=== PATIENT | female | born 1930 | race Caucasian/White ===

== ENCOUNTER 2018-06-18 13:05 | Outpatient (CLI) | payer MEDICARE ==
[~2018-06-18] VITALS: Ht 167.6 cm; Wt 62.7 kg
[2018-06-18 13:39] VITALS: BP 144/81
[2018-06-18] MEDS ORDERED: AMIO200T4 PO (16:17)
[2018-06-18] MEDS ORDERED: ANAS1TAB7 PO (16:17)
[2018-06-18] MEDS ORDERED: CLIN150C17 PO (16:17)
[2018-06-18] MEDS ORDERED: METO-387 PO (16:17)
[2018-06-18] MEDS ORDERED: CALC-904 PO (16:17)
[2018-06-18] MEDS ORDERED: ASCO500C17 PO (16:17)
[2018-06-18] MEDS ORDERED: ACET325C3 PO (16:17)
[2018-06-18] MEDS ORDERED: CNC1KV IM (16:17)
[2018-06-18] MEDS ORDERED: MELA3TAB PO (16:17)
[2018-06-18] MEDS ORDERED: MULT-351 PO (16:17)
[2018-06-18] MEDS ORDERED: WARF2TAB PO ×2 (16:17)
[2018-06-18] MEDS ORDERED: MAGN400T6 PO (16:17)
[2018-06-18] MEDS ORDERED: AMIN887L23 PO (16:17)
== END 2018-06-18 16:18 | disposition home or self-care (01) ==
LOC: PREOP 13:05
PROVIDERS: ATTEND Podiatrist Foot & Ankle Surgery
DX: Z01.818 Encounter for other preprocedural examination (principal)
CPT/HCPCS: 87081

== ENCOUNTER 2018-06-21 06:00 | Day surgery (SDC) | payer MEDICARE ==
[~2018-06-21] VITALS: Ht 167.6 cm; Wt 62.7 kg
[~2018-06-21 06:00] MED LIST: ACET325C3 PO; AMIN887L23 PO; AMIO200T4 PO; ANAS1TAB7 PO; ASCO500C17 PO; CALC-904 PO; CLIN150C17 PO; CNC1KV IM; MAGN400T6 PO; MELA3TAB PO; METO-387 PO; MULT-351 PO; WARF2TAB PO
--- OUTSIDE RECORDS SUMMARY | 2018-06-21 06:09 | XMS REPORT | Referral Summary ---
Author Author [facility] Organization [facility] Address Unknown Phone Unavailable Care Team Providers Care Lead Nitrate Processor Name Role Phone Christo Lea PCP Encounter [facility] [id number] Date(s): 07/23/14 - 08/06/14 [facility] [address] [place] [address] Final: HERNIA OF OTHER SPECIFIED SITES, WITH OBSTRUCTION Final: Methicillin susceptible pneumonia due to Staphylococcus aureus Final: MECHANICAL COMPLICATION OF COLOSTOMY AND ENTEROSTOMY Final: ULCERATIVE COLITIS, UNSPECIFIED Final: Acute Kidney Failure, Unspecified Final: ACUTE POSTHEMORRHAGIC ANEMIA Final: UNSPECIFIED PROTEIN-CALORIE MALNUTRITION Final: ATRIAL FIBRILLATION Final: Diabetes mellitus without mention of complication, type II or unspecified type, not stated as uncontrolled Final: OTHER AND UNSPECIFIED HYPERLIPIDEMIA Final: Long-Term (Current) Use of Anticoagulants Final: HYPOPOTASSEMIA Final: DISORDERS OF MAGNESIUM METABOLISM Final: Other dysphagia Discharge Disposition: [facility]-[address] Bed Attending Physician: Chio Lanza MD Admitting Physician: Chio Lanza MD Vital Signs Most recent to 1 oldest [Reference Range]: Temperature Oral 36.8 degC [35.8-37.3 degC] (08/06/14 4:13 PM) Temperature Tympanic 36.5 degC [36.6-38.1 degC] *LOW* (07/30/14 4:00 PM) Temperature Skin 36.6 degC [36-37 degC] (07/24/14 10:15 PM) Temperature Temporal 36.6 degC Artery [36.3-37.8 (08/06/14 5:00 AM) degC] Peripheral Pulse 67 bpm Rate [60-100 bpm] (08/06/14 4:13 PM) Peripheral Pulse 70 bpm Rate with Activity (08/03/14 2:50 PM) Heart Rate Monitored 65 bpm [60-100 bpm] (08/05/14 4:10 PM) Respiratory Rate 18 br/min [14-20 br/min] (08/06/14 3:00 PM) Blood Pressure 112/65 mmHg [90-140/60-90 mmHg] (08/06/14 4:13 PM) Systolic Blood 145 mmHg Pressure with (08/03/14 2:50 PM) Activity Diastolic Blood 80 mmHg Pressure with (08/03/14 2:50 PM) Activity Mean Arterial 90 mmHg Pressure, Cuff (08/04/14 8:00 PM) Blood Pressure 82/43 mmHg Invasive *LOW* [90-140/60-90 mmHg] (07/24/14 11:00 PM) Mean Arterial 57 mmHg Pressure, Invasive (07/24/14 11:15 PM) SpO2 95 % (08/06/14 3:00 PM) Problem List Condition Effective Dates Status Health Status Informant Acute Active pain(Confirmed) Alteration in Active nutrition(Confirmed) 1 At risk for activity Active intolerance(Confirme d)2 At risk of pressure Active sore(Confirmed) Afib(Confirmed) Active Bleeding Active precautions(Confirme d)3 Colitis, ulcerative Active chronic(Confirmed) Fluid Active imbalance(Confirmed) 4 Hyperlipidemia(Confi Active rmed) Impaired gas Active exchange(Confirmed)5 Knowledge Active deficit(Confirmed)6 DM2 (diabetes Active mellitus, type 2)(Confirmed) 1Problem added automatically by system based on initiation of Alteration in Nutrition Plan of Care 2Problem added automatically by system based on initiation of At Risk for Activity Intolerance Plan of Care 3Problem added automatically by system based on initiation of Bleeding Precautions Plan of Care 4Problem added automatically by system based on initiation of Fluid Volume Imbalance Plan of Care 5Problem added automatically by system based on initiation of Impaired Gas Exchange Plan of Care 6Problem added automatically by system based on initiation of Knowledge Deficit Plan of Care Allergies, Adverse Reactions, Alerts Substance Reaction Severity Status amoxicillin Active Medications glimepiride 2 mg, Oral, Daily, 0 Refill(s) Start Date: 07/23/14 Status: Ordered guaiFENesin 200 mg oral tablet 1 tabs, Oral, q6hr, Cough/ Congestion, 0 Refill(s) Start Date: 08/06/14 Status: Ordered Lovenox 60 mg, SubCutaneous, Daily, 0 Refill(s) Start Date: 08/06/14 Status: Ordered Ocuvite See Instructions, tabs Oral Daily, 0 Refill(s) Start Date: 07/23/14 Status: Ordered warfarin 3 mg, Oral, Daily, 0 Refill(s) Start Date: 07/23/14 Status: Ordered Results Blood Gases Most recent to 1 oldest [Reference Range]: pH [7.35-7.45] 7.51 *HI* (07/31/14 11:25 AM) pCO2 Art [35-45 48 mmHg mmHg] *HI* (07/31/14 11:25 AM) Arterial PO2 [80-100 63 mmHg mmHg] *LOW* (07/31/14 11:25 AM) Bicarbonate [22-26 37 mEq/L mEq/L] *HI* (07/31/14 11:25 AM) Base Excess Art 13 [0-2] *HI* (07/31/14 11:25 AM) pO2 Art [90.0-97.0 94.5 % %] (07/31/14 11:25 AM) LPM Art 1.0 L/min (07/31/14 11:25 AM) O2 Panel Nasal Cannula (07/31/14 11:25 AM) Spec Site Radial-R (07/31/14 11:25 AM) Hematology Most recent to 1 oldest [Reference Range]: WBC [4.8-10.8 K/uL] 8.6 K/uL (08/06/14 5:47 AM) RBC [4.00-5.20 M/uL] 3.29 M/uL *LOW* (08/06/14 5:47 AM) Hgb [12.0-16.0 9.7 gm/dL gm/dL] *LOW* (08/06/14 5:47 AM) Hct [37.0-47.0 %] 30.8 % *LOW* (08/06/14 5:47 AM) MCV [82.0-99.0 fL] 93.6 fL (08/06/14 5:47 AM) MCH [27.0-32.0 pg] 29.5 pg (08/06/14 5:47 AM) MCHC [32.0-36.0 31.5 gm/dL gm/dL] *LOW* (08/06/14 5:47 AM) RDW [11.5-14.5 %] 14.1 % (08/06/14 5:47 AM) Platelet [150-400 302 K/uL K/uL] (08/06/14 5:47 AM) MPV [9.4-12.4 fL] 11.5 fL (08/06/14 5:47 AM) Immature 2.2 % Granulocytes *HI* [0.0-1.0 %] (08/03/14 4:41 AM) Neutrophils [51-75 77 % %] *HI* (08/03/14 4:41 AM) Lymphocytes [20-46 13 % %] *LOW* (08/03/14 4:41 AM) Monocytes [4-11 %] 6 % (08/03/14 4:41 AM) Eosinophils [0-4 %] 1 % (08/03/14 4:41 AM) Basophils [0-2 %] 0 % (08/03/14 4:41 AM) Neutro Absolute 9.72 THOUS [1.90-7.00 THOUS] *HI* (08/03/14 4:41 AM) Lymph Absolute 1.68 THOUS [0.80-3.30 THOUS] (08/03/14 4:41 AM) [place] Absolute 0.69 THOUS [0.30-1.00 THOUS] (08/03/14 4:41 AM) Eos Absolute 0.17 THOUS [0.00-0.50 THOUS] (08/03/14 4:41 AM) Baso Absolute 0.01 THOUS [0.00-0.20 THOUS] (08/03/14 4:41 AM) Nucleated RBC 0.0 /100 WBC Automated [0 /100 (08/03/14 4:41 AM) WBC] Coagulation Most recent to 1 oldest [Reference Range]: INR [0.9-1.2] 1.1 (08/06/14 5:47 AM) PTT [25.0-35.0] 119.1 *HI* (07/24/14 6:39 AM) Chemistry Most recent to 1 oldest [Reference Range]: Sodium Lvl [136-144 137 mEq/L mEq/L] (08/06/14 5:47 AM) Potassium Lvl 4.5 mEq/L [3.6-5.1 mEq/L] (08/06/14 5:47 AM) Chloride [99-109 106 mEq/L mEq/L] (08/06/14 5:47 AM) CO2 [22-32 mEq/L] 25 mEq/L (08/06/14 5:47 AM) AGAP [3-20] 6 (08/06/14 5:47 AM) BUN [4-20 mg/dL] 27 mg/dL *HI* (08/06/14 5:47 AM) Glucose Lvl [70-100 117 mg/dL mg/dL] *HI* (08/06/14 5:47 AM) Creatinine Lvl 0.98 mg/dL [0.44-1.03 mg/dL] (08/06/14 5:47 AM) eGFR [>60] 54 1 *ABN* (08/06/14 5:47 AM) Calcium Lvl 8.4 mg/dL [8.6-10.0 mg/dL] *LOW* (08/06/14 5:47 AM) Albumin Lvl [3.5-4.8 2.6 gm/dL gm/dL] *LOW* (08/06/14 5:47 AM) Total Protein 5.4 gm/dL [6.1-7.9 gm/dL] *LOW* (08/03/14 4:41 AM) Globulin [1.9-4.3 3.0 gm/dL gm/dL] (08/03/14 4:41 AM) ALT [14-54 unit/L] 34 unit/L (08/03/14 4:41 AM) AST [15-41 unit/L] 34 unit/L (08/03/14 4:41 AM) Alk Phos [26-104 95 unit/L unit/L] (08/03/14 4:41 AM) Bili Total [0.2-1.2 0.5 mg/dL 2 mg/dL] (08/03/14 4:41 AM) Bili Direct [0.0-0.2 0.2 mg/dL mg/dL] (08/03/14 4:41 AM) Bili Indirect 0.3 mg/dL [0.0-1.0 mg/dL] (08/03/14 4:41 AM) Magnesium Lvl 1.9 mg/dL [1.8-2.5 mg/dL] (08/06/14 5:47 AM) Phosphorus [2.4-4.7 3.5 mg/dL 3 mg/dL] (08/06/14 5:47 AM) Calcium Ionized 1.33 mmol/L [1.19-1.41 mmol/L] (08/05/14 5:25 AM) BNP [0-99 pg/mL] 187 pg/mL *HI* (07/26/14 8:30 AM) Lactic Acid Lvl 1.5 mEq/L [0.5-2.2 mEq/L] (07/25/14 7:50 PM) Prealbumin [18-38 15 mg/dL mg/dL] *LOW* (08/03/14 4:41 AM) Blood Glucose, 141 mg/dL Capillary [70-100 *HI* mg/dL] (08/06/14 11:19 AM) Trig [0-150 mg/dL] 90 mg/dL (08/03/14 4:41 AM) 1Result Comment: Multiply eGFR results by 1.21 for race. 2Result Comment: Naproxen, specifically the metabolite O-desmethylnaproxen, may cause spurious elevation in Total Bilirubin levels. 3Result Comment: High dosages of liposomal Amphotericin B (AmBisome) therapy or other drug preparations that use a liposomal envelope to facilitate drug delivery may cause falsely elevated results for phosphorus. Microbiology Reports TEST: Sputum Culture and Smear STATUS: Auth (Verified) BODY SITE: SOURCE: Sputum COLLECTED DATE/TIME: 08/01/14 4:30 PM Gram Smear Numerous (20-50/OIF) white blood cells Rare (0-1/OIF) squamous epithelial cells Moderate (5-10/OIF) gram positive cocci ORGANISM:Staphylococcus aureus ORGANISM:Gram Negative Rods ORGANISM:Gram Negative Rods TEST: Urine Culture STATUS: Auth (Verified) BODY SITE: SOURCE: Urine, Catherized COLLECTED DATE/TIME: 07/25/14 8:36 PM Urine Culture No growth Immunizations No data available for this section Procedures Procedure Date Related Diagnosis Body Site Replacement, complete, of a peripherally 08/06/14 inserted central venous catheter (PICC), without subcutaneous port or pump, through same venous access Arterial puncture, withdrawal of blood for 07/31/14 diagnosis Laparotomy Exploratory1 07/24/14 1auto-populated from documented surgical case Social History Social History Type Response Smoking Status Never smoker Assessment and Plan No data available for this section
--- OUTSIDE RECORDS SUMMARY | 2018-06-21 06:09 | XMS REPORT | Referral Summary ---
Author Organization Unknown Address Unknown Phone Unavailable Care Team Providers Care Cinetechnician Name Role Phone Christo Lea PCP Encounter [facility] Date(s): 07/23/14 - 08/06/14 [facility] [address] [place] [address] Discharge Disposition: [facility] Attending Physician: Chio Lanza MD Admitting Physician: [...] 57 mmHg Pressure, Invasive (07/24/14 11:15 PM) Most recent to 1 oldest [Reference Range]: SpO2 95 % (08/06/14 3:00 PM) Problem [...] 0 Refill(s) Start Date: 08/06/14 Status: Ordered Levaquin 750 mg oral tablet 1 tabs, Oral, q48hr, X 10 days, # 5 tabs, 0 Refill(s), other reason (Rx) Start Date: 08/06/14 Stop Date: 08/16/14 Status: Ordered Lovenox 60 mg, SubCutaneous, Daily, 0 Refill(s) Start Date: 08/06/14 Status: Ordered Ocuvite See Instructions, tabs Oral Daily, 0 Refill(s) Special Instructions: tabs Oral Daily Start Date: 07/23/14 Status: Ordered warfarin 3 [...] Art 13 [0-2] *HI* (07/31/14 11:25 AM) SaO2 Art [90.0-97.0 94.5 % %] (07/31/14 11:25 [...] 1.68 THOUS [0.80-3.30 THOUS] (08/03/14 4:41 AM) [place] Absolute 0.69 THOUS [0.30-1.00 THOUS] (08/03/14 4:41 [...] mg/dL] (08/06/14 5:47 AM) eGFR [>60] 54 3 *ABN* (08/06/14 5:47 AM) Calcium Lvl 8.4 [...] (08/06/14 5:47 AM) Phosphorus [2.4-4.7 3.5 mg/dL 1 mg/dL] (08/06/14 5:47 AM) Calcium Ionized 1.33 mmol/L [1.19-1.41 mmol/L] (08/05/14 5:25 AM) BNP [0-99 pg/mL] 187 pg/mL *HI* (07/26/14 8:30 AM) Lactic Acid Lvl 1.5 mEq/L [0.5-2.2 mEq/L] (07/25/14 7:50 PM) Prealbumin [18-38 15 mg/dL mg/dL] *LOW* (08/03/14 4:41 AM) Blood Glucose, 141 mg/dL Capillary [70-100 *HI* mg/dL] (08/06/14 11:19 AM) Trig [0-150 mg/dL] 90 mg/dL (08/03/14 4:41 AM) 1Result Comment: High dosages of liposomal Amphotericin B (AmBisome) therapy or other drug preparations that use a liposomal envelope to facilitate drug delivery may cause falsely elevated results for phosphorus. 2Result Comment: Naproxen, specifically the metabolite O-desmethylnaproxen, may cause spurious elevation in Total Bilirubin levels. 3Result Comment: Multiply eGFR results by 1.21 for race. Microbiology Reports PROCEDURE: Sputum Culture and Smear STATUS: Auth (Verified) BODY SITE: SOURCE: Sputum COLLECTED DATE/TIME: 08/01/14 4:30 PM ORGANISM:Staphylococcus aureus ORGANISM:Gram Negative Rods ORGANISM:Gram Negative Rods PROCEDURE: Urine Culture STATUS: Auth (Verified) BODY SITE: SOURCE: Urine, Catherized COLLECTED DATE/TIME: 07/25/14 8:36 PM Immunizations No data available for this section [...]
--- OUTSIDE RECORDS SUMMARY | 2018-06-21 06:10 | XMS REPORT | Referral Summary ---
Author Author [facility] Organization [facility] Address Unknown Phone Unavailable Care Team Providers Care [facility] Name Role Phone Christo Lea PCP Encounter [facility] [id number] Date(s): 07/23/14 - 08/06/14 [facility] [address] [place] [address] Final: HERNIA OF OTHER SPECIFIED SITES, WITH [...] 1.68 THOUS [0.80-3.30 THOUS] (08/03/14 4:41 AM) [place] Absolute 0.69 THOUS [0.30-1.00 THOUS] (08/03/14 4:41 [...]
--- OUTSIDE RECORDS SUMMARY | 2018-06-21 06:10 | XMS REPORT ---
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 Active 13115162 Problem Ulcerated, foot L97.509 Active 26050309 Problem Skin tag L91.8 Active 899185600 Problem Cholecystitis K81.9 Active 30743790 Problem GERD (gastroesophageal reflux disease) K21.9 Active 896708457 Problem Orthostatic hypotension I95.1 Active 95535779 Problem Unspecified atrial fibrillation I48.91 Active 89796303 Problem Type 2 diabetes mellitus without complications E11.9 Active 675703788 Problem UTI (urinary tract infection) N39.0 Active 86823757 Problem Cholelithiasis K80.20 Active 567308972 Problem Bronchitis J40 Active 90398215 Problem Urge incontinence N39.41 Active 44143984 Problem Wheezing R06.2 Active 33351650 Problem Lung mass R91.8 Active 661907881 Problem Chronic renal failure, stage 3 (moderate) N18.3 Active 68414419 Problem Breast mass N63 Active 56841041 Problem Subacute vaginitis N76.1 Active [id number] Problem Fall, initial encounter W19.XXXA Active 5443856 Problem Malignant neoplasm of central portion of right female breast C50.111 Active 61491728 Problem Vitamin B12 deficiency E53.8 Active 846564943 Problem Nausea alone 787.02 Active 338293351 Problem Ileostomy status V44.2 Active 428999715 Problem Personal history of fall V15.88 Active 545044258 Problem Accidental fall on or from other stairs or steps E880.9 Active 759880358 Problem Need for prophylactic vaccination and inoculation, Influenza V04.81 Active 119053798 Problem Unspecified myalgia and myositis 729.1 Active 596556775 Problem Pain in joint, forearm 719.43 Active 454341177 Problem Pain in joint, shoulder region 719.41 Active 813286177 Problem Generalized osteoarthrosis, involving multiple sites 715.09 Active 10825346 Problem Ileostomy status Z93.2 Active 823456175 Problem Other general symptoms 780.99 Active 515764395 Problem Other vitamin B12 deficiency anemias D51.8 Active 37750925 Problem [facility]FP (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 Z79.01 Active 858643677 Problem Skin cancer C44.90 Active 486798796 Problem Infected tooth K04.7 Active 486064794 Problem Type 2 diabetes mellitus with other specified complication, without long-term current use of insulin E11.69 Active 21194883 Problem Type 2 diabetes mellitus without complication, without long-term current use of insulin E11.9 Active 818257941 Problem Other vitamin B12 deficiency anemia 281.1 Active 68264925 Problem Seborrheic keratosis L82.1 Active 023703904 Problem Macular degeneration (senile) of retina, unspecified 362.50 Active 434796007 Problem Inflamed seborrheic keratosis of left cheek L82.0 Active 632184384 Problem Atrial fibrillation 427.31 Active 50118118 Problem Persistent atrial fibrillation I48.1 Active 108815227 Problem 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 Active 460628880 Problem Falls frequently R29.6 Active 986025663 Problem Urinary tract infection, site not specified 599.0 Active 95394298 Problem Vernon of foot 700 Active 840110057 Problem Chronic atrial fibrillation I48.2 Active 532257417 Problem Other B-complex deficiencies 266.2 Active 202660491 Problem Diabetes mellitus without mention of complication, type II or unspecified type, not stated as uncontrolled 250.00 Active 442410482 Problem Volume depletion, unspecified 276.50 Active 71091939 Problem Other and unspecified hyperlipidemia 272.4 Active 68186901 ALLERGIES Substance Reaction Event Type Date Status Penicillin V Potassium Unknown Drug Allergy Feb, Active ENCOUNTERS Encounter Location Date Diagnosis [facility] [address] [place] [address] Feb, Medicare annual wellness visit, initial Z00.00 ; Type 2 diabetes mellitus without complications E11.9 ; Chronic renal failure, stage 3 (moderate) N18.3 ; Wheezing R06.2 ; 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 ; Skin cancer C44.90 ; Malignant neoplasm of central portion of right female breast C50.111 ; Orthostatic hypotension I95.1 and Encounter for immunization Z23 [facility] [address] [place] [address] Feb, Encounter for immunization Z23 [address] [id number] Jan, Persistent atrial fibrillation I48.1 ; Falls frequently R29.6 ; Other vitamin B12 deficiency anemias D51.8 ; Malignant neoplasm of central portion of right female breast C50.111 ; Ileostomy status Z93.2 and Type 2 diabetes mellitus with other specified complication, without long-term current use of insulin E11.69 [facility] [address] [address] Jan, [facility] [address] [address] Dec, [address] [id number] Nov, Persistent atrial fibrillation I48.1 ; Falls frequently R29.6 ; Type 2 diabetes mellitus without complication, without long-term current use of insulin E11.9 ; Vitamin B12 deficiency E53.8 ; Ileostomy status Z93.2 and Malignant neoplasm of central portion of right female breast C50.111 [facility] [address] [place] [address] Oct, [address] [id number] Oct, Persistent atrial fibrillation I48.1 ; Falls frequently R29.6 ; Type 2 diabetes mellitus without complication, without long-term current use of insulin E11.9 ; Vitamin B12 deficiency E53.8 ; Ileostomy status Z93.2 and Malignant neoplasm of central portion of right female breast C50.111 [facility] [address] [place] [address] Oct, Encounter for long-term (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 other medications V58.[address] [id number] Sep, Persistent atrial fibrillation I48.1 ; Falls frequently R29.6 ; Type 2 diabetes mellitus without complication, without long-term current use of insulin E11.9 ; Vitamin B12 deficiency E53.8 and Ileostomy status Z93.[address] [address] Sep, [address] [address] August, [address] [address] August, [address] [address] August, [address] [id number] August, Chronic atrial fibrillation I48.2 ; B12 deficiency E53.8 and Type 2 diabetes mellitus without complication, without long-term current use of insulin E11.[address] [address] August, [address] [address] August, meterman ( 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 Z79.01 and Other vitamin B12 deficiency anemia 281.[address] [address] Jul, Type 2 diabetes mellitus without complications E11.9 ; [facility]FP (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 Z79.01 ; Other vitamin B12 deficiency anemias D51.8 and Malignant neoplasm of central portion of right female breast C50.[address] [address] Jun, [facility] ( 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 Z79.01 ; Falls frequently R29.6 ; Unspecified atrial fibrillation I48.91 and Encounter for long-term (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 other medications V58.[address] [address] May, Fall, initial encounter W19.XXXA ; Encounter for long-term (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 other medications V58.69 ; [facility]FP (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 Z79.01 and Persistent atrial fibrillation I48.1 [facility] [address] [place] [address] 14 May, [address] [address] [address] 05 Mar, 2017 Bronchitis J40 and Chronic renal failure, stage 3 (moderate) N18.[address] [facility] [address] [address] 10 Feb, 2017 Encounter for long-term (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 other medications V58.[address] [facility] [address] [address] 10 Feb, 2017 Chronic atrial fibrillation I48.2 and Other fpc (current) drug therapy Z79.899 [facility] [address] [address] Jan, Chronic atrial fibrillation I48.2 and Encounter for long-term (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 other medications V58.[address] [facility] [address] [address] Jan, [facility]FP current use of 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 Z79.[address] [address] 02 Jan, 2017 Medicare welcome exam Z00.00 ; Medicare annual wellness visit, initial Z00.00 ; Medicare annual wellness visit, subsequent Z00.00 ; Vitamin B12 deficiency E53.8 ; Falls frequently R29.6 ; Unspecified atrial fibrillation I48.91 ; [facility]FP current use of 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 Z79.01 and Encounter for immunization Z23 [address] [address] Oct, Encounter for long-term (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 other medications V58.69 ; Type 2 diabetes mellitus without complications E11.9 ; meterman (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 Z79.01 ; Malignant neoplasm of central portion of right female breast C50.111 ; Orthostatic hypotension I95.1 ; Seborrheic keratosis L82.1 and Vitamin B12 deficiency E53.[address] [facility] [address] [address] Jun, meterman ( 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 Z79.01 [facility] [address] [address] [place] [address] 14 Jun, 2016 Skin cancer C44.[address] [address] Apr, meterman ( 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 Z79.01 ; Unspecified atrial fibrillation I48.91 ; Infected tooth K04.7 ; Other vitamin B12 deficiency anemias D51.8 and Malignant neoplasm of central portion of right female breast C50.[address] [address] Mar, Chronic atrial fibrillation I48.2 and MCFP current use of 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 Z79.[address] [address] Mar, Ulcerated, foot L97.509 ; Chronic atrial fibrillation I48.2 ; Chronic renal failure, stage 3 (moderate) N18.3 and Other vitamin B12 deficiency anemias D51.[address] [address] 30 Feb, 2016 Ulcerated, foot L97.509 and Cellulitis of foot L03.[address] [address] Feb, Type 2 diabetes mellitus without complications E11.9 ; Encounter for immunization Z23 ; Ileostomy status Z93.2 ; Vitamin B12 deficiency E53.8 ; Subacute vaginitis N76.1 ; UTI (urinary tract infection) N39.0 and Fall, initial encounter W19.XXXA [address] [address] Jan, [address] [address] Jan, [address] [address] Dec, [address] [address] Nov, Type 2 diabetes mellitus without complications E11.9 ; Chronic atrial fibrillation I48.2 ; meterman current use of 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 Z79.01 and Malignant neoplasm of central portion of right female breast C50.[address] [address] 14 Sep, [address] [address] Sep, 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 and Orthostatic hypotension I95.[address] [address] August, [address] [address] August, Type 2 diabetes mellitus without complications E11.9 and Chronic renal failure, stage 3 (moderate) N18.[address] [address] August, Encounter for long-term (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 other medications V58.69 ; MCFP current use of 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 V58.61 ; Chronic atrial fibrillation I48.2 ; Wheezing R06.2 ; Breast mass N63 and Lung mass R91.[address] [address] Jul, UTI ( urinary tract infection) N39.0 ; Type 2 diabetes mellitus without complications E11.9 ; Cholelithiasis K80.20 and Chronic renal failure, stage 3 (moderate) N18.[address] [address] Jul, [address] [address] Jul, Urge incontinence N39.41 ; Orthostatic hypotension I95.1 ; Bronchitis J40 ; UTI ( urinary tract infection) N39.0 ; Cholecystitis K81.9 ; 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 and Type 2 diabetes mellitus without complications E11.[address] [address] Jun, meterman current use of 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 Z79.01 ; Unspecified atrial fibrillation I48.91 and Encounter for long-term (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 other medications Z79.[address] [place] [address] Jun, Unspecified atrial fibrillation I48.91 ; Other fpc (current) drug therapy Z79.899 ; meterman (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 Z79.01 ; Ulcerated, foot L97.509 and Orthostatic hypotension I95.[address] [address] Apr, [facility] [address] [address] Mar, [address] [address] Mar, [address] [address] Mar, [address] [address] Mar, Cholecystitis K81.9 ; MCFP current use of 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 Z79.01 ; Chronic atrial fibrillation I48.2 ; Encounter for long-term (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 other medications Z79.899 ; GERD (gastroesophageal reflux disease) K21.9 ; 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 and Skin tag L91.[address] [address] Feb, Chronic atrial fibrillation I48.2 ; MCFP current use of 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 Z79.01 ; Encounter for long-term (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 other medications Z79.899 and Ulcerated, foot L97.[address] [address] Jan, Chronic atrial fibrillation I48.2 ; [facility]FP current use of 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 Z79.01 and Vitamin B12 deficiency anemia, unspecified D51.[address] [address] Jan, Chronic atrial fibrillation I48.2 ; [facility]FP current use of 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 Z79.01 ; Encounter for long-term (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 other medications Z79.899 ; Encounter for immunization Z23 and Cellulitis of foot L03.[address] [address] Jan, [address] [address] Jan, Type 2 diabetes mellitus without complications E11.9 ; Callus of foot L84 and Ulceration L98.[address] [address] Dec, Atrial fibrillation 427.31 ; Encounter for long-term (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 other medications V58.69 ; MCFP current use of 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 V58.61 and Vernon of foot [address] [address] Nov, Ileostomy status V44.2 ; Other vitamin B12 deficiency anemia 281.1 ; Atrial fibrillation 427.31 ; Encounter for long-term (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 other medications V58.69 and MCFP current use of 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 V58.[address] [address] Oct, 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 ; Atrial fibrillation 427.31 ; Encounter for long- term (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 other medications V58.69 and [facility]FP current use of 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 V58.[address] [address] Oct, Atrial fibrillation 427.31 ; Diabetes mellitus without mention of complication, type II or unspecified type, not stated as uncontrolled 250.00 ; Encounter for long- term (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 other medications V58.69 ; meterman current use of 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 V58.61 ; Cold intolerance 780.99 ; Imbalance 781.2 and Other B-complex deficiencies 266.[address] [address] Oct, [address] [address] Sep, [address] [address] August, Ileostomy status V44.2 ; Diabetes mellitus without mention of complication, type II or unspecified type, not stated as uncontrolled 250.00 ; Other vitamin B12 deficiency anemia 281.1 ; Atrial fibrillation 427.31 and Foot ulcer, right 707.15 [facility] [place] [address] [facility] [address] August, [facility] [address] [address] Jul, [facility] [address], [place] [address] Jul, [facility] [address], [place] [address] Jun, [facility] [place] [address] [place] [address] Jun, [facility] [place] [address] [place] [address] Apr, [facility] [place] [address] [place] [address] Apr, [facility] [place] [address] [place] [address] Apr, [facility] [address], [place] [address] Apr, [facility] [address], [place] [address] Apr, [facility] [address], [place] [address] Apr, [facility] [place] [address] [place] [address] Apr, [facility] [address], [place] [address] Apr, [facility] [id number] [address] Apr, [facility] [place] [address] [place] [address] Apr, [facility] [id number], [place] [address] Apr, [facility] [address], [place] [address] Mar, [facility] [id number], [place] [address] Mar, [facility] [place] [address] [place] [address] Mar, [facility] [address], [place] [address] Mar, [facility] [place] [address] [place] [address] Feb, [facility] [id number], [place] [address] Feb, [facility] [address], [place] [address] Jan, [facility] [place] [address] [place] [address] Jan, [facility] [address], [place] [address] Jan, [facility] [id number], [place] [address] Dec, [facility] [place] [address] [place] [address] Dec, [facility] [address], [place] [address] Dec, [facility] [place] [address] [place] [address] Dec, [facility] [id number], [place] [address] Nov, [facility] [place] [address] [place] [address] Nov, [facility] [place] [address] [place] [address] Oct, [facility] [address], [place] [address] Oct, [facility] [id number], [place] [address] Sep, [facility] [id number], [place] [address] Sep, [facility] [place] [address] [place] [address] Sep, [facility] [place] [address] [place] [address] Sep, [facility] [id number], [place] [address] Sep, [facility] [place] [address] [place] [address] August, [facility] [address], [place] [address] August, [facility] [place] [address] [place] [address] August, [facility] [address], [place] [address] August, [facility] [place] [address] [place] [address] Jul, [facility] [id number], [place] [address] Jul, [facility] [place] [address] [place] [address] Jun, [facility] [id number], [place] [address] Jun, [facility] [place] [address] [place] [address] Jun, [facility] [address], [place] [address] Jun, [facility] [place] [address] [place] [address] May, [facility] [address], [place] [address] May, [facility] [place] [address] [place] [address] May, [facility] [id number], [place] [address] May, [facility] [id number], [place] [address] Apr, [facility] [place] [address] [place] [address] Apr, [facility] [place] [address] [place] [address] Mar, [facility] [id number] [place] [address] Mar, [facility] [place] [address] [place] [address] Mar, [facility] [address] [place] [address] Mar, [facility] [id number] [place] [address] Mar, [facility] [place] [address] [place] [address] Mar, [facility] [place] [address] [place] [address] Mar, [facility] [id number], [place] [address] Mar, [facility] [place] [address] [place] [address] Feb, [facility] [id number], [place] [address] Feb, [facility] [place] [address] [place] [address] Feb, [facility] [id number], [place] [address] Feb, [facility] [id number] [place] [address] Jan, [facility] [place] [address] [place] [address] Jan, [facility] [place] [address] [place] [address] Jan, IMMUNIZATIONS Vaccine Route Administration Date Status TDAP (BOOSTRIX) IM Intramuscular Mar 04, 2018 Administered SOCIAL HISTORY Never Assessed REASON FOR VISIT LILY Gauthier RN, Issues with dizziness PLAN OF CARE Activity Details Follow Up 4 Weeks Reason: VITAL SIGNS Height 65 in 2018-03-04 Weight 139.7 lbs 2018-03-04 Temperature 97.1 degrees Fahrenheit 2018-03-04 Heart Rate 80 bpm 2018-03-04 Respiratory Rate 18 2018-03-04 BMI 23.24 kg/m2 2018-03-04 Blood pressure systolic 118 mmHg 2018-03-04 Blood pressure diastolic 64 mmHg 2018-03-04 MEDICATIONS Medication Instructions Dosage Frequency Start Date End Date Duration Status Warfarin Sodium 4 MG Orally Once a day 1 tablet 24h Mar, Active Multivitamin/Minerals Active Amiodarone HCl 200 MG TAKE 1 TABLET BY MOUTH DAILY 30 Active Acetaminophen 325 MG Orally every 6 hrs PRN 2 tablet as needed Active Loratadine 10 MG Orally Once a day 1 tablet 24h 30 day(s) Active Lancets - Not-Taking Anastrozole 1 MG Orally Once a day 1 tablet 24h Active Calcium + D3 600-800 MG-UNIT Orally twice a day 1 tablet with a meal 12h Active Cyanocobalamin 1000 MCG/ML Injection IM monthly Active Blood Glucose Monitor System w/Device as directed 24h August, Not-Taking Magnesium Oxide 400 (240 Mg) MG TAKE 2 TABLETS BY MOUTH ONCE A DAY Active Milk of Magnesia 400 MG/5ML Orally Q24 hours as needed 5 ml as needed Active Test strips Not-Taking RESULTS No Results PROCEDURES Procedure Date Ordered Result Body Site ADVNCD CARE PLAN 30 MIN Mar 04, 2018 TDAP (BOOSTRIX) Mar 04, 2018 [facility] VISIT IPPE/AWV Mar 04, 2018 SINGLE IMMUNIZATION ADMIN Mar 04, 2018 ANNUAL WELLNESS VST; PPS SUBSQT VST Mar 04, 2018 INSTRUCTIONS MEDICATIONS ADMINISTERED No Known Medications MEDICAL (GENERAL) HISTORY Type Description Date Medical History Macular degeneration (senile) of retina, unspecified Medical History Atrial fibrillation Medical History Ileostomy status Medical History Other and unspecified hyperlipidemia Medical History Other vitamin B12 deficiency anemia Medical History Diabetes mellitus without mention of complication, type II or unspecified type, not stated as uncontrolled Surgical History sinus surgery Surgical History colon resection Surgical History ileostomy Surgical History hernia repair Surgical History toe surgery several times due to fractures Surgical History PACEMAKER PLACEMENT 2016 Surgical History breast biopsy Hospitalization History childbirth Hospitalization History electrolyte problems Hospitalization History surgeries Hospitalization History Pneumonia 2016
--- OUTSIDE RECORDS SUMMARY | 2018-06-21 06:10 | XMS REPORT | Referral Summary ---
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 Name Role Phone Christo Lea PCP Encounter [facility] [id number] Date(s): 02/24/15 - 03/15/15 [facility] [address] [place] [address] Discharge Diagnosis: Abdominal pain in female patient Discharge Diagnosis: Leukocytosis Discharge Diagnosis: Ventricular tachycardia Discharge Diagnosis: Cholecystitis Discharge Disposition: 03-[facility] Facility Attending Physician: Jazmine Hussein MD Admitting Physician: Jazmine Hussein MD Vital Signs Most recent to 1 oldest [Reference Range]: Temperature Oral 36.8 degC [35.8-37.3 degC] (03/15/15 4:00 PM) Temperature Temporal 36.5 degC Artery [36.3-37.8 (03/10/15 12:00 PM) degC] Peripheral Pulse 92 bpm Rate [60-100 bpm] (03/15/15 4:00 PM) Heart Rate Monitored 77 bpm [60-100 bpm] (03/10/15 2:00 PM) Respiratory Rate 17 br/min [14-20 br/min] (03/15/15 4:00 PM) Blood Pressure 100/70 mmHg [90-140/60-90 mmHg] (03/15/15 4:00 PM) Mean Arterial 79 mmHg Pressure, Cuff (03/14/15 3:19 AM) SpO2 96 % (03/15/15 4:00 PM) Problem List Condition Effective Dates Status Health Status Informant Acute Active pain(Confirmed) Alteration in Active nutrition(Confirmed) 1 At risk for activity Active intolerance(Confirme d)2 At risk for Active infection(Confirmed) 3 At risk of pressure Active sore(Confirmed) Afib(Confirmed) Active Bleeding Active precautions(Confirme d)4 Bowel Active dysfunction(Confirme d)5 Colitis, ulcerative Active chronic(Confirmed) Fluid Active imbalance(Confirmed) 6 Hyperlipidemia(Confi Active rmed) Impaired gas Active exchange(Confirmed)7 Knowledge Active deficit(Confirmed)8 DM2 (diabetes Active mellitus, type 2)(Confirmed) Urinary tract Active patient infection(Confirmed) Ventricular Active patient tachycardia(Confirme d) 1Problem added automatically by system based on initiation of Alteration in Nutrition Plan of Care 2Problem added automatically by system based on initiation of At Risk for Activity Intolerance Plan of Care 3Problem added automatically by system based on initiation of At Risk for Infection in Nutrition Plan of Care 4Problem added automatically by system based on initiation of Bleeding Precautions Plan of Care 5Problem added automatically by system based on initiation of Bowel Dysfunction Plan of Care 6Problem added automatically by system based on initiation of Fluid Volume Imbalance Plan of Care 7Problem added automatically by system based on initiation of Impaired Gas Exchange Plan of Care 8Problem added automatically by system based on initiation of Knowledge Deficit Plan of Care Allergies, Adverse Reactions, Alerts Substance Reaction Severity Status amoxicillin Active Medications acetaminophen 325 mg oral tablet 650 mg 2 tabs, Oral, q6hr, Pain Mild (1-3), 0 Refill(s) Start Date: 03/15/15 Status: Ordered amiodarone 200 mg oral tablet 200 mg 1 tabs, Oral, BID, 0 Refill(s) Start Date: 03/15/15 Status: Ordered aspirin 325 mg oral tablet 325 mg 1 tabs, Oral, Daily, 0 Refill(s) Start Date: 03/15/15 Status: Ordered cefTRIAXone 1 g injection 1 g, IV Push, q24hr, X 11 days, # 11 Each, 0 Refill(s), other reason (Rx) Start Date: 03/11/15 Stop Date: 03/22/15 Status: Ordered glimepiride 2 mg, Oral, Daily, 0 Refill(s) Start Date: 07/23/14 Status: Ordered magnesium oxide 400 mg (241.3 mg elemental magnesium) oral tablet 800 mg 2 tabs, Oral, BIDWM, 0 Refill(s) Start Date: 03/15/15 Status: Ordered metoprolol tartrate 25 mg oral tablet 12.5 mg 0.5 tabs, Oral, BID, 0 Refill(s) Start Date: 03/15/15 Status: Ordered metroNIDAZOLE 500 mg oral tablet 500 mg 1 tabs, Oral, BID, X 11 days, # 22 tabs, 0 Refill(s), other reason (Rx) Start Date: 03/11/15 Stop Date: 03/22/15 Status: Ordered Ocuvite 1 tabs, Oral, Daily, 0 Refill(s) Start Date: 07/23/14 Status: Ordered Protonix 40 mg oral delayed release tablet 40 mg 1 tabs, Oral, Daily, 0 Refill(s) Start Date: 03/15/15 Status: Ordered warfarin 3 mg, Oral, Daily, 0 Refill(s) Start Date: 07/23/14 Status: Ordered Results Hematology Most recent to 1 oldest [Reference Range]: WBC [4.8-10.8 13.8 10*3/uL 10*3/uL] *HI* (03/13/15 6:31 AM) RBC [4.00-5.20] 2.93 *LOW* (03/13/15 6:31 AM) Hgb [12.0-16.0 8.6 gm/dL gm/dL] *LOW* (03/13/15 6:31 AM) Hct [37.0-47.0 %] 27.5 % *LOW* (03/13/15 6:31 AM) MCV [82.0-99.0 fL] 93.9 fL (03/13/15 6:31 AM) MCH [27.0-32.0 pg] 29.4 pg (03/13/15 6:31 AM) MCHC [32.0-36.0 31.3 gm/dL gm/dL] *LOW* (03/13/15 6:31 AM) RDW [11.5-14.5 %] 16.3 % *HI* (03/13/15 6:31 AM) Platelet [150-400 456 10*3/uL 10*3/uL] *HI* (03/13/15 6:31 AM) MPV [9.4-12.4 fL] 11.3 fL (03/13/15 6:31 AM) Immature 2.9 % Granulocytes *HI* [0.0-1.0 %] (03/08/15 4:13 AM) Neutrophils [51-75 74 % %] (03/08/15 4:13 AM) Band Man [0-8 %] 2 % (03/04/15 8:14 AM) Ethel Man [0-1 %] 1 % (03/07/15 4:42 AM) Myelo Man 1 % (03/07/15 4:42 AM) Lymphocytes [20-46 15 % %] *LOW* (03/08/15 4:13 AM) Monocytes [4-11 %] 4 % (03/08/15 4:13 AM) Eosinophils [0-4 %] 4 % (03/08/15 4:13 AM) Basophils [0-2 %] 0 % (03/08/15 4:13 AM) Neutro Absolute 13.29 10*3 [1.90-7.00 10*3] *HI* (03/08/15 4:13 AM) Lymph Absolute 2.63 10*3 [0.80-3.30 10*3] (03/08/15 4:13 AM) Coryell Absolute 0.76 10*3 [0.30-1.00 10*3] (03/08/15 4:13 AM) Eos Absolute 0.62 10*3 [0.00-0.50 10*3] *HI* (03/08/15 4:13 AM) Baso Absolute 0.03 10*3 [0.00-0.20 10*3] (03/08/15 4:13 AM) Giant Platelets Occasional *ABN* (03/07/15 4:42 AM) Polychrom Occasional *ABN* (03/01/15 5:26 AM) Rice Cell Occasional *ABN* (03/04/15 8:14 AM) Rouleaux Present *ABN* (03/07/15 4:42 AM) Nucleated RBC 0.0 /100 WBC Automated [0 /100 (03/08/15 4:13 AM) WBC] Differential Reviewed (03/04/15 8:14 AM) Coagulation Most recent to 1 oldest [Reference Range]: INR [0.9-1.2] 2.6 *HI* (03/15/15 5:14 AM) Chemistry Most recent to 1 oldest [Reference Range]: Sodium Lvl [136-144 139 mEq/L mEq/L] (03/13/15 6:31 AM) Potassium Lvl 4.0 mEq/L [3.6-5.1 mEq/L] (03/13/15 6:31 AM) Chloride [99-109 113 mEq/L mEq/L] *HI* (03/13/15 6:31 AM) CO2 [22-32 mEq/L] 19 mEq/L *LOW* (03/13/15 6:31 AM) AGAP [3-20] 7 (03/13/15 6:31 AM) BUN [4-20 mg/dL] 30 mg/dL *HI* (03/13/15 6:31 AM) Glucose Lvl [70-100 82 mg/dL mg/dL] (03/13/15 6:31 AM) Creatinine Lvl 1.35 mg/dL [0.44-1.03 mg/dL] *HI* (03/13/15 6:31 AM) eGFR [>60] 37 1 *ABN* (03/13/15 6:31 AM) Calcium Lvl 8.4 mg/dL [8.6-10.0 mg/dL] *LOW* (03/13/15 6:31 AM) Albumin Lvl [3.5-4.8 2.0 gm/dL gm/dL] *LOW* (03/05/15 3:31 AM) Total Protein 5.4 gm/dL [6.1-7.9 gm/dL] *LOW* (03/05/15 3:31 AM) Globulin [1.9-4.3 3.4 gm/dL gm/dL] (03/05/15 3:31 AM) ALT [14-54 U/L] 21 U/L (03/05/15 3:31 AM) AST [15-41 U/L] 21 U/L (03/05/15 3:31 AM) Alk Phos [26-104 133 U/L U/L] *HI* (03/05/15 3:31 AM) Bili Total [0.2-1.2 0.5 mg/dL 2 mg/dL] (03/05/15 3:31 AM) Magnesium Lvl 1.7 mg/dL [1.8-2.5 mg/dL] *LOW* (03/14/15 7:40 AM) Troponin [<0.06 0.39 ng/mL 3 ng/mL] *HHI* (02/24/15 6:15 PM) Lipase Lvl [8-48 22 U/L U/L] (03/03/15 3:57 AM) Blood Glucose, 163 mg/dL Capillary [70-100 *HI* mg/dL] (03/15/15 3:08 PM) Chol [0-200 mg/dL] 154 mg/dL (02/24/15 12:51 PM) Trig [0-150 mg/dL] 79 mg/dL (02/24/15 12:51 PM) HDL [>40 mg/dL] 78 mg/dL (02/24/15 12:51 PM) LDL [0-100 mg/dL] 60 mg/dL (02/24/15 12:51 PM) VLDL Cholesterol 16 mg/dL [0-30 mg/dL] (02/24/15 12:51 PM) Cardiac Risk 2.0 [0.0-5.0] (02/24/15 12:51 PM) 1Result Comment: Multiply eGFR results by 1.21 for race. 2Result Comment: Naproxen, specifically the metabolite O-desmethylnaproxen, may cause spurious elevation in Total Bilirubin levels. 3Result Comment: Critical value called, and read-back verified. Called to Sabrina Dunbar RN. ([facility]) 02/24/2015 19:02 Urinalysis Most recent to 1 oldest [Reference Range]: UA Color Dk Yellow (02/28/15 4:56 PM) UA Appear Clear (02/28/15 4:56 PM) UA pH [5.0-8.0] 6.0 (02/28/15 4:56 PM) UA Leuk Est Negative [Negative] (02/28/15 4:56 PM) UA Nitrite Negative [Negative] (02/28/15 4:56 PM) UA Protein Negative [Negative] (02/28/15 4:56 PM) UA Glucose Negative [Negative] (02/28/15 4:56 PM) UA Ketones Negative [Negative] (02/28/15 4:56 PM) UA Urobilinogen Negative [<1.0] (02/28/15 4:56 PM) UA Bili [Negative] Negative (02/28/15 4:56 PM) UA Blood [Negative] Negative (02/28/15 4:56 PM) UA Spec Grav 1.017 [1.003-1.030] (02/28/15 4:56 PM) Type Catheter (02/28/15 4:56 PM) Microbiology Reports TEST: Fluid Culture and Smear STATUS: Auth (Verified) BODY SITE: Abdomen SOURCE: Surgical-Fluid COLLECTED DATE/TIME: 03/08/15 9:37 AM Fluid Culture No growth TEST: Anaerobic Culture STATUS: Auth (Verified) BODY SITE: Abdomen SOURCE: Surgical-Fluid COLLECTED DATE/TIME: 03/08/15 9:37 AM Anaerobic Culture No anaerobes isolated TEST: Blood Culture STATUS: Auth (Verified) BODY SITE: SOURCE: Blood COLLECTED DATE/TIME: 03/01/15 11:37 AM Blood Culture No growth after 5 days of incubation. TEST: Blood Culture STATUS: Auth (Verified) BODY SITE: SOURCE: Blood COLLECTED DATE/TIME: 03/01/15 11:25 AM Blood Culture No growth after 5 days of incubation. TEST: Blood Culture STATUS: Auth (Verified) BODY SITE: SOURCE: Blood COLLECTED DATE/TIME: 02/24/15 3:38 PM Blood Culture No growth after 5 days of incubation. TEST: Blood Culture STATUS: Auth (Verified) BODY SITE: SOURCE: Blood COLLECTED DATE/TIME: 02/24/15 3:28 PM Blood Culture No growth after 5 days of incubation. Immunizations No data available for this section Procedures Procedure Date Related Diagnosis Body Site Cholecystostomy, percutaneous, complete 03/08/15 procedure, including imaging guidance, catheter placement, cholecystogram when performed, and radiological supervision and interpretation Catheterization Left Heart with Coronary 03/01/15 Angiography1 Insertion of peripherally inserted central 02/24/15 venous catheter (PICC), without subcutaneous port or pump; age 5 years or older Laparotomy Exploratory2 07/24/14 1auto-populated from documented surgical case 2auto-populated from documented surgical case Social History Social History Type Response Smoking Status Never smoker Assessment and Plan No data available for this section
--- OUTSIDE RECORDS SUMMARY | 2018-06-21 06:11 | XMS REPORT ---
Author Author ZARINA VERGARA Organization [facility] [address] [place] [address] Care Team Providers Care Linen Attendant Name Role Phone ZARINA VERGARA Unavailable PROBLEMS Type Condition ICD9-CM Code QKI41-KS Code Onset Dates Condition Status SNOMED Code Problem Cellulitis of foot L03.119 Active 440863139 Problem half-way current use of 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 Z79.01 Active 249042167 Problem 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 Active 64880169 Problem Ulcerated, foot L97.509 Active 85671331 Problem Skin tag L91.8 Active 603180798 Problem Cholecystitis K81.9 Active 68743310 Problem GERD (gastroesophageal reflux disease) K21.9 Active 247825573 Problem Orthostatic hypotension I95.1 Active 49738759 Problem Unspecified atrial fibrillation I48.91 Active 23855746 Problem Type 2 diabetes mellitus without complications E11.9 Active 489825679 Problem UTI (urinary tract infection) N39.0 Active 21940681 Problem Cholelithiasis K80.20 Active 818075328 Problem Bronchitis J40 Active 25490162 Problem Urge incontinence N39.41 Active 30614423 Problem Wheezing R06.2 Active 86168578 Problem Lung mass R91.8 Active 531558337 Problem Chronic renal failure, stage 3 (moderate) N18.3 Active 86423040 Problem Breast mass N63 Active 31164619 Problem Subacute vaginitis N76.1 Active [id number] Problem Fall, initial encounter W19.XXXA Active 7581368 Problem Malignant neoplasm of central portion of right female breast C50.111 Active 85145918 Problem Vitamin B12 deficiency E53.8 Active 174934449 Problem Nausea alone 787.02 Active 789658604 Problem Ileostomy status V44.2 Active 658615206 Problem Personal history of fall V15.88 Active 385183231 Problem Accidental fall on or from other stairs or steps E880.9 Active 838374217 Problem Need for prophylactic vaccination and inoculation, Influenza V04.81 Active 868642717 Problem Unspecified myalgia and myositis 729.1 Active 894277294 Problem Pain in joint, forearm 719.43 Active 210662544 Problem Pain in joint, shoulder region 719.41 Active 646599679 Problem Generalized osteoarthrosis, involving multiple sites 715.09 Active 14453188 Problem Ileostomy status Z93.2 Active 562458535 Problem Other general symptoms 780.99 Active 249363083 Problem Other vitamin B12 deficiency anemias D51.8 Active 84220052 Problem half-way (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 Z79.01 Active 314087786 Problem Skin cancer C44.90 Active 199427541 Problem Infected tooth K04.7 Active 769887516 Problem Type 2 diabetes mellitus with other specified complication, without long-term current use of insulin E11.69 Active 12604397 Problem Type 2 diabetes mellitus without complication, without long-term current use of insulin E11.9 Active 549339480 Problem Other vitamin B12 deficiency anemia 281.1 Active 36328640 Problem Seborrheic keratosis L82.1 Active 147588205 Problem Macular degeneration (senile) of retina, unspecified 362.50 Active 772787839 Problem Inflamed seborrheic keratosis of left cheek L82.0 Active 000841108 Problem Atrial fibrillation 427.31 Active 47690992 Problem Persistent atrial fibrillation I48.1 Active 552044076 Problem 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 Active 579516246 Problem Falls frequently R29.6 Active 436473819 Problem Urinary tract infection, site not specified 599.0 Active 31210330 Problem Garrison of foot 700 Active 792837644 Problem Chronic atrial fibrillation I48.2 Active 817796699 Problem Other B-complex deficiencies 266.2 Active 098369318 Problem Diabetes mellitus without mention of complication, type II or unspecified type, not stated as uncontrolled 250.00 Active 279799900 Problem Volume depletion, unspecified 276.50 Active 88632040 Problem Other and unspecified hyperlipidemia 272.4 Active 54339091 ALLERGIES No Information ENCOUNTERS Encounter Location Date Diagnosis [facility] [address] [place] [address] Feb, [facility] [address] [place] [address] Feb, Encounter for immunization Z23 [place] [address] [id number] Jan, Persistent atrial fibrillation I48.1 ; Falls frequently R29.6 ; Other vitamin B12 deficiency anemias D51.8 ; Malignant neoplasm of central portion of right female breast C50.111 ; Ileostomy status Z93.2 and Type 2 diabetes mellitus with other specified complication, without long-term current use of insulin E11.69 [facility] [address] [place] [address] Jan, [facility] [address] [place] [address] Dec, [address] [id number] Nov, Persistent atrial fibrillation I48.1 ; Falls frequently R29.6 ; Type 2 diabetes mellitus without complication, without long-term current use of insulin E11.9 ; Vitamin B12 deficiency E53.8 ; Ileostomy status Z93.2 and Malignant neoplasm of central portion of right female breast C50.111 [facility] [address] [place] [address] Oct, [address] [id number] Oct, Persistent atrial fibrillation I48.1 ; Falls frequently R29.6 ; Type 2 diabetes mellitus without complication, without long-term current use of insulin E11.9 ; Vitamin B12 deficiency E53.8 ; Ileostomy status Z93.2 and Malignant neoplasm of central portion of right female breast C50.[address] [address] Oct, Encounter for long-term (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 other medications V58.[address] [id number] Sep, Persistent atrial fibrillation I48.1 ; Falls frequently R29.6 ; Type 2 diabetes mellitus without complication, without long-term current use of insulin E11.9 ; Vitamin B12 deficiency E53.8 and Ileostomy status Z93.[address] [address] Sep, [address] [address] August, [address] [address] August, [address] [address] August, [address] [id number] August, Chronic atrial fibrillation I48.2 ; B12 deficiency E53.8 and Type 2 diabetes mellitus without complication, without long-term current use of insulin E11.[address] [address] August, [address] [address] August, half-way ( 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 Z79.01 and Other vitamin B12 deficiency anemia 281.[address] [address] Jul, Type 2 diabetes mellitus without complications E11.9 ; half-way (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 Z79.01 ; Other vitamin B12 deficiency anemias D51.8 and Malignant neoplasm of central portion of right female breast C50.[address] [address] Jun, half-way ( 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 Z79.01 ; Falls frequently R29.6 ; Unspecified atrial fibrillation I48.91 and Encounter for long-term (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 other medications V58.[address] [address] 28 May, 2017 Fall, initial encounter W19.XXXA ; Encounter for long-term (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 other medications V58.69 ; ferry terminal agent (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 Z79.01 and Persistent atrial fibrillation I48.[address] [address] 14 May, [address] [address] 05 Mar, 2017 Bronchitis J40 and Chronic renal failure, stage 3 (moderate) N18.[address] [address] Feb, Encounter for long-term (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 other medications V58.[address] [facility] [address] [address] Feb, Chronic atrial fibrillation I48.2 and Other long term care social worker (current) drug therapy Z79.899 [facility] [address] [address] Jan, Chronic atrial fibrillation I48.2 and Encounter for long-term (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 other medications V58.[address] [facility] [address] [address] Jan, ferry terminal agent current use of 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 Z79.01 [facility] [address] [address] 02 Jan, 2017 Medicare welcome exam Z00.00 ; Medicare annual wellness visit, initial Z00.00 ; Medicare annual wellness visit, subsequent Z00.00 ; Vitamin B12 deficiency E53.8 ; Falls frequently R29.6 ; Unspecified atrial fibrillation I48.91 ; half-way current use of 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 Z79.01 and Encounter for immunization Z23 [address] [address] Oct, Encounter for long-term (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 other medications V58.69 ; Type 2 diabetes mellitus without complications E11.9 ; ferry terminal agent (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 Z79.01 ; Malignant neoplasm of central portion of right female breast C50.111 ; Orthostatic hypotension I95.1 ; Seborrheic keratosis L82.1 and Vitamin B12 deficiency E53.8 [facility] [address] [address] Jun, ferry terminal agent ( 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 Z79.[address] [address] Jun, Skin cancer C44.[address] [address] Apr, half-way ( 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 Z79.01 ; Unspecified atrial fibrillation I48.91 ; Infected tooth K04.7 ; Other vitamin B12 deficiency anemias D51.8 and Malignant neoplasm of central portion of right female breast C50.111 [facility] [address] [address] Mar, Chronic atrial fibrillation I48.2 and half-way current use of 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 Z79.01 [facility] [place] [address] [place] [address] Mar, Ulcerated, foot L97.509 ; Chronic atrial fibrillation I48.2 ; Chronic renal failure, stage 3 (moderate) N18.3 and Other vitamin B12 deficiency anemias D51.[address] [address] 30 Feb, 2016 Ulcerated, foot L97.509 and Cellulitis of foot L03.[address] [address] Feb, Type 2 diabetes mellitus without complications E11.9 ; Encounter for immunization Z23 ; Ileostomy status Z93.2 ; Vitamin B12 deficiency E53.8 ; Subacute vaginitis N76.1 ; UTI (urinary tract infection) N39.0 and Fall, initial encounter W19.XXXA [address] [address] Jan, [address] [address] 04 Jan, [address] [address] Dec, [address] [address] Nov, Type 2 diabetes mellitus without complications E11.9 ; Chronic atrial fibrillation I48.2 ; ferry terminal agent current use of 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 Z79.01 and Malignant neoplasm of central portion of right female breast C50.[address] [address] Sep, [address] [address] 03 Sep, 2015 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 and Orthostatic hypotension I95.1 [address] [place] [address] August, [address] [address] August, Type 2 diabetes mellitus without complications E11.9 and Chronic renal failure, stage 3 (moderate) N18.[address] [address] August, Encounter for long-term (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 other medications V58.69 ; half-way current use of 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 V58.61 ; Chronic atrial fibrillation I48.2 ; Wheezing R06.2 ; Breast mass N63 and Lung mass R91.[address] [address] Jul, UTI ( urinary tract infection) N39.0 ; Type 2 diabetes mellitus without complications E11.9 ; Cholelithiasis K80.20 and Chronic renal failure, stage 3 (moderate) N18.[address] [address] Jul, [address] [address] 05 Jul, 2015 Urge incontinence N39.41 ; Orthostatic hypotension I95.1 ; Bronchitis J40 ; UTI ( urinary tract infection) N39.0 ; Cholecystitis K81.9 ; 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 and Type 2 diabetes mellitus without complications E11.[address] [address] Jun, half-way current use of 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 Z79.01 ; Unspecified atrial fibrillation I48.91 and Encounter for long-term (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 other medications Z79.[address] [address] Jun, Unspecified atrial fibrillation I48.91 ; Other assisted (current) drug therapy Z79.899 ; ferry terminal agent (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 Z79.01 ; Ulcerated, foot L97.509 and Orthostatic hypotension I95.[address] [address] Apr, [facility] [address] [place] [address] Mar, [address] [address] Mar, [facility] [address] [address] Mar, [address] [address] Mar, Cholecystitis K81.9 ; half-way current use of 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 Z79.01 ; Chronic atrial fibrillation I48.2 ; Encounter for long-term (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 other medications Z79.899 ; GERD (gastroesophageal reflux disease) K21.9 ; 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 and Skin tag L91.[address] [address] Feb, Chronic atrial fibrillation I48.2 ; ferry terminal agent current use of 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 Z79.01 ; Encounter for long-term (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 other medications Z79.899 and Ulcerated, foot L97.[address] [address] Jan, Chronic atrial fibrillation I48.2 ; ferry terminal agent current use of 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 Z79.01 and Vitamin B12 deficiency anemia, unspecified D51.[address] [address] Jan, Chronic atrial fibrillation I48.2 ; ferry terminal agent current use of 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 Z79.01 ; Encounter for long-term (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 other medications Z79.899 ; Encounter for immunization Z23 and Cellulitis of foot L03.[address] [address] Jan, [address] [address] 09 Jan, 2015 Type 2 diabetes mellitus without complications E11.9 ; Callus of foot L84 and Ulceration L98.[address] [address] Dec, Atrial fibrillation 427.31 ; Encounter for long-term (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 other medications V58.69 ; ferry terminal agent current use of 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 V58.61 and Garrison of foot [address] [address] Nov, Ileostomy status V44.2 ; Other vitamin B12 deficiency anemia 281.1 ; Atrial fibrillation 427.31 ; Encounter for long-term (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 other medications V58.69 and ferry terminal agent current use of 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 V58.[address] [address] Oct, 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 ; Atrial fibrillation 427.31 ; Encounter for long- term (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 other medications V58.69 and ferry terminal agent current use of 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 V58.[address] [address] Oct, Atrial fibrillation 427.31 ; Diabetes mellitus without mention of complication, type II or unspecified type, not stated as uncontrolled 250.00 ; Encounter for long- term (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 other medications V58.69 ; half-way current use of 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 V58.61 ; Cold intolerance 780.99 ; Imbalance 781.2 and Other B-complex deficiencies 266.[address] [address] Oct, [address] [address] Sep, [address] [address] August, Ileostomy status V44.2 ; Diabetes mellitus without mention of complication, type II or unspecified type, not stated as uncontrolled 250.00 ; Other vitamin B12 deficiency anemia 281.1 ; Atrial fibrillation 427.31 and Foot ulcer, right 707.[address] [address] August, [facility] [id number] [address] Jul, [facility] [address] [place], [place] [id number] [address] Jul, [facility] [place] [facility] [address] [facility] [id number] [address] Jun, [facility] [place] [address] [place] [address] Jun, [facility] [place] [address] [place] [address] Apr, [facility] [place] [address] [place] [address] Apr, [facility] [place] [address] [facility] [place] [address] Apr, [facility] [place] [facility] [id number] [address] Apr, [facility] [place] [facility] [id number] [address] Apr, [facility] [place] [facility] [address] [address] Apr, [facility] [place] [address] [place] [address] Apr, [facility] [place] [facility] [id number] [address] Apr, [facility] [place] [facility] [id number] [address] Apr, [facility] [place] [address] [place] [address] Apr, [facility] [place] [facility] [id number] [address] Apr, [facility] [place] [facility] [id number] [address] Mar, [facility] [place] [facility] [id number] [address] Mar, [facility] [place] [facility] [id number] [address] Mar, [facility] [place] [address] [place] [address] Mar, [facility] [place] [address] [facility] [place] [address] Feb, [facility] [address] [facility] [id number] [place] [address] Feb, [facility] [id number] [address] Jan, [facility] [place] [address] [place] [address] Jan, [facility] [address] [facility] [id number] [address] Jan, [facility] [id number] [address] Dec, [facility] [place] [address] [place] [address] Dec, [facility] [id number] [address] Dec, [facility] [place] [address] [place] [address] Dec, [facility] [id number] [address] Nov, [facility] [place] [address] [place] [address] Nov, [facility] [place] [address] [place] [address] Oct, [facility] [id number] [address] Oct, [facility] [id number] [address] Sep, [facility] [place] [facility] [id number] [address] Sep, [facility] [place] [address] [place] [address] Sep, [facility] [place] [address] [facility] [place] [address] Sep, [facility] [id number] [address] Sep, [facility] [place] [address] [place] [address] August, [facility] [address] [address] August, [facility] [place] [address] [place] [address] August, [facility] [place] [facility] [id number] [address] August, [facility] [place] [address] [place] [address] Jul, [facility] [address] [address] Jul, [facility] [place] [address] [place] [address] Jun, [facility] [id number] [address] Jun, [facility] [place] [address] [place] [address] Jun, [facility] [address] [address] Jun, [facility] [place] [address] [place] [address] May, [facility] [id number] [address] May, [facility] [place] [address] [place] [address] May, [facility] [place] [facility] [address] [address] May, [facility] [address] [address], [facility] [place] [address] [place] [address] Apr, [facility] [place] [address] [place] [address] Mar, 2012 [facility] [address] [address] Mar, [facility] [place] [address] [place] [address] Mar, [facility] [address] [place], [place] [address]005[place]100[place] [address] Mar, [facility] [address] [place] [id number] [place] [address] Mar, [facility] [place] [address] [place] [address] Mar, [facility] [place] [address] [place] [address] Mar, [facility] [address] [place] [address]00565100[place] [address] Mar, [facility] [place] [address] [place] [address] Feb, [facility] [address] [place] [address] [address] Feb, [facility] [place] [address] [place] [address] Feb, [facility] [address] [place] [address] [address] Feb, [facility] [address] [place] [address] [address] Jan, [facility] [place] [address] [place] [address] Jan, [facility] [place] [address] [place] [address] Jan, IMMUNIZATIONS Vaccine Route Administration Date Status FLULAVAL QUAD 0.5ML (6 MO & UP) 2018 IM Intramuscular Feb 12, 2018 Administered SOCIAL HISTORY Never Assessed REASON FOR VISIT Flu shot, [facility] PLAN OF CARE VITAL SIGNS MEDICATIONS Unknown Medications RESULTS No Results PROCEDURES Procedure Date Ordered Result Body Site FLULAVAL QUAD 0.5ML (6 MO & UP) 2017Feb 12, 2018 ADMN FLU VAC NO FEE SCHED SAME DAY Feb 12, 2018 SINGLE IMMUNIZATION ADMIN Feb 12, 2018 INSTRUCTIONS MEDICATIONS ADMINISTERED No Known Medications [...] problems Hospitalization History surgeries Hospitalization History Pneumonia 2015
--- OUTSIDE RECORDS SUMMARY | 2018-06-21 06:11 | XMS REPORT ---
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 Name Role Phone ZARINA VERGARA Unavailable PROBLEMS Type Condition ICD9-CM Code LVR17-SE Code Onset Dates Condition Status SNOMED Code Problem detention current use of 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 Z79.01 Active 108538030 Problem Chronic atrial fibrillation I48.2 Active 165719272 Problem Ulcerated, foot L97.509 Active 96471057 Problem Cellulitis of foot L03.119 Active 607247922 Problem 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 Active 63063540 Problem Skin tag L91.8 Active 811853566 Problem Cholecystitis K81.9 Active 36985448 Problem GERD (gastroesophageal reflux disease) K21.9 Active 162487922 Problem Orthostatic hypotension I95.1 Active 32361235 Problem Unspecified atrial fibrillation I48.91 Active 41227683 Problem Type 2 diabetes mellitus without complications E11.9 Active 914981583 Problem Bronchitis J40 Active 85471578 Problem Urge incontinence N39.41 Active 48659001 Problem UTI (urinary tract infection) N39.0 Active 08835296 Problem Breast mass N63 Active 52359846 Problem Wheezing R06.2 Active 81718841 Problem Cholelithiasis K80.20 Active 689062868 Problem Chronic renal failure, stage 3 (moderate) N18.3 Active 41327540 Problem Subacute vaginitis N76.1 Active [id number] Problem Vitamin B12 deficiency E53.8 Active 020175879 Problem Lung mass R91.8 Active 070405782 Problem Malignant neoplasm of central portion of right female breast C50.111 Active 55647005 Problem Ileostomy status V44.2 Active 807381903 Problem Accidental fall on or from other stairs or steps E880.9 Active 383251271 Problem Need for prophylactic vaccination and inoculation, Influenza V04.81 Active 703750451 Problem Personal history of fall V15.88 Active 269109606 Problem Other general symptoms 780.99 Active 883975572 Problem Unspecified myalgia and myositis 729.1 Active 488280893 Problem Pain in joint, forearm 719.43 Active 585262814 Problem Pain in joint, shoulder region 719.41 Active 455569814 Problem Fall, initial encounter W19.XXXA Active 7187002 Problem Nausea alone 787.02 Active 212111752 Problem Ileostomy status Z93.2 Active 013524868 Problem Other vitamin B12 deficiency anemias D51.8 Active 47147378 Problem Infected tooth K04.7 Active 934729089 Problem detention (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 Z79.01 Active 467164567 Problem Type 2 diabetes mellitus without complication, without long-term current use of insulin E11.9 Active 611743349 Problem Persistent atrial fibrillation I48.1 Active 796033121 Problem Macular degeneration (senile) of retina, unspecified 362.50 Active 837747687 Problem Inflamed seborrheic keratosis of left cheek L82.0 Active 542714083 Problem Atrial fibrillation 427.31 Active 07433744 Problem Skin cancer C44.90 Active 839929578 Problem 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 Active 393757479 Problem Falls frequently R29.6 Active 920647057 Problem Urinary tract infection, site not specified 599.0 Active 61600007 Problem Seborrheic keratosis L82.1 Active 454117342 Problem Generalized osteoarthrosis, involving multiple sites 715.09 Active 95374122 Problem Diabetes mellitus without mention of complication, type II or unspecified type, not stated as uncontrolled 250.00 Active 377402312 Problem [place] of foot 700 Active 897119888 Problem Other and unspecified hyperlipidemia 272.4 Active 77607503 Problem Other B-complex deficiencies 266.2 Active 680866898 Problem Other vitamin B12 deficiency anemia 281.1 Active 12602660 Problem Volume depletion, unspecified 276.50 Active 64374121 ALLERGIES No Information ENCOUNTERS Encounter Location Date Diagnosis [facility] [address] [place] [address] [place] [address] Jan, [facility] [address] [place] [address] [place] [address] Dec, [address] [id number] Nov, Persistent atrial fibrillation I48.1 ; Falls frequently R29.6 ; Type 2 diabetes mellitus without complication, without long-term current use of insulin E11.9 ; Vitamin B12 deficiency E53.8 ; Ileostomy status Z93.2 and Malignant neoplasm of central portion of right female breast C50.111 [facility] [address] [place] [address] [place] [address] Oct, [address] [id number] Oct, Persistent atrial fibrillation I48.1 ; Falls frequently R29.6 ; Type 2 diabetes mellitus without complication, without long-term current use of insulin E11.9 ; Vitamin B12 deficiency E53.8 ; Ileostomy status Z93.2 and Malignant neoplasm of central portion of right female breast C50.111 [facility] [address] [place] [address] Oct, Encounter for long-term (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 other medications V58.[address] [id number] Sep, Persistent atrial fibrillation I48.1 ; Falls frequently R29.6 ; Type 2 diabetes mellitus without complication, without long-term current use of insulin E11.9 ; Vitamin B12 deficiency E53.8 and Ileostomy status Z93.2 [facility] [place] [address] [place] [address] Sep, [facility] [address] [place] [address] August, [facility] [address] [place] [address] August, [facility] [place] [address] [place] [address] August, [address] [id number] August, Chronic atrial fibrillation I48.2 ; B12 deficiency E53.8 and Type 2 diabetes mellitus without complication, without long-term current use of insulin E11.9 [facility] [place] [address] [place] [address] August, [facility] [place] [address] [place] [address] August, 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 and Other vitamin B12 deficiency anemia 281.1 [facility] [address] [place] [address] Jul, Type 2 diabetes mellitus without complications E11.9 ; 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 ; Other vitamin B12 deficiency anemias D51.8 and Malignant neoplasm of central portion of right female breast C50.111 [facility] [address] [place] [address] Jun, 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 ; Falls frequently R29.6 ; Unspecified atrial fibrillation I48.91 and Encounter for long-term (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 other medications V58.[address] [facility] [address] [address] 28 May, 2017 Fall, initial encounter W19.XXXA ; Encounter for long-term (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 other medications V58.69 ; detention (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 Z79.01 and Persistent atrial fibrillation I48.[address] [facility] [address] [address] 14 May, [address] [facility] [address] [address] 05 Mar, 2017 Bronchitis J40 and Chronic renal failure, stage 3 (moderate) N18.[address] [facility] [address] [address] Feb, Encounter for long-term (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 other medications V58.[address] [facility] [address] [address] Feb, Chronic atrial fibrillation I48.2 and Other clothes model (current) drug therapy Z79.[address] [facility] [address] [address] Jan, Chronic atrial fibrillation I48.2 and Encounter for long-term (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 other medications V58.[address] [facility] [address] [address] Jan, 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 ; Malignant neoplasm of central portion of right female breast C50.111 ; Orthostatic hypotension I95.1 ; Seborrheic keratosis L82.1 and Vitamin B12 deficiency E53.[address] [address] Jun, 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 [address] Jun, Skin cancer C44.[address] [address] Apr, detention ( 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 Z79.01 ; Unspecified atrial fibrillation I48.91 ; Infected tooth K04.7 ; Other vitamin B12 deficiency anemias D51.8 and Malignant neoplasm of central portion of right female breast C50.[address] [address] Mar, Chronic atrial fibrillation I48.2 and detention current use of 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 Z79.[address] [address] Mar, Ulcerated, foot L97.509 ; Chronic atrial fibrillation I48.2 ; Chronic renal failure, stage 3 (moderate) N18.3 and Other vitamin B12 deficiency anemias D51.[address] [address] Feb, Ulcerated, foot L97.509 and Cellulitis of foot L03.[address] [address] Feb, Type 2 diabetes mellitus without complications E11.9 ; Encounter for immunization Z23 ; Ileostomy status Z93.2 ; Vitamin B12 deficiency E53.8 ; Subacute vaginitis N76.1 ; UTI (urinary tract infection) N39.0 and Fall, initial encounter W19.XXXA [address] [address] Jan, [address] [address] [facility], [facility] [address] [address] Dec, [address] [address] Nov, Type 2 diabetes mellitus without complications E11.9 ; Chronic atrial fibrillation I48.2 ; detention current use of 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 Z79.01 and Malignant neoplasm of central portion of right female breast C50.[address] [address] 14 Sep, [address] [address] 03 Sep, 2015 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 and Orthostatic hypotension I95.[address] [address] August, [address] [address] August, Type 2 diabetes mellitus without complications E11.9 and Chronic renal failure, stage 3 (moderate) N18.[address] [address] 04 Aug, 2015 Encounter for long-term (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 other medications V58.69 ; detention current use of 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 V58.61 ; Chronic atrial fibrillation I48.2 ; Wheezing R06.2 ; Breast mass N63 and Lung mass R91.[address] [address] Jul, UTI ( urinary tract infection) N39.0 ; Type 2 diabetes mellitus without complications E11.9 ; Cholelithiasis K80.20 and Chronic renal failure, stage 3 (moderate) N18.[address] [address] Jul, [address] [address] Jul, Urge incontinence N39.41 ; Orthostatic hypotension I95.1 ; Bronchitis J40 ; UTI ( urinary tract infection) N39.0 ; Cholecystitis K81.9 ; 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 and Type 2 diabetes mellitus without complications E11.[address] [address] Jun, detention current use of 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 Z79.01 ; Unspecified atrial fibrillation I48.91 and Encounter for long-term (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 other medications Z79.[address] [address] Jun, Unspecified atrial fibrillation I48.91 ; Other clothes model (current) drug therapy Z79.899 ; 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 ; Ulcerated, foot L97.509 and Orthostatic hypotension I95.[address] [address] Apr, [address] [address] Mar, [address] [address] Mar, [address] [address] Mar, [address] [address] Mar, Cholecystitis K81.9 ; 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 ; Chronic atrial fibrillation I48.2 ; Encounter for long-term (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 other medications Z79.899 ; GERD (gastroesophageal reflux disease) K21.9 ; 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 and Skin tag L91.[address] [address] Feb, Chronic atrial fibrillation I48.2 ; detention current use of 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 Z79.01 ; Encounter for long-term (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 other medications Z79.899 and Ulcerated, foot L97.[address] [address] Jan, Chronic atrial fibrillation I48.2 ; 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 and Vitamin B12 deficiency anemia, unspecified D51.[address] [address] Jan, Chronic atrial fibrillation I48.2 ; 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 ; Encounter for long-term (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 other medications Z79.899 ; Encounter for immunization Z23 and Cellulitis of foot L03.[address] [address] Jan, [address] [address] Jan, Type 2 diabetes mellitus without complications E11.9 ; Callus of foot L84 and Ulceration L98.[address] [address] Dec, Atrial fibrillation 427.31 ; Encounter for long-term (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 other medications V58.69 ; 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.61 and [place] of foot [address] [address] Nov, Ileostomy status V44.2 ; Other vitamin B12 deficiency anemia 281.1 ; Atrial fibrillation 427.31 ; Encounter for long-term (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 other medications V58.69 and 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.[address] [address] Oct, 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 ; Atrial fibrillation 427.31 ; Encounter for long- term (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 other medications V58.69 and 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.61 [facility] [address] [place] [address] Oct, Atrial fibrillation 427.31 ; Diabetes mellitus without mention of complication, type II or unspecified type, not stated as uncontrolled 250.00 ; Encounter for long- term (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 other medications V58.69 ; 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.61 ; Cold intolerance 780.99 ; Imbalance 781.2 and Other B-complex deficiencies 266.[address] [address] Oct, [address] [address] Sep, [address] [address] August, Ileostomy status V44.2 ; Diabetes mellitus without mention of complication, type II or unspecified type, not stated as uncontrolled 250.00 ; Other vitamin B12 deficiency anemia 281.1 ; Atrial fibrillation 427.31 and Foot ulcer, right 707.[address] [address] August, [address] [place] [address] Jul, [place] [id number] [place] [address] Jul, [address] [place] [address] Jun, [facility] [address] [place] [address] Jun, [facility] [place] [address] [place] [address] Apr, [facility] [address] [place] [address] Apr, [facility] [address] [place] [address] Apr, [address] [place] [address] Apr, [facility] [address] [facility] [id number] [place] [address] Apr, [facility] [place] [facility] [address] [facility] [id number] [place] [address] Apr, [facility] [place] [address] [place] [address] Apr, [facility] [place] [facility] [address] [place] [id number] [place] [address] Apr, [facility] [address] [facility] [id number] [place] [address] Apr, [facility] [place] [address] [place] [address] Apr, [facility] [address] [place] [place] [id number] [address] Apr, [facility] [address] [id number] [address] Mar, [facility] [place] [facility] [address] [id number] [address] Mar, [facility] [place] [facility] [address] [place] [id number] [address] Mar, [facility] [place] [address] [place] [address] Mar, [facility] [place] [address] [place] [address] Feb, [facility] [place] [facility] [address] [place] [id number] [address] Feb, [facility] [place] [facility] [address] [place] [id number] [address] Jan, [facility] [place] [address] [place] [address] Jan, [facility] [place] [facility] [address] [place] [id number] [address] Jan, [facility] [place] [facility] [address] [place] [id number] [address] Dec, [facility] [place] [address] [place] [address] Dec, [facility] [address] [facility] [id number] [address] Dec, [facility] [place] [address] [place] [address] Dec, [facility] [id number] [address] Nov, [facility] [place] [address] [place] [address] Nov, [facility] [place] [address] [place] [address] Oct, [facility] [id number] [address] Oct, [facility] [address] [id number] [address] Sep, [facility] [address] [id number] [address] Sep, [facility] [place] [address] [place] [address] Sep, [facility] [place] [address] [place] [address] Sep, [facility] [address] [place] [id number] [address] Sep, [facility] [place] [address] [place] [address] August, [facility] [address] [id number] [address] August, [facility] [place] [address] [place] [address] August, [facility] [address] [id number] [address] August, [facility] [place] [address] [place] [address] Jul, [facility] [address] [address] Jul, [facility] [place] [address] [place] [address] Jun, [facility] [address] [address] Jun, [facility] [place] [address] [place] [address] Jun, [facility] [id number] [place] [address] Jun, [facility] [place] [address] [place] [address] May, [facility] [address] [address] May, [facility] [place] [address] [place] [address] May, [facility] [address] [address] May, [facility] [address] [address] Apr, [facility] [place] [address] [place] [address] Apr, [facility] [place] [address] [place] [address] Mar, [facility] [address] [place] [id number] [address] Mar, [facility] [place] [address] [place] [address] Mar, [facility] [address] [id number] [address] Mar, [facility] [address] [address] Mar, [facility] [place] [address] [place] [address] Mar, [facility] [address] [place] [address] Mar, [facility] [id number] [address] Mar, [facility] [address] [place] [address] Feb, [facility] [address] [place] [address] [address] Feb, [facility] [address] [place] [address] Feb, [facility] [address] [address] Feb, [place] [id number] [address] Jan, [facility] [address] [place] [address] Jan, [facility] [address] [place] [address] Jan, IMMUNIZATIONS No Known Immunizations SOCIAL HISTORY Never Assessed REASON FOR VISIT PT/OT PLAN OF CARE VITAL SIGNS MEDICATIONS Unknown Medications RESULTS No Results PROCEDURES No Known procedures INSTRUCTIONS MEDICATIONS ADMINISTERED No Known Medications MEDICAL [...]
--- OUTSIDE RECORDS SUMMARY | 2018-06-21 06:12 | XMS REPORT ---
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 Name Role Phone ZARINA VERGARA Unavailable PROBLEMS Type Condition ICD9-CM Code XRZ43-IA Code Onset Dates Condition Status SNOMED Code Problem retirement current use of 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 Z79.01 Active 245824885 Problem Chronic atrial fibrillation I48.2 Active 059438591 Problem Ulcerated, foot L97.509 Active 87551665 Problem Cellulitis of foot L03.119 Active 765519039 Problem 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 Active 71746881 Problem Skin tag L91.8 Active 749422867 Problem Cholecystitis K81.9 Active 75659937 Problem GERD (gastroesophageal reflux disease) K21.9 Active 946138244 Problem Orthostatic hypotension I95.1 Active 09029063 Problem Unspecified atrial fibrillation I48.91 Active 32043697 Problem Type 2 diabetes mellitus without complications E11.9 Active 901923910 Problem Bronchitis J40 Active 76029533 Problem Urge incontinence N39.41 Active 61428839 Problem UTI (urinary tract infection) N39.0 Active 62416130 Problem Breast mass N63 Active 19071230 Problem Wheezing R06.2 Active 40960462 Problem Cholelithiasis K80.20 Active 188663363 Problem Chronic renal failure, stage 3 (moderate) N18.3 Active 68870080 Problem Subacute vaginitis N76.1 Active [id number] Problem Vitamin B12 deficiency E53.8 Active 691948273 Problem Lung mass R91.8 Active 547908992 Problem Malignant neoplasm of central portion of right female breast C50.111 Active 09133933 Problem Ileostomy status V44.2 Active 917919595 Problem Accidental fall on or from other stairs or steps E880.9 Active 314765492 Problem Need for prophylactic vaccination and inoculation, Influenza V04.81 Active 405767758 Problem Personal history of fall V15.88 Active 108659684 Problem Other general symptoms 780.99 Active 057017316 Problem Unspecified myalgia and myositis 729.1 Active 309782878 Problem Pain in joint, forearm 719.43 Active 300408643 Problem Pain in joint, shoulder region 719.41 Active 641650237 Problem Fall, initial encounter W19.XXXA Active 7082944 Problem Nausea alone 787.02 Active 318945689 Problem Ileostomy status Z93.2 Active 470738429 Problem Other vitamin B12 deficiency anemias D51.8 Active 89329195 Problem Infected tooth K04.7 Active 444518656 Problem retirement (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 Z79.01 Active 168909293 Problem Type 2 diabetes mellitus without complication, without long-term current use of insulin E11.9 Active 762338388 Problem Persistent atrial fibrillation I48.1 Active 882427595 Problem Macular degeneration (senile) of retina, unspecified 362.50 Active 986288088 Problem Inflamed seborrheic keratosis of left cheek L82.0 Active 339336196 Problem Atrial fibrillation 427.31 Active 32188759 Problem Skin cancer C44.90 Active 141001036 Problem 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 Active 136115127 Problem Falls frequently R29.6 Active 784917984 Problem Urinary tract infection, site not specified 599.0 Active 45488111 Problem Seborrheic keratosis L82.1 Active 284860778 Problem Generalized osteoarthrosis, involving multiple sites 715.09 Active 82997168 Problem Diabetes mellitus without mention of complication, type II or unspecified type, not stated as uncontrolled 250.00 Active 437867505 Problem Austin of foot 700 Active 840200066 Problem Other and unspecified hyperlipidemia 272.4 Active 32371546 Problem Other B-complex deficiencies 266.2 Active 086401516 Problem Other vitamin B12 deficiency anemia 281.1 Active 85587638 Problem Volume depletion, unspecified 276.50 Active 48697751 ALLERGIES No Information ENCOUNTERS Encounter Location Date Diagnosis [facility] [address] [place] [address] Dec, [place] [address] [id number] Nov, Persistent atrial fibrillation I48.1 ; Falls frequently R29.6 ; Type 2 diabetes mellitus without complication, without long-term current use of insulin E11.9 ; Vitamin B12 deficiency E53.8 ; Ileostomy status Z93.2 and Malignant neoplasm of central portion of right female breast C50.111 [facility] [address] [place] [address] Oct, [address] [id number] Oct, Persistent atrial fibrillation I48.1 ; Falls frequently R29.6 ; Type 2 diabetes mellitus without complication, without long-term current use of insulin E11.9 ; Vitamin B12 deficiency E53.8 ; Ileostomy status Z93.2 and Malignant neoplasm of central portion of right female breast C50.111 [facility] [place] [address] [place] [address] Oct, Encounter for long-term (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 other medications V58.[address] [id number] Sep, Persistent atrial fibrillation I48.1 ; Falls frequently R29.6 ; Type 2 diabetes mellitus without complication, without long-term current use of insulin E11.9 ; Vitamin B12 deficiency E53.8 and Ileostomy status Z93.2 [facility] [place] [address] [place] [address] Sep, [facility] [place] [address] [place] [address] August, [facility] [place] [address] [place] [address] August, [facility] [place] [address] [place] [address] August, [address] [id number] August, Chronic atrial fibrillation I48.2 ; B12 deficiency E53.8 and Type 2 diabetes mellitus without complication, without long-term current use of insulin E11.9 [facility] [place] [address] [place] [address] August, [facility] [place] [address] [place] [address] August, retirement ( 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 Z79.01 and Other vitamin B12 deficiency anemia 281.[address] [facility] [address] [address] Jul, Type 2 diabetes mellitus without complications E11.9 ; retirement (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 Z79.01 ; Other vitamin B12 deficiency anemias D51.8 and Malignant neoplasm of central portion of right female breast C50.[address] [facility] [address] [address] Jun, retirement ( 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 Z79.01 ; Falls frequently R29.6 ; Unspecified atrial fibrillation I48.91 and Encounter for long-term (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 other medications V58.69 [facility] [address] [address] 28 May, 2017 Fall, initial encounter W19.XXXA ; Encounter for long-term (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 other medications V58.69 ; retirement (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 Z79.01 and Persistent atrial fibrillation I48.1 [facility] [address] [address] 14 May, 2017 [facility] [address] [address] 05 Mar, 2017 Bronchitis J40 and Chronic renal failure, stage 3 (moderate) N18.[address] [facility] [address] [address] 10 Feb, 2017 Encounter for long-term (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 other medications V58.[address] [facility] [address] [address] Feb, Chronic atrial fibrillation I48.2 and 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 [facility] [address] [address] Jan, Chronic atrial fibrillation I48.2 and Encounter for long-term (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 other medications V58.69 [facility] [address] [address] Jan, retirement current use of 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 Z79.[address] [facility] [address] [address] 02 Oct, 2017 Medicare welcome exam Z00.00 ; Medicare annual wellness visit, initial Z00.00 ; Medicare annual wellness visit, subsequent Z00.00 ; Vitamin B12 deficiency E53.8 ; Falls frequently R29.6 ; Unspecified atrial fibrillation I48.91 ; 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 and Encounter for immunization Z23 [address] [address] Oct, Encounter for long-term (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 other medications V58.69 ; Type 2 diabetes mellitus without complications E11.9 ; 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 ; Malignant neoplasm of central portion of right female breast C50.111 ; Orthostatic hypotension I95.1 ; Seborrheic keratosis L82.1 and Vitamin B12 deficiency E53.[address] [address] Jun, 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 ( 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 Z79.[address] [address] Jun, Skin cancer C44.[address] [address] Apr, 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 ( 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 Z79.01 ; Unspecified atrial fibrillation I48.91 ; Infected tooth K04.7 ; Other vitamin B12 deficiency anemias D51.8 and Malignant neoplasm of central portion of right female breast C50.[address] [address] Mar, Chronic atrial fibrillation I48.2 and 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 [address] Mar, Ulcerated, foot L97.509 ; Chronic atrial fibrillation I48.2 ; Chronic renal failure, stage 3 (moderate) N18.3 and Other vitamin B12 deficiency anemias D51.[address] [address] 30 Feb, 2016 Ulcerated, foot L97.509 and Cellulitis of foot L03.[address] [address] Feb, Type 2 diabetes mellitus without complications E11.9 ; Encounter for immunization Z23 ; Ileostomy status Z93.2 ; Vitamin B12 deficiency E53.8 ; Subacute vaginitis N76.1 ; UTI (urinary tract infection) N39.0 and Fall, initial encounter W19.XXXA [address] [address] Jan, [address] [address] Jan, [address] [address] Dec, [address] [address] Nov, Type 2 diabetes mellitus without complications E11.9 ; Chronic atrial fibrillation I48.2 ; 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 and Malignant neoplasm of central portion of right female breast C50.[address] [address] Sep, [address] [address] Sep, 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 and Orthostatic hypotension I95.[address] [address] August, [address] [address] August, Type 2 diabetes mellitus without complications E11.9 and Chronic renal failure, stage 3 (moderate) N18.[address] [address] August, Encounter for long-term (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 other medications V58.69 ; 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 ; Chronic atrial fibrillation I48.2 ; Wheezing R06.2 ; Breast mass N63 and Lung mass R91.[address] [address] Jul, UTI ( urinary tract infection) N39.0 ; Type 2 diabetes mellitus without complications E11.9 ; Cholelithiasis K80.20 and Chronic renal failure, stage 3 (moderate) N18.[address] [address] Jul, [address] [address] Jul, Urge incontinence N39.41 ; Orthostatic hypotension I95.1 ; Bronchitis J40 ; UTI ( urinary tract infection) N39.0 ; Cholecystitis K81.9 ; 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 and Type 2 diabetes mellitus without complications E11.[address] [address] Jun, 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 ; Unspecified atrial fibrillation I48.91 and Encounter for long-term (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 other medications Z79.[address] [address] Jun, Unspecified atrial fibrillation I48.91 ; Other long-term (current) drug therapy Z79.899 ; 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 ; Ulcerated, foot L97.509 and Orthostatic hypotension I95.[address] [address] Apr, [address] [address] Mar, [address] [address] Mar, [address] [address] Mar, [address] [address] Mar, Cholecystitis K81.9 ; retirement current use of 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 Z79.01 ; Chronic atrial fibrillation I48.2 ; Encounter for long-term (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 other medications Z79.899 ; GERD (gastroesophageal reflux disease) K21.9 ; 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 and Skin tag L91.[address] [address] Feb, Chronic atrial fibrillation I48.2 ; retirement current use of 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 Z79.01 ; Encounter for long-term (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 other medications Z79.899 and Ulcerated, foot L97.[address] [address] Jan, Chronic atrial fibrillation I48.2 ; 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 and Vitamin B12 deficiency anemia, unspecified D51.[address] [address] Jan, Chronic atrial fibrillation I48.2 ; retirement current use of 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 Z79.01 ; Encounter for long-term (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 other medications Z79.899 ; Encounter for immunization Z23 and Cellulitis of foot L03.[address] [address] Jan, [address] [address] Jan, Type 2 diabetes mellitus without complications E11.9 ; Callus of foot L84 and Ulceration L98.[address] [address] Dec, Atrial fibrillation 427.31 ; Encounter for long-term (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 other medications V58.69 ; 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 and [place] of foot [address] [address] Nov, Ileostomy status V44.2 ; Other vitamin B12 deficiency anemia 281.1 ; Atrial fibrillation 427.31 ; Encounter for long-term (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 other medications V58.69 and retirement current use of 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 V58.[address] [address] Oct, 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 ; Atrial fibrillation 427.31 ; Encounter for long- term (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 other medications V58.69 and 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 [address] Oct, Atrial fibrillation 427.31 ; Diabetes mellitus without mention of complication, type II or unspecified type, not stated as uncontrolled 250.00 ; Encounter for long- term (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 other medications V58.69 ; retirement current use of 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 V58.61 ; Cold intolerance 780.99 ; Imbalance 781.2 and Other B-complex deficiencies 266.[address] [address] Oct, [address] [address] Sep, [address] [address] August, Ileostomy status V44.2 ; Diabetes mellitus without mention of complication, type II or unspecified type, not stated as uncontrolled 250.00 ; Other vitamin B12 deficiency anemia 281.1 ; Atrial fibrillation 427.31 and Foot ulcer, right 707.[address] [address] August, [place] [id number] [place] [address] [address] Jul, [address] [address] Jul, [address] [place] [address] Jun, [address] [address] Jun, [address] [address] Apr, [address] [address] Apr, [address] [address] Apr, [place] [id number] [place] [address] Apr, [place] [id number] [place] [address] Apr, [facility] [id number] [address] Apr, [facility] [address] [address] [place] [address] Apr, [facility] [id number] [address] Apr, [facility] [id number] [address] Apr, [facility] [place] [address] [place] [facility] [place] [address] Apr, [facility] [address] [address] Apr, [facility] [address] [address] Mar, [facility] [address] [address] Mar, [facility] [id number] [address] Mar, [facility] [place] [address] [place] [address] Mar, [facility] [place] [address] [place] [address] Feb, [facility] [address] [address] Feb, [facility] [id number] [address] Jan, [facility] [place] [address] [place] [address] Jan, [facility] [id number] [address] Jan, [facility] [address] [address] Dec, [facility] [place] [address] [facility] [place] [address] Dec, [facility] [id number] [address] Dec, [facility] [place] [address] [place] [address] Dec, [facility] [id number] [address] Nov, [facility] [place] [address] [place] [address] Nov, [facility] [place] [address] [place] [address] Oct, [facility] [id number] [address] Oct, [facility] [id number] [address] Sep, [facility] [id number] [address] Sep, [facility] [place] [address] [place] [address] Sep, [facility] [place] [address] [place] [address] Sep, [facility] [id number] [address] Sep, [facility] [place] [address] [place] [address] August, [facility] [id number] [address] August, [facility] [place] [address] [place] [address] August, [facility] [id number] [address] August, [facility] [place] [address] [place] [address] Jul, [facility] [id number] [address] Jul, [facility] [place] [address] [place] [address] Jun, [facility] [address] [address] Jun, [facility] [place] [address] [place] [address] Jun, [facility] [address] [address] Jun, [facility] [place] [address] [place] [address] May, [facility] [address] [address] May, [facility] [place] [address] [place] [address] May, [facility] [address] [address] May, [facility] [address] [address] Apr, [facility] [place] [address] [place] [address] Apr, [facility] [place] [address] [place] [address] Mar, [facility] [id number] [address] Mar, [facility] [place] [address] [place] [address] Mar, [facility] [address], [place] [address] Mar, [facility] [id number] [address] Mar, [facility] [place] [address] [place] [address] Mar, [facility] [address] [place] [address] Mar, [facility] [address] [address] Mar, [facility] [address] [place] [address] Feb, [facility] [address] [place] [address] [address] Feb, [facility] [address] [place] [address] Feb, [facility] [address] [place] [id number] [place] [address] Feb, [facility] [address] [place] [address] [address] Jan, [address] [address] Jan, [address] [address] Jan, IMMUNIZATIONS No Known Immunizations SOCIAL HISTORY Never Assessed REASON FOR VISIT PLAN OF CARE VITAL SIGNS MEDICATIONS Unknown [...]
--- OUTSIDE RECORDS SUMMARY | 2018-06-21 06:12 | XMS REPORT ---
Author Author ZARINA VERGARA Organization [facility] [address] Address [address] [place] [address] Care Team Providers Care Market Risk Analyst Name Role Phone ZARINA VERGARA Unavailable PROBLEMS Type Condition ICD9-CM Code ATE70-OM Code Onset Dates Condition Status SNOMED Code Problem [facility] current use of 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 Z79.01 Active 865488630 Problem Chronic atrial fibrillation I48.2 Active 293266011 Problem Ulcerated, foot L97.509 Active 31553362 Problem Cellulitis of foot L03.119 Active 668737468 Problem 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 Active 83877593 Problem Skin tag L91.8 Active 172240555 Problem Cholecystitis K81.9 Active 68580988 Problem GERD (gastroesophageal reflux disease) K21.9 Active 196231102 Problem Orthostatic hypotension I95.1 Active 65863351 Problem Unspecified atrial fibrillation I48.91 Active 05906490 Problem Type 2 diabetes mellitus without complications E11.9 Active 766121520 Problem Bronchitis J40 Active 31019661 Problem Urge incontinence N39.41 Active 59839398 Problem UTI (urinary tract infection) N39.0 Active 74352666 Problem Breast mass N63 Active 45397778 Problem Wheezing R06.2 Active 68341606 Problem Cholelithiasis K80.20 Active 567997233 Problem Chronic renal failure, stage 3 (moderate) N18.3 Active 27401320 Problem Subacute vaginitis N76.1 Active [id number] Problem Vitamin B12 deficiency E53.8 Active 024986053 Problem Lung mass R91.8 Active 486340913 Problem Malignant neoplasm of central portion of right female breast C50.111 Active 26076039 Problem Ileostomy status V44.2 Active 046768115 Problem Accidental fall on or from other stairs or steps E880.9 Active 479200698 Problem Need for prophylactic vaccination and inoculation, Influenza V04.81 Active 987374028 Problem Personal history of fall V15.88 Active 239213953 Problem Other general symptoms 780.99 Active 928462276 Problem Unspecified myalgia and myositis 729.1 Active 550013050 Problem Pain in joint, forearm 719.43 Active 829813747 Problem Pain in joint, shoulder region 719.41 Active 986017273 Problem Fall, initial encounter W19.XXXA Active 0449865 Problem Nausea alone 787.02 Active 875280578 Problem Ileostomy status Z93.2 Active 309152608 Problem Other vitamin B12 deficiency anemias D51.8 Active 14396079 Problem Infected tooth K04.7 Active 794809889 Problem [facility] (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 Z79.01 Active 804855237 Problem Type 2 diabetes mellitus without complication, without long-term current use of insulin E11.9 Active 663915295 Problem Persistent atrial fibrillation I48.1 Active 328368522 Problem Macular degeneration (senile) of retina, unspecified 362.50 Active 492411591 Problem Inflamed seborrheic keratosis of left cheek L82.0 Active 515394846 Problem Atrial fibrillation 427.31 Active 75597900 Problem Skin cancer C44.90 Active 049307902 Problem 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 Active 283122950 Problem Falls frequently R29.6 Active 967635947 Problem Urinary tract infection, site not specified 599.0 Active 93291665 Problem Seborrheic keratosis L82.1 Active 281106163 Problem Generalized osteoarthrosis, involving multiple sites 715.09 Active 95432964 Problem Diabetes mellitus without mention of complication, type II or unspecified type, not stated as uncontrolled 250.00 Active 017156489 Problem 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 Active 096614531 Problem Other and unspecified hyperlipidemia 272.4 Active 17551518 Problem Other B-complex deficiencies 266.2 Active 909895015 Problem Other vitamin B12 deficiency anemia 281.1 Active 13388053 Problem Volume depletion, unspecified 276.50 Active 37607598 ALLERGIES No Information ENCOUNTERS Encounter Location Date Diagnosis [facility] [address] [place] [address] Dec, [place] [address] [id number] Nov, Persistent atrial fibrillation I48.1 ; Falls frequently R29.6 ; Type 2 diabetes mellitus without complication, without long-term current use of insulin E11.9 ; Vitamin B12 deficiency E53.8 ; Ileostomy status Z93.2 and Malignant neoplasm of central portion of right female breast C50.111 [facility] [address] [place] [address] Oct, [address] [id number] Oct, Persistent atrial fibrillation I48.1 ; Falls frequently R29.6 ; Type 2 diabetes mellitus without complication, without long-term current use of insulin E11.9 ; Vitamin B12 deficiency E53.8 ; Ileostomy status Z93.2 and Malignant neoplasm of central portion of right female breast C50.111 [facility] [place] [address] [place] [address] Oct, Encounter for long-term (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 other medications V58.[address] [id number] Sep, Persistent atrial fibrillation I48.1 ; Falls frequently R29.6 ; Type 2 diabetes mellitus without complication, without long-term current use of insulin E11.9 ; Vitamin B12 deficiency E53.8 and Ileostomy status Z93.2 [facility] [place] [address] [place] [address] Sep, [facility] [place] [address] [place] [address] August, [facility] [place] [address] [place] [address] August, [facility] [place] [address] [place] [address] August, [address] [id number] August, Chronic atrial fibrillation I48.2 ; B12 deficiency E53.8 and Type 2 diabetes mellitus without complication, without long-term current use of insulin E11.9 [facility] [place] [address] [place] [address] August, [facility] [place] [address] [place] [address] August, [facility] ( 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 Z79.01 and Other vitamin B12 deficiency anemia 281.[address] [facility] [address] [address] Jul, Type 2 diabetes mellitus without complications E11.9 ; [facility] (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 Z79.01 ; Other vitamin B12 deficiency anemias D51.8 and Malignant neoplasm of central portion of right female breast C50.[address] [facility] [address] [address] Jun, [facility] ( 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 Z79.01 ; Falls frequently R29.6 ; Unspecified atrial fibrillation I48.91 and Encounter for long-term (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 other medications V58.69 [facility] [address] [address] 28 May, 2017 Fall, initial encounter W19.XXXA ; Encounter for long-term (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 other medications V58.69 ; [facility] (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 Z79.01 and Persistent atrial fibrillation I48.1 [facility] [address] [address] 14 May, 2017 [facility] [address] [address] 05 Mar, 2017 Bronchitis J40 and Chronic renal failure, stage 3 (moderate) N18.[address] [facility] [address] [address] 10 Feb, 2017 Encounter for long-term (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 other medications V58.[address] [facility] [address] [address] Feb, Chronic atrial fibrillation I48.2 and Other intermodal dispatcher (current) drug therapy Z79.899 [facility] [address] [address] Jan, Chronic atrial fibrillation I48.2 and Encounter for long-term (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 other medications V58.[address] [facility] [address] [address] Jan, [facility] current use of 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 Z79.[address] [facility] [address] [address] 02 Oct, 2017 Medicare welcome exam Z00.00 ; Medicare annual wellness visit, initial Z00.00 ; Medicare annual wellness visit, subsequent Z00.00 ; Vitamin B12 deficiency E53.8 ; Falls frequently R29.6 ; Unspecified atrial fibrillation I48.91 ; intermodal dispatcher current use of 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 Z79.01 and Encounter for immunization Z23 [address] [address] Oct, Encounter for long-term (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 other medications V58.69 ; Type 2 diabetes mellitus without complications E11.9 ; intermodal dispatcher (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 Z79.01 ; Malignant neoplasm of central portion of right female breast C50.111 ; Orthostatic hypotension I95.1 ; Seborrheic keratosis L82.1 and Vitamin B12 deficiency E53.[address] [address] Jun, intermodal dispatcher ( 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 Z79.[address] [address] Jun, Skin cancer C44.[address] [address] Apr, intermodal dispatcher ( 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 Z79.01 ; Unspecified atrial fibrillation I48.91 ; Infected tooth K04.7 ; Other vitamin B12 deficiency anemias D51.8 and Malignant neoplasm of central portion of right female breast C50.[address] [address] Mar, Chronic atrial fibrillation I48.2 and intermodal dispatcher current use of 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 Z79.[address] [address] Mar, Ulcerated, foot L97.509 ; Chronic atrial fibrillation I48.2 ; Chronic renal failure, stage 3 (moderate) N18.3 and Other vitamin B12 deficiency anemias D51.[address] [address] 30 Feb, 2016 Ulcerated, foot L97.509 and Cellulitis of foot L03.[address] [address] Feb, Type 2 diabetes mellitus without complications E11.9 ; Encounter for immunization Z23 ; Ileostomy status Z93.2 ; Vitamin B12 deficiency E53.8 ; Subacute vaginitis N76.1 ; UTI (urinary tract infection) N39.0 and Fall, initial encounter W19.XXXA [address] [address] Jan, [address] [address] Jan, [address] [address] Dec, [address] [address] Nov, Type 2 diabetes mellitus without complications E11.9 ; Chronic atrial fibrillation I48.2 ; intermodal dispatcher current use of 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 Z79.01 and Malignant neoplasm of central portion of right female breast C50.[address] [address] Sep, [address] [address] Sep, 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 and Orthostatic hypotension I95.[address] [address] August, [address] [address] August, Type 2 diabetes mellitus without complications E11.9 and Chronic renal failure, stage 3 (moderate) N18.[address] [address] August, Encounter for long-term (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 other medications V58.69 ; intermodal dispatcher current use of 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 V58.61 ; Chronic atrial fibrillation I48.2 ; Wheezing R06.2 ; Breast mass N63 and Lung mass R91.[address] [address] Jul, UTI ( urinary tract infection) N39.0 ; Type 2 diabetes mellitus without complications E11.9 ; Cholelithiasis K80.20 and Chronic renal failure, stage 3 (moderate) N18.[address] [address] Jul, [address] [address] Jul, Urge incontinence N39.41 ; Orthostatic hypotension I95.1 ; Bronchitis J40 ; UTI ( urinary tract infection) N39.0 ; Cholecystitis K81.9 ; 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 and Type 2 diabetes mellitus without complications E11.[address] [address] Jun, intermodal dispatcher current use of 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 Z79.01 ; Unspecified atrial fibrillation I48.91 and Encounter for long-term (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 other medications Z79.[address] [address] Jun, Unspecified atrial fibrillation I48.91 ; Other penitentiary (current) drug therapy Z79.899 ; intermodal dispatcher (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 Z79.01 ; Ulcerated, foot L97.509 and Orthostatic hypotension I95.[address] [address] Apr, [address] [address] Mar, [address] [address] Mar, [address] [address] Mar, [address] [address] Mar, Cholecystitis K81.9 ; [facility] current use of 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 Z79.01 ; Chronic atrial fibrillation I48.2 ; Encounter for long-term (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 other medications Z79.899 ; GERD (gastroesophageal reflux disease) K21.9 ; 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 and Skin tag L91.[address] [address] Feb, Chronic atrial fibrillation I48.2 ; [facility] current use of 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 Z79.01 ; Encounter for long-term (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 other medications Z79.899 and Ulcerated, foot L97.[address] [address] Jan, Chronic atrial fibrillation I48.2 ; intermodal dispatcher current use of 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 Z79.01 and Vitamin B12 deficiency anemia, unspecified D51.[address] [address] Jan, Chronic atrial fibrillation I48.2 ; [facility] current use of 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 Z79.01 ; Encounter for long-term (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 other medications Z79.899 ; Encounter for immunization Z23 and Cellulitis of foot L03.[address] [address] Jan, [address] [address] Jan, Type 2 diabetes mellitus without complications E11.9 ; Callus of foot L84 and Ulceration L98.[address] [address] Dec, Atrial fibrillation 427.31 ; Encounter for long-term (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 other medications V58.69 ; intermodal dispatcher current use of 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 V58.61 and 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 [address] Nov, Ileostomy status V44.2 ; Other vitamin B12 deficiency anemia 281.1 ; Atrial fibrillation 427.31 ; Encounter for long-term (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 other medications V58.69 and [facility] current use of 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 V58.[address] [address] Oct, 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 ; Atrial fibrillation 427.31 ; Encounter for long- term (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 other medications V58.69 and intermodal dispatcher current use of 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 V58.[address] [address] Oct, Atrial fibrillation 427.31 ; Diabetes mellitus without mention of complication, type II or unspecified type, not stated as uncontrolled 250.00 ; Encounter for long- term (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 other medications V58.69 ; [facility] current use of 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 V58.61 ; Cold intolerance 780.99 ; Imbalance 781.2 and Other B-complex deficiencies 266.[address] [address] Oct, [address] [address] Sep, [address] [address] August, Ileostomy status V44.2 ; Diabetes mellitus without mention of complication, type II or unspecified type, not stated as uncontrolled 250.00 ; Other vitamin B12 deficiency anemia 281.1 ; Atrial fibrillation 427.31 and Foot ulcer, right 707.[address] [address] August, [place] [id number] [place] [address] [address] Jul, [address] [address] Jul, [address] [place] [address] Jun, [address] [address] Jun, [address] [address] Apr, [address] [address] Apr, [address] [address] Apr, [place] [id number] [place] [address] Apr, [place] [id number] [place] [address] Apr, [facility] [id number] [address] Apr, [facility] [place] [address] [place] [address] Apr, [facility] [id number] [address] Apr, [facility] [id number] [address] Apr, [facility] [place] [address] [facility] [place] [address] Apr, [facility] [address], [place] [address] Apr, [facility] [address] [address] Mar, [facility] [address], [place] [address] Mar, [facility] [id number] [address] Mar, [facility] [place] [address] [place] [address] Mar, [facility] [place] [address] [place] [address] Feb, [facility] [address], [place] [address] Feb, [facility] [id number], [place] [address] Jan, [facility] [place] [address] [place] [address] Jan, [facility] [id number], [place] [address] Jan, [facility] [address], [place] [address] Dec, [facility] [place] [address] [facility] [place] [address] Dec, [facility] [id number] [address] Dec, [facility] [place] [address] [place] [address] Dec, [facility] [id number], [place] [address] Nov, [facility] [place] [address] [place] [address] Nov, [facility] [place] [address] [place] [address] Oct, [facility] [id number], [place] [address] Oct, [facility] [id number], [place] [address] Sep, [facility] [id number] [address] Sep, [facility] [place] [address] [place] [address] Sep, [facility] [place] [address] [place] [address] Sep, [facility] [id number], [place] [address] Sep, [facility] [place] [address] [place] [address] August, [facility] [id number] [address] August, [facility] [place] [address] [place] [address] August, [facility] [id number] [address] August, [facility] [place] [address] [place] [address] Jul, [facility] [id number], [place] [address] Jul, [facility] [place] [address] [place] [address] Jun, [facility] [address], [place] [address] Jun, [facility] [place] [address] [place] [address] Jun, [facility] [address], [place] [address] Jun, [facility] [place] [address] [place] [address] May, [facility] [address], [place] [address] May, [facility] [place] [address] [place] [address] May, [facility] [address], [place] [address] May, [facility] [address], [place] [address] Apr, [facility] [place] [address] [place] [address] Apr, [facility] [place] [address] [place] [address] Mar, [facility] [id number], [place] [address] Mar, [facility] [place] [address] [place] [address] Mar, [facility] [address], [place] [address] Mar, [facility] [id number], [place] [address] Mar, [facility] [place] [address] [place] [address] Mar, [facility] [address] [place] [address] Mar, [facility] [address], [place] [address] Mar, [facility] [address] [place] [address] Feb, [facility] [address] [place] [address] [address] Feb, [facility] [address] [place] [address] Feb, [facility] [address] [place] [id number] [place] [address] Feb, [facility] [address] [place] [address] [address] Jan, [facility] [address] [place] [address] Jan, [facility] [address] [place] [address] Jan, IMMUNIZATIONS No Known Immunizations SOCIAL HISTORY Never Assessed REASON FOR VISIT pa visit, atrial fibrillation, breast cancer, macular degeneration, ostomy PLAN OF CARE Activity Details Follow Up 2 Months Reason: VITAL SIGNS MEDICATIONS Unknown Medications RESULTS No Results PROCEDURES Procedure Date Ordered Result Body Site Significant Complication (25 mins) Nov 27, 2017 INSTRUCTIONS MEDICATIONS ADMINISTERED No Known Medications MEDICAL [...]
--- OUTSIDE RECORDS SUMMARY | 2018-06-21 06:13 | XMS REPORT ---
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 Role Phone ZARINA VERGARA Unavailable PROBLEMS Type Condition ICD9-CM Code [id number] Code Onset Dates Condition Status SNOMED Code Problem half-way current use of 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 Z79.01 Active 824360701 Problem Chronic atrial fibrillation I48.2 Active 433837740 Problem Ulcerated, foot L97.509 Active 47527399 Problem Cellulitis of foot L03.119 Active 182309938 Problem 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 Active 00572966 Problem Skin tag L91.8 Active 735602392 Problem Cholecystitis K81.9 Active 74730696 Problem GERD (gastroesophageal reflux disease) K21.9 Active 517300875 Problem Orthostatic hypotension I95.1 Active 04573569 Problem Unspecified atrial fibrillation I48.91 Active 30041667 Problem Type 2 diabetes mellitus without complications E11.9 Active 804740215 Problem Bronchitis J40 Active 91786318 Problem Urge incontinence N39.41 Active 23130289 Problem UTI (urinary tract infection) N39.0 Active 15753554 Problem Breast mass N63 Active 19297321 Problem Wheezing R06.2 Active 84795821 Problem Cholelithiasis K80.20 Active 220347382 Problem Chronic renal failure, stage 3 (moderate) N18.3 Active 35107749 Problem Subacute vaginitis N76.1 Active [id number] Problem Vitamin B12 deficiency E53.8 Active 926502450 Problem Lung mass R91.8 Active 002200929 Problem Malignant neoplasm of central portion of right female breast C50.111 Active 42691953 Problem Ileostomy status V44.2 Active 223963481 Problem Accidental fall on or from other stairs or steps E880.9 Active 164662895 Problem Need for prophylactic vaccination and inoculation, Influenza V04.81 Active 546539438 Problem Personal history of fall V15.88 Active 164365124 Problem Other general symptoms 780.99 Active 622975785 Problem Unspecified myalgia and myositis 729.1 Active 515460980 Problem Pain in joint, forearm 719.43 Active 670011455 Problem Pain in joint, shoulder region 719.41 Active 314422457 Problem Fall, initial encounter W19.XXXA Active 1874816 Problem Nausea alone 787.02 Active 691545481 Problem Ileostomy status Z93.2 Active 621971845 Problem Other vitamin B12 deficiency anemias D51.8 Active 93296134 Problem Infected tooth K04.7 Active 155060066 Problem half-way (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 Z79.01 Active 751207380 Problem Type 2 diabetes mellitus without complication, without long-term current use of insulin E11.9 Active 668522272 Problem Persistent atrial fibrillation I48.1 Active 514753931 Problem Macular degeneration (senile) of retina, unspecified 362.50 Active 628457358 Problem Inflamed seborrheic keratosis of left cheek L82.0 Active 565452557 Problem Atrial fibrillation 427.31 Active 54362973 Problem Skin cancer C44.90 Active 054174254 Problem 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 Active 870012216 Problem Falls frequently R29.6 Active 774963571 Problem Urinary tract infection, site not specified 599.0 Active 37708852 Problem Seborrheic keratosis L82.1 Active 533871990 Problem Generalized osteoarthrosis, involving multiple sites 715.09 Active 41277301 Problem Diabetes mellitus without mention of complication, type II or unspecified type, not stated as uncontrolled 250.00 Active 363754900 Problem [place] of foot 700 Active 297533685 Problem Other and unspecified hyperlipidemia 272.4 Active 20949774 Problem Other B-complex deficiencies 266.2 Active 860489211 Problem Other vitamin B12 deficiency anemia 281.1 Active 64301249 Problem Volume depletion, unspecified 276.50 Active 76184173 ALLERGIES No Information ENCOUNTERS Encounter Location Date Diagnosis Marilyn Posadas[address] [id number] Nov, Persistent atrial fibrillation I48.1 ; Falls frequently R29.6 ; Type 2 diabetes mellitus without complication, without long-term current use of insulin E11.9 ; Vitamin B12 deficiency E53.8 ; Ileostomy status Z93.2 and Malignant neoplasm of central portion of right female breast C50.111 [facility] [address] [place] [address] Oct, [address] [id number] Oct, Persistent atrial fibrillation I48.1 ; Falls frequently R29.6 ; Type 2 diabetes mellitus without complication, without long-term current use of insulin E11.9 ; Vitamin B12 deficiency E53.8 ; Ileostomy status Z93.2 and Malignant neoplasm of central portion of right female breast C50.111 [facility] [place] [address] [place] [address] Oct, Encounter for long-term (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 other medications V58.[address] [id number] Sep, Persistent atrial fibrillation I48.1 ; Falls frequently R29.6 ; Type 2 diabetes mellitus without complication, without long-term current use of insulin E11.9 ; Vitamin B12 deficiency E53.8 and Ileostomy status Z93.2 [facility] [place] [address] [place] [address] Sep, [facility] [place] [address] [place] [address] August, [facility] [address] [address] August, [facility] [place] [address] [place] [address] August, [address] [id number] August, Chronic atrial fibrillation I48.2 ; B12 deficiency E53.8 and Type 2 diabetes mellitus without complication, without long-term current use of insulin E11.9 [facility] [place] [address] [place] [address] August, [facility] [address] [address] August, half-way ( 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 Z79.01 and Other vitamin B12 deficiency anemia 281.1 [facility] [place] [address] [place] [address] Jul, Type 2 diabetes mellitus without complications E11.9 ; half-way (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 Z79.01 ; Other vitamin B12 deficiency anemias D51.8 and Malignant neoplasm of central portion of right female breast C50.[address] [address] 30 Jun, 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 [address] [address] 05 Mar, 2017 Bronchitis J40 and Chronic renal failure, stage 3 (moderate) N18.3 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 [facility] [address] [address] 02 Jan, 2017 Medicare welcome exam Z00.00 ; Medicare annual wellness visit, initial Z00.00 ; Medicare annual wellness visit, subsequent Z00.00 ; Vitamin B12 deficiency E53.8 ; Falls frequently R29.6 ; Unspecified atrial fibrillation I48.91 ; half-way current use of 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 Z79.01 and Encounter for immunization Z23 [address] [address] Oct, Encounter for long-term (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 other medications V58.69 ; Type 2 diabetes mellitus without complications E11.9 ; half-way (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 Z79.01 ; Malignant neoplasm of central portion of right female breast C50.111 ; Orthostatic hypotension I95.1 ; Seborrheic keratosis L82.1 and Vitamin B12 deficiency E53.[address] [address] Jun, half-way ( 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 Z79.[address] [address] Jun, Skin cancer C44.[address] [address] Apr, 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 ; Unspecified atrial fibrillation I48.91 ; Infected tooth K04.7 ; Other vitamin B12 deficiency anemias D51.8 and Malignant neoplasm of central portion of right female breast C50.[address] [address] Mar, Chronic 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 fibrillation I48.2 and 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 [address] [address] 25 Jan, [address] [address] Jan, [address] [address] Dec, [address] [address] Nov, Type 2 diabetes mellitus without complications E11.9 ; Chronic atrial fibrillation I48.2 ; half-way current use of 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 Z79.01 and Malignant neoplasm of central portion of right female breast C50.[address] [address] 14 Sep, [address] [address] Sep, 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 and Orthostatic hypotension I95.[address] [address] August, [address] [address] August, Type 2 diabetes mellitus without complications E11.9 and Chronic renal failure, stage 3 (moderate) N18.[address] [address] August, Encounter for long-term (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 other medications V58.69 ; half-way current use of 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 V58.61 ; Chronic atrial fibrillation I48.2 ; Wheezing R06.2 ; Breast mass N63 and Lung mass R91.[address] [address] Jul, UTI ( urinary tract infection) N39.0 ; Type 2 diabetes mellitus without complications E11.9 ; Cholelithiasis K80.20 and Chronic renal failure, stage 3 (moderate) N18.[address] [address] Jul, [address] [address] Jul, Urge incontinence N39.41 ; Orthostatic hypotension I95.1 ; Bronchitis J40 ; UTI ( urinary tract infection) N39.0 ; Cholecystitis K81.9 ; 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 and Type 2 diabetes mellitus without complications E11.[address] [address] Jun, half-way current use of 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 Z79.01 ; Unspecified atrial fibrillation I48.91 and Encounter for long-term (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 other medications Z79.[address] [address] Jun, Unspecified atrial fibrillation I48.91 ; Other long-term (current) drug therapy Z79.899 ; 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 ; Ulcerated, foot L97.509 and Orthostatic hypotension I95.[address] [address] Apr, [address] [address] Mar, [address] [address] Mar, [address] [address] Mar, [address] [address] Mar, Cholecystitis K81.9 ; 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 ; Chronic atrial fibrillation I48.2 ; Encounter for long-term (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 other medications Z79.899 ; GERD (gastroesophageal reflux disease) K21.9 ; 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 and Skin tag L91.[address] [address] Feb, Chronic atrial fibrillation I48.2 ; half-way current use of 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 Z79.01 ; Encounter for long-term (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 other medications Z79.899 and Ulcerated, foot L97.[address] [address] Jan, Chronic atrial fibrillation I48.2 ; 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 and Vitamin B12 deficiency anemia, unspecified D51.[address] [address] Jan, Chronic atrial fibrillation I48.2 ; 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 ; Encounter for long-term (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 other medications Z79.899 ; Encounter for immunization Z23 and Cellulitis of foot L03.[address] [address] Jan, [address] [address] Jan, Type 2 diabetes mellitus without complications E11.9 ; Callus of foot L84 and Ulceration L98.[address] [address] Dec, Atrial fibrillation 427.31 ; Encounter for long-term (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 other medications V58.69 ; 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.61 and [place] of foot [address] [address] Nov, Ileostomy status V44.2 ; Other vitamin B12 deficiency anemia 281.1 ; Atrial fibrillation 427.31 ; Encounter for long-term (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 other medications V58.69 and half-way current use of 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 V58.[address] [address] Oct, 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 ; Atrial fibrillation 427.31 ; Encounter for long- term (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 other medications V58.69 and 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.[address] [address] Oct, Atrial fibrillation 427.31 ; Diabetes mellitus without mention of complication, type II or unspecified type, not stated as uncontrolled 250.00 ; Encounter for long- term (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 other medications V58.69 ; half-way current use of 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 V58.61 ; Cold intolerance 780.99 ; Imbalance 781.2 and Other B-complex deficiencies 266.[address] [address] Oct, [address] [address] Sep, [address] [address] August, Ileostomy status V44.2 ; Diabetes mellitus without mention of complication, type II or unspecified type, not stated as uncontrolled 250.00 ; Other vitamin B12 deficiency anemia 281.1 ; Atrial fibrillation 427.31 and Foot ulcer, right 707.[address] [address] August, [address] [address] Jul, [place] [id number] [place] [address] Jul, [place] [id number] [place] [address] Jun, [address] [address] Jun, [address] [address] Apr, [address] [address] Apr, [address] [address] Apr, [place] [id number] [place] [address] Apr, [place] [id number] [place] [address] Apr, [address] [place] [address] Apr, [facility] [place] [address] [facility] [place] [address] Apr, [facility] [id number] [address] Apr, [facility] [id number] [address] Apr, [facility] [place] [address] [place] [address] Apr, [facility] [id number] [address] Apr, [facility] [id number] [place] [address] Mar, [facility] [id number] [address] Mar, [facility] [id number] [address] Mar, [facility] [place] [address] [place] [address] Mar, [facility] [place] [address] [place] [address] Feb, [facility] [id number] [address] Feb, [facility] [id number] [address] Jan, [facility] [place] [address] [place] [address] Jan, [facility] [id number] [place] [address] Jan, [facility] [id number] [address] Dec, [facility] [place] [address] [place] [address] Dec, [facility] [address] [facility] [id number] [address] Dec, [facility] [place] [address] [place] [address] Dec, [facility] [id number] [address] Nov, [facility] [place] [address] [place] [address] Nov, [facility] [place] [address] [place] [address] Oct, [facility] [id number], [place] [address] Oct, [facility] [id number] [address] Sep, [facility] [id number], [place] [address] Sep, [facility] [place] [address] [place] [address] Sep, [facility] [place] [address] [place] [address] Sep, [facility] [id number], [place] [address] Sep, [facility] [place] [address] [place] [address] August, [facility] [id number], [place] [address] August, [facility] [place] [address] [place] [address] August, [facility] [id number] [address] August, [facility] [place] [address] [place] [address] Jul, [facility] [id number] [address] Jul, [facility] [place] [address] [place] [address] Jun, [facility] [id number], [place] [address] Jun, [facility] [place] [address] [place] [address] Jun, [facility] [id number] [place] [address] Jun, [facility] [place] [address] [place] [address] May, [facility] [id number] [place] [address] May, [facility] [place] [address] [place] [address] May, [facility] [id number] [place] [address] May, [facility] [id number] [place] [address] Apr, [facility] [place] [address] [place] [address] Apr, [facility] [place] [address] [place] [address] Mar, [facility] [id number], [place] [address] Mar, [facility] [place] [address] [place] [address] Mar, [facility] [id number] [address] Mar, [facility] [id number] [address] Mar, [facility] [place] [address] [place] [address] Mar, [facility] [place] [address] [place] [address] Mar, [facility] [id number] [address] Mar, [facility] [address] [place] [address] Feb, [facility] [id number] [address] Feb, [address] [address] Feb, [facility] [address] [place] [id number] [address] Feb, [id number] [place] [address] Jan, [address] [address] Jan, [address] [address] Jan, IMMUNIZATIONS No Known Immunizations SOCIAL HISTORY Never Assessed REASON FOR VISIT critical lab PLAN OF CARE VITAL SIGNS MEDICATIONS Unknown [...]
--- OUTSIDE RECORDS SUMMARY | 2018-06-21 06:13 | XMS REPORT ---
Author Author ZARINA VERGARA Organization [facility] [address] Address [address] [place] [address] Care Team Providers Care Prescriptionist Name Role Phone ZARINA VERGARA Unavailable PROBLEMS Type Condition ICD9-CM Code [id number] Code Onset Dates Condition Status SNOMED Code Problem skilled nursing current use of 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 Z79.01 Active 700288107 Problem Chronic atrial fibrillation I48.2 Active 869968696 Problem Ulcerated, foot L97.509 Active 28403579 Problem Cellulitis of foot L03.119 Active 474179509 Problem 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 Active 28570974 Problem Skin tag L91.8 Active 349924644 Problem Cholecystitis K81.9 Active 50111556 Problem GERD (gastroesophageal reflux disease) K21.9 Active 543280289 Problem Orthostatic hypotension I95.1 Active 23526677 Problem Unspecified atrial fibrillation I48.91 Active 74463731 Problem Type 2 diabetes mellitus without complications E11.9 Active 144709918 Problem Bronchitis J40 Active 97843604 Problem Urge incontinence N39.41 Active 10607812 Problem UTI (urinary tract infection) N39.0 Active 72549190 Problem Breast mass N63 Active 51662183 Problem Wheezing R06.2 Active 22705594 Problem Cholelithiasis K80.20 Active 725865392 Problem Chronic renal failure, stage 3 (moderate) N18.3 Active 74553434 Problem Subacute vaginitis N76.1 Active [id number] Problem Vitamin B12 deficiency E53.8 Active 533663366 Problem Lung mass R91.8 Active 235081381 Problem Malignant neoplasm of central portion of right female breast C50.111 Active 62685980 Problem Ileostomy status V44.2 Active 608455483 Problem Accidental fall on or from other stairs or steps E880.9 Active 697153110 Problem Need for prophylactic vaccination and inoculation, Influenza V04.81 Active 110499494 Problem Personal history of fall V15.88 Active 252165081 Problem Other general symptoms 780.99 Active 192384638 Problem Unspecified myalgia and myositis 729.1 Active 044475847 Problem Pain in joint, forearm 719.43 Active 756925314 Problem Pain in joint, shoulder region 719.41 Active 885428589 Problem Fall, initial encounter W19.XXXA Active 5852303 Problem Nausea alone 787.02 Active 908623012 Problem Ileostomy status Z93.2 Active 300697962 Problem Other vitamin B12 deficiency anemias D51.8 Active 31495513 Problem Infected tooth K04.7 Active 690090872 Problem skilled nursing (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 Z79.01 Active 591741864 Problem Type 2 diabetes mellitus without complication, without long-term current use of insulin E11.9 Active 758157402 Problem Persistent atrial fibrillation I48.1 Active 819952835 Problem Macular degeneration (senile) of retina, unspecified 362.50 Active 036247151 Problem Inflamed seborrheic keratosis of left cheek L82.0 Active 554444766 Problem Atrial fibrillation 427.31 Active 55011068 Problem Skin cancer C44.90 Active 396136890 Problem 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 Active 556869442 Problem Falls frequently R29.6 Active 375656048 Problem Urinary tract infection, site not specified 599.0 Active 20290459 Problem Seborrheic keratosis L82.1 Active 485685839 Problem Generalized osteoarthrosis, involving multiple sites 715.09 Active 01945709 Problem Diabetes mellitus without mention of complication, type II or unspecified type, not stated as uncontrolled 250.00 Active 879113711 Problem [place] of foot 700 Active 826490406 Problem Other and unspecified hyperlipidemia 272.4 Active 23434632 Problem Other B-complex deficiencies 266.2 Active 022615324 Problem Other vitamin B12 deficiency anemia 281.1 Active 13995590 Problem Volume depletion, unspecified 276.50 Active 69027893 ALLERGIES No Information ENCOUNTERS Encounter Location Date Diagnosis Marilyn [address] [id number] Nov, Persistent atrial fibrillation I48.1 ; Falls frequently R29.6 ; Type 2 diabetes mellitus without complication, without long-term current use of insulin E11.9 ; Vitamin B12 deficiency E53.8 ; Ileostomy status Z93.2 and Malignant neoplasm of central portion of right female breast C50.111 [facility] [address] [place] [address] Oct, [address] [id number] Oct, Persistent atrial fibrillation I48.1 ; Falls frequently R29.6 ; Type 2 diabetes mellitus without complication, without long-term current use of insulin E11.9 ; Vitamin B12 deficiency E53.8 ; Ileostomy status Z93.2 and Malignant neoplasm of central portion of right female breast C50.111 [facility] [place] [address] [place] [address] Oct, Encounter for long-term (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 other medications V58.[address] [id number] Sep, Persistent atrial fibrillation I48.1 ; Falls frequently R29.6 ; Type 2 diabetes mellitus without complication, without long-term current use of insulin E11.9 ; Vitamin B12 deficiency E53.8 and Ileostomy status Z93.2 [facility] [place] [address] [place] [address] Sep, [facility] [place] [address] [place] [address] August, [facility] [address] [address] August, [facility] [place] [address] [place] [address] August, [address] [id number] August, Chronic atrial fibrillation I48.2 ; B12 deficiency E53.8 and Type 2 diabetes mellitus without complication, without long-term current use of insulin E11.9 [facility] [place] [address] [place] [address] August, [facility] [address] [address] August, skilled nursing ( 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 Z79.01 and Other vitamin B12 deficiency anemia 281.1 [facility] [place] [address] [place] [address] Jul, Type 2 diabetes mellitus without complications E11.9 ; skilled nursing (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 Z79.01 ; Other vitamin B12 deficiency anemias D51.8 and Malignant neoplasm of central portion of right female breast C50.[address] [address] [address] 30 Jun, 2017 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.01 ; Falls frequently R29.6 ; Unspecified atrial fibrillation I48.91 and Encounter for long-term (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 other medications V58.[address] [facility] [address] [address] 28 May, 2017 Fall, initial encounter W19.XXXA ; Encounter for long-term (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 other medications V58.69 ; 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 (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 Z79.01 and Persistent atrial fibrillation I48.1 [facility] [address] [address] 14 May, [facility] [address] [address] 05 Mar, 2017 Bronchitis J40 and Chronic renal failure, stage 3 (moderate) [facility]18.3 [facility] [address] [address] 10 Feb, 2017 Encounter for long-term (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 other medications V58.69 [facility] [address] [address] 10 Feb, 2017 Chronic atrial fibrillation I48.2 and Other 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 operator (current) drug therapy Z79.[address] [address] Jan, Chronic atrial fibrillation I48.2 and Encounter for long-term (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 other medications V58.[address] [facility] [address] [address] Jan, 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 Z79.01 [facility] [address] [address] 02 Jan, 2017 Medicare welcome exam Z00.00 ; Medicare annual wellness visit, initial Z00.00 ; Medicare annual wellness visit, subsequent Z00.00 ; Vitamin B12 deficiency E53.8 ; Falls frequently R29.6 ; Unspecified atrial fibrillation I48.91 ; skilled nursing current use of 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 Z79.01 and Encounter for immunization Z23 [address] [address] Oct, Encounter for long-term (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 other medications V58.69 ; Type 2 diabetes mellitus without complications E11.9 ; skilled nursing (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 Z79.01 ; Malignant neoplasm of central portion of right female breast C50.111 ; Orthostatic hypotension I95.1 ; Seborrheic keratosis L82.1 and Vitamin B12 deficiency E53.[address] [address] Jun, skilled nursing ( 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 Z79.[address] [address] Jun, Skin cancer C44.[address] [address] Apr, 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.01 ; Unspecified atrial fibrillation I48.91 ; Infected tooth K04.7 ; Other vitamin B12 deficiency anemias D51.8 and Malignant neoplasm of central portion of right female breast C50.[address] [address] Mar, Chronic atrial fibrillation I48.2 and 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 Z79.[address] [address] Mar, Ulcerated, foot L97.509 ; Chronic atrial fibrillation I48.2 ; Chronic renal failure, stage 3 (moderate) N18.3 and Other vitamin B12 deficiency anemias D51.[address] [address] 30 Feb, 2016 Ulcerated, foot L97.509 and Cellulitis of foot L03.[address] [address] 16 Feb, 2016 Type 2 diabetes mellitus without complications E11.9 ; Encounter for immunization Z23 ; Ileostomy status Z93.2 ; Vitamin B12 deficiency E53.8 ; Subacute vaginitis N76.1 ; UTI (urinary tract infection) N39.0 and Fall, initial encounter [facility].XXXA [facility] [address] [address] 25 Jan, [address] [address] Jan, [address] [address] Dec, [address] [address] Nov, Type 2 diabetes mellitus without complications E11.9 ; Chronic atrial fibrillation I48.2 ; skilled nursing current use of 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 Z79.01 and Malignant neoplasm of central portion of right female breast C50.[address] [address] 14 Sep, [address] [address] Sep, 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 and Orthostatic hypotension I95.[address] [address] August, [address] [address] August, Type 2 diabetes mellitus without complications E11.9 and Chronic renal failure, stage 3 (moderate) N18.[address] [address] August, Encounter for long-term (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 other medications V58.69 ; skilled nursing current use of 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 V58.61 ; Chronic atrial fibrillation I48.2 ; Wheezing R06.2 ; Breast mass N63 and Lung mass R91.[address] [address] Jul, UTI ( urinary tract infection) N39.0 ; Type 2 diabetes mellitus without complications E11.9 ; Cholelithiasis K80.20 and Chronic renal failure, stage 3 (moderate) N18.[address] [address] Jul, [address] [address] Jul, Urge incontinence N39.41 ; Orthostatic hypotension I95.1 ; Bronchitis J40 ; UTI ( urinary tract infection) N39.0 ; Cholecystitis K81.9 ; 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 and Type 2 diabetes mellitus without complications E11.[address] [address] Jun, skilled nursing current use of 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 Z79.01 ; Unspecified atrial fibrillation I48.91 and Encounter for long-term (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 other medications Z79.[address] [address] Jun, Unspecified atrial fibrillation I48.91 ; Other senior living (current) drug therapy Z79.899 ; 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 (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 Z79.01 ; Ulcerated, foot L97.509 and Orthostatic hypotension I95.[address] [address] Apr, [address] [address] Mar, [address] [address] Mar, [address] [address] Mar, [address] [address] Mar, Cholecystitis K81.9 ; 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 Z79.01 ; Chronic atrial fibrillation I48.2 ; Encounter for long-term (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 other medications Z79.899 ; GERD (gastroesophageal reflux disease) K21.9 ; 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 and Skin tag L91.[address] [address] Feb, Chronic atrial fibrillation I48.2 ; skilled nursing current use of 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 Z79.01 ; Encounter for long-term (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 other medications Z79.899 and Ulcerated, foot L97.[address] [address] Jan, Chronic atrial fibrillation I48.2 ; 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 Z79.01 and Vitamin B12 deficiency anemia, unspecified D51.[address] [address] Jan, Chronic atrial fibrillation I48.2 ; 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 Z79.01 ; Encounter for long-term (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 other medications Z79.899 ; Encounter for immunization Z23 and Cellulitis of foot L03.[address] [address] Jan, [address] [address] Jan, Type 2 diabetes mellitus without complications E11.9 ; Callus of foot L84 and Ulceration L98.[address] [address] Dec, Atrial fibrillation 427.31 ; Encounter for long-term (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 other medications V58.69 ; 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 V58.61 and [place] of foot [address] [address] Nov, Ileostomy status V44.2 ; Other vitamin B12 deficiency anemia 281.1 ; Atrial fibrillation 427.31 ; Encounter for long-term (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 other medications V58.69 and skilled nursing current use of 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 V58.[address] [address] Oct, 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 ; Atrial fibrillation 427.31 ; Encounter for long- term (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 other medications V58.69 and 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 V58.[address] [address] Oct, Atrial fibrillation 427.31 ; Diabetes mellitus without mention of complication, type II or unspecified type, not stated as uncontrolled 250.00 ; Encounter for long- term (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 other medications V58.69 ; skilled nursing current use of 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 V58.61 ; Cold intolerance 780.99 ; Imbalance 781.2 and Other B-complex deficiencies 266.[address] [address] Oct, [address] [address] Sep, [address] [address] August, Ileostomy status V44.2 ; Diabetes mellitus without mention of complication, type II or unspecified type, not stated as uncontrolled 250.00 ; Other vitamin B12 deficiency anemia 281.1 ; Atrial fibrillation 427.31 and Foot ulcer, right 707.[address] [address] August, [address] [address] Jul, [place] [id number] [place] [address] Jul, [place] [id number] [place] [address] Jun, [address] [address] Jun, [address] [address] Apr, [address] [address] Apr, [address] [address] Apr, [place] [id number] [place] [address] Apr, [place] [id number] [place] [address] Apr, [address] [place] [address] Apr, [facility] [place] [address] [place] [facility] [place] [address] Apr, [facility] [id number] [address] Apr, [facility] [id number] [address] Apr, [facility] [place] [address] [place] [address] Apr, [facility] [id number] [address] Apr, [facility] [id number] [address] Mar, [facility] [id number] [address] Mar, [facility] [id number] [address] Mar, [facility] [place] [address] [place] [address] Mar, [facility] [place] [address] [place] [address] Feb, [facility] [id number] [address] Feb, [facility] [id number] [address] Jan, [facility] [place] [address] [place] [address] Jan, [facility] [id number] [address] Jan, [facility] [id number] [address] Dec, [facility] [place] [address] [place] [address] Dec, [facility] [address] [facility] [id number] [address] Dec, [facility] [place] [address] [place] [address] Dec, [facility] [id number] [address] Nov, [facility] [place] [address] [place] [address] Nov, [facility] [place] [address] [place] [address] Oct, [facility] [place] [id number] [address] Oct, [facility] [place] [id number] [address] Sep, [facility] [place] [id number] [address] Sep, [facility] [place] [address] [place] [address] Sep, [facility] [place] [address] [place] [address] Sep, [facility] [place] [id number] [address] Sep, [facility] [place] [address] [place] [address] August, [facility] [place] [id number] [address] August, [facility] [place] [address] [place] [address] August, [facility] [place] [id number] [address] August, [facility] [place] [address] [place] [address] Jul, [facility] [place] [id number] [address] Jul, [facility] [place] [address] [place] [address] Jun, [facility] [place] [id number] [address] Jun, [facility] [place] [address] [place] [address] Jun, [facility] [place] [id number] [place] [address] Jun, [facility] [place] [address] [place] [address] May, [facility] [place] [id number] [place] [address] May, [facility] [place] [address] [place] [address] May, [facility] [place] [id number] [place] [address] May, [facility] [place] [id number] [place] [address] Apr, [facility] [place] [address] [place] [address] Apr, [facility] [place] [address] [place] [address] Mar, [facility] [place] [id number] [address] Mar, [facility] [place] [address] [place] [address] Mar, [facility] [place] [id number] [address] Mar, [facility] [place] [id number] [address] Mar, [facility] [place] [address] [place] [address] Mar, [facility] [place] [address] [place] [address] Mar, [facility] [place] [address] [facility] [id number] [address] Mar, [facility] [address] [place] [address] Feb, [facility] [place] [id number] [address] Feb, [facility] [address] [place] [address] Feb, [facility] [place] [id number] [address] Feb, [facility] [place] [id number] [place] [address] Jan, [facility] [address] [place] [address] Jan, [address] [address] Jan, IMMUNIZATIONS No Known Immunizations SOCIAL HISTORY Never Assessed REASON FOR VISIT MD visit PLAN OF CARE Activity Details Follow Up 2 Months Reason: VITAL SIGNS Temperature 97.9 degrees Fahrenheit 2017-09-18 Heart Rate 69 bpm 2017-09-18 Oximetry 97 % 2017-09-18 Blood pressure systolic 20 129 mmHg 2017-09-18 Blood pressure diastolic 73 mmHg 2017-09-18 MEDICATIONS Unknown Medications RESULTS No Results PROCEDURES Procedure Date Ordered Result Body Site Minor complication (15 mins) September 18, 2017 INSTRUCTIONS MEDICATIONS ADMINISTERED No Known Medications [...]
--- OUTSIDE RECORDS SUMMARY | 2018-06-21 06:13 | XMS REPORT ---
Author Author ZARINA VERGARA Organization [facility] [address] [place] [address] Care Team Providers Care Principal Developer Name Role Phone ZARINA VERGARA Unavailable PROBLEMS Type Condition ICD9-CM Code [id number] Code Onset Dates Condition Status SNOMED Code Problem skilled nursing current use of 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 Z79.01 Active 804492088 Problem Chronic atrial fibrillation I48.2 Active 539409838 Problem Ulcerated, foot L97.509 Active 61877285 Problem Cellulitis of foot L03.119 Active 554567616 Problem 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 Active 32950472 Problem Skin tag L91.8 Active 710547271 Problem Cholecystitis K81.9 Active 44863513 Problem GERD (gastroesophageal reflux disease) K21.9 Active 917735349 Problem Orthostatic hypotension I95.1 Active 02154177 Problem Unspecified atrial fibrillation I48.91 Active 49566402 Problem Type 2 diabetes mellitus without complications E11.9 Active 344932154 Problem Bronchitis J40 Active 12189256 Problem Urge incontinence N39.41 Active 64746414 Problem UTI (urinary tract infection) N39.0 Active 63342678 Problem Breast mass N63 Active 51604147 Problem Wheezing R06.2 Active 10863052 Problem Cholelithiasis K80.20 Active 553716061 Problem Chronic renal failure, stage 3 (moderate) N18.3 Active 91904812 Problem Subacute vaginitis N76.1 Active [id number] Problem Vitamin B12 deficiency E53.8 Active 134802787 Problem Lung mass R91.8 Active 780834076 Problem Malignant neoplasm of central portion of right female breast C50.111 Active 43026375 Problem Ileostomy status V44.2 Active 213773086 Problem Accidental fall on or from other stairs or steps E880.9 Active 904805208 Problem Need for prophylactic vaccination and inoculation, Influenza V04.81 Active 704436988 Problem Personal history of fall V15.88 Active 337506170 Problem Other general symptoms 780.99 Active 329163645 Problem Unspecified myalgia and myositis 729.1 Active 899706183 Problem Pain in joint, forearm 719.43 Active 920160873 Problem Pain in joint, shoulder region 719.41 Active 020745182 Problem Fall, initial encounter W19.XXXA Active 1232817 Problem Nausea alone 787.02 Active 911230185 Problem Ileostomy status Z93.2 Active 728663689 Problem Other vitamin B12 deficiency anemias D51.8 Active 08515997 Problem Infected tooth K04.7 Active 877061717 Problem skilled nursing (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 Z79.01 Active 508541111 Problem Type 2 diabetes mellitus without complication, without long-term current use of insulin E11.9 Active 027684395 Problem Persistent atrial fibrillation I48.1 Active 862594130 Problem Macular degeneration (senile) of retina, unspecified 362.50 Active 844540070 Problem Inflamed seborrheic keratosis of left cheek L82.0 Active 968153970 Problem Atrial fibrillation 427.31 Active 82257510 Problem Skin cancer C44.90 Active 173414227 Problem 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 Active 650736720 Problem Falls frequently R29.6 Active 354825149 Problem Urinary tract infection, site not specified 599.0 Active 69183693 Problem Seborrheic keratosis L82.1 Active 654188606 Problem Generalized osteoarthrosis, involving multiple sites 715.09 Active 97116490 Problem Diabetes mellitus without mention of complication, type II or unspecified type, not stated as uncontrolled 250.00 Active 050494732 Problem [place] of foot 700 Active 921404564 Problem Other and unspecified hyperlipidemia 272.4 Active 61855634 Problem Other B-complex deficiencies 266.2 Active 839135855 Problem Other vitamin B12 deficiency anemia 281.1 Active 38322617 Problem Volume depletion, unspecified 276.50 Active 79354136 ALLERGIES No Information ENCOUNTERS Encounter Location Date Diagnosis Marilyn Posadas[address] [id number] Nov, Persistent atrial fibrillation I48.1 ; Falls frequently R29.6 ; Type 2 diabetes mellitus without complication, without long-term current use of insulin E11.9 ; Vitamin B12 deficiency E53.8 ; Ileostomy status Z93.2 and Malignant neoplasm of central portion of right female breast C50.111 [facility] [address] [place] [address] Oct, [address] [id number] Oct, Persistent atrial fibrillation I48.1 ; Falls frequently R29.6 ; Type 2 diabetes mellitus without complication, without long-term current use of insulin E11.9 ; Vitamin B12 deficiency E53.8 ; Ileostomy status Z93.2 and Malignant neoplasm of central portion of right female breast C50.111 [facility] [place] [address] [place] [address] Oct, Encounter for long-term (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 other medications V58.[address] [id number] Sep, Persistent atrial fibrillation I48.1 ; Falls frequently R29.6 ; Type 2 diabetes mellitus without complication, without long-term current use of insulin E11.9 ; Vitamin B12 deficiency E53.8 and Ileostomy status Z93.2 [facility] [place] [address] [place] [address] Sep, [facility] [place] [address] [place] [address] August, [facility] [address] [address] August, [facility] [place] [address] [place] [address] August, [address] [id number] August, Chronic atrial fibrillation I48.2 ; B12 deficiency E53.8 and Type 2 diabetes mellitus without complication, without long-term current use of insulin E11.9 [facility] [place] [address] [place] [address] August, [facility] [address] [address] August, skilled nursing ( 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 Z79.01 and Other vitamin B12 deficiency anemia 281.1 [facility] [place] [address] [place] [address] Jul, Type 2 diabetes mellitus without complications E11.9 ; skilled nursing (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 Z79.01 ; Other vitamin B12 deficiency anemias D51.8 and Malignant neoplasm of central portion of right female breast C50.[address] [address] 30 Jun, 2017 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 ; Falls frequently R29.6 ; Unspecified atrial fibrillation I48.91 and Encounter for long-term (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 other medications V58.[address] [facility] [address] [address] 28 May, 2017 Fall, initial encounter W19.XXXA ; Encounter for long-term (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 other medications V58.69 ; 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 and Persistent atrial fibrillation I48.1 [facility] [address] [address] 14 May, 2017 [facility] [address] [address] 05 Mar, 2017 Bronchitis J40 and Chronic renal failure, stage 3 (moderate) N18.3 [facility] [address] [address] 10 Feb, 2017 Encounter for long-term (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 other medications V58.69 [facility] [address] [address] 10 Feb, 2017 Chronic atrial fibrillation I48.2 and 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.[address] [address] Jan, Chronic atrial fibrillation I48.2 and Encounter for long-term (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 other medications V58.[address] [facility] [address] [address] Jan, 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 [facility] [address] [address] 02 Jan, 2017 Medicare welcome exam Z00.00 ; Medicare annual wellness visit, initial Z00.00 ; Medicare annual wellness visit, subsequent Z00.00 ; Vitamin B12 deficiency E53.8 ; Falls frequently R29.6 ; Unspecified atrial fibrillation I48.91 ; skilled nursing current use of 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 Z79.01 and Encounter for immunization Z23 [address] [address] Oct, Encounter for long-term (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 other medications V58.69 ; Type 2 diabetes mellitus without complications E11.9 ; skilled nursing (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 Z79.01 ; Malignant neoplasm of central portion of right female breast C50.111 ; Orthostatic hypotension I95.1 ; Seborrheic keratosis L82.1 and Vitamin B12 deficiency E53.[address] [address] Jun, skilled nursing ( 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 Z79.[address] [address] Jun, Skin cancer C44.[address] [address] Apr, 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 ; Unspecified atrial fibrillation I48.91 ; Infected tooth K04.7 ; Other vitamin B12 deficiency anemias D51.8 and Malignant neoplasm of central portion of right female breast C50.[address] [address] Mar, Chronic atrial fibrillation I48.2 and 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 [address] Mar, Ulcerated, foot L97.509 ; Chronic atrial fibrillation I48.2 ; Chronic renal failure, stage 3 (moderate) N18.3 and Other vitamin B12 deficiency anemias D51.[address] [address] 30 Feb, 2016 Ulcerated, foot L97.509 and Cellulitis of foot L03.[address] [address] 16 Feb, 2016 Type 2 diabetes mellitus without complications E11.9 ; Encounter for immunization Z23 ; Ileostomy status Z93.2 ; Vitamin B12 deficiency E53.8 ; Subacute vaginitis N76.1 ; UTI (urinary tract infection) N39.0 and Fall, initial encounter W19.XXXA [facility] [address] [address] 25 Jan, [address] [address] Jan, [address] [address] Dec, [address] [address] Nov, Type 2 diabetes mellitus without complications E11.9 ; Chronic atrial fibrillation I48.2 ; skilled nursing current use of 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 Z79.01 and Malignant neoplasm of central portion of right female breast C50.[address] [address] 14 Sep, [address] [address] Sep, 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 and Orthostatic hypotension I95.[address] [address] August, [address] [address] August, Type 2 diabetes mellitus without complications E11.9 and Chronic renal failure, stage 3 (moderate) N18.[address] [address] August, Encounter for long-term (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 other medications V58.69 ; skilled nursing current use of 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 V58.61 ; Chronic atrial fibrillation I48.2 ; Wheezing R06.2 ; Breast mass N63 and Lung mass R91.[address] [address] Jul, UTI ( urinary tract infection) N39.0 ; Type 2 diabetes mellitus without complications E11.9 ; Cholelithiasis K80.20 and Chronic renal failure, stage 3 (moderate) N18.[address] [address] Jul, [address] [address] Jul, Urge incontinence N39.41 ; Orthostatic hypotension I95.1 ; Bronchitis J40 ; UTI ( urinary tract infection) N39.0 ; Cholecystitis K81.9 ; 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 and Type 2 diabetes mellitus without complications E11.[address] [address] Jun, skilled nursing current use of 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 Z79.01 ; Unspecified atrial fibrillation I48.91 and Encounter for long-term (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 other medications Z79.[address] [address] Jun, Unspecified atrial fibrillation I48.91 ; Other mcc (current) drug therapy Z79.899 ; 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 ; Ulcerated, foot L97.509 and Orthostatic hypotension I95.[address] [address] Apr, [address] [address] Mar, [address] [address] Mar, [address] [address] Mar, [address] [address] Mar, Cholecystitis K81.9 ; 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 ; Chronic atrial fibrillation I48.2 ; Encounter for long-term (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 other medications Z79.899 ; GERD (gastroesophageal reflux disease) K21.9 ; 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 and Skin tag L91.[address] [address] Feb, Chronic atrial fibrillation I48.2 ; skilled nursing current use of 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 Z79.01 ; Encounter for long-term (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 other medications Z79.899 and Ulcerated, foot L97.[address] [address] Jan, Chronic atrial fibrillation I48.2 ; 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 and Vitamin B12 deficiency anemia, unspecified D51.[address] [address] Jan, Chronic atrial fibrillation I48.2 ; 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 ; Encounter for long-term (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 other medications Z79.899 ; Encounter for immunization Z23 and Cellulitis of foot L03.[address] [address] Jan, [address] [address] Jan, Type 2 diabetes mellitus without complications E11.9 ; Callus of foot L84 and Ulceration L98.[address] [address] Dec, Atrial fibrillation 427.31 ; Encounter for long-term (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 other medications V58.69 ; 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.61 and [place] of foot [address] [address] Nov, Ileostomy status V44.2 ; Other vitamin B12 deficiency anemia 281.1 ; Atrial fibrillation 427.31 ; Encounter for long-term (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 other medications V58.69 and skilled nursing current use of 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 V58.[address] [address] Oct, 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 ; Atrial fibrillation 427.31 ; Encounter for long- term (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 other medications V58.69 and 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.[address] [address] Oct, Atrial fibrillation 427.31 ; Diabetes mellitus without mention of complication, type II or unspecified type, not stated as uncontrolled 250.00 ; Encounter for long- term (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 other medications V58.69 ; skilled nursing current use of 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 V58.61 ; Cold intolerance 780.99 ; Imbalance 781.2 and Other B-complex deficiencies 266.[address] [address] Oct, [address] [address] Sep, [address] [address] August, Ileostomy status V44.2 ; Diabetes mellitus without mention of complication, type II or unspecified type, not stated as uncontrolled 250.00 ; Other vitamin B12 deficiency anemia 281.1 ; Atrial fibrillation 427.31 and Foot ulcer, right 707.[address] [address] August, [address] [address] Jul, [place] [id number] [place] [address] Jul, [place] [id number] [place] [address] Jun, [address] [address] Jun, [address] [address] Apr, [address] [address] Apr, [address] [address] Apr, [place] [id number] [place] [address] Apr, [place] [id number] [place] [address] Apr, [address] [place] [address] Apr, [facility] [place] [address] [place] [facility] [place] [address] Apr, [facility] [id number] [address] Apr, [facility] [id number] [address] Apr, [facility] [place] [address] [place] [address] Apr, [facility] [id number] [address] Apr, [facility] [id number] [address] Mar, [facility] [id number] [address] Mar, [facility] [id number] [address] Mar, [facility] [place] [address] [place] [address] Mar, [facility] [place] [address] [place] [address] Feb, [facility] [id number] [address] Feb, [facility] [id number] [address] Jan, [facility] [place] [address] [place] [address] Jan, [facility] [id number] [address] Jan, [facility] [id number] [address] Dec, [facility] [place] [address] [place] [address] Dec, [facility] [address] [facility] [id number] [address] Dec, [facility] [place] [address] [place] [address] Dec, [facility] [id number] [address] Nov, [facility] [place] [address] [place] [address] Nov, [facility] [place] [address] [place] [address] Oct, [facility] [id number] [address] Oct, [facility] [id number] [address] Sep, [facility] [id number] [address] Sep, [facility] [place] [address] [place] [address] Sep, [facility] [place] [address] [place] [address] Sep, [facility] [id number] [address] Sep, [facility] [place] [address] [place] [address] August, [facility] [id number] [address] August, [facility] [place] [address] [place] [address] August, [facility] [id number] [address] August, [facility] [place] [address] [place] [address] Jul, [facility] [id number] [address] Jul, [facility] [place] [address] [place] [address] Jun, [facility] [id number] [address] Jun, [facility] [place] [address] [place] [address] Jun, [facility] [id number] [place] [address] Jun, [facility] [place] [address] [place] [address] May, [facility] [id number] [place] [address] May, [facility] [place] [address] [place] [address] May, [facility] [id number] [place] [address] May, [facility] [id number] [place] [address] Apr, [facility] [place] [address] [place] [address] Apr, [facility] [place] [address] [place] [address] Mar, [facility] [id number] [address] Mar, [facility] [place] [address] [place] [address] Mar, [facility] [id number] [address] Mar, [facility] [id number] [address] Mar, [facility] [place] [address] [place] [address] Mar, [facility] [place] [address] [place] [address] Mar, [facility] [id number] [address] Mar, [facility] [address] [place] [address] Feb, [facility] [id number] [address] Feb, [facility] [address] [place] [address] Feb, [facility] [address] [place] [id number] [address] Feb, [id number] [place] [address] Jan, [address] [address] Jan, [address] [address] Jan, IMMUNIZATIONS No Known Immunizations SOCIAL HISTORY Never Assessed REASON FOR VISIT MD visit PLAN OF CARE Activity Details Follow Up 4 Weeks Reason:generalized weakness falls VITAL SIGNS MEDICATIONS Unknown Medications RESULTS No Results PROCEDURES Procedure Date Ordered Result Body Site Minor complication (15 mins) October 16, 2017 INSTRUCTIONS MEDICATIONS ADMINISTERED No Known Medications [...]
--- OUTSIDE RECORDS SUMMARY | 2018-06-21 06:14 | XMS REPORT ---
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 Name Role Phone ZARINA VERGARA Unavailable PROBLEMS Type Condition ICD9-CM Code ASO21-JI Code Onset Dates Condition Status SNOMED Code Problem [facility] current use of 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 Z79.01 Active 490141601 Problem Chronic atrial fibrillation I48.2 Active 800146375 Problem Ulcerated, foot L97.509 Active 17989915 Problem Cellulitis of foot L03.119 Active 645769514 Problem 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 Active 55359091 Problem Skin tag L91.8 Active 192628567 Problem Cholecystitis K81.9 Active 95170524 Problem GERD (gastroesophageal reflux disease) K21.9 Active 109205098 Problem Orthostatic hypotension I95.1 Active 51447797 Problem Unspecified atrial fibrillation I48.91 Active 84257475 Problem Type 2 diabetes mellitus without complications E11.9 Active 422750976 Problem Bronchitis J40 Active 92861935 Problem Urge incontinence N39.41 Active 00727216 Problem UTI (urinary tract infection) N39.0 Active 58004731 Problem Breast mass N63 Active 20146702 Problem Wheezing R06.2 Active 93348803 Problem Cholelithiasis K80.20 Active 339862134 Problem Chronic renal failure, stage 3 (moderate) N18.3 Active 14532732 Problem Subacute vaginitis N76.1 Active [id number] Problem Vitamin B12 deficiency E53.8 Active 328412479 Problem Lung mass R91.8 Active 663310975 Problem Malignant neoplasm of central portion of right female breast C50.111 Active 20595088 Problem Ileostomy status V44.2 Active 802122791 Problem Accidental fall on or from other stairs or steps E880.9 Active 180729822 Problem Need for prophylactic vaccination and inoculation, Influenza V04.81 Active 220537420 Problem Personal history of fall V15.88 Active 660540801 Problem Other general symptoms 780.99 Active 591559367 Problem Unspecified myalgia and myositis 729.1 Active 227665221 Problem Pain in joint, forearm 719.43 Active 957114602 Problem Pain in joint, shoulder region 719.41 Active 238379318 Problem Fall, initial encounter W19.XXXA Active 3636862 Problem Nausea alone 787.02 Active 214011670 Problem Ileostomy status Z93.2 Active 788036451 Problem Other vitamin B12 deficiency anemias D51.8 Active 33087692 Problem Infected tooth K04.7 Active 047136368 Problem [facility] (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 Z79.01 Active 449222008 Problem Type 2 diabetes mellitus without complication, without long-term current use of insulin E11.9 Active 620544015 Problem Persistent atrial fibrillation I48.1 Active 209925748 Problem Macular degeneration (senile) of retina, unspecified 362.50 Active 216709432 Problem Inflamed seborrheic keratosis of left cheek L82.0 Active 791368934 Problem Atrial fibrillation 427.31 Active 98570080 Problem Skin cancer C44.90 Active 619278293 Problem 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 Active 043496227 Problem Falls frequently R29.6 Active 237258770 Problem Urinary tract infection, site not specified 599.0 Active 39950674 Problem Seborrheic keratosis L82.1 Active 729247875 Problem Generalized osteoarthrosis, involving multiple sites 715.09 Active 47857090 Problem Diabetes mellitus without mention of complication, type II or unspecified type, not stated as uncontrolled 250.00 Active 811416377 Problem Elizabeth of foot 700 Active 712384695 Problem Other and unspecified hyperlipidemia 272.4 Active 83653351 Problem Other B-complex deficiencies 266.2 Active 412063585 Problem Other vitamin B12 deficiency anemia 281.1 Active 35831958 Problem Volume depletion, unspecified 276.50 Active 76936482 ALLERGIES No Information ENCOUNTERS Encounter Location Date Diagnosis Marilyn [address] [id number] Nov, Persistent atrial fibrillation I48.1 ; Falls frequently R29.6 ; Type 2 diabetes mellitus without complication, without long-term current use of insulin E11.9 ; Vitamin B12 deficiency E53.8 ; Ileostomy status Z93.2 and Malignant neoplasm of central portion of right female breast C50.111 [facility] [address] [address] Oct, [address] [id number] Oct, Persistent atrial fibrillation I48.1 ; Falls frequently R29.6 ; Type 2 diabetes mellitus without complication, without long-term current use of insulin E11.9 ; Vitamin B12 deficiency E53.8 ; Ileostomy status Z93.2 and Malignant neoplasm of central portion of right female breast C50.[address] [address] Oct, Encounter for long-term (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 other medications V58.[address] [id number] Sep, Persistent atrial fibrillation I48.1 ; Falls frequently R29.6 ; Type 2 diabetes mellitus without complication, without long-term current use of insulin E11.9 ; Vitamin B12 deficiency E53.8 and Ileostomy status Z93.[address] [address] Sep, [address] [address] August, [address] [address] August, [address] [address] August, [address] [id number] August, Chronic atrial fibrillation I48.2 ; B12 deficiency E53.8 and Type 2 diabetes mellitus without complication, without long-term current use of insulin E11.[address] [address] August, [address] [address] 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, 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 and Other vitamin B12 deficiency anemia 281.[address] [address] Jul, Type 2 diabetes mellitus without complications E11.9 ; [facility] (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 Z79.01 ; Other vitamin B12 deficiency anemias D51.8 and Malignant neoplasm of central portion of right female breast C50.[address] [address] Jun, [facility] ( 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 Z79.01 ; Falls frequently R29.6 ; Unspecified atrial fibrillation I48.91 and Encounter for long-term (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 other medications V58.[address] [address] 28 May, 2017 Fall, initial encounter W19.XXXA ; Encounter for long-term (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 other medications V58.69 ; [facility] (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 Z79.01 and Persistent atrial fibrillation I48.[address] [address] 14 May, [address] [address] 05 Mar, 2017 Bronchitis J40 and Chronic renal failure, stage 3 (moderate) N18.[address] [address] 10 Feb, 2017 Encounter for long-term (current) use of other medications V58.[address] [address] Feb, Chronic atrial fibrillation I48.2 and Other usp (current) drug therapy Z79.[address] [address] Jan, Chronic atrial fibrillation I48.2 and Encounter for long-term (current) use of other medications V58.[address] [address] 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, 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 [address] Jan, Medicare welcome exam Z00.00 ; Medicare annual wellness visit, initial Z00.00 ; Medicare annual wellness visit, subsequent Z00.00 ; Vitamin B12 deficiency E53.8 ; Falls frequently R29.6 ; Unspecified atrial fibrillation I48.91 ; [facility] current use of 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 Z79.01 and Encounter for immunization Z23 [address] [address] Oct, Encounter for long-term (current) use of other medications V58.69 ; Type 2 diabetes mellitus without complications E11.9 ; [facility] (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 Z79.01 ; Malignant neoplasm of central portion of right female breast C50.111 ; Orthostatic hypotension I95.1 ; Seborrheic keratosis L82.1 and Vitamin B12 deficiency E53.[address] [address] Jun, [facility] ( 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 Z79.[address] [address] Jun, Skin cancer C44.[address] [address] Apr, 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 ; Unspecified atrial fibrillation I48.91 ; Infected tooth K04.7 ; Other vitamin B12 deficiency anemias D51.8 and Malignant neoplasm of central portion of right female breast C50.[address] [address] Mar, Chronic atrial fibrillation I48.2 and [facility]FP current use of 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 Z79.[address] [address] Mar, Ulcerated, foot L97.509 ; Chronic atrial fibrillation I48.2 ; Chronic renal failure, stage 3 (moderate) N18.3 and Other vitamin B12 deficiency anemias D51.[address] [address] 30 Feb, 2016 Ulcerated, foot L97.509 and Cellulitis of foot L03.[address] [address] 16 Feb, 2016 Type 2 diabetes mellitus without complications E11.9 ; Encounter for immunization Z23 ; Ileostomy status Z93.2 ; Vitamin B12 deficiency E53.8 ; Subacute vaginitis N76.1 ; UTI (urinary tract infection) N39.0 and Fall, initial encounter W19.XXXA [address] [address] Jan, [address] [address] Jan, [address] [address] Dec, [address] [address] Nov, Type 2 diabetes mellitus without complications E11.9 ; Chronic atrial fibrillation I48.2 ; 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 and Malignant neoplasm of central portion of right female breast C50.[address] [address] Sep, [address] [address] Sep, 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 and Orthostatic hypotension I95.[address] [address] August, [address] [address] August, Type 2 diabetes mellitus without complications E11.9 and Chronic renal failure, stage 3 (moderate) N18.[address] [address] August, Encounter for long-term (current) use of other medications V58.69 ; [facility]FP current use of 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 V58.61 ; Chronic atrial fibrillation I48.2 ; Wheezing R06.2 ; Breast mass N63 and Lung mass R91.[address] [address] Jul, UTI (urinary tract infection) N39.0 ; Type 2 diabetes mellitus without complications E11.9 ; Cholelithiasis K80.20 and Chronic renal failure, stage 3 (moderate) N18.[address] [address] Jul, [address] [address] Jul, Urge incontinence N39.41 ; Orthostatic hypotension I95.1 ; Bronchitis J40 ; UTI ( urinary tract infection) N39.0 ; Cholecystitis K81.9 ; 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 and Type 2 diabetes mellitus without complications E11.[address] [address] Jun, [facility] current use of 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 Z79.01 ; Unspecified atrial fibrillation I48.91 and Encounter for long-term (current) use of other medications Z79.[address] [address] Jun, Unspecified atrial fibrillation I48.91 ; Other usp (current) drug therapy Z79.899 ; 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 ; Ulcerated, foot L97.509 and Orthostatic hypotension I95.[address] [address] Apr, [address] [address] Mar, [address] [address] Mar, [address] [address] Mar, [address] [address] Mar, Cholecystitis K81.9 ; [facility]FP current use of 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 Z79.01 ; Chronic atrial fibrillation I48.2 ; Encounter for long-term (current) use of other medications Z79.899 ; GERD (gastroesophageal reflux disease) K21.9 ; 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 and Skin tag L91.[address] [address] Feb, Chronic atrial fibrillation I48.2 ; 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 ; Encounter for long-term (current) use of other medications Z79.899 and Ulcerated, foot L97.[address] [address] Jan, Chronic atrial fibrillation I48.2 ; [facility] current use of 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 Z79.01 and Vitamin B12 deficiency anemia, unspecified D51.[address] [address] Jan, Chronic atrial fibrillation I48.2 ; 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 ; Encounter for long-term (current) use of other medications Z79.899 ; Encounter for immunization Z23 and Cellulitis of foot L03.[address] [address] Jan, [address] [address] Jan, Type 2 diabetes mellitus without complications E11.9 ; Callus of foot L84 and Ulceration L98.[address] [address] Dec, Atrial fibrillation 427.31 ; Encounter for long-term (current) use of other medications V58.69 ; 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.61 and Elizabeth of foot [address] [address] Nov, Ileostomy status V44.2 ; Other vitamin B12 deficiency anemia 281.1 ; Atrial fibrillation 427.31 ; Encounter for long-term (current) use of other medications V58.69 and 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.[address] [address] Oct, Ulcerative ( chronic) enterocolitis 556.0 ; Atrial fibrillation 427.31 ; Encounter for long- term (current) use of other medications V58.69 and 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.[address] [address] Oct, Atrial fibrillation 427.31 ; Diabetes mellitus without mention of complication, type II or unspecified type, not stated as uncontrolled 250.00 ; Encounter for long- term (current) use of other medications V58.69 ; [facility] current use of 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 V58.61 ; Cold intolerance 780.99 ; Imbalance 781.2 and Other B-complex deficiencies 266.[address] [address] Oct, [address] [address] Sep, [address] [address] August, Ileostomy status V44.2 ; Diabetes mellitus without mention of complication, type II or unspecified type, not stated as uncontrolled 250.00 ; Other vitamin B12 deficiency anemia 281.1 ; Atrial fibrillation 427.31 and Foot ulcer, right 707.[address] [address] August, [facility] [address] [place] [id number] [address] Jul, [facility] [address] [place] [id number] [address] Jul, [facility] [address] [place] [id number] [place] [address] Jun, [address] [address] Jun, [address] [address] Apr, [address] [address] Apr, [address] [address] Apr, [id number] [address] Apr, [id number] [address] Apr, [facility] [address] [place] [id number] [address] Apr, [address] [address] Apr, [facility] [address] [place] [id number] [address] Apr, [facility] [address] [place] [id number] [address] Apr, [address] [address] Apr, [facility] [id number] [address] Apr, [facility] [id number] [address] Mar, [facility] [id number] [address] Mar, [facility] [id number] [address] Mar, [facility] [address] [place] [address] Mar, [facility] [address] [place] [address] Feb, [facility] [id number] [address] Feb, [facility] [id number] [address] Jan, [facility] [address] [place] [address] Jan, [facility] [id number] [address] Jan, [facility] [id number] [address] Dec, [facility] [address] [place] [address] Dec, [facility] [place] [facility] [id number] [address] Dec, [facility] [address] [place] [address] Dec, [facility] [place] [facility] [id number] [address] Nov, [facility] [address] [place] [address] Nov, [facility] [address] [place] [address] Oct, [facility] [place] [facility] [address] [facility] [id number] [address] Oct, [facility] [place] [facility] [address] [facility] [id number] [place] [address] Sep, [facility] [place] [facility] [address] [facility] [id number] [place] [address] Sep, [facility] [address] [place] [address] Sep, [facility] [address] [place] [address] Sep, [facility] [place] [facility] [address] [facility] [id number] [place] [address] Sep, [facility] [address] [place] [address] August, [facility] [place] [facility] [id number] [address] August, [facility] [address] [place] [address] August, [facility] [place] [facility] [id number] [place] [address] August, [facility] [address] [place] [address] Jul, [facility] [place] [facility] [id number] [place] [address] Jul, [facility] [address] [place] [address] Jun, [facility] [place] [facility] [address] [facility] [id number] [place] [address] Jun, [facility] [address] [place] [address] Jun, [facility] [place] [facility] [address] [facility] [id number] [place] [address] Jun, [facility] [address] [place] [address] May, [facility] [place] [facility] [address] [facility] [id number] [address] May, [facility] [address] [place] [address] May, [facility] [place] [facility] [address] [facility] [id number] [address] May, [facility] [place] [facility] [id number] [address] Apr, [facility] [address] [place] [address] Apr, [facility] [address] [place] [address] Mar, [facility] [place] [facility] [id number] [address] Mar, [facility] [address] [place] [address] Mar, [facility] [place] [facility] [id number] [address] Mar, [facility] [place] [facility] [id number] [address] Mar, [facility] [address] [place] [address] Mar, [facility] [address] [place] [address] Mar, [facility] [place] [facility] [id number] [address] Mar, [facility] [address] [place] [address] Feb, [facility] [place] [facility] [id number] [address] Feb, [facility] [address] [place] [address] Feb, [facility] [place] [facility] [id number] [address] Feb, [facility] [place] [facility] [id number] [address] Jan, [facility] [place] [address] [place] [address] Jan, [facility] [place] [address] [place] [address] Jan, IMMUNIZATIONS No Known Immunizations SOCIAL HISTORY Never Assessed REASON FOR VISIT Requests return call PLAN OF CARE VITAL SIGNS MEDICATIONS Medication Instructions Dosage Frequency Start Date End Date Duration Status Warfarin Sodium 4 MG Orally Once a day 1 tablet 24h Mar, Active RESULTS No Results PROCEDURES No Known procedures [...]
--- OUTSIDE RECORDS SUMMARY | 2018-06-21 06:14 | XMS REPORT ---
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 Name Role Phone JADE HOLLAND Unavailable PROBLEMS Type Condition ICD9-CM Code LRW71-PM Code Onset Dates Condition Status SNOMED Code Problem intermediate manager current use of 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 Z79.01 Active 760692641 Problem Chronic atrial fibrillation I48.2 Active 199972767 Problem Ulcerated, foot L97.509 Active 75316891 Problem Cellulitis of foot L03.119 Active 144898432 Problem 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 Active 66173819 Problem Skin tag L91.8 Active 916571171 Problem Cholecystitis K81.9 Active 27180343 Problem GERD (gastroesophageal reflux disease) K21.9 Active 744284246 Problem Orthostatic hypotension I95.1 Active 84065629 Problem Unspecified atrial fibrillation I48.91 Active 69807974 Problem Type 2 diabetes mellitus without complications E11.9 Active 726849280 Problem Bronchitis J40 Active 94080873 Problem Urge incontinence N39.41 Active 61563766 Problem UTI (urinary tract infection) N39.0 Active 58218761 Problem Breast mass N63 Active 14460843 Problem Wheezing R06.2 Active 81983145 Problem Cholelithiasis K80.20 Active 021248652 Problem Chronic renal failure, stage 3 (moderate) N18.3 Active 74484107 Problem Subacute vaginitis N76.1 Active [id number] Problem Vitamin B12 deficiency E53.8 Active 132089131 Problem Lung mass R91.8 Active 883199206 Problem Malignant neoplasm of central portion of right female breast C50.111 Active 45316201 Problem Ileostomy status V44.2 Active 143582564 Problem Accidental fall on or from other stairs or steps E880.9 Active 538902226 Problem Need for prophylactic vaccination and inoculation, Influenza V04.81 Active 820518304 Problem Personal history of fall V15.88 Active 504941458 Problem Other general symptoms 780.99 Active 832003963 Problem Unspecified myalgia and myositis 729.1 Active 002664485 Problem Pain in joint, forearm 719.43 Active 548399345 Problem Pain in joint, shoulder region 719.41 Active 460349844 Problem Fall, initial encounter W19.XXXA Active 4564651 Problem Nausea alone 787.02 Active 386526091 Problem Ileostomy status Z93.2 Active 974006531 Problem Other vitamin B12 deficiency anemias D51.8 Active 07948955 Problem Infected tooth K04.7 Active 088641675 Problem prison (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 Z79.01 Active 096487543 Problem Type 2 diabetes mellitus without complication, without long-term current use of insulin E11.9 Active 295891138 Problem Persistent atrial fibrillation I48.1 Active 287557645 Problem Macular degeneration (senile) of retina, unspecified 362.50 Active 158112865 Problem Inflamed seborrheic keratosis of left cheek L82.0 Active 023177392 Problem Atrial fibrillation 427.31 Active 46078946 Problem Skin cancer C44.90 Active 489632161 Problem 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 Active 722341148 Problem Falls frequently R29.6 Active 282355910 Problem Urinary tract infection, site not specified 599.0 Active 26653355 Problem Seborrheic keratosis L82.1 Active 469372588 Problem Generalized osteoarthrosis, involving multiple sites 715.09 Active 41100053 Problem Diabetes mellitus without mention of complication, type II or unspecified type, not stated as uncontrolled 250.00 Active 816713111 Problem [place] of foot 700 Active 336755768 Problem Other and unspecified hyperlipidemia 272.4 Active 77791723 Problem Other B-complex deficiencies 266.2 Active 034886121 Problem Other vitamin B12 deficiency anemia 281.1 Active 95910975 Problem Volume depletion, unspecified 276.50 Active 56468504 ALLERGIES No Information ENCOUNTERS Encounter Location Date Diagnosis Marilyn Posadas[address] [id number] Nov, Persistent atrial fibrillation I48.1 ; Falls frequently R29.6 ; Type 2 diabetes mellitus without complication, without long-term current use of insulin E11.9 ; Vitamin B12 deficiency E53.8 ; Ileostomy status Z93.2 and Malignant neoplasm of central portion of right female breast C50.111 [facility] [address] [place] [address] Oct, [address] [id number] Oct, Persistent atrial fibrillation I48.1 ; Falls frequently R29.6 ; Type 2 diabetes mellitus without complication, without long-term current use of insulin E11.9 ; Vitamin B12 deficiency E53.8 ; Ileostomy status Z93.2 and Malignant neoplasm of central portion of right female breast C50.[address] [address] Oct, Encounter for long-term (current) use of other medications V58.[address] [id number] Sep, Persistent atrial fibrillation I48.1 ; Falls frequently R29.6 ; Type 2 diabetes mellitus without complication, without long-term current use of insulin E11.9 ; Vitamin B12 deficiency E53.8 and Ileostomy status Z93.[address] [address] Sep, [address] [address] August, [address] [address] August, [address] [address] August, [address] [id number] August, Chronic atrial fibrillation I48.2 ; B12 deficiency E53.8 and Type 2 diabetes mellitus without complication, without long-term current use of insulin E11.[address] [address] August, [address] [address] August, prison ( 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 Z79.01 and Other vitamin B12 deficiency anemia 281.[address] [address] Jul, Type 2 diabetes mellitus without complications E11.9 ; intermediate manager (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 Z79.01 ; Other vitamin B12 deficiency anemias D51.8 and Malignant neoplasm of central portion of right female breast C50.[address] [address] Jun, prison ( 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 Z79.01 ; Falls frequently R29.6 ; Unspecified atrial fibrillation I48.91 and Encounter for long-term (current) use of other medications V58.[address] [address] 28 May, 2017 Fall, initial encounter W19.XXXA ; Encounter for long-term (current) use of other medications V58.69 ; prison (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 Z79.01 and Persistent atrial fibrillation I48.[address] [address] 14 May, [address] [address] 05 Mar, 2017 Bronchitis J40 and Chronic renal failure, stage 3 (moderate) N18.[address] [address] 10 Feb, 2017 Encounter for long-term (current) use of other medications V58.[address] [address] Feb, Chronic atrial fibrillation I48.2 and Other group home (current) drug therapy Z79.[address] [address] Jan, Chronic atrial fibrillation I48.2 and Encounter for long-term (current) use of other medications V58.[address] [address] Jan, prison current use of 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 Z79.[address] [address] Jan, Medicare welcome exam Z00.00 ; Medicare annual wellness visit, initial Z00.00 ; Medicare annual wellness visit, subsequent Z00.00 ; Vitamin B12 deficiency E53.8 ; Falls frequently R29.6 ; Unspecified atrial fibrillation I48.91 ; prison current use of 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 Z79.01 and Encounter for immunization Z23 [address] [address] Oct, Encounter for long-term (current) use of other medications V58.69 ; Type 2 diabetes mellitus without complications E11.9 ; intermediate manager (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 Z79.01 ; Malignant neoplasm of central portion of right female breast C50.111 ; Orthostatic hypotension I95.1 ; Seborrheic keratosis L82.1 and Vitamin B12 deficiency E53.[address] [address] Jun, prison ( 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 Z79.[address] [address] Jun, Skin cancer C44.[address] [address] Apr, prison ( 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 Z79.01 ; Unspecified atrial fibrillation I48.91 ; Infected tooth K04.7 ; Other vitamin B12 deficiency anemias D51.8 and Malignant neoplasm of central portion of right female breast C50.[address] [address] Mar, Chronic atrial fibrillation I48.2 and prison current use of 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 Z79.[address] [address] Mar, Ulcerated, foot L97.509 ; Chronic atrial fibrillation I48.2 ; Chronic renal failure, stage 3 (moderate) N18.3 and Other vitamin B12 deficiency anemias D51.[address] [address] 30 Feb, 2016 Ulcerated, foot L97.509 and Cellulitis of foot L03.[address] [address] 16 Feb, 2016 Type 2 diabetes mellitus without complications E11.9 ; Encounter for immunization Z23 ; Ileostomy status Z93.2 ; Vitamin B12 deficiency E53.8 ; Subacute vaginitis N76.1 ; UTI (urinary tract infection) N39.0 and Fall, initial encounter W19.XXXA [address] [address] Jan, [address] [address] Jan, [address] [address] Dec, [address] [address] Nov, Type 2 diabetes mellitus without complications E11.9 ; Chronic atrial fibrillation I48.2 ; intermediate manager current use of 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 Z79.01 and Malignant neoplasm of central portion of right female breast C50.[address] [address] Sep, [address] [address] Sep, 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 and Orthostatic hypotension I95.[address] [address] August, [address] [address] August, Type 2 diabetes mellitus without complications E11.9 and Chronic renal failure, stage 3 (moderate) N18.[address] [address] August, Encounter for long-term (current) use of other medications V58.69 ; prison current use of 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 V58.61 ; Chronic atrial fibrillation I48.2 ; Wheezing R06.2 ; Breast mass N63 and Lung mass R91.[address] [address] Jul, UTI (urinary tract infection) N39.0 ; Type 2 diabetes mellitus without complications E11.9 ; Cholelithiasis K80.20 and Chronic renal failure, stage 3 (moderate) N18.[address] [address] Jul, [address] [address] Jul, Urge incontinence N39.41 ; Orthostatic hypotension I95.1 ; Bronchitis J40 ; UTI ( urinary tract infection) N39.0 ; Cholecystitis K81.9 ; 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 and Type 2 diabetes mellitus without complications E11.[address] [address] Jun, intermediate manager current use of 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 Z79.01 ; Unspecified atrial fibrillation I48.91 and Encounter for long-term (current) use of other medications Z79.[address] [address] Jun, Unspecified atrial fibrillation I48.91 ; Other long term care pharmacist (current) drug therapy Z79.899 ; intermediate manager (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 Z79.01 ; Ulcerated, foot L97.509 and Orthostatic hypotension I95.[address] [address] Apr, [address] [address] Mar, [address] [address] Mar, [address] [address] Mar, [address] [address] Mar, Cholecystitis K81.9 ; prison current use of 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 Z79.01 ; Chronic atrial fibrillation I48.2 ; Encounter for long-term (current) use of other medications Z79.899 ; GERD (gastroesophageal reflux disease) K21.9 ; 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 and Skin tag L91.[address] [address] Feb, Chronic atrial fibrillation I48.2 ; prison current use of 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 Z79.01 ; Encounter for long-term (current) use of other medications Z79.899 and Ulcerated, foot L97.[address] [address] Jan, Chronic atrial fibrillation I48.2 ; prison current use of 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 Z79.01 and Vitamin B12 deficiency anemia, unspecified D51.[address] [address] Jan, Chronic atrial fibrillation I48.2 ; prison current use of 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 Z79.01 ; Encounter for long-term (current) use of other medications Z79.899 ; Encounter for immunization Z23 and Cellulitis of foot L03.[address] [address] Jan, [address] [address] Jan, Type 2 diabetes mellitus without complications E11.9 ; Callus of foot L84 and Ulceration L98.[address] [address] Dec, Atrial fibrillation 427.31 ; Encounter for long-term (current) use of other medications V58.69 ; intermediate manager current use of 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 V58.61 and [place] of foot [address] [address] Nov, Ileostomy status V44.2 ; Other vitamin B12 deficiency anemia 281.1 ; Atrial fibrillation 427.31 ; Encounter for long-term (current) use of other medications V58.69 and intermediate manager current use of 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 V58.[address] [address] Oct, Ulcerative ( chronic) enterocolitis 556.0 ; Atrial fibrillation 427.31 ; Encounter for long- term (current) use of other medications V58.69 and intermediate manager current use of 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 V58.[address] [address] Oct, Atrial fibrillation 427.31 ; Diabetes mellitus without mention of complication, type II or unspecified type, not stated as uncontrolled 250.00 ; Encounter for long- term (current) use of other medications V58.69 ; intermediate manager current use of 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 V58.61 ; Cold intolerance 780.99 ; Imbalance 781.2 and Other B-complex deficiencies 266.[address] [address] Oct, [address] [address] Sep, [address] [address] August, Ileostomy status V44.2 ; Diabetes mellitus without mention of complication, type II or unspecified type, not stated as uncontrolled 250.00 ; Other vitamin B12 deficiency anemia 281.1 ; Atrial fibrillation 427.31 and Foot ulcer, right 707.[address] [address] August, [facility] [address] [place] [id number] [address] Jul, [facility] [address] [place] [id number] [place] [address] Jul, [facility] [address] [place] [id number] [place] [address] Jun, [address] [address] Jun, [address] [address] Apr, [address] [address] Apr, [address] [address] Apr, [address] [address] Apr, [facility] [address] [place] [id number] [address] Apr, [facility] [address] [place] [id number] [address] Apr, [address] [address] Apr, [facility] [address] [place] [id number] [address] Apr, [facility] [address] [place] [id number] [address] Apr, [address] [address] Apr, [facility] [place] [facility] [address] [id number] [address] Apr, [facility] [place] [facility] [address] [id number] [address] Mar, [facility] [place] [facility] [address] [id number] [address] Mar, [facility] [place] [facility] [address] [id number] [address] Mar, [facility] [address] [place] [address] Mar, [facility] [address] [place] [address] Feb, [facility] [place] [facility] [address] [address] Feb, [facility] [place] [facility] [address] [address] Jan, [facility] [address] [place] [address] Jan, [facility] [place] [facility] [address] [address] Jan, [facility] [place] [facility] [address] [id number] [address] Dec, [facility] [address] [place] [address] Dec, [facility] [place] [facility] [address] [id number] [address] Dec, [facility] [address] [place] [address] Dec, [facility] [place] [facility] [address] [address] Nov, [facility] [address] [place] [address] Nov, [facility] [address] [place] [address] Oct, [facility] [place] [facility] [address] [facility] [id number] [place] [address] Oct, [facility] [place] [facility] [address] [facility] [id number] [place] [address] Sep, [facility] [place] [facility] [address] [facility] [id number] [place] [address] Sep, [facility] [address] [place] [address] Sep, [facility] [address] [place] [address] Sep, [facility] [place] [facility] [address] [id number] [address] Sep, [facility] [address] [place] [address] August, [facility] [place] [facility] [address] [id number] [address] August, [facility] [address] [place] [address] August, [facility] [place] [facility] [address] [id number] [address] August, [facility] [address] [place] [address] Jul, [facility] [place] [facility] [address] [id number] [address] Jul, [facility] [address] [place] [address] Jun, [facility] [place] [facility] [address] [facility] [id number] [address] Jun, [facility] [address] [facility] [place] [address] Jun, [facility] [place] [facility] [address] [facility] [id number] [place] [address] Jun, [facility] [address] [place] [address] May, [facility] [place] [facility] [address] [id number] [address] May, [facility] [address] [place] [address] May, [facility] [place] [facility] [address] [id number] [address] May, [facility] [place] [facility] [address] [id number] [address] Apr, [facility] [address] [place] [address] Apr, [facility] [address] [place] [address] Mar, [facility] [place] [facility] [address] [id number] [address] Mar, [facility] [address] [place] [address] Mar, [facility] [place] [facility] [id number] [address] Mar, [facility] [place] [facility] [address] [id number] [address] Mar, [facility] [address] [place] [address] Mar, [facility] [address] [place] [address] Mar, [facility] [place] [facility] [address] [id number] [address] Mar, [facility] [address] [place] [address] Feb, [facility] [place] [facility] [address] [id number] [address] Feb, [facility] [address] [place] [address] Feb, [facility] [place] [facility] [id number] [address] Feb, [facility] [place] [facility] [address] [id number], [place] [address] Jan, [facility] [address] [place] [address] Jan, [facility] [address] [place] [address] Jan, IMMUNIZATIONS No Known Immunizations SOCIAL HISTORY Never Assessed REASON FOR VISIT FYI PLAN OF CARE VITAL SIGNS MEDICATIONS Unknown [...]
--- OUTSIDE RECORDS SUMMARY | 2018-06-21 06:15 | XMS REPORT ---
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 Name Role Phone ZARINA VERGARA Unavailable PROBLEMS Type Condition ICD9-CM Code BEL37-JJ Code Onset Dates Condition Status SNOMED Code Problem penitentiary current use of 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 Z79.01 Active 622096313 Problem Chronic atrial fibrillation I48.2 Active 535758563 Problem Ulcerated, foot L97.509 Active 78041330 Problem Cellulitis of foot L03.119 Active 996261736 Problem 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 Active 05661130 Problem Skin tag L91.8 Active 625050345 Problem Cholecystitis K81.9 Active 93526956 Problem GERD (gastroesophageal reflux disease) K21.9 Active 850763362 Problem Orthostatic hypotension I95.1 Active 69979254 Problem Unspecified atrial fibrillation I48.91 Active 81779150 Problem Type 2 diabetes mellitus without complications E11.9 Active 886265978 Problem Bronchitis J40 Active 10021941 Problem Urge incontinence N39.41 Active 36356248 Problem UTI (urinary tract infection) N39.0 Active 01680705 Problem Breast mass N63 Active 37995218 Problem Wheezing R06.2 Active 86539863 Problem Cholelithiasis K80.20 Active 460011813 Problem Chronic renal failure, stage 3 (moderate) N18.3 Active 35039873 Problem Subacute vaginitis N76.1 Active [id number] Problem Vitamin B12 deficiency E53.8 Active 615591014 Problem Lung mass R91.8 Active 359235239 Problem Malignant neoplasm of central portion of right female breast C50.111 Active 94514187 Problem Ileostomy status V44.2 Active 345465641 Problem Accidental fall on or from other stairs or steps E880.9 Active 489720956 Problem Need for prophylactic vaccination and inoculation, Influenza V04.81 Active 913559222 Problem Personal history of fall V15.88 Active 289357578 Problem Other general symptoms 780.99 Active 272784598 Problem Unspecified myalgia and myositis 729.1 Active 587736793 Problem Pain in joint, forearm 719.43 Active 800313269 Problem Pain in joint, shoulder region 719.41 Active 926228819 Problem Fall, initial encounter W19.XXXA Active 6889388 Problem Nausea alone 787.02 Active 043680753 Problem Ileostomy status Z93.2 Active 758894249 Problem Other vitamin B12 deficiency anemias D51.8 Active 74627456 Problem Infected tooth K04.7 Active 462952263 Problem penitentiary (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 Z79.01 Active 501922434 Problem Type 2 diabetes mellitus without complication, without long-term current use of insulin E11.9 Active 166147038 Problem Persistent atrial fibrillation I48.1 Active 455143938 Problem Macular degeneration (senile) of retina, unspecified 362.50 Active 981692105 Problem Inflamed seborrheic keratosis of left cheek L82.0 Active 759204002 Problem Atrial fibrillation 427.31 Active 74013192 Problem Skin cancer C44.90 Active 738419917 Problem 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 Active 435455992 Problem Falls frequently R29.6 Active 258528710 Problem Urinary tract infection, site not specified 599.0 Active 51649606 Problem Seborrheic keratosis L82.1 Active 492046373 Problem Generalized osteoarthrosis, involving multiple sites 715.09 Active 62257001 Problem Diabetes mellitus without mention of complication, type II or unspecified type, not stated as uncontrolled 250.00 Active 966233319 Problem [place] of foot 700 Active 791352157 Problem Other and unspecified hyperlipidemia 272.4 Active 07147276 Problem Other B-complex deficiencies 266.2 Active 258573342 Problem Other vitamin B12 deficiency anemia 281.1 Active 16465983 Problem Volume depletion, unspecified 276.50 Active 67351503 ALLERGIES No Information ENCOUNTERS Encounter Location Date Diagnosis [facility] [address] [place] [address] [place] [address] Oct, [place] [address] [id number] Oct, Persistent atrial fibrillation I48.1 ; Falls frequently R29.6 ; Type 2 diabetes mellitus without complication, without long-term current use of insulin E11.9 ; Vitamin B12 deficiency E53.8 ; Ileostomy status Z93.2 and Malignant neoplasm of central portion of right female breast C50.[address] [address] Oct, Encounter for long-term (current) use of other medications V58.[address] [id number] Sep, Persistent atrial fibrillation I48.1 ; Falls frequently R29.6 ; Type 2 diabetes mellitus without complication, without long-term current use of insulin E11.9 ; Vitamin B12 deficiency E53.8 and Ileostomy status Z93.[address] [address] Sep, [address] [address] August, [address] [address] August, [address] [address] August, [address] [id number] August, Chronic atrial fibrillation I48.2 ; B12 deficiency E53.8 and Type 2 diabetes mellitus without complication, without long-term current use of insulin E11.[address] [address] August, [address] [address] August, 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 and Other vitamin B12 deficiency anemia 281.[address] [address] Jul, Type 2 diabetes mellitus without complications E11.9 ; 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.01 ; Other vitamin B12 deficiency anemias D51.8 and Malignant neoplasm of central portion of right female breast C50.[address] [address] Jun, 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 ; Falls frequently R29.6 ; Unspecified atrial fibrillation I48.91 and Encounter for long-term (current) use of other medications V58.[address] [address] 28 May, 2017 Fall, initial encounter W19.XXXA ; Encounter for long-term (current) use of other medications V58.69 ; penitentiary (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 Z79.01 and Persistent atrial fibrillation I48.[address] [address] 14 May, [address] [address] Mar, Bronchitis J40 and Chronic renal failure, stage 3 (moderate) N18.[address] [address] 10 Feb, 2017 Encounter for long-term (current) use of other medications V58.[address] [address] Feb, Chronic atrial fibrillation I48.2 and Other fci (current) drug therapy Z79.[address] [address] Jan, Chronic atrial fibrillation I48.2 and Encounter for long-term (current) use of other medications V58.[address] [address] Jan, penitentiary current use of 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 Z79.[address] [address] Jan, Medicare welcome exam Z00.00 ; Medicare annual wellness visit, initial Z00.00 ; Medicare annual wellness visit, subsequent Z00.00 ; Vitamin B12 deficiency E53.8 ; Falls frequently R29.6 ; Unspecified atrial fibrillation I48.91 ; penitentiary current use of 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 Z79.01 and Encounter for immunization Z23 [address] [address] Oct, Encounter for long-term (current) use of other medications V58.69 ; Type 2 diabetes mellitus without complications E11.9 ; penitentiary (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 Z79.01 ; Malignant neoplasm of central portion of right female breast C50.111 ; Orthostatic hypotension I95.1 ; Seborrheic keratosis L82.1 and Vitamin B12 deficiency E53.[address] [address] Jun, penitentiary ( 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 Z79.[address] [address] Jun, Skin cancer C44.[address] [address] Apr, 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 ; Unspecified atrial fibrillation I48.91 ; Infected tooth K04.7 ; Other vitamin B12 deficiency anemias D51.8 and Malignant neoplasm of central portion of right female breast C50.[address] [address] Mar, Chronic atrial fibrillation I48.2 and penitentiary current use of 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 Z79.[address] [address] Mar, Ulcerated, foot L97.509 ; Chronic atrial fibrillation I48.2 ; Chronic renal failure, stage 3 (moderate) N18.3 and Other vitamin B12 deficiency anemias D51.[address] [address] Feb, Ulcerated, foot L97.509 and Cellulitis of foot L03.[address] [address] Feb, Type 2 diabetes mellitus without complications E11.9 ; Encounter for immunization Z23 ; Ileostomy status Z93.2 ; Vitamin B12 deficiency E53.8 ; Subacute vaginitis N76.1 ; UTI (urinary tract infection) N39.0 and Fall, initial encounter W19.XXXA [address] [address] Jan, [address] [address] Jan, [address] [address] Dec, [address] [address] Nov, Type 2 diabetes mellitus without complications E11.9 ; Chronic atrial fibrillation I48.2 ; penitentiary current use of 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 Z79.01 and Malignant neoplasm of central portion of right female breast C50.[address] [address] Sep, [address] [address] Sep, 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 and Orthostatic hypotension I95.[address] [address] August, [address] [address] August, Type 2 diabetes mellitus without complications E11.9 and Chronic renal failure, stage 3 (moderate) N18.[address] [address] August, Encounter for long-term (current) use of other medications V58.69 ; penitentiary current use of 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 V58.61 ; Chronic atrial fibrillation I48.2 ; Wheezing R06.2 ; Breast mass N63 and Lung mass R91.[address] [address] Jul, UTI (urinary tract infection) N39.0 ; Type 2 diabetes mellitus without complications E11.9 ; Cholelithiasis K80.20 and Chronic renal failure, stage 3 (moderate) N18.[address] [address] Jul, [address] [address] Jul, Urge incontinence N39.41 ; Orthostatic hypotension I95.1 ; Bronchitis J40 ; UTI ( urinary tract infection) N39.0 ; Cholecystitis K81.9 ; 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 and Type 2 diabetes mellitus without complications E11.[address] [address] Jun, penitentiary current use of 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 Z79.01 ; Unspecified atrial fibrillation I48.91 and Encounter for long-term (current) use of other medications Z79.[address] [address] Jun, Unspecified atrial fibrillation I48.91 ; Other fci (current) drug therapy Z79.899 ; penitentiary (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 Z79.01 ; Ulcerated, foot L97.509 and Orthostatic hypotension I95.[address] [address] Apr, [address] [address] Mar, [address] [address] Mar, [address] [address] Mar, [address] [address] Mar, Cholecystitis K81.9 ; 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 ; Chronic atrial fibrillation I48.2 ; Encounter for long-term (current) use of other medications Z79.899 ; GERD (gastroesophageal reflux disease) K21.9 ; 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 and Skin tag L91.[address] [address] Feb, Chronic atrial fibrillation I48.2 ; penitentiary current use of 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 Z79.01 ; Encounter for long-term (current) use of other medications Z79.899 and Ulcerated, foot L97.[address] [address] Jan, Chronic atrial fibrillation I48.2 ; 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 and Vitamin B12 deficiency anemia, unspecified D51.[address] [address] Jan, Chronic atrial fibrillation I48.2 ; penitentiary current use of 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 Z79.01 ; Encounter for long-term (current) use of other medications Z79.899 ; Encounter for immunization Z23 and Cellulitis of foot L03.[address] [address] Jan, [address] [address] Jan, Type 2 diabetes mellitus without complications E11.9 ; Callus of foot L84 and Ulceration L98.[address] [address] Dec, Atrial fibrillation 427.31 ; Encounter for long-term (current) use of other medications V58.69 ; penitentiary current use of 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 V58.61 and [place] of foot [address] [address] Nov, Ileostomy status V44.2 ; Other vitamin B12 deficiency anemia 281.1 ; Atrial fibrillation 427.31 ; Encounter for long-term (current) use of other medications V58.69 and 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.[address] [address] Oct, Ulcerative ( chronic) enterocolitis 556.0 ; Atrial fibrillation 427.31 ; Encounter for long- term (current) use of other medications V58.69 and penitentiary current use of 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 V58.[address] [address] Oct, Atrial fibrillation 427.31 ; Diabetes mellitus without mention of complication, type II or unspecified type, not stated as uncontrolled 250.00 ; Encounter for long- term (current) use of other medications V58.69 ; penitentiary current use of 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 V58.61 ; Cold intolerance 780.99 ; Imbalance 781.2 and Other B-complex deficiencies 266.[address] [address] Oct, [address] [address] Sep, [address] [address] August, Ileostomy status V44.2 ; Diabetes mellitus without mention of complication, type II or unspecified type, not stated as uncontrolled 250.00 ; Other vitamin B12 deficiency anemia 281.1 ; Atrial fibrillation 427.31 and Foot ulcer, right [address] [place] [address] August, [facility] [address] [facility] [id number] [address] Jul, [facility] [address] [facility] [id number] [address] Jul, [facility] [address] [id number] [address] Jun, [facility] [place] [address] [place] [address] Jun, [facility] [place] [address] [place] [address] Apr, [facility] [place] [address] [place] [address] Apr, [facility] [place] [address] [place] [address] Apr, [facility] [address] [place] [id number] [address] Apr, [facility] [address] [id number] [address] Apr, [facility] [address] [id number], [place] [address] Apr, [facility] [place] [address] [place] [address] Apr, [facility] [address] [id number] [address] Apr, [facility] [address] [id number] [address] Apr, [facility] [place] [address] [place] [address] Apr, [facility] [address] [id number] [address] Apr, [facility] [address] [id number], [place] [address] Mar, [facility] [address] [id number] [address] Mar, [facility] [address] [id number] [address] Mar, [facility] [place] [address] [place] [address] Mar, [facility] [place] [address] [place] [address] Feb, [facility] [address] [id number] [address] Feb, [facility] [address] [id number] [address] Jan, [facility] [place] [address] [place] [address] Jan, [facility] [address] [id number] [address] Jan, [facility] [address] [id number] [address] Dec, [facility] [place] [address] [place] [address] Dec, [facility] [address] [id number] [address] Dec, [facility] [place] [address] [place] [address] Dec, [facility] [address] [id number], [place] [address] Nov, [facility] [place] [address] [place] [address] Nov, [facility] [place] [address] [place] [address] Oct, [facility] [address] [id number] [address] Oct, [facility] [address] [id number] [address] Sep, [facility] [address] [id number] [address] Sep, [facility] [place] [address] [place] [address] Sep, [facility] [place] [address] [place] [address] Sep, [facility] [address] [id number] [address] Sep, [facility] [place] [address] [place] [address] August, [facility] [address] [id number] [address] August, [facility] [place] [address] [place] [address] August, [facility] [address] [id number] [address] August, [facility] [place] [address] [place] [address] Jul, [facility] [address] [id number] [address] Jul, [facility] [place] [address] [place] [address] Jun, [facility] [address] [id number] [address] Jun, [facility] [place] [address] [place] [address] Jun, [facility] [address] [id number] [address] Jun, [facility] [place] [address] [place] [address] May, [facility] [address] [id number] [address] May, [facility] [place] [address] [place] [address] May, [facility] [address] [id number] [address] May, [facility] [address] [id number], [place] [address] Apr, [facility] [address] [place] [address] Apr, [facility] [address] [place] [address] Mar, [facility] [address] [id number], [place] [address] Mar, [facility] [address] [place] [address] Mar, [facility] [address] [id number] [address] Mar, [facility] [id number], [place] [address] Mar, [address] [address] Mar, [address] [address] Mar, [facility] [address] [address] [id number], [place] [address] Mar, [address] [address] Feb, [facility] [id number] [address] Feb, [address] [address] Feb, [facility] [address] [id number] [address] Feb, [facility] [address] [id number] [address] Jan, [address] [address] Jan, [address] [address] Jan, IMMUNIZATIONS No Known Immunizations SOCIAL HISTORY Never Assessed REASON FOR VISIT Requests return call PLAN OF CARE VITAL SIGNS MEDICATIONS Unknown [...]
--- OUTSIDE RECORDS SUMMARY | 2018-06-21 06:15 | XMS REPORT ---
Author Author ZARINA VERGARA Organization [facility] [address] Address [address] [place] [address] Care Team Providers Care Political Research Scientist Name Role Phone ZARINA VERGARA Unavailable PROBLEMS Type Condition ICD9-CM Code DIY76-FB Code Onset Dates Condition Status SNOMED Code Problem alf current use of 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 Z79.01 Active 316372815 Problem Chronic atrial fibrillation I48.2 Active 449185292 Problem Ulcerated, foot L97.509 Active 73321662 Problem Cellulitis of foot L03.119 Active 767297570 Problem 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 Active 87209105 Problem Skin tag L91.8 Active 408769401 Problem Cholecystitis K81.9 Active 10088683 Problem GERD (gastroesophageal reflux disease) K21.9 Active 137052999 Problem Orthostatic hypotension I95.1 Active 18556922 Problem Unspecified atrial fibrillation I48.91 Active 00258734 Problem Type 2 diabetes mellitus without complications E11.9 Active 429111082 Problem Bronchitis J40 Active 34676141 Problem Urge incontinence N39.41 Active 92888845 Problem UTI (urinary tract infection) N39.0 Active 75713499 Problem Breast mass N63 Active 39535155 Problem Wheezing R06.2 Active 31025113 Problem Cholelithiasis K80.20 Active 532051059 Problem Chronic renal failure, stage 3 (moderate) N18.3 Active 64091376 Problem Subacute vaginitis N76.1 Active [id number] Problem Vitamin B12 deficiency E53.8 Active 470624646 Problem Lung mass R91.8 Active 374965512 Problem Malignant neoplasm of central portion of right female breast C50.111 Active 84989156 Problem Ileostomy status V44.2 Active 430448011 Problem Accidental fall on or from other stairs or steps E880.9 Active 022596976 Problem Need for prophylactic vaccination and inoculation, Influenza V04.81 Active 471441201 Problem Personal history of fall V15.88 Active 940264063 Problem Other general symptoms 780.99 Active 450052902 Problem Unspecified myalgia and myositis 729.1 Active 023621708 Problem Pain in joint, forearm 719.43 Active 403294358 Problem Pain in joint, shoulder region 719.41 Active 925067338 Problem Fall, initial encounter W19.XXXA Active 4150509 Problem Nausea alone 787.02 Active 242419258 Problem Ileostomy status Z93.2 Active 341595166 Problem Other vitamin B12 deficiency anemias D51.8 Active 89385791 Problem Infected tooth K04.7 Active 607589542 Problem alf (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 Z79.01 Active 827283783 Problem Type 2 diabetes mellitus without complication, without long-term current use of insulin E11.9 Active 563253380 Problem Persistent atrial fibrillation I48.1 Active 819891496 Problem Macular degeneration (senile) of retina, unspecified 362.50 Active 071881505 Problem Inflamed seborrheic keratosis of left cheek L82.0 Active 632864726 Problem Atrial fibrillation 427.31 Active 11731870 Problem Skin cancer C44.90 Active 564560016 Problem 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 Active 812048115 Problem Falls frequently R29.6 Active 096561526 Problem Urinary tract infection, site not specified 599.0 Active 71299130 Problem Seborrheic keratosis L82.1 Active 734383033 Problem Generalized osteoarthrosis, involving multiple sites 715.09 Active 69962914 Problem Diabetes mellitus without mention of complication, type II or unspecified type, not stated as uncontrolled 250.00 Active 034599337 Problem Viper of foot 700 Active 581627335 Problem Other and unspecified hyperlipidemia 272.4 Active 88346380 Problem Other B-complex deficiencies 266.2 Active 203226117 Problem Other vitamin B12 deficiency anemia 281.1 Active 11527173 Problem Volume depletion, unspecified 276.50 Active 51859348 ALLERGIES No Information ENCOUNTERS Encounter Location Date Diagnosis [facility] [address] [place] [address] [place] [address] Oct, [place] [address] [id number] Oct, Persistent atrial fibrillation I48.1 ; Falls frequently R29.6 ; Type 2 diabetes mellitus without complication, without long-term current use of insulin E11.9 ; Vitamin B12 deficiency E53.8 ; Ileostomy status Z93.2 and Malignant neoplasm of central portion of right female breast C50.[address] [address] Oct, Encounter for long-term (current) use of other medications V58.[address] [id number] Sep, Persistent atrial fibrillation I48.1 ; Falls frequently R29.6 ; Type 2 diabetes mellitus without complication, without long-term current use of insulin E11.9 ; Vitamin B12 deficiency E53.8 and Ileostomy status Z93.[address] [address] Sep, [address] [address] August, [address] [address] August, [address] [address] August, [address] [id number] August, Chronic atrial fibrillation I48.2 ; B12 deficiency E53.8 and Type 2 diabetes mellitus without complication, without long-term current use of insulin E11.[address] [address] August, [address] [address] August, terminal carman ( 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 Z79.01 and Other vitamin B12 deficiency anemia 281.[address] [address] Jul, Type 2 diabetes mellitus without complications E11.9 ; terminal carman (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 Z79.01 ; Other vitamin B12 deficiency anemias D51.8 and Malignant neoplasm of central portion of right female breast C50.[address] [address] Jun, terminal carman ( 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 Z79.01 ; Falls frequently R29.6 ; Unspecified atrial fibrillation I48.91 and Encounter for long-term (current) use of other medications V58.[address] [address] 28 May, 2017 Fall, initial encounter W19.XXXA ; Encounter for long-term (current) use of other medications V58.69 ; alf (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 Z79.01 and Persistent atrial fibrillation I48.[address] [address] 14 May, [address] [address] Mar, Bronchitis J40 and Chronic renal failure, stage 3 (moderate) N18.[address] [address] 10 Feb, 2017 Encounter for long-term (current) use of other medications V58.[address] [address] Feb, Chronic atrial fibrillation I48.2 and Other chcf (current) drug therapy Z79.[address] [address] Jan, Chronic atrial fibrillation I48.2 and Encounter for long-term (current) use of other medications V58.[address] [address] Jan, alf current use of 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 Z79.[address] [address] Jan, Medicare welcome exam Z00.00 ; Medicare annual wellness visit, initial Z00.00 ; Medicare annual wellness visit, subsequent Z00.00 ; Vitamin B12 deficiency E53.8 ; Falls frequently R29.6 ; Unspecified atrial fibrillation I48.91 ; alf current use of 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 Z79.01 and Encounter for immunization Z23 [address] [address] Oct, Encounter for long-term (current) use of other medications V58.69 ; Type 2 diabetes mellitus without complications E11.9 ; alf (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 Z79.01 ; Malignant neoplasm of central portion of right female breast C50.111 ; Orthostatic hypotension I95.1 ; Seborrheic keratosis L82.1 and Vitamin B12 deficiency E53.[address] [address] Jun, alf ( 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 Z79.[address] [address] Jun, Skin cancer C44.[address] [address] Apr, terminal carman ( 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 Z79.01 ; Unspecified atrial fibrillation I48.91 ; Infected tooth K04.7 ; Other vitamin B12 deficiency anemias D51.8 and Malignant neoplasm of central portion of right female breast C50.[address] [address] Mar, Chronic atrial fibrillation I48.2 and alf current use of 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 Z79.[address] [address] Mar, Ulcerated, foot L97.509 ; Chronic atrial fibrillation I48.2 ; Chronic renal failure, stage 3 (moderate) N18.3 and Other vitamin B12 deficiency anemias D51.[address] [address] Feb, Ulcerated, foot L97.509 and Cellulitis of foot L03.[address] [address] Feb, Type 2 diabetes mellitus without complications E11.9 ; Encounter for immunization Z23 ; Ileostomy status Z93.2 ; Vitamin B12 deficiency E53.8 ; Subacute vaginitis N76.1 ; UTI (urinary tract infection) N39.0 and Fall, initial encounter W19.XXXA [address] [address] Jan, [address] [address] Jan, [address] [address] Dec, [address] [address] Nov, Type 2 diabetes mellitus without complications E11.9 ; Chronic atrial fibrillation I48.2 ; alf current use of 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 Z79.01 and Malignant neoplasm of central portion of right female breast C50.[address] [address] Sep, [address] [address] Sep, 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 and Orthostatic hypotension I95.[address] [address] August, [address] [address] August, Type 2 diabetes mellitus without complications E11.9 and Chronic renal failure, stage 3 (moderate) N18.[address] [address] August, Encounter for long-term (current) use of other medications V58.69 ; alf current use of 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 V58.61 ; Chronic atrial fibrillation I48.2 ; Wheezing R06.2 ; Breast mass N63 and Lung mass R91.[address] [address] Jul, UTI (urinary tract infection) N39.0 ; Type 2 diabetes mellitus without complications E11.9 ; Cholelithiasis K80.20 and Chronic renal failure, stage 3 (moderate) N18.[address] [address] Jul, [address] [address] Jul, Urge incontinence N39.41 ; Orthostatic hypotension I95.1 ; Bronchitis J40 ; UTI ( urinary tract infection) N39.0 ; Cholecystitis K81.9 ; 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 and Type 2 diabetes mellitus without complications E11.[address] [address] Jun, alf current use of 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 Z79.01 ; Unspecified atrial fibrillation I48.91 and Encounter for long-term (current) use of other medications Z79.[address] [address] Jun, Unspecified atrial fibrillation I48.91 ; Other chcf (current) drug therapy Z79.899 ; alf (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 Z79.01 ; Ulcerated, foot L97.509 and Orthostatic hypotension I95.[address] [address] Apr, [address] [address] Mar, [address] [address] Mar, [address] [address] Mar, [address] [address] Mar, Cholecystitis K81.9 ; terminal carman current use of 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 Z79.01 ; Chronic atrial fibrillation I48.2 ; Encounter for long-term (current) use of other medications Z79.899 ; GERD (gastroesophageal reflux disease) K21.9 ; 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 and Skin tag L91.[address] [address] Feb, Chronic atrial fibrillation I48.2 ; alf current use of 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 Z79.01 ; Encounter for long-term (current) use of other medications Z79.899 and Ulcerated, foot L97.[address] [address] Jan, Chronic atrial fibrillation I48.2 ; terminal carman current use of 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 Z79.01 and Vitamin B12 deficiency anemia, unspecified D51.[address] [address] Jan, Chronic atrial fibrillation I48.2 ; alf current use of 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 Z79.01 ; Encounter for long-term (current) use of other medications Z79.899 ; Encounter for immunization Z23 and Cellulitis of foot L03.[address] [address] Jan, [address] [address] Jan, Type 2 diabetes mellitus without complications E11.9 ; Callus of foot L84 and Ulceration L98.[address] [address] Dec, Atrial fibrillation 427.31 ; Encounter for long-term (current) use of other medications V58.69 ; alf current use of 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 V58.61 and Viper of foot [address] [address] Nov, Ileostomy status V44.2 ; Other vitamin B12 deficiency anemia 281.1 ; Atrial fibrillation 427.31 ; Encounter for long-term (current) use of other medications V58.69 and terminal carman current use of 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 V58.[address] [address] Oct, Ulcerative ( chronic) enterocolitis 556.0 ; Atrial fibrillation 427.31 ; Encounter for long- term (current) use of other medications V58.69 and alf current use of 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 V58.[address] [address] Oct, Atrial fibrillation 427.31 ; Diabetes mellitus without mention of complication, type II or unspecified type, not stated as uncontrolled 250.00 ; Encounter for long- term (current) use of other medications V58.69 ; alf current use of 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 V58.61 ; Cold intolerance 780.99 ; Imbalance 781.2 and Other B-complex deficiencies 266.[address] [address] Oct, [address] [address] Sep, [address] [address] August, Ileostomy status V44.2 ; Diabetes mellitus without mention of complication, type II or unspecified type, not stated as uncontrolled 250.00 ; Other vitamin B12 deficiency anemia 281.1 ; Atrial fibrillation 427.31 and Foot ulcer, right 707.[address] [place] [address] August, [facility] [address] [facility] [id number] [address] Jul, [facility] [address] [facility] [id number], [place] [address] Jul, [facility] [address] [id number], [place] [address] Jun, [facility] [place] [address] [place] [address] Jun, [facility] [place] [address] [place] [address] Apr, [facility] [place] [address] [place] [address] Apr, [facility] [place] [address] [place] [address] Apr, [facility] [address] [place] [id number], [place] [address] Apr, [facility] [address] [place] [id number], [place] [address] Apr, [facility] [address] [place] [id number], [place] [address] Apr, [facility] [place] [address] [place] [address] Apr, [facility] [address] [place] [id number] [address] Apr, [facility] [address] [id number], [place] [address] Apr, [facility] [place] [address] [place] [address] Apr, [facility] [address] [id number], [place] [address] Apr, [facility] [address] [id number], [place] [address] Mar, [facility] [address] [id number], [place] [address] Mar, [facility] [address] [place] [id number], [place] [address] Mar, [facility] [place] [address] [place] [address] Mar, [facility] [place] [address] [place] [address] Feb, [facility] [address] [id number], [place] [address] Feb, [facility] [address] [id number], [place] [address] Jan, [facility] [place] [address] [place] [address] Jan, [facility] [address] [id number] [address] Jan, [facility] [address] [id number], [place] [address] Dec, [facility] [place] [address] [place] [address] Dec, [facility] [address] [id number], [place] [address] Dec, [facility] [place] [address] [place] [address] Dec, [facility] [address] [id number], [place] [address] Nov, [facility] [place] [address] [place] [address] Nov, [facility] [place] [address] [place] [address] Oct, [facility] [address] [id number], [place] [address] Oct, [facility] [address] [id number], [place] [address] Sep, [facility] [address] [id number], [place] [address] Sep, [facility] [place] [address] [place] [address] Sep, [facility] [place] [address] [place] [address] Sep, [facility] [address] [id number], [place] [address] Sep, [facility] [place] [address] [place] [address] August, [facility] [address] [id number], [place] [address] August, [facility] [place] [address] [place] [address] August, [facility] [address] [id number], [place] [address] August, [facility] [place] [address] [place] [address] Jul, [facility] [address] [id number], [place] [address] Jul, [facility] [place] [address] [place] [address] Jun, [facility] [address] [id number], [place] [address] Jun, [facility] [place] [address] [place] [address] Jun, [facility] [address] [id number], [place] [address] Jun, [facility] [place] [address] [place] [address] May, [facility] [address] [id number], [place] [address] May, [facility] [place] [address] [place] [address] May, [facility] [address] [id number], [place] [address] May, [facility] [address] [id number], [place] [address] Apr, [facility] [address] [place] [address] Apr, [facility] [address] [place] [address] Mar, [facility] [id number], [place] [address] Mar, [facility] [address] [place] [address] Mar, [facility] [id number], [place] [address] Mar, [facility] [id number], [place] [address] Mar, [address] [address] Mar, [address] [address] Mar, [facility] [address] [id number], [place] [address] Mar, [address] [address] Feb, [facility] [id number], [place] [address] Feb, [address] [address] Feb, [facility] [address] [id number], [place] [address] Feb, [facility] [address] [id number], [place] [address] Jan, [address] [address] Jan, [facility] [place] [address] Jan, IMMUNIZATIONS No Known Immunizations SOCIAL HISTORY Never Assessed REASON FOR VISIT new orders PLAN OF CARE VITAL SIGNS MEDICATIONS Medication Instructions Dosage Frequency Start Date End Date Duration Status Clindamycin HCl 300 MG Orally every 8 hrs 1 capsule 8h August,Sep 2 days Active RESULTS No Results PROCEDURES No Known [...]
--- OUTSIDE RECORDS SUMMARY | 2018-06-21 06:16 | XMS REPORT ---
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 Active 470482515 Problem Chronic atrial fibrillation I48.2 Active 158864978 Problem Ulcerated, foot L97.509 Active 84386602 Problem Cellulitis of foot L03.119 Active 307261937 Problem 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 Active 73243279 Problem Skin tag L91.8 Active 469464778 Problem Cholecystitis K81.9 Active 75652886 Problem GERD (gastroesophageal reflux disease) K21.9 Active 553296460 Problem Orthostatic hypotension I95.1 Active 33927608 Problem Unspecified atrial fibrillation I48.91 Active 29667912 Problem Type 2 diabetes mellitus without complications E11.9 Active 298412496 Problem Bronchitis J40 Active 13940059 Problem Urge incontinence N39.41 Active 67336437 Problem UTI (urinary tract infection) N39.0 Active 07472329 Problem Breast mass N63 Active 56738101 Problem Wheezing R06.2 Active 23354575 Problem Cholelithiasis K80.20 Active 428323519 Problem Chronic renal failure, stage 3 (moderate) N18.3 Active 62662778 Problem Subacute vaginitis N76.1 Active [id number] Problem Vitamin B12 deficiency E53.8 Active 151324633 Problem Lung mass R91.8 Active 071001999 Problem Malignant neoplasm of central portion of right female breast C50.111 Active 31266469 Problem Ileostomy status V44.2 Active 335891197 Problem Accidental fall on or from other stairs or steps E880.9 Active 502011572 Problem Need for prophylactic vaccination and inoculation, Influenza V04.81 Active 567821488 Problem Personal history of fall V15.88 Active 990791122 Problem Other general symptoms 780.99 Active 204317184 Problem Unspecified myalgia and myositis 729.1 Active 033648299 Problem Pain in joint, forearm 719.43 Active 134065661 Problem Pain in joint, shoulder region 719.41 Active 670146786 Problem Fall, initial encounter W19.XXXA Active 5963226 Problem Nausea alone 787.02 Active 568566774 Problem Ileostomy status Z93.2 Active 531341764 Problem Other vitamin B12 deficiency anemias D51.8 Active 87860314 Problem Infected tooth K04.7 Active 311994142 Problem penitentiary (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 Z79.01 Active 662060623 Problem Type 2 diabetes mellitus without complication, without long-term current use of insulin E11.9 Active 996057282 Problem Persistent atrial fibrillation I48.1 Active 285189878 Problem Macular degeneration (senile) of retina, unspecified 362.50 Active 118748079 Problem Inflamed seborrheic keratosis of left cheek L82.0 Active 227846990 Problem Atrial fibrillation 427.31 Active 70874460 Problem Skin cancer C44.90 Active 620761639 Problem 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 Active 451617045 Problem Falls frequently R29.6 Active 481146091 Problem Urinary tract infection, site not specified 599.0 Active 90567445 Problem Seborrheic keratosis L82.1 Active 809795296 Problem Generalized osteoarthrosis, involving multiple sites 715.09 Active 63159846 Problem Diabetes mellitus without mention of complication, type II or unspecified type, not stated as uncontrolled 250.00 Active 383588265 Problem [place] of foot 700 Active 582875200 Problem Other and unspecified hyperlipidemia 272.4 Active 85868106 Problem Other B-complex deficiencies 266.2 Active 240759599 Problem Other vitamin B12 deficiency anemia 281.1 Active 23379328 Problem Volume depletion, unspecified 276.50 Active 92999611 ALLERGIES No Information ENCOUNTERS Encounter Location Date Diagnosis [facility] [address] [place] [address] Oct, [address] [id number] Oct, Persistent atrial fibrillation I48.1 ; Falls frequently R29.6 ; Type 2 diabetes mellitus without complication, without long-term current use of insulin E11.9 ; Vitamin B12 deficiency E53.8 ; Ileostomy status Z93.2 and Malignant neoplasm of central portion of right female breast C50.[address] [address] Oct, Encounter for long-term (current) use of other medications V58.[address] [id number] Sep, Persistent atrial fibrillation I48.1 ; Falls frequently R29.6 ; Type 2 diabetes mellitus without complication, without long-term current use of insulin E11.9 ; Vitamin B12 deficiency E53.8 and Ileostomy status Z93.[address] [address] Sep, [address] [address] August, [address] [address] August, [address] [address] August, [address] [id number] August, Chronic atrial fibrillation I48.2 ; B12 deficiency E53.8 and Type 2 diabetes mellitus without complication, without long-term current use of insulin E11.[address] [address] August, [address] [address] August, 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 and Other vitamin B12 deficiency anemia 281.[address] [address] Jul, Type 2 diabetes mellitus without complications E11.9 ; penitentiary (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 Z79.01 ; Other vitamin B12 deficiency anemias D51.8 and Malignant neoplasm of central portion of right female breast C50.[address] [address] Jun, 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 ; Falls frequently R29.6 ; Unspecified atrial fibrillation I48.91 and Encounter for long-term (current) use of other medications V58.[address] [address] 28 May, 2017 Fall, initial encounter W19.XXXA ; Encounter for long-term (current) use of other medications V58.69 ; penitentiary (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 Z79.01 and Persistent atrial fibrillation I48.[address] [address] 14 May, [address] [address] 05 Mar, 2017 Bronchitis J40 and Chronic renal failure, stage 3 (moderate) N18.[address] [address] 10 Feb, 2017 Encounter for long-term (current) use of other medications V58.[address] [address] Feb, Chronic atrial fibrillation I48.2 and 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.[address] [address] Jan, Chronic atrial fibrillation I48.2 and Encounter for long-term (current) use of other medications V58.[address] [address] Jan, penitentiary current use of 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 Z79.[address] [address] Jan, Medicare welcome exam Z00.00 ; Medicare annual wellness visit, initial Z00.00 ; Medicare annual wellness visit, subsequent Z00.00 ; Vitamin B12 deficiency E53.8 ; Falls frequently R29.6 ; Unspecified atrial fibrillation I48.91 ; penitentiary current use of 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 Z79.01 and Encounter for immunization Z23 [address] [address] Oct, Encounter for long-term (current) use of other medications V58.69 ; Type 2 diabetes mellitus without complications E11.9 ; penitentiary (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 Z79.01 ; Malignant neoplasm of central portion of right female breast C50.111 ; Orthostatic hypotension I95.1 ; Seborrheic keratosis L82.1 and Vitamin B12 deficiency E53.[address] [address] Jun, 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 [address] Jun, Skin cancer C44.[address] [address] Apr, penitentiary ( 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 Z79.01 ; Unspecified atrial fibrillation I48.91 ; Infected tooth K04.7 ; Other vitamin B12 deficiency anemias D51.8 and Malignant neoplasm of central portion of right female breast C50.[address] [address] Mar, Chronic atrial fibrillation I48.2 and 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 [address] Mar, Ulcerated, foot L97.509 ; Chronic atrial fibrillation I48.2 ; Chronic renal failure, stage 3 (moderate) N18.3 and Other vitamin B12 deficiency anemias D51.[address] [address] Feb, Ulcerated, foot L97.509 and Cellulitis of foot L03.[address] [address] Feb, Type 2 diabetes mellitus without complications E11.9 ; Encounter for immunization Z23 ; Ileostomy status Z93.2 ; Vitamin B12 deficiency E53.8 ; Subacute vaginitis N76.1 ; UTI (urinary tract infection) N39.0 and Fall, initial encounter W19.XXXA [address] [address] Jan, [address] [address] 04 Jan, [address] [address] Dec, [address] [address] Nov, Type 2 diabetes mellitus without complications E11.9 ; Chronic atrial fibrillation I48.2 ; penitentiary current use of 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 Z79.01 and Malignant neoplasm of central portion of right female breast C50.[address] [address] Sep, [address] [address] Sep, 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 and Orthostatic hypotension I95.[address] [address] August, [address] [address] August, Type 2 diabetes mellitus without complications E11.9 and Chronic renal failure, stage 3 (moderate) N18.[address] [address] August, Encounter for long-term (current) use of other medications V58.69 ; penitentiary current use of 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 V58.61 ; Chronic atrial fibrillation I48.2 ; Wheezing R06.2 ; Breast mass N63 and Lung mass R91.[address] [address] Jul, UTI (urinary tract infection) N39.0 ; Type 2 diabetes mellitus without complications E11.9 ; Cholelithiasis K80.20 and Chronic renal failure, stage 3 (moderate) N18.[address] [address] Jul, [address] [address] Jul, Urge incontinence N39.41 ; Orthostatic hypotension I95.1 ; Bronchitis J40 ; UTI ( urinary tract infection) N39.0 ; Cholecystitis K81.9 ; 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 and Type 2 diabetes mellitus without complications E11.[address] [address] Jun, 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 ; Unspecified atrial fibrillation I48.91 and Encounter for long-term (current) use of other medications Z79.[address] [address] Jun, Unspecified atrial fibrillation I48.91 ; 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.899 ; penitentiary (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 Z79.01 ; Ulcerated, foot L97.509 and Orthostatic hypotension I95.[address] [address] Apr, [address] [address] Mar, [address] [address] Mar, [address] [address] Mar, [address] [address] Mar, Cholecystitis K81.9 ; penitentiary current use of 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 Z79.01 ; Chronic atrial fibrillation I48.2 ; Encounter for long-term (current) use of other medications Z79.899 ; GERD (gastroesophageal reflux disease) K21.9 ; 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 and Skin tag L91.[address] [address] Feb, Chronic atrial fibrillation I48.2 ; 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 ; Encounter for long-term (current) use of other medications Z79.899 and Ulcerated, foot L97.[address] [address] Jan, Chronic atrial fibrillation I48.2 ; penitentiary current use of 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 Z79.01 and Vitamin B12 deficiency anemia, unspecified D51.[address] [address] Jan, Chronic atrial fibrillation I48.2 ; 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 ; Encounter for long-term (current) use of other medications Z79.899 ; Encounter for immunization Z23 and Cellulitis of foot L03.[address] [address] Jan, [address] [address] Jan, Type 2 diabetes mellitus without complications E11.9 ; Callus of foot L84 and Ulceration L98.[address] [address] Dec, Atrial fibrillation 427.31 ; Encounter for long-term (current) use of other medications V58.69 ; penitentiary current use of 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 V58.61 and [place] of foot [address] [address] Nov, Ileostomy status V44.2 ; Other vitamin B12 deficiency anemia 281.1 ; Atrial fibrillation 427.31 ; Encounter for long-term (current) use of other medications V58.69 and 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.[address] [address] Oct, Ulcerative ( chronic) enterocolitis 556.0 ; Atrial fibrillation 427.31 ; Encounter for long- term (current) use of other medications V58.69 and 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.[address] [address] Oct, Atrial fibrillation 427.31 ; Diabetes mellitus without mention of complication, type II or unspecified type, not stated as uncontrolled 250.00 ; Encounter for long- term (current) use of other medications V58.69 ; penitentiary current use of 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 V58.61 ; Cold intolerance 780.99 ; Imbalance 781.2 and Other B-complex deficiencies 266.[address] [address] Oct, [address] [address] Sep, [address] [address] August, Ileostomy status V44.2 ; Diabetes mellitus without mention of complication, type II or unspecified type, not stated as uncontrolled 250.00 ; Other vitamin B12 deficiency anemia 281.1 ; Atrial fibrillation 427.31 and Foot ulcer, right 707.[address] [place] [address] August, [facility] [id number] [address] Jul, [facility] [id number] [address] Jul, [facility] [id number] [address] Jun, [facility] [address] [place] [address] Jun, [facility] [address] [place] [address] Apr, [facility] [address] [place] [address] Apr, [facility] [address] [place] [address] Apr, [facility] [id number] [address] Apr, [facility] [id number] [address] Apr, [facility] [id number] [address] Apr, [facility] [address] [place] [address] Apr, [facility] [id number] [address] Apr, [facility] [id number] [address] Apr, [facility] [address] [place] [address] Apr, [facility] [id number] [address] Apr, [facility] [id number] [place] [address] Mar, [facility] [id number] [address] Mar, [facility] [id number] [address] Mar, [facility] [address] [place] [address] Mar, [facility] [address] [place] [address] Feb, [facility] [address], [place] [address] Feb, [facility] [id number], [place] [address] Jan, [facility] [address] [place] [address] Jan, [facility] [address], [place] [address] Jan, [facility] [address], [place] [address] Dec, [facility] [address] [place] [address] Dec, [facility] [address], [place] [address] Dec, [facility] [address] [place] [address] Dec, [facility] [id number] [address] Nov, [facility] [address] [place] [address] Nov, [facility] [address] [place] [address] Oct, [facility] [id number] [address] Oct, [facility] [id number], [place] [address] Sep, [facility] [address], [place] [address] Sep, [facility] [address] [facility] [place] [address] Sep, [facility] [address] [place] [address] Sep, [facility] [address] [facility] [id number] [address] Sep, [facility] [address] [place] [address] August, [facility] [id number], [place] [address] August, [facility] [address] [place] [address] August, [facility] [id number], [place] [address] August, [facility] [address] [place] [address] Jul, [facility] [id number] [address] Jul, [facility] [address] [place] [address] Jun, [facility] [id number] [address] Jun, [facility] [address] [place] [address] Jun, [facility] [id number], [place] [address] Jun, [facility] [address] [place] [address] May, [facility] [id number], [place] [address] May, [facility] [address] [place] [address] May, [facility] [id number] [address] May, [facility] [id number], [place] [address] Apr, [facility] [address] [place] [address] Apr, [facility] [address] [place] [address] Mar, [facility] [id number], [place] [address] Mar, [facility] [address] [place] [address] Mar, [facility] [id number], [place] [address] Mar, [facility] [address], [place] [address] Mar, [facility] [address] [place] [address] Mar, [facility] [address] [place] [address] Mar, [facility] [id number], [place] [address] Mar, [facility] [address] [place] [address] Feb, [facility] [address], [place] [address] Feb, [facility] [address] [place] [address] Feb, [facility] [id number] [address] Feb, [facility] [id number], [place] [address] Jan, [facility] [address] [place] [address] Jan, [facility] [place] [address] [place] [address] Jan, IMMUNIZATIONS No Known Immunizations SOCIAL HISTORY Never Assessed REASON FOR VISIT NH visit PLAN OF CARE Activity Details Follow Up 2 Weeks Reason: VITAL SIGNS MEDICATIONS Medication Instructions Dosage Frequency Start Date End Date Duration Status Magnesium Oxide 400 (240 Mg) MG TAKE 2 TABLETS BY MOUTH ONCE A DAY Active Warfarin Sodium 4 MG Orally Once a day 1 tablet 24h Mar, Active Amiodarone HCl 200 MG TAKE 1 TABLET BY MOUTH DAILY 30 Active Lancets - Unknown Anastrozole 1 MG Orally Once a day 1 tablet 24h Active Blood Glucose Monitor System w/Device as directed 24h August, Unknown Multivitamin/Minerals Active Test strips Unknown RESULTS No Results PROCEDURES Procedure Date Ordered Result Body Site [facility] VISIT ESTABLISHED PATIENT August 28, 2017 INSTRUCTIONS MEDICATIONS ADMINISTERED No Known Medications [...]
--- OUTSIDE RECORDS SUMMARY | 2018-06-21 06:16 | XMS REPORT ---
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 Name Role Phone ZARINA VERGARA Unavailable PROBLEMS Type Condition ICD9-CM Code VJU24-SO Code Onset Dates Condition Status SNOMED Code Problem snf current use of 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 Z79.01 Active 605465820 Problem Chronic atrial fibrillation I48.2 Active 828745348 Problem Ulcerated, foot L97.509 Active 91725743 Problem Cellulitis of foot L03.119 Active 570655514 Problem 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 Active 14861694 Problem Skin tag L91.8 Active 242872135 Problem Cholecystitis K81.9 Active 37170883 Problem GERD (gastroesophageal reflux disease) K21.9 Active 659629457 Problem Orthostatic hypotension I95.1 Active 30565450 Problem Unspecified atrial fibrillation I48.91 Active 01481080 Problem Type 2 diabetes mellitus without complications E11.9 Active 581904522 Problem Bronchitis J40 Active 42728990 Problem Urge incontinence N39.41 Active 56546227 Problem UTI (urinary tract infection) N39.0 Active 50487540 Problem Breast mass N63 Active 55178790 Problem Wheezing R06.2 Active 12665998 Problem Cholelithiasis K80.20 Active 296050917 Problem Chronic renal failure, stage 3 (moderate) N18.3 Active 87267758 Problem Subacute vaginitis N76.1 Active [id number] Problem Vitamin B12 deficiency E53.8 Active 391167610 Problem Lung mass R91.8 Active 995560080 Problem Malignant neoplasm of central portion of right female breast C50.111 Active 35252070 Problem Ileostomy status V44.2 Active 886380258 Problem Accidental fall on or from other stairs or steps E880.9 Active 820300638 Problem Need for prophylactic vaccination and inoculation, Influenza V04.81 Active 261159823 Problem Personal history of fall V15.88 Active 082703910 Problem Other general symptoms 780.99 Active 579799333 Problem Unspecified myalgia and myositis 729.1 Active 253547219 Problem Pain in joint, forearm 719.43 Active 606175097 Problem Pain in joint, shoulder region 719.41 Active 148651200 Problem Fall, initial encounter W19.XXXA Active 0374983 Problem Nausea alone 787.02 Active 990914825 Problem Ileostomy status Z93.2 Active 242617912 Problem Other vitamin B12 deficiency anemias D51.8 Active 08995813 Problem Infected tooth K04.7 Active 292523603 Problem snf (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 Z79.01 Active 113393679 Problem Type 2 diabetes mellitus without complication, without long-term current use of insulin E11.9 Active 890847594 Problem Persistent atrial fibrillation I48.1 Active 145646818 Problem Macular degeneration (senile) of retina, unspecified 362.50 Active 177650640 Problem Inflamed seborrheic keratosis of left cheek L82.0 Active 606070957 Problem Atrial fibrillation 427.31 Active 83453329 Problem Skin cancer C44.90 Active 453714073 Problem 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 Active 128406790 Problem Falls frequently R29.6 Active 439254034 Problem Urinary tract infection, site not specified 599.0 Active 82223704 Problem Seborrheic keratosis L82.1 Active 714727139 Problem Generalized osteoarthrosis, involving multiple sites 715.09 Active 71886241 Problem Diabetes mellitus without mention of complication, type II or unspecified type, not stated as uncontrolled 250.00 Active 833997246 Problem Sims of foot 700 Active 866991936 Problem Other and unspecified hyperlipidemia 272.4 Active 35922546 Problem Other B-complex deficiencies 266.2 Active 645545054 Problem Other vitamin B12 deficiency anemia 281.1 Active 81639827 Problem Volume depletion, unspecified 276.50 Active 68295524 ALLERGIES No Information ENCOUNTERS Encounter Location Date Diagnosis [facility] [address] [place] [address] [place] [address] Oct, [place] [address] [id number] Oct, Persistent atrial fibrillation I48.1 ; Falls frequently R29.6 ; Type 2 diabetes mellitus without complication, without long-term current use of insulin E11.9 ; Vitamin B12 deficiency E53.8 ; Ileostomy status Z93.2 and Malignant neoplasm of central portion of right female breast C50.[address] [address] Oct, Encounter for long-term (current) use of other medications V58.[address] [id number] Sep, Persistent atrial fibrillation I48.1 ; Falls frequently R29.6 ; Type 2 diabetes mellitus without complication, without long-term current use of insulin E11.9 ; Vitamin B12 deficiency E53.8 and Ileostomy status Z93.[address] [address] Sep, [address] [address] August, [address] [address] August, [address] [address] August, [address] [id number] August, Chronic atrial fibrillation I48.2 ; B12 deficiency E53.8 and Type 2 diabetes mellitus without complication, without long-term current use of insulin E11.[address] [address] August, [address] [address] August, 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 and Other vitamin B12 deficiency anemia 281.[address] [address] Jul, Type 2 diabetes mellitus without complications E11.9 ; 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.01 ; Other vitamin B12 deficiency anemias D51.8 and Malignant neoplasm of central portion of right female breast C50.[address] [address] Jun, 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 ; Falls frequently R29.6 ; Unspecified atrial fibrillation I48.91 and Encounter for long-term (current) use of other medications V58.[address] [address] 28 May, 2017 Fall, initial encounter W19.XXXA ; Encounter for long-term (current) use of other medications V58.69 ; snf (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 Z79.01 and Persistent atrial fibrillation I48.[address] [address] 14 May, [address] [address] Mar, Bronchitis J40 and Chronic renal failure, stage 3 (moderate) N18.[address] [address] 10 Feb, 2017 Encounter for long-term (current) use of other medications V58.[address] [address] Feb, Chronic atrial fibrillation I48.2 and Other jail (current) drug therapy Z79.[address] [address] Jan, Chronic atrial fibrillation I48.2 and Encounter for long-term (current) use of other medications V58.[address] [address] Jan, snf current use of 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 Z79.[address] [address] Jan, Medicare welcome exam Z00.00 ; Medicare annual wellness visit, initial Z00.00 ; Medicare annual wellness visit, subsequent Z00.00 ; Vitamin B12 deficiency E53.8 ; Falls frequently R29.6 ; Unspecified atrial fibrillation I48.91 ; snf current use of 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 Z79.01 and Encounter for immunization Z23 [address] [address] Oct, Encounter for long-term (current) use of other medications V58.69 ; Type 2 diabetes mellitus without complications E11.9 ; snf (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 Z79.01 ; Malignant neoplasm of central portion of right female breast C50.111 ; Orthostatic hypotension I95.1 ; Seborrheic keratosis L82.1 and Vitamin B12 deficiency E53.[address] [address] Jun, snf ( 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 Z79.[address] [address] Jun, Skin cancer C44.[address] [address] Apr, 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 ; Unspecified atrial fibrillation I48.91 ; Infected tooth K04.7 ; Other vitamin B12 deficiency anemias D51.8 and Malignant neoplasm of central portion of right female breast C50.[address] [address] Mar, Chronic atrial fibrillation I48.2 and snf current use of 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 Z79.[address] [address] Mar, Ulcerated, foot L97.509 ; Chronic atrial fibrillation I48.2 ; Chronic renal failure, stage 3 (moderate) N18.3 and Other vitamin B12 deficiency anemias D51.[address] [address] Feb, Ulcerated, foot L97.509 and Cellulitis of foot L03.[address] [address] Feb, Type 2 diabetes mellitus without complications E11.9 ; Encounter for immunization Z23 ; Ileostomy status Z93.2 ; Vitamin B12 deficiency E53.8 ; Subacute vaginitis N76.1 ; UTI (urinary tract infection) N39.0 and Fall, initial encounter W19.XXXA [address] [address] Jan, [address] [address] Jan, [address] [address] Dec, [address] [address] Nov, Type 2 diabetes mellitus without complications E11.9 ; Chronic atrial fibrillation I48.2 ; snf current use of 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 Z79.01 and Malignant neoplasm of central portion of right female breast C50.[address] [address] Sep, [address] [address] Sep, 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 and Orthostatic hypotension I95.[address] [address] August, [address] [address] August, Type 2 diabetes mellitus without complications E11.9 and Chronic renal failure, stage 3 (moderate) N18.[address] [address] August, Encounter for long-term (current) use of other medications V58.69 ; snf current use of anticoagulant therapy V58.61 ; Chronic atrial fibrillation I48.2 ; Wheezing R06.2 ; Breast mass N63 and Lung mass R91.[address] [address] Jul, UTI (urinary tract infection) N39.0 ; Type 2 diabetes mellitus without complications E11.9 ; Cholelithiasis K80.20 and Chronic renal failure, stage 3 (moderate) N18.[address] [address] Jul, [address] [address] Jul, Urge incontinence N39.41 ; Orthostatic hypotension I95.1 ; Bronchitis J40 ; UTI ( urinary tract infection) N39.0 ; Cholecystitis K81.9 ; 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 and Type 2 diabetes mellitus without complications E11.[address] [address] Jun, snf current use of anticoagulant therapy Z79.01 ; Unspecified atrial fibrillation I48.91 and Encounter for long-term (current) use of other medications Z79.[address] [address] Jun, Unspecified atrial fibrillation I48.91 ; Other jail (current) drug therapy Z79.899 ; snf (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 Z79.01 ; Ulcerated, foot L97.509 and Orthostatic hypotension I95.[address] [address] Apr, [address] [address] Mar, [address] [address] Mar, [address] [address] Mar, [address] [address] Mar, Cholecystitis K81.9 ; 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.01 ; Chronic atrial fibrillation I48.2 ; Encounter for long-term (current) use of other medications Z79.899 ; GERD (gastroesophageal reflux disease) K21.9 ; 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 and Skin tag L91.[address] [address] Feb, Chronic atrial fibrillation I48.2 ; snf current use of anticoagulant therapy Z79.01 ; Encounter for long-term (current) use of other medications Z79.899 and Ulcerated, foot L97.[address] [address] Jan, Chronic atrial fibrillation I48.2 ; 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.01 and Vitamin B12 deficiency anemia, unspecified D51.[address] [address] Jan, Chronic atrial fibrillation I48.2 ; snf current use of anticoagulant therapy Z79.01 ; Encounter for long-term (current) use of other medications Z79.899 ; Encounter for immunization Z23 and Cellulitis of foot L03.[address] [address] Jan, [address] [address] Jan, Type 2 diabetes mellitus without complications E11.9 ; Callus of foot L84 and Ulceration L98.[address] [address] Dec, Atrial fibrillation 427.31 ; Encounter for long-term (current) use of other medications V58.69 ; snf current use of anticoagulant therapy V58.61 and Sims of foot [address] [address] Nov, Ileostomy status V44.2 ; Other vitamin B12 deficiency anemia 281.1 ; Atrial fibrillation 427.31 ; Encounter for long-term (current) use of other medications V58.69 and 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 V58.[address] [address] Oct, Ulcerative ( chronic) enterocolitis 556.0 ; Atrial fibrillation 427.31 ; Encounter for long- term (current) use of other medications V58.69 and snf current use of anticoagulant therapy V58.[address] [address] Oct, Atrial fibrillation 427.31 ; Diabetes mellitus without mention of complication, type II or unspecified type, not stated as uncontrolled 250.00 ; Encounter for long- term (current) use of other medications V58.69 ; snf current use of anticoagulant therapy V58.61 ; Cold intolerance 780.99 ; Imbalance 781.2 and Other B-complex deficiencies 266.[address] [address] Oct, [address] [address] Sep, [address] [address] August, Ileostomy status V44.2 ; Diabetes mellitus without mention of complication, type II or unspecified type, not stated as uncontrolled 250.00 ; Other vitamin B12 deficiency anemia 281.1 ; Atrial fibrillation 427.31 and Foot ulcer, right 707.[address] [place] [address] August, [facility] [address] [facility] [id number] [address] Jul, [facility] [address] [facility] [id number] [address] Jul, [facility] [address] [id number] [address] Jun, [facility] [place] [address] [place] [address] Jun, [facility] [place] [address] [place] [address] Apr, [facility] [place] [address] [place] [address] Apr, [facility] [place] [address] [place] [address] Apr, [facility] [address] [id number] [address] Apr, [facility] [id number] [address] Apr, [facility] [id number], [place] [address] Apr, [facility] [place] [address] [place] [address] Apr, [facility] [address] [id number], [place] [address] Apr, [facility] [id number], [place] [address] Apr, [facility] [place] [address] [place] [address] Apr, [facility] [id number], [place] [address] Apr, [facility] [id number], [place] [address] Mar, [facility] [id number], [place] [address] Mar, [facility] [id number], [place] [address] Mar, [facility] [place] [address] [place] [address] Mar, [facility] [place] [address] [place] [address] Feb, [facility] [id number], [place] [address] Feb, [facility] [id number], [place] [address] Jan, [facility] [place] [address] [place] [address] Jan, [facility] [id number], [place] [address] Jan, [facility] [id number], [place] [address] Dec, [facility] [place] [address] [place] [address] Dec, [facility] [id number], [place] [address] Dec, [facility] [place] [address] [place] [address] Dec, [facility] [id number], [place] [address] Nov, [facility] [place] [address] [place] [address] Nov, [facility] [place] [address] [place] [address] Oct, [facility] [id number], [place] [address] Oct, [facility] [id number], [place] [address] Sep, [facility] [id number], [place] [address] Sep, [facility] [place] [address] [place] [address] Sep, [facility] [place] [address] [place] [address] Sep, [facility] [id number], [place] [address] Sep, [facility] [place] [address] [place] [address] August, [facility] [id number], [place] [address] August, [facility] [place] [address] [place] [address] August, [facility] [id number], [place] [address] August, [facility] [place] [address] [place] [address] Jul, [facility] [id number], [place] [address] Jul, [facility] [place] [address] [place] [address] Jun, [facility] [id number], [place] [address] Jun, [facility] [place] [address] [place] [address] Jun, [facility] [id number], [place] [address] Jun, [facility] [place] [address] [place] [address] May, [facility] [id number], [place] [address] May, [facility] [place] [address] [place] [address] May, [facility] [id number], [place] [address] May, [facility] [address] [id number], [place] [address] Apr, [facility] [address] [place] [address] Apr, [facility] [address] [place] [address] Mar, [facility] [id number], [place] [address] Mar, [facility] [address] [place] [address] Mar, [facility] [address], [place] [address] Mar, [facility] [address], [place] [address] Mar, [address] [address] Mar, [address] [address] Mar, [facility] [address] [id number], [place] [address] Mar, [address] [address] Feb, [facility] [address] [place] [address] Feb, [address] [address] Feb, [facility] [id number], [place] [address] Feb, [facility] [id number], [place] [address] Jan, [address] [address] Jan, [facility] [address] [address] Jan, IMMUNIZATIONS No Known Immunizations SOCIAL HISTORY Never Assessed REASON FOR VISIT Teeth pain PLAN OF CARE VITAL SIGNS MEDICATIONS Unknown [...]
[2018-06-21] MEDS ORDERED: LACTATED RINGERS 1,000 ML IV PRN (06:17)
--- OUTSIDE RECORDS SUMMARY | 2018-06-21 06:17 | XMS REPORT ---
Author Author ZARINA VERGARA Organization [facility] [address] [place] [address] Care Team Providers Care Product Development Actuary Name Role Phone ZARINA VERGARA Unavailable PROBLEMS Type Condition ICD9-CM Code CRF63-NR Code Onset Dates Condition Status SNOMED Code Problem penitentiary current use of anticoagulant therapy Z79.01 Active 608231646 Problem Chronic atrial fibrillation I48.2 Active 473573347 Problem Ulcerated, foot L97.509 Active 84073746 Problem Cellulitis of foot L03.119 Active 760370262 Problem 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 Active 22552747 Problem Skin tag L91.8 Active 652323401 Problem Cholecystitis K81.9 Active 70764483 Problem GERD (gastroesophageal reflux disease) K21.9 Active 872049758 Problem Orthostatic hypotension I95.1 Active 86062872 Problem Unspecified atrial fibrillation I48.91 Active 37628030 Problem Type 2 diabetes mellitus without complications E11.9 Active 135003501 Problem Bronchitis J40 Active 04162544 Problem Urge incontinence N39.41 Active 16152150 Problem UTI (urinary tract infection) N39.0 Active 17997458 Problem Breast mass N63 Active 57382556 Problem Wheezing R06.2 Active 97678216 Problem Cholelithiasis K80.20 Active 752131738 Problem Chronic renal failure, stage 3 (moderate) N18.3 Active 32457405 Problem Subacute vaginitis N76.1 Active [id number] Problem Vitamin B12 deficiency E53.8 Active 705537820 Problem Lung mass R91.8 Active 423362322 Problem Malignant neoplasm of central portion of right female breast C50.111 Active 96325945 Problem Ileostomy status V44.2 Active 782660770 Problem Accidental fall on or from other stairs or steps E880.9 Active 795904618 Problem Need for prophylactic vaccination and inoculation, Influenza V04.81 Active 426614978 Problem Personal history of fall V15.88 Active 301935534 Problem Other general symptoms 780.99 Active 377836240 Problem Unspecified myalgia and myositis 729.1 Active 444924277 Problem Pain in joint, forearm 719.43 Active 429278232 Problem Pain in joint, shoulder region 719.41 Active 685152105 Problem Fall, initial encounter W19.XXXA Active 1058844 Problem Nausea alone 787.02 Active 225614947 Problem Ileostomy status Z93.2 Active 651437674 Problem Other vitamin B12 deficiency anemias D51.8 Active 65596653 Problem Infected tooth K04.7 Active 832695579 Problem penitentiary (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 Z79.01 Active 223040902 Problem Type 2 diabetes mellitus without complication, without long-term current use of insulin E11.9 Active 604335144 Problem Persistent atrial fibrillation I48.1 Active 507785838 Problem Macular degeneration (senile) of retina, unspecified 362.50 Active 852558123 Problem Inflamed seborrheic keratosis of left cheek L82.0 Active 346802555 Problem Atrial fibrillation 427.31 Active 50488765 Problem Skin cancer C44.90 Active 614423000 Problem 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 Active 413859008 Problem Falls frequently R29.6 Active 731268187 Problem Urinary tract infection, site not specified 599.0 Active 95697738 Problem Seborrheic keratosis L82.1 Active 854586018 Problem Generalized osteoarthrosis, involving multiple sites 715.09 Active 36404047 Problem Diabetes mellitus without mention of complication, type II or unspecified type, not stated as uncontrolled 250.00 Active 707414874 Problem [place] of foot 700 Active 073361145 Problem Other and unspecified hyperlipidemia 272.4 Active 40400095 Problem Other B-complex deficiencies 266.2 Active 814672074 Problem Other vitamin B12 deficiency anemia 281.1 Active 44189980 Problem Volume depletion, unspecified 276.50 Active 93208123 ALLERGIES No Information ENCOUNTERS Encounter Location Date Diagnosis [facility] [address] [place] [address] [place] [address] Oct, [place] [address] [id number] Oct, Persistent atrial fibrillation I48.1 ; Falls frequently R29.6 ; Type 2 diabetes mellitus without complication, without long-term current use of insulin E11.9 ; Vitamin B12 deficiency E53.8 ; Ileostomy status Z93.2 and Malignant neoplasm of central portion of right female breast C50.[address] [address] Oct, Encounter for long-term (current) use of other medications V58.[address] [id number] Sep, Persistent atrial fibrillation I48.1 ; Falls frequently R29.6 ; Type 2 diabetes mellitus without complication, without long-term current use of insulin E11.9 ; Vitamin B12 deficiency E53.8 and Ileostomy status Z93.[address] [address] Sep, [address] [address] August, [address] [address] August, [address] [address] August, [address] [id number] August, Chronic atrial fibrillation I48.2 ; B12 deficiency E53.8 and Type 2 diabetes mellitus without complication, without long-term current use of insulin E11.[address] [address] August, [address] [address] August, 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 and Other vitamin B12 deficiency anemia 281.[address] [address] Jul, Type 2 diabetes mellitus without complications E11.9 ; 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 ; Other vitamin B12 deficiency anemias D51.8 and Malignant neoplasm of central portion of right female breast C50.[address] [address] Jun, 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 ; Falls frequently R29.6 ; Unspecified atrial fibrillation I48.91 and Encounter for long-term (current) use of other medications V58.[address] [address] 28 May, 2017 Fall, initial encounter W19.XXXA ; Encounter for long-term (current) use of other medications V58.69 ; penitentiary (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 Z79.01 and Persistent atrial fibrillation I48.[address] [address] 14 May, [address] [address] Mar, Bronchitis J40 and Chronic renal failure, stage 3 (moderate) N18.[address] [address] 10 Feb, 2017 Encounter for long-term (current) use of other medications V58.[address] [address] Feb, Chronic atrial fibrillation I48.2 and Other correction (current) drug therapy Z79.[address] [address] Jan, Chronic atrial fibrillation I48.2 and Encounter for long-term (current) use of other medications V58.[address] [address] Jan, penitentiary current use of anticoagulant therapy Z79.[address] [address] Jan, Medicare welcome exam Z00.00 ; Medicare annual wellness visit, initial Z00.00 ; Medicare annual wellness visit, subsequent Z00.00 ; Vitamin B12 deficiency E53.8 ; Falls frequently R29.6 ; Unspecified atrial fibrillation I48.91 ; penitentiary current use of anticoagulant therapy Z79.01 and Encounter for immunization Z23 [address] [address] Oct, Encounter for long-term (current) use of other medications V58.69 ; Type 2 diabetes mellitus without complications E11.9 ; penitentiary (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 Z79.01 ; Malignant neoplasm of central portion of right female breast C50.111 ; Orthostatic hypotension I95.1 ; Seborrheic keratosis L82.1 and Vitamin B12 deficiency E53.[address] [address] Jun, penitentiary ( 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 Z79.[address] [address] Jun, Skin cancer C44.[address] [address] Apr, 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 ; Unspecified atrial fibrillation I48.91 ; Infected tooth K04.7 ; Other vitamin B12 deficiency anemias D51.8 and Malignant neoplasm of central portion of right female breast C50.[address] [address] Mar, Chronic atrial fibrillation I48.2 and penitentiary current use of anticoagulant therapy Z79.[address] [address] Mar, Ulcerated, foot L97.509 ; Chronic atrial fibrillation I48.2 ; Chronic renal failure, stage 3 (moderate) N18.3 and Other vitamin B12 deficiency anemias D51.[address] [address] Feb, Ulcerated, foot L97.509 and Cellulitis of foot L03.[address] [address] Feb, Type 2 diabetes mellitus without complications E11.9 ; Encounter for immunization Z23 ; Ileostomy status Z93.2 ; Vitamin B12 deficiency E53.8 ; Subacute vaginitis N76.1 ; UTI (urinary tract infection) N39.0 and Fall, initial encounter W19.XXXA [address] [address] Jan, [address] [address] Jan, [address] [address] Dec, [address] [address] Nov, Type 2 diabetes mellitus without complications E11.9 ; Chronic atrial fibrillation I48.2 ; penitentiary current use of anticoagulant therapy Z79.01 and Malignant neoplasm of central portion of right female breast C50.[address] [address] Sep, [address] [address] Sep, 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 and Orthostatic hypotension I95.[address] [address] August, [address] [address] August, Type 2 diabetes mellitus without complications E11.9 and Chronic renal failure, stage 3 (moderate) N18.[address] [address] August, Encounter for long-term (current) use of other medications V58.69 ; penitentiary current use of anticoagulant therapy V58.61 ; Chronic atrial fibrillation I48.2 ; Wheezing R06.2 ; Breast mass N63 and Lung mass R91.[address] [address] Jul, UTI (urinary tract infection) N39.0 ; Type 2 diabetes mellitus without complications E11.9 ; Cholelithiasis K80.20 and Chronic renal failure, stage 3 (moderate) N18.[address] [address] Jul, [address] [address] Jul, Urge incontinence N39.41 ; Orthostatic hypotension I95.1 ; Bronchitis J40 ; UTI ( urinary tract infection) N39.0 ; Cholecystitis K81.9 ; 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 and Type 2 diabetes mellitus without complications E11.[address] [address] Jun, penitentiary current use of anticoagulant therapy Z79.01 ; Unspecified atrial fibrillation I48.91 and Encounter for long-term (current) use of other medications Z79.[address] [address] Jun, Unspecified atrial fibrillation I48.91 ; Other correction (current) drug therapy Z79.899 ; penitentiary (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 Z79.01 ; Ulcerated, foot L97.509 and Orthostatic hypotension I95.[address] [address] Apr, [address] [address] Mar, [address] [address] Mar, [address] [address] Mar, [address] [address] Mar, Cholecystitis K81.9 ; 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 ; Chronic atrial fibrillation I48.2 ; Encounter for long-term (current) use of other medications Z79.899 ; GERD (gastroesophageal reflux disease) K21.9 ; 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 and Skin tag L91.[address] [address] Feb, Chronic atrial fibrillation I48.2 ; penitentiary current use of anticoagulant therapy Z79.01 ; Encounter for long-term (current) use of other medications Z79.899 and Ulcerated, foot L97.[address] [address] Jan, Chronic atrial fibrillation I48.2 ; 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 and Vitamin B12 deficiency anemia, unspecified D51.[address] [address] Jan, Chronic atrial fibrillation I48.2 ; penitentiary current use of anticoagulant therapy Z79.01 ; Encounter for long-term (current) use of other medications Z79.899 ; Encounter for immunization Z23 and Cellulitis of foot L03.[address] [address] Jan, [address] [address] Jan, Type 2 diabetes mellitus without complications E11.9 ; Callus of foot L84 and Ulceration L98.[address] [address] Dec, Atrial fibrillation 427.31 ; Encounter for long-term (current) use of other medications V58.69 ; penitentiary current use of anticoagulant therapy V58.61 and [place] of foot [address] [address] Nov, Ileostomy status V44.2 ; Other vitamin B12 deficiency anemia 281.1 ; Atrial fibrillation 427.31 ; Encounter for long-term (current) use of other medications V58.69 and 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.[address] [address] Oct, Ulcerative ( chronic) enterocolitis 556.0 ; Atrial fibrillation 427.31 ; Encounter for long- term (current) use of other medications V58.69 and penitentiary current use of anticoagulant therapy V58.[address] [address] Oct, Atrial fibrillation 427.31 ; Diabetes mellitus without mention of complication, type II or unspecified type, not stated as uncontrolled 250.00 ; Encounter for long- term (current) use of other medications V58.69 ; penitentiary current use of anticoagulant therapy V58.61 ; Cold intolerance 780.99 ; Imbalance 781.2 and Other B-complex deficiencies 266.[address] [address] Oct, [address] [address] Sep, [address] [address] August, Ileostomy status V44.2 ; Diabetes mellitus without mention of complication, type II or unspecified type, not stated as uncontrolled 250.00 ; Other vitamin B12 deficiency anemia 281.1 ; Atrial fibrillation 427.31 and Foot ulcer, right 707.[address] [place] [address] August, [facility] [address] [facility] [id number] [address] Jul, [facility] [address] [facility] [id number] [address] Jul, [facility] [address] [id number] [address] Jun, [facility] [place] [address] [place] [address] Jun, [facility] [place] [address] [place] [address] Apr, [facility] [place] [address] [place] [address] Apr, [facility] [place] [address] [place] [address] Apr, [facility] [id number] [address] Apr, [facility] [id number] [address] Apr, [facility] [id number] [address] Apr, [facility] [place] [address] [place] [address] Apr, [facility] [id number] [address] Apr, [facility] [id number] [address] Apr, [facility] [place] [address] [place] [address] Apr, [facility] [id number] [address] Apr, [facility] [id number] [address] Mar, [facility] [id number] [address] Mar, [facility] [id number] [address] Mar, [facility] [place] [address] [place] [address] Mar, [facility] [place] [address] [place] [address] Feb, [facility] [id number] [address] Feb, [facility] [id number] [address] Jan, [facility] [place] [address] [place] [address] Jan, [facility] [id number] [address] Jan, [facility] [id number] [address] Dec, [facility] [place] [address] [place] [address] Dec, [facility] [id number] [address] Dec, [facility] [place] [address] [place] [address] Dec, [facility] [id number] [address] Nov, [facility] [place] [address] [place] [address] Nov, [facility] [place] [address] [place] [address] Oct, [facility] [id number] [address] Oct, [facility] [id number] [address] Sep, [facility] [id number] [address] Sep, [facility] [place] [address] [place] [address] Sep, [facility] [place] [address] [place] [address] Sep, [facility] [id number] [address] Sep, [facility] [place] [address] [place] [address] August, [facility] [id number] [address] August, [facility] [place] [address] [place] [address] August, [facility] [id number] [address] August, [facility] [place] [address] [place] [address] Jul, [facility] [id number] [address] Jul, [facility] [place] [address] [place] [address] Jun, [facility] [id number] [address] Jun, [facility] [place] [address] [place] [address] Jun, [facility] [id number] [address] Jun, [facility] [place] [address] [place] [address] May, [facility] [id number] [address] May, [facility] [place] [address] [place] [address] May, [facility] [id number] [address], [facility] [id number] [address] Apr, [facility] [address] [address] [place] [address] Apr, [facility] [address] [place] [address] Mar, [facility] [address] [address] Mar, [facility] [address] [address] [place] [address] Mar, [facility] [id number] [address] Mar, [facility] [address] [address] Mar, [facility] [place] [address] [place] [address] Mar, [facility] [address] [place] [address] Mar, [facility] [id number] [address] Mar, [facility] [address] [place] [address] Feb, [facility] [address] [address] Feb, [facility] [address] [place] [address] Feb, [facility] [id number] [address] Feb, [facility] [id number] [address] Jan, [facility] [address] [place] [address] Jan, [facility] [place] [address] [place] [address] Jan, IMMUNIZATIONS Vaccine Route Administration Date Status B12, VITAMIN (UP TO 1000 MCG) IM Intramuscular August 17, 2017 Administered SOCIAL HISTORY Never Assessed REASON FOR VISIT [facility]ARE Activity Details Follow Up 2 Weeks Reason: VITAL SIGNS MEDICATIONS Unknown Medications RESULTS Name Result Date Reference Range INR (IN HOUSE) 2017-08-17 INR 1.5 1.10 - 3.30 PREVIOUS INR 4.7 CURRENT COUMADIN DOSE 4Mg Tue., Thur., Sat., Sun. NEW COUMADIN DOSE Lot # [id number] Exp date 09/06/2018 PROCEDURES Procedure Date Ordered Result Body Site PROTHROMBIN TIME August 17, 2017 INSTRUCTIONS MEDICATIONS ADMINISTERED No Known Medications [...]
--- OUTSIDE RECORDS SUMMARY | 2018-06-21 06:17 | XMS REPORT ---
Author Author ZARINA VERGARA Organization [facility] [address] Address [address] [place] [address] Care Team Providers Care Microbiology Manager Name Role Phone ZARINA VERGARA Unavailable PROBLEMS Type Condition ICD9-CM Code [id number] Code Onset Dates Condition Status SNOMED Code Problem custodial current use of anticoagulant therapy Z79.01 Active 901506927 Problem Chronic atrial fibrillation I48.2 Active 076216054 Problem Ulcerated, foot L97.509 Active 15561320 Problem Cellulitis of foot L03.119 Active 861167806 Problem 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 Active 61744555 Problem Skin tag L91.8 Active 530363793 Problem Cholecystitis K81.9 Active 82734803 Problem GERD (gastroesophageal reflux disease) K21.9 Active 280692261 Problem Orthostatic hypotension I95.1 Active 69290957 Problem Unspecified atrial fibrillation I48.91 Active 74698293 Problem Type 2 diabetes mellitus without complications E11.9 Active 278319747 Problem Bronchitis J40 Active 81347414 Problem Urge incontinence N39.41 Active 30569105 Problem UTI (urinary tract infection) N39.0 Active 20352169 Problem Breast mass N63 Active 26663404 Problem Wheezing R06.2 Active 13081629 Problem Cholelithiasis K80.20 Active 037285924 Problem Chronic renal failure, stage 3 (moderate) N18.3 Active 13179987 Problem Subacute vaginitis N76.1 Active [id number] Problem Vitamin B12 deficiency E53.8 Active 884784298 Problem Lung mass R91.8 Active 527932113 Problem Malignant neoplasm of central portion of right female breast C50.111 Active 40682754 Problem Ileostomy status V44.2 Active 917778847 Problem Accidental fall on or from other stairs or steps E880.9 Active 428630086 Problem Need for prophylactic vaccination and inoculation, Influenza V04.81 Active 739066626 Problem Personal history of fall V15.88 Active 772665271 Problem Other general symptoms 780.99 Active 948490776 Problem Unspecified myalgia and myositis 729.1 Active 334911831 Problem Pain in joint, forearm 719.43 Active 280968376 Problem Pain in joint, shoulder region 719.41 Active 422675656 Problem Fall, initial encounter W19.XXXA Active 4411336 Problem Nausea alone 787.02 Active 614330360 Problem Ileostomy status Z93.2 Active 848025110 Problem Other vitamin B12 deficiency anemias D51.8 Active 01639956 Problem Infected tooth K04.7 Active 587386907 Problem custodial (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 Z79.01 Active 418608572 Problem Type 2 diabetes mellitus without complication, without long-term current use of insulin E11.9 Active 641252300 Problem Persistent atrial fibrillation I48.1 Active 112669731 Problem Macular degeneration (senile) of retina, unspecified 362.50 Active 132017624 Problem Inflamed seborrheic keratosis of left cheek L82.0 Active 443486333 Problem Atrial fibrillation 427.31 Active 76756800 Problem Skin cancer C44.90 Active 123217444 Problem 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 Active 874642892 Problem Falls frequently R29.6 Active 903366670 Problem Urinary tract infection, site not specified 599.0 Active 27340818 Problem Seborrheic keratosis L82.1 Active 157353835 Problem Generalized osteoarthrosis, involving multiple sites 715.09 Active 29639499 Problem Diabetes mellitus without mention of complication, type II or unspecified type, not stated as uncontrolled 250.00 Active 325903899 Problem Saco of foot 700 Active 328756033 Problem Other and unspecified hyperlipidemia 272.4 Active 82112550 Problem Other B-complex deficiencies 266.2 Active 181541503 Problem Other vitamin B12 deficiency anemia 281.1 Active 57377124 Problem Volume depletion, unspecified 276.50 Active 30532213 ALLERGIES No Information ENCOUNTERS Encounter Location Date Diagnosis [facility] [address] [place] [address] [place] [address] Oct, [place] [address] [id number] Oct, Persistent atrial fibrillation I48.1 ; Falls frequently R29.6 ; Type 2 diabetes mellitus without complication, without long-term current use of insulin E11.9 ; Vitamin B12 deficiency E53.8 ; Ileostomy status Z93.2 and Malignant neoplasm of central portion of right female breast C50.[address] [address] Oct, Encounter for long-term (current) use of other medications V58.[address] [id number] Sep, Persistent atrial fibrillation I48.1 ; Falls frequently R29.6 ; Type 2 diabetes mellitus without complication, without long-term current use of insulin E11.9 ; Vitamin B12 deficiency E53.8 and Ileostomy status Z93.[address] [address] Sep, [address] [address] August, [address] [address] August, [address] [address] August, [address] [id number] August, Chronic atrial fibrillation I48.2 ; B12 deficiency E53.8 and Type 2 diabetes mellitus without complication, without long-term current use of insulin E11.[address] [address] August, [address] [address] August, 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 Z79.01 and Other vitamin B12 deficiency anemia 281.[address] [address] Jul, Type 2 diabetes mellitus without complications E11.9 ; termite technician (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 Z79.01 ; Other vitamin B12 deficiency anemias D51.8 and Malignant neoplasm of central portion of right female breast C50.[address] [address] Jun, 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 Z79.01 ; Falls frequently R29.6 ; Unspecified atrial fibrillation I48.91 and Encounter for long-term (current) use of other medications V58.[address] [address] 28 May, 2017 Fall, initial encounter W19.XXXA ; Encounter for long-term (current) use of other medications V58.69 ; custodial (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 Z79.01 and Persistent atrial fibrillation I48.[address] [address] 14 May, [address] [address] Mar, Bronchitis J40 and Chronic renal failure, stage 3 (moderate) N18.[address] [address] 10 Feb, 2017 Encounter for long-term (current) use of other medications V58.[address] [address] Feb, Chronic atrial fibrillation I48.2 and Other nursing home (current) drug therapy Z79.[address] [address] Jan, Chronic atrial fibrillation I48.2 and Encounter for long-term (current) use of other medications V58.[address] [address] Jan, custodial current use of anticoagulant therapy Z79.[address] [address] Jan, Medicare welcome exam Z00.00 ; Medicare annual wellness visit, initial Z00.00 ; Medicare annual wellness visit, subsequent Z00.00 ; Vitamin B12 deficiency E53.8 ; Falls frequently R29.6 ; Unspecified atrial fibrillation I48.91 ; custodial current use of anticoagulant therapy Z79.01 and Encounter for immunization Z23 [address] [address] Oct, Encounter for long-term (current) use of other medications V58.69 ; Type 2 diabetes mellitus without complications E11.9 ; custodial (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 Z79.01 ; Malignant neoplasm of central portion of right female breast C50.111 ; Orthostatic hypotension I95.1 ; Seborrheic keratosis L82.1 and Vitamin B12 deficiency E53.[address] [address] Jun, custodial ( 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 Z79.[address] [address] Jun, Skin cancer C44.[address] [address] Apr, 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 Z79.01 ; Unspecified atrial fibrillation I48.91 ; Infected tooth K04.7 ; Other vitamin B12 deficiency anemias D51.8 and Malignant neoplasm of central portion of right female breast C50.[address] [address] Mar, Chronic atrial fibrillation I48.2 and custodial current use of anticoagulant therapy Z79.[address] [address] Mar, Ulcerated, foot L97.509 ; Chronic atrial fibrillation I48.2 ; Chronic renal failure, stage 3 (moderate) N18.3 and Other vitamin B12 deficiency anemias D51.[address] [address] Feb, Ulcerated, foot L97.509 and Cellulitis of foot L03.[address] [address] Feb, Type 2 diabetes mellitus without complications E11.9 ; Encounter for immunization Z23 ; Ileostomy status Z93.2 ; Vitamin B12 deficiency E53.8 ; Subacute vaginitis N76.1 ; UTI (urinary tract infection) N39.0 and Fall, initial encounter W19.XXXA [address] [address] Jan, [address] [address] Jan, [address] [address] Dec, [address] [address] Nov, Type 2 diabetes mellitus without complications E11.9 ; Chronic atrial fibrillation I48.2 ; custodial current use of anticoagulant therapy Z79.01 and Malignant neoplasm of central portion of right female breast C50.[address] [address] Sep, [address] [address] Sep, 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 and Orthostatic hypotension I95.[address] [address] August, [address] [address] August, Type 2 diabetes mellitus without complications E11.9 and Chronic renal failure, stage 3 (moderate) N18.[address] [address] August, Encounter for long-term (current) use of other medications V58.69 ; custodial current use of anticoagulant therapy V58.61 ; Chronic atrial fibrillation I48.2 ; Wheezing R06.2 ; Breast mass N63 and Lung mass R91.[address] [address] Jul, UTI (urinary tract infection) N39.0 ; Type 2 diabetes mellitus without complications E11.9 ; Cholelithiasis K80.20 and Chronic renal failure, stage 3 (moderate) N18.[address] [address] Jul, [address] [address] Jul, Urge incontinence N39.41 ; Orthostatic hypotension I95.1 ; Bronchitis J40 ; UTI ( urinary tract infection) N39.0 ; Cholecystitis K81.9 ; 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 and Type 2 diabetes mellitus without complications E11.[address] [address] Jun, custodial current use of anticoagulant therapy Z79.01 ; Unspecified atrial fibrillation I48.91 and Encounter for long-term (current) use of other medications Z79.[address] [address] Jun, Unspecified atrial fibrillation I48.91 ; Other nursing home (current) drug therapy Z79.899 ; custodial (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 Z79.01 ; Ulcerated, foot L97.509 and Orthostatic hypotension I95.[address] [address] Apr, [address] [address] Mar, [address] [address] Mar, [address] [address] Mar, [address] [address] Mar, Cholecystitis K81.9 ; termite technician current use of anticoagulant therapy Z79.01 ; Chronic atrial fibrillation I48.2 ; Encounter for long-term (current) use of other medications Z79.899 ; GERD (gastroesophageal reflux disease) K21.9 ; 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 and Skin tag L91.[address] [address] Feb, Chronic atrial fibrillation I48.2 ; custodial current use of anticoagulant therapy Z79.01 ; Encounter for long-term (current) use of other medications Z79.899 and Ulcerated, foot L97.[address] [address] Jan, Chronic atrial fibrillation I48.2 ; termite technician current use of anticoagulant therapy Z79.01 and Vitamin B12 deficiency anemia, unspecified D51.[address] [address] Jan, Chronic atrial fibrillation I48.2 ; custodial current use of anticoagulant therapy Z79.01 ; Encounter for long-term (current) use of other medications Z79.899 ; Encounter for immunization Z23 and Cellulitis of foot L03.[address] [address] Jan, [address] [address] Jan, Type 2 diabetes mellitus without complications E11.9 ; Callus of foot L84 and Ulceration L98.[address] [address] Dec, Atrial fibrillation 427.31 ; Encounter for long-term (current) use of other medications V58.69 ; custodial current use of anticoagulant therapy V58.61 and Saco of foot [address] [address] Nov, Ileostomy status V44.2 ; Other vitamin B12 deficiency anemia 281.1 ; Atrial fibrillation 427.31 ; Encounter for long-term (current) use of other medications V58.69 and termite technician current use of anticoagulant therapy V58.[address] [address] Oct, Ulcerative ( chronic) enterocolitis 556.0 ; Atrial fibrillation 427.31 ; Encounter for long- term (current) use of other medications V58.69 and custodial current use of anticoagulant therapy V58.[address] [address] Oct, Atrial fibrillation 427.31 ; Diabetes mellitus without mention of complication, type II or unspecified type, not stated as uncontrolled 250.00 ; Encounter for long- term (current) use of other medications V58.69 ; custodial current use of anticoagulant therapy V58.61 ; Cold intolerance 780.99 ; Imbalance 781.2 and Other B-complex deficiencies 266.[address] [address] Oct, [address] [address] Sep, [address] [address] August, Ileostomy status V44.2 ; Diabetes mellitus without mention of complication, type II or unspecified type, not stated as uncontrolled 250.00 ; Other vitamin B12 deficiency anemia 281.1 ; Atrial fibrillation 427.31 and Foot ulcer, right [address] [place] [address] August, [facility] [address] [facility] [id number] [address] Jul, [facility] [address] [facility] [id number] [address] Jul, [facility] [address] [id number] [address] Jun, [facility] [place] [address] [place] [address] Jun, [facility] [place] [address] [place] [address] Apr, [facility] [place] [address] [place] [address] Apr, [facility] [place] [address] [place] [address] Apr, [facility] [address] [place] [id number], [place] [address] Apr, [facility] [address] [place] [id number] [address] Apr, [facility] [address] [id number], [place] [address] Apr, [facility] [place] [address] [place] [address] Apr, [facility] [address] [place] [id number] [address] Apr, [facility] [address] [place] [id number], [place] [address] Apr, [facility] [place] [address] [place] [address] Apr, [facility] [address] [place] [id number], [place] [address] Apr, [facility] [address] [place] [id number], [place] [address] Mar, [facility] [address] [place] [id number], [place] [address] Mar, [facility] [address] [place] [id number], [place] [address] Mar, [facility] [place] [address] [place] [address] Mar, [facility] [place] [address] [place] [address] Feb, [facility] [address] [place] [id number], [place] [address] Feb, [facility] [address] [place] [id number], [place] [address] Jan, [facility] [place] [address] [place] [address] Jan, [facility] [address] [place] [id number], [place] [address] Jan, [facility] [address] [id number], [place] [address] Dec, [facility] [place] [address] [place] [address] Dec, [facility] [address] [id number], [place] [address] Dec, [facility] [place] [address] [place] [address] Dec, [facility] [address] [id number], [place] [address] Nov, [facility] [place] [address] [place] [address] Nov, [facility] [place] [address] [place] [address] Oct, [facility] [address] [id number] [address] Oct, [facility] [address] [id number], [place] [address] Sep, [facility] [address] [id number], [place] [address] Sep, [facility] [place] [address] [place] [address] Sep, [facility] [place] [address] [place] [address] Sep, [facility] [address] [id number], [place] [address] Sep, [facility] [place] [address] [place] [address] August, [facility] [address] [id number] [address] August, [facility] [place] [address] [place] [address] August, [facility] [address] [id number] [address] August, [facility] [place] [address] [place] [address] Jul, [facility] [address] [id number], [place] [address] Jul, [facility] [place] [address] [place] [address] Jun, [facility] [address] [id number] [address] Jun, [facility] [place] [address] [place] [address] Jun, [facility] [address] [id number], [place] [address] Jun, [facility] [place] [address] [place] [address] May, [facility] [address] [id number], [place] [address] May, [facility] [place] [address] [place] [address] May, [facility] [address] [id number], [place] [address] May, [facility] [address] [id number], [place] [address] Apr, [facility] [address] [place] [address] Apr, [facility] [address] [place] [address] Mar, [facility] [address] [id number], [place] [address] Mar, [facility] [address] [place] [address] Mar, [facility] [id number] [address] Mar, [facility] [id number], [place] [address] Mar, [facility] [address] [place] [address] Mar, [facility] [address] [place] [address] Mar, [facility] [address] [id number], [place] [address] Mar, [address] [address] Feb, [facility] [id number], [place] [address] Feb, [address] [address] Feb, [facility] [address] [id number], [place] [address] Feb, [facility] [address] [id number], [place] [address] Jan, [facility] [address] [place] [address] Jan, [facility] [place] [address] [place] [address] Jan, IMMUNIZATIONS No Known Immunizations SOCIAL HISTORY Never Assessed REASON FOR VISIT long term PLAN OF CARE VITAL SIGNS MEDICATIONS Unknown [...]
--- OUTSIDE RECORDS SUMMARY | 2018-06-21 06:18 | XMS REPORT ---
Author Author ZARINA VERGARA Organization [facility] [address] Address [address] [place] [address] Care Team Providers Care Supervisor Pile Driving Name Role Phone ZARINA VERGARA Unavailable PROBLEMS Type Condition ICD9-CM Code [id number] Code Onset Dates Condition Status SNOMED Code Problem intermediate current use of anticoagulant therapy Z79.01 Active 279263512 Problem Chronic atrial fibrillation I48.2 Active 823633736 Problem Ulcerated, foot L97.509 Active 62406340 Problem Cellulitis of foot L03.119 Active 140749769 Problem 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 Active 32700639 Problem Skin tag L91.8 Active 692653632 Problem Cholecystitis K81.9 Active 73712742 Problem GERD (gastroesophageal reflux disease) K21.9 Active 738741000 Problem Orthostatic hypotension I95.1 Active 83868846 Problem Unspecified atrial fibrillation I48.91 Active 17280504 Problem Type 2 diabetes mellitus without complications E11.9 Active 507633240 Problem Bronchitis J40 Active 46217414 Problem Urge incontinence N39.41 Active 93343847 Problem UTI (urinary tract infection) N39.0 Active 65462629 Problem Breast mass N63 Active 34581630 Problem Wheezing R06.2 Active 58116962 Problem Cholelithiasis K80.20 Active 047650715 Problem Chronic renal failure, stage 3 (moderate) N18.3 Active 16930678 Problem Subacute vaginitis N76.1 Active [id number] Problem Vitamin B12 deficiency E53.8 Active 849739573 Problem Lung mass R91.8 Active 755878880 Problem Malignant neoplasm of central portion of right female breast C50.111 Active 76435497 Problem Ileostomy status V44.2 Active 015412349 Problem Accidental fall on or from other stairs or steps E880.9 Active 408580376 Problem Need for prophylactic vaccination and inoculation, Influenza V04.81 Active 045415789 Problem Personal history of fall V15.88 Active 093909034 Problem Other general symptoms 780.99 Active 254967861 Problem Unspecified myalgia and myositis 729.1 Active 417700745 Problem Pain in joint, forearm 719.43 Active 787881654 Problem Pain in joint, shoulder region 719.41 Active 010583027 Problem Fall, initial encounter W19.XXXA Active 3635075 Problem Nausea alone 787.02 Active 358834975 Problem Ileostomy status Z93.2 Active 657977756 Problem Other vitamin B12 deficiency anemias D51.8 Active 33652019 Problem Infected tooth K04.7 Active 937813083 Problem intermediate (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 Z79.01 Active 700761317 Problem Type 2 diabetes mellitus without complication, without long-term current use of insulin E11.9 Active 587277408 Problem Persistent atrial fibrillation I48.1 Active 224137932 Problem Macular degeneration (senile) of retina, unspecified 362.50 Active 294768306 Problem Inflamed seborrheic keratosis of left cheek L82.0 Active 011076239 Problem Atrial fibrillation 427.31 Active 44628472 Problem Skin cancer C44.90 Active 643150423 Problem 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 Active 535022101 Problem Falls frequently R29.6 Active 610240172 Problem Urinary tract infection, site not specified 599.0 Active 74988161 Problem Seborrheic keratosis L82.1 Active 563697570 Problem Generalized osteoarthrosis, involving multiple sites 715.09 Active 89456448 Problem Diabetes mellitus without mention of complication, type II or unspecified type, not stated as uncontrolled 250.00 Active 257815643 Problem [place] of foot 700 Active 582557509 Problem Other and unspecified hyperlipidemia 272.4 Active 26904288 Problem Other B-complex deficiencies 266.2 Active 204870193 Problem Other vitamin B12 deficiency anemia 281.1 Active 13478724 Problem Volume depletion, unspecified 276.50 Active 68128982 ALLERGIES Substance Reaction Event Type Date Status Penicillin V Potassium Unknown Drug Allergy Jul, Active ENCOUNTERS Encounter Location Date Diagnosis [facility] [address] [place] [address] [place] [address] Oct, [address] [id number] Oct, Persistent atrial fibrillation I48.1 ; Falls frequently R29.6 ; Type 2 diabetes mellitus without complication, without long-term current use of insulin E11.9 ; Vitamin B12 deficiency E53.8 ; Ileostomy status Z93.2 and Malignant neoplasm of central portion of right female breast C50.[address] [address] Oct, Encounter for long-term (current) use of other medications V58.[address] [id number] Sep, Persistent atrial fibrillation I48.1 ; Falls frequently R29.6 ; Type 2 diabetes mellitus without complication, without long-term current use of insulin E11.9 ; Vitamin B12 deficiency E53.8 and Ileostomy status Z93.[address] [address] Sep, [facility] [address] [address] August, [facility] [address] [address] August, [facility] [address] [address] August, [address] [id number] August, Chronic atrial fibrillation I48.2 ; B12 deficiency E53.8 and Type 2 diabetes mellitus without complication, without long-term current use of insulin E11.[address] [address] August, [facility] [address] [address] August, termite helper ( 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 Z79.01 and Other vitamin B12 deficiency anemia 281.1 [facility] [address] [address] Jul, Type 2 diabetes mellitus without complications E11.9 ; termite helper (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 Z79.01 ; Other vitamin B12 deficiency anemias D51.8 and Malignant neoplasm of central portion of right female breast C50.[address] [address] Jun, intermediate ( 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 Z79.01 ; Falls frequently R29.6 ; Unspecified atrial fibrillation I48.91 and Encounter for long-term (current) use of other medications V58.69 [facility] [address] [place] [address] 28 May, 2017 Fall, initial encounter W19.XXXA ; Encounter for long-term (current) use of other medications V58.69 ; intermediate (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 Z79.01 and Persistent atrial fibrillation I48.[address] [address] 14 May, 2017 [facility] [address] [address] Mar, Bronchitis J40 and Chronic renal failure, stage 3 (moderate) N18.[address] [address] Feb, Encounter for long-term (current) use of other medications V58.[address] [address] Feb, Chronic atrial fibrillation I48.2 and Other senior living (current) drug therapy Z79.[address] [address] Jan, Chronic atrial fibrillation I48.2 and Encounter for long-term (current) use of other medications V58.[address] [address] Jan, termite helper current use of anticoagulant therapy Z79.[address] [address] Jan, Medicare welcome exam Z00.00 ; Medicare annual wellness visit, initial Z00.00 ; Medicare annual wellness visit, subsequent Z00.00 ; Vitamin B12 deficiency E53.8 ; Falls frequently R29.6 ; Unspecified atrial fibrillation I48.91 ; intermediate current use of anticoagulant therapy Z79.01 and Encounter for immunization Z23 [address] [address] Oct, Encounter for long-term (current) use of other medications V58.69 ; Type 2 diabetes mellitus without complications E11.9 ; intermediate (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 Z79.01 ; Malignant neoplasm of central portion of right female breast C50.111 ; Orthostatic hypotension I95.1 ; Seborrheic keratosis L82.1 and Vitamin B12 deficiency E53.[address] [address] Jun, termite helper ( 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 Z79.[address] [address] Jun, Skin cancer C44.[address] [address] Apr, termite helper ( 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 Z79.01 ; Unspecified atrial fibrillation I48.91 ; Infected tooth K04.7 ; Other vitamin B12 deficiency anemias D51.8 and Malignant neoplasm of central portion of right female breast C50.[address] [address] Mar, Chronic atrial fibrillation I48.2 and termite helper current use of anticoagulant therapy Z79.[address] [address] Mar, Ulcerated, foot L97.509 ; Chronic atrial fibrillation I48.2 ; Chronic renal failure, stage 3 ( moderate) N18.3 and Other vitamin B12 deficiency anemias D51.[address] [address] Feb, Ulcerated, foot L97.509 and Cellulitis of foot L03.[address] [address] Feb, Type 2 diabetes mellitus without complications E11.9 ; Encounter for immunization Z23 ; Ileostomy status Z93.2 ; Vitamin B12 deficiency E53.8 ; Subacute vaginitis N76.1 ; UTI (urinary tract infection) N39.0 and Fall, initial encounter W19.XXXA [address] [address] Jan, [address] [address] Jan, [address] [address] Dec, [address] [address] Nov, Type 2 diabetes mellitus without complications E11.9 ; Chronic atrial fibrillation I48.2 ; termite helper current use of anticoagulant therapy Z79.01 and Malignant neoplasm of central portion of right female breast C50.[address] [address] 14 Sep, [address] [address] 03 Sep, 2015 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 and Orthostatic hypotension I95.[address] [address] August, [address] [address] August, Type 2 diabetes mellitus without complications E11.9 and Chronic renal failure, stage 3 ( moderate) N18.[address] [address] August, Encounter for long-term (current) use of other medications V58.69 ; intermediate current use of anticoagulant therapy V58.61 ; Chronic atrial fibrillation I48.2 ; Wheezing R06.2 ; Breast mass N63 and Lung mass R91.[address] [address] Jul, UTI (urinary tract infection) N39.0 ; Type 2 diabetes mellitus without complications E11.9 ; Cholelithiasis K80.20 and Chronic renal failure, stage 3 (moderate) N18.[address] [address] Jul, [address] [address] Jul, Urge incontinence N39.41 ; Orthostatic hypotension I95.1 ; Bronchitis J40 ; UTI ( urinary tract infection) N39.0 ; Cholecystitis K81.9 ; 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 and Type 2 diabetes mellitus without complications E11.[address] [address] Jun, termite helper current use of anticoagulant therapy Z79.01 ; Unspecified atrial fibrillation I48.91 and Encounter for long-term (current) use of other medications Z79.[address] [address] Jun, Unspecified atrial fibrillation I48.91 ; Other computer terminal operator (current) drug therapy Z79.899 ; termite helper (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 Z79.01 ; Ulcerated, foot L97.509 and Orthostatic hypotension I95.[address] [address] Apr, [address] [address] Mar, [address] [address] Mar, [address] [address] Mar, [address] [address] Mar, Cholecystitis K81.9 ; termite helper current use of anticoagulant therapy Z79.01 ; Chronic atrial fibrillation I48.2 ; Encounter for long-term (current) use of other medications Z79.899 ; GERD (gastroesophageal reflux disease) K21.9 ; 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 and Skin tag L91.[address] [address] Feb, Chronic atrial fibrillation I48.2 ; termite helper current use of anticoagulant therapy Z79.01 ; Encounter for long-term (current) use of other medications Z79.899 and Ulcerated , foot L97.[address] [address] Jan, Chronic atrial fibrillation I48.2 ; termite helper current use of anticoagulant therapy Z79.01 and Vitamin B12 deficiency anemia, unspecified D51.[address] [address] Jan, Chronic atrial fibrillation I48.2 ; intermediate current use of anticoagulant therapy Z79.01 ; Encounter for long-term (current) use of other medications Z79.899 ; Encounter for immunization Z23 and Cellulitis of foot L03.[address] [address] Jan, [address] [address] Jan, Type 2 diabetes mellitus without complications E11.9 ; Callus of foot L84 and Ulceration L98.[address] [address] Dec, Atrial fibrillation 427.31 ; Encounter for long-term (current) use of other medications V58.69 ; termite helper current use of anticoagulant therapy V58.61 and [place] of foot [address] [address] Nov, Ileostomy status V44.2 ; Other vitamin B12 deficiency anemia 281.1 ; Atrial fibrillation 427.31 ; Encounter for long-term (current) use of other medications V58.69 and intermediate current use of anticoagulant therapy V58.[address] [address] Oct, Ulcerative ( chronic) enterocolitis 556.0 ; Atrial fibrillation 427.31 ; Encounter for long- term (current) use of other medications V58.69 and termite helper current use of anticoagulant therapy V58.[address] [address] Oct, Atrial fibrillation 427.31 ; Diabetes mellitus without mention of complication, type II or unspecified type, not stated as uncontrolled 250.00 ; Encounter for long- term (current) use of other medications V58.69 ; intermediate current use of anticoagulant therapy V58.61 ; Cold intolerance 780.99 ; Imbalance 781.2 and Other B-complex deficiencies 266.[address] [address] Oct, [address] [address] Sep, [address] [address] August, Ileostomy status V44.2 ; Diabetes mellitus without mention of complication, type II or unspecified type, not stated as uncontrolled 250.00 ; Other vitamin B12 deficiency anemia 281.1 ; Atrial fibrillation 427.31 and Foot ulcer, right 707.[address] [address] August, [facility] [address] [id number] [address] Jul, [facility] [address] [facility] [id number] [address] Jul, [facility] [address] [id number], [place] [address] Jun, [facility] [place] [address] [place] [address] Jun, [facility] [place] [address] [place] [address] Apr, [facility] [place] [address] [place] [address] Apr, [facility] [place] [address] [place] [address] Apr, [facility] [address] [facility] [id number] [address] Apr, [facility] [id number] [place] [address] Apr, [facility] [address] [id number], [place] [address] Apr, [facility] [place] [address] [place] [address] Apr, [facility] [address] [id number] [address] Apr, [facility] [address] [id number], [place] [address] Apr, [facility] [place] [address] [place] [address] Apr, [facility] [address] [id number], [place] [address] Apr, [facility] [id number], [place] [address] Mar, [facility] [address] [facility] [id number], [place] [address] Mar, [facility] [address] [id number], [place] [address] Mar, [facility] [place] [address] [place] [address] Mar, [facility] [place] [address] [place] [address] Feb, [facility] [address], [place] [address] Feb, [facility] [address] [id number], [place] [address] Jan, [facility] [place] [address] [place] [address] Jan, [facility] [id number], [place] [address] Jan, [facility] [address] [id number], [place] [address] Dec, [facility] [place] [address] [place] [address] Dec, [facility] [address], [place] [address] Dec, [facility] [place] [address] [place] [address] Dec, [facility] [address] [id number], [place] [address] Nov, [facility] [place] [address] [place] [address] Nov, [facility] [place] [address] [place] [address] Oct, [facility] [address] [id number], [place] [address] Oct, [facility] [id number], [place] [address] Sep, [facility] [address] [id number], [place] [address] Sep, [facility] [place] [address] [place] [address] Sep, [facility] [place] [address] [place] [address] Sep, [facility] [id number] [place] [address] Sep, [facility] [place] [address] [place] [address] August, [facility] [address] [id number], [place] [address] August, [facility] [place] [address] [place] [address] August, [facility] [address] [id number], [place] [address] August, [facility] [place] [address] [place] [address] Jul, [facility] [address], [place] [address] Jul, [facility] [place] [address] [place] [address] Jun, [facility] [address] [place] [address] Jun, [facility] [place] [address] [place] [address] Jun, [facility] [address], [place] [address] Jun, [facility] [place] [address] [place] [address] May, [facility] [address] [place] [address] May, [facility] [place] [address] [place] [address] May, [facility] [address], [place] [address] May, [facility] [id number], [place] [address] Apr, [facility] [place] [address] [place] [address] Apr, [facility] [place] [address] [place] [address] Mar, [facility] [address], [place] [address] Mar, [facility] [place] [address] [place] [address] Mar, [facility] [address], [place] [address] Mar, [facility] [address] [place] [address] Mar, [facility] [place] [address] [place] [address] Mar, [facility] [place] [address] [place] [address] Mar, [facility] [id number] [place] [address] Mar, [facility] [address] [place] [address] Feb, [facility] [id number] [place] [address] Feb, [facility] [address] [place] [address] Feb, [facility] [id number] [place] [address] Feb, [facility] [address] [place] [address] Jan, [facility] [place] [address] [place] [address] Jan, [facility] [address] [place] [address] Jan, IMMUNIZATIONS Vaccine Route Administration Date Status B12, VITAMIN (UP TO 1000 MCG) IM Intramuscular August 03, 2017 Administered SOCIAL HISTORY Never Assessed REASON FOR VISIT INR 1 month f/u S. Disha LYNCH, INR=4.7, feet numb PLAN OF CARE Activity Details Follow Up 2 Weeks Reason:INR and b12 shot VITAL SIGNS Height 65 in 2017-08-03 Weight 135.2 lbs 2017-08-03 Temperature 98 degrees Fahrenheit 2017-08-03 Heart Rate 68 bpm 2017-08-03 Respiratory Rate 18 2017-08-03 BMI 22.50 kg/m2 2017-08-03 Blood pressure systolic 108 mmHg 2017-08-03 Blood pressure diastolic 66 mmHg 2017-08-03 MEDICATIONS Medication Instructions Dosage Frequency Start Date End Date Duration Status Anastrozole 1 MG Orally Once a day 1 tablet 24h Active Test strips Active Lancets - Active Amiodarone HCl 200 MG TAKE 1 TABLET BY MOUTH DAILY 30 Active Multivitamin/Minerals Active Warfarin Sodium 4 MG Orally Once a day 1 tablet 24h Mar, Active Blood Glucose Monitor System w/Device as directed 24h August, Active Magnesium Oxide 400 (240 Mg) MG TAKE 2 TABLETS BY MOUTH ONCE A DAY Active RESULTS Name Result Date Reference Range A1C (IN HOUSE) 2017-08-03 A1C IN HOUSE 6.4 4.3 - 5.6 % Previous A1c 6.1 Lot [id number] Exp date 06/2019 INR (IN HOUSE) INR 4.7 1.10 - 3.30 PREVIOUS INR 2.2 CURRENT COUMADIN DOSE 4 mg daily NEW COUMADIN DOSE Lot # [id number] Exp date 09/06/2018 PROCEDURES Procedure Date Ordered Result Body Site PROTHROMBIN TIME August 03, 2017 GLYCATED HEMOGLOBIN TEST August 03, 2017 [facility] VISIT ESTABLISHED PATIENT August 03, 2017 THER/PROPH/DIAG INJ, SC/IM August 03, 2017 B12, VITAMIN (UP TO 1000 MCG) August 03, 2017 INSTRUCTIONS MEDICATIONS ADMINISTERED No Known Medications [...] due to fractures Surgical History PACEMAKER PLACEMENT 2015 Surgical History breast biopsy Hospitalization History childbirth Hospitalization History electrolyte problems Hospitalization History surgeries Hospitalization History Pneumonia 2015
--- OUTSIDE RECORDS SUMMARY | 2018-06-21 06:18 | XMS REPORT ---
Author Author ZARINA VERGARA Organization [facility] [address] Address [address] [place] [address] Care Team Providers Care Accounting Manager Assistant Controller Name Role Phone ZARINA VERGARA Unavailable PROBLEMS Type Condition ICD9-CM Code CCR42-TR Code Onset Dates Condition Status SNOMED Code Problem alf current use of anticoagulant therapy Z79.01 Active 951498174 Problem Chronic atrial fibrillation I48.2 Active 613435886 Problem Ulcerated, foot L97.509 Active 77293037 Problem Cellulitis of foot L03.119 Active 005238452 Problem 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 Active 90292446 Problem Skin tag L91.8 Active 877865872 Problem Cholecystitis K81.9 Active 99730376 Problem GERD (gastroesophageal reflux disease) K21.9 Active 449645675 Problem Orthostatic hypotension I95.1 Active 05553796 Problem Unspecified atrial fibrillation I48.91 Active 76322573 Problem Type 2 diabetes mellitus without complications E11.9 Active 630514040 Problem Bronchitis J40 Active 58958473 Problem Urge incontinence N39.41 Active 52063132 Problem UTI (urinary tract infection) N39.0 Active 50618562 Problem Breast mass N63 Active 54351740 Problem Wheezing R06.2 Active 05510675 Problem Cholelithiasis K80.20 Active 116125864 Problem Chronic renal failure, stage 3 (moderate) N18.3 Active 61622149 Problem Subacute vaginitis N76.1 Active [id number] Problem Vitamin B12 deficiency E53.8 Active 095309357 Problem Lung mass R91.8 Active 495176193 Problem Malignant neoplasm of central portion of right female breast C50.111 Active 74996954 Problem Ileostomy status V44.2 Active 890564386 Problem Accidental fall on or from other stairs or steps E880.9 Active 638944459 Problem Need for prophylactic vaccination and inoculation, Influenza V04.81 Active 178829791 Problem Personal history of fall V15.88 Active 853128952 Problem Other general symptoms 780.99 Active 986536645 Problem Unspecified myalgia and myositis 729.1 Active 748175958 Problem Pain in joint, forearm 719.43 Active 461092498 Problem Pain in joint, shoulder region 719.41 Active 357537430 Problem Fall, initial encounter W19.XXXA Active 5158582 Problem Nausea alone 787.02 Active 495919883 Problem Ileostomy status Z93.2 Active 936250674 Problem Other vitamin B12 deficiency anemias D51.8 Active 15797753 Problem Infected tooth K04.7 Active 437833750 Problem alf (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 Z79.01 Active 686937729 Problem Type 2 diabetes mellitus without complication, without long-term current use of insulin E11.9 Active 215157256 Problem Persistent atrial fibrillation I48.1 Active 920311390 Problem Macular degeneration (senile) of retina, unspecified 362.50 Active 010821325 Problem Inflamed seborrheic keratosis of left cheek L82.0 Active 674704700 Problem Atrial fibrillation 427.31 Active 99503291 Problem Skin cancer C44.90 Active 713480698 Problem 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 Active 167127198 Problem Falls frequently R29.6 Active 501751263 Problem Urinary tract infection, site not specified 599.0 Active 69436006 Problem Seborrheic keratosis L82.1 Active 294019814 Problem Generalized osteoarthrosis, involving multiple sites 715.09 Active 49007380 Problem Diabetes mellitus without mention of complication, type II or unspecified type, not stated as uncontrolled 250.00 Active 337787862 Problem [place] of foot 700 Active 270725619 Problem Other and unspecified hyperlipidemia 272.4 Active 21505486 Problem Other B-complex deficiencies 266.2 Active 267726506 Problem Other vitamin B12 deficiency anemia 281.1 Active 64691041 Problem Volume depletion, unspecified 276.50 Active 28738324 ALLERGIES Substance Reaction Event Type Date Status Penicillin V Potassium Unknown Drug Allergy Jun, Active ENCOUNTERS Encounter Location Date Diagnosis [facility] [address] [place] [address] [place] [address] Oct, [address] [id number] Oct, Persistent atrial fibrillation I48.1 ; Falls frequently R29.6 ; Type 2 diabetes mellitus without complication, without long-term current use of insulin E11.9 ; Vitamin B12 deficiency E53.8 ; Ileostomy status Z93.2 and Malignant neoplasm of central portion of right female breast C50.[address] [address] Oct, Encounter for long-term (current) use of other medications V58.[address] [id number] Sep, Persistent atrial fibrillation I48.1 ; Falls frequently R29.6 ; Type 2 diabetes mellitus without complication, without long-term current use of insulin E11.9 ; Vitamin B12 deficiency E53.8 and Ileostomy status Z93.[address] [address] Sep, [facility] [address] [address] August, [facility] [address] [address] August, [facility] [address] [address] August, [address] [id number] August, Chronic atrial fibrillation I48.2 ; B12 deficiency E53.8 and Type 2 diabetes mellitus without complication, without long-term current use of insulin E11.[address] [address] August, [facility] [address] [address] August, 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 ( 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 Z79.01 and Other vitamin B12 deficiency anemia 281.1 [facility] [address] [address] Jul, Type 2 diabetes mellitus without complications E11.9 ; 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 (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 Z79.01 ; Other vitamin B12 deficiency anemias D51.8 and Malignant neoplasm of central portion of right female breast C50.[address] [address] Jun, alf ( 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 Z79.01 ; Falls frequently R29.6 ; Unspecified atrial fibrillation I48.91 and Encounter for long-term (current) use of other medications V58.69 [facility] [address] [place] [address] 28 May, 2017 Fall, initial encounter W19.XXXA ; Encounter for long-term (current) use of other medications V58.69 ; alf (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 Z79.01 and Persistent atrial fibrillation I48.[address] [address] 14 May, 2017 [facility] [address] [address] Mar, Bronchitis J40 and Chronic renal failure, stage 3 (moderate) N18.[address] [address] Feb, Encounter for long-term (current) use of other medications V58.[address] [address] Feb, Chronic atrial fibrillation I48.2 and Other snf (current) drug therapy Z79.[address] [address] Jan, Chronic atrial fibrillation I48.2 and Encounter for long-term (current) use of other medications V58.[address] [address] Jan, 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 current 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 of anticoagulant therapy Z79.[address] [address] Jan, Medicare welcome exam Z00.00 ; Medicare annual wellness visit, initial Z00.00 ; Medicare annual wellness visit, subsequent Z00.00 ; Vitamin B12 deficiency E53.8 ; Falls frequently R29.6 ; Unspecified atrial fibrillation I48.91 ; alf current use of anticoagulant therapy Z79.01 and Encounter for immunization Z23 [address] [address] Oct, Encounter for long-term (current) use of other medications V58.69 ; Type 2 diabetes mellitus without complications E11.9 ; alf (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 Z79.01 ; Malignant neoplasm of central portion of right female breast C50.111 ; Orthostatic hypotension I95.1 ; Seborrheic keratosis L82.1 and Vitamin B12 deficiency E53.[address] [address] Jun, 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 ( 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 Z79.[address] [address] Jun, Skin cancer C44.[address] [address] Apr, 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 ( 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[address] [address] Feb, Type 2 diabetes mellitus without complications E11.9 ; Encounter for immunization Z23 ; Ileostomy status Z93.2 ; Vitamin B12 deficiency E53.8 ; Subacute vaginitis N76.1 ; UTI (urinary tract infection) N39.0 and Fall, initial encounter W19.XXXA [address] [address] Jan, [address] [address] Jan, [address] [address] Dec, [address] [address] Nov, Type 2 diabetes mellitus without complications E11.9 ; Chronic atrial fibrillation I48.2 ; 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 current use of anticoagulant therapy Z79.01 and Malignant neoplasm of central portion of right female breast C50.[address] [address] 14 Sep, [address] [address] 03 Sep, 2015 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 and Orthostatic hypotension I95.[address] [address] August, [address] [address] August, Type 2 diabetes mellitus without complications E11.9 and Chronic renal failure, stage 3 ( moderate) N18.[address] [address] August, Encounter for long-term (current) use of other medications V58.69 ; alf current use of anticoagulant therapy V58.61 ; Chronic atrial fibrillation I48.2 ; Wheezing R06.2 ; Breast mass N63 and Lung mass R91.[address] [address] Jul, UTI (urinary tract infection) N39.0 ; Type 2 diabetes mellitus without complications E11.9 ; Cholelithiasis K80.20 and Chronic renal failure, stage 3 (moderate) N18.[address] [address] Jul, [address] [address] Jul, Urge incontinence N39.41 ; Orthostatic hypotension I95.1 ; Bronchitis J40 ; UTI ( urinary tract infection) N39.0 ; Cholecystitis K81.9 ; 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 and Type 2 diabetes mellitus without complications E11.[address] [address] Jun, 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 current use of anticoagulant therapy Z79.01 ; Unspecified atrial fibrillation I48.91 and Encounter for long-term (current) use of other medications Z79.[address] [address] Jun, Unspecified atrial fibrillation I48.91 ; 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 ; 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 (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 Z79.01 ; Ulcerated, foot L97.509 and Orthostatic hypotension I95.[address] [address] Apr, [address] [address] Mar, [address] [address] Mar, [address] [address] Mar, [address] [address] Mar, Cholecystitis K81.9 ; 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 current use of anticoagulant therapy Z79.01 ; Chronic atrial fibrillation I48.2 ; Encounter for long-term (current) use of other medications Z79.899 ; GERD (gastroesophageal reflux disease) K21.9 ; 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 and Skin tag L91.[address] [address] Feb, Chronic atrial fibrillation I48.2 ; 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 current use of anticoagulant therapy Z79.01 ; Encounter for long-term (current) use of other medications Z79.899 and Ulcerated , foot L97.[address] [address] Jan, Chronic atrial fibrillation I48.2 ; 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 current use of anticoagulant therapy Z79.01 and Vitamin B12 deficiency anemia, unspecified D51.[address] [address] Jan, Chronic atrial fibrillation I48.2 ; alf current use of anticoagulant therapy Z79.01 ; Encounter for long-term (current) use of other medications Z79.899 ; Encounter for immunization Z23 and Cellulitis of foot L03.[address] [address] Jan, [address] [address] Jan, Type 2 diabetes mellitus without complications E11.9 ; Callus of foot L84 and Ulceration L98.[address] [address] Dec, Atrial fibrillation 427.31 ; Encounter for long-term (current) use of other medications V58.69 ; 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 current use of anticoagulant therapy V58.61 and [place] of foot [address] [address] Nov, Ileostomy status V44.2 ; Other vitamin B12 deficiency anemia 281.1 ; Atrial fibrillation 427.31 ; Encounter for long-term (current) use of other medications V58.69 and alf current use of anticoagulant therapy V58.[address] [address] Oct, Ulcerative ( chronic) enterocolitis 556.0 ; Atrial fibrillation 427.31 ; Encounter for long- term (current) use of other medications V58.69 and 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 current use of anticoagulant therapy V58.[address] [address] Oct, Atrial fibrillation 427.31 ; Diabetes mellitus without mention of complication, type II or unspecified type, not stated as uncontrolled 250.00 ; Encounter for long- term (current) use of other medications V58.69 ; alf current use of anticoagulant therapy V58.61 ; Cold intolerance 780.99 ; Imbalance 781.2 and Other B-complex deficiencies 266.[address] [address] Oct, [address] [address] Sep, [address] [address] August, Ileostomy status V44.2 ; Diabetes mellitus without mention of complication, type II or unspecified type, not stated as uncontrolled 250.00 ; Other vitamin B12 deficiency anemia 281.1 ; Atrial fibrillation 427.31 and Foot ulcer, right 707.[address] [address] August, [facility] [address] [id number] [address] Jul, [facility] [address] [facility] [id number] [address] Jul, [facility] [address] [id number], [place] [address] Jun, [facility] [place] [address] [facility] [place] [address] Jun, [facility] [place] [address] [facility] [place] [address] Apr, [facility] [place] [address] [facility] [place] [address] Apr, [facility] [place] [address] [facility] [place] [address] Apr, [facility] [address] [facility] [id number] [address] Apr, [facility] [id number] [place] [address] Apr, [facility] [address] [id number] [address] Apr, [facility] [place] [address] [facility] [place] [address] Apr, [facility] [address] [id number] [address] Apr, [facility] [address] [id number] [address] Apr, [facility] [place] [address] [place] [address] Apr, [facility] [address] [id number] [address] Apr, [facility] [address] [id number], [place] [address] Mar, [facility] [address] [facility] [id number], [place] [address] Mar, [facility] [address] [id number], [place] [address] Mar, [facility] [place] [address] [facility] [place] [address] Mar, [facility] [place] [address] [facility] [place] [address] Feb, [facility] [address], [place] [address] Feb, [facility] [address] [id number], [place] [address] Jan, [facility] [place] [address] [facility] [place] [address] Jan, [facility] [address] [id number], [place] [address] Jan, [facility] [address] [id number], [place] [address] Dec, [facility] [place] [address] [facility] [place] [address] Dec, [facility] [id number], [place] [address] Dec, [facility] [place] [address] [facility] [place] [address] Dec, [facility] [address] [id number], [place] [address] Nov, [facility] [place] [address] [facility] [place] [address] Nov, [facility] [place] [address] [facility] [place] [address] Oct, [facility] [address] [id number], [place] [address] Oct, [facility] [address] [id number], [place] [address] Sep, [facility] [address] [id number], [place] [address] Sep, [facility] [place] [address] [facility] [place] [address] Sep, [facility] [place] [address] [facility] [place] [address] Sep, [facility] [id number] [place] [address] Sep, [facility] [place] [address] [facility] [place] [address] August, [facility] [address] [id number], [place] [address] August, [facility] [place] [address] [facility] [place] [address] August, [facility] [address] [id number], [place] [address] August, [facility] [place] [address] [facility] [place] [address] Jul, [facility] [id number], [place] [address] Jul, [facility] [place] [address] [facility] [place] [address] Jun, [facility] [id number] [place] [address] Jun, [facility] [place] [address] [facility] [place] [address] Jun, [facility] [id number], [place] [address] Jun, [facility] [place] [address] [facility] [place] [address] May, [facility] [id number] [place] [address] May, [facility] [place] [address] [place] [address] May, [facility] [id number], [place] [address] May, [facility] [address] [id number], [place] [address] Apr, [facility] [place] [address] [facility] [place] [address] Apr, [facility] [place] [address] [facility] [place] [address] Mar, [facility] [id number], [place] [address] Mar, [facility] [place] [address] [facility] [place] [address] Mar, [facility] [id number], [place] [address] Mar, [facility] [id number] [place] [address] Mar, [facility] [place] [address] [place] [address] Mar, [facility] [place] [address] [place] [address] Mar, [facility] [id number] [place] [address] Mar, [facility] [address] [place] [address] Feb, [facility] [id number] [place] [address] Feb, [facility] [address] [place] [address] Feb, [facility] [id number] [place] [address] Feb, [facility] [id number] [place] [address] Jan, [facility] [place] [address] [place] [address] Jan, [facility] [address] [place] [address] Jan, IMMUNIZATIONS No Known Immunizations SOCIAL HISTORY Never Assessed REASON FOR VISIT 1 mo , INR - 2.2 , [facility] PLAN OF CARE Activity Details Follow Up 4 Weeks Reason:INR VITAL SIGNS Height 65 in 2017-07-06 Weight 135.8 lbs 2017-07-06 Heart Rate 83 bpm 2017-07-06 Respiratory Rate 16 2017-07-06 BMI 22.60 kg/m2 2017-07-06 Blood pressure systolic 136 mmHg 2017-07-06 Blood pressure diastolic 69 mmHg 2017-07-06 MEDICATIONS Medication Instructions Dosage Frequency Start Date End Date Duration Status Warfarin Sodium 4 MG Orally Once a day 1 tablet 24h Mar, Active Test strips Active Lancets - Active Multivitamin/Minerals Active Magnesium Oxide 400 (240 Mg) MG TAKE 2 TABLETS BY MOUTH ONCE A DAY Active Amiodarone HCl 200 MG TAKE 1 TABLET BY MOUTH DAILY 30 Unknown Anastrozole 1 MG Orally Once a day 1 tablet 24h Active Blood Glucose Monitor System w/Device as directed 24h August, Active RESULTS Name Result Date Reference Range INR (IN HOUSE) 2017-07-06 INR 2.2 1.10 - 3.30 PREVIOUS INR 3.6 CURRENT COUMADIN DOSE NEW COUMADIN DOSE Lot # [id number] Exp date 07/07/2018 PROCEDURES Procedure Date Ordered Result Body Site PROTHROMBIN TIME July 06, 2017 [facility] VISIT ESTABLISHED PATIENT July 06, 2017 INSTRUCTIONS MEDICATIONS ADMINISTERED No Known Medications [...]
--- OUTSIDE RECORDS SUMMARY | 2018-06-21 06:19 | XMS REPORT ---
Author Author ZARINA VERGARA [facility] Address [address] [place] [address] Care Team Providers Care Roll Filler Name Role Phone ZARINA VERGARA Unavailable PROBLEMS Type Condition ICD9-CM Code [id number] Code Onset Dates Condition Status SNOMED Code Problem Pain in joint, shoulder region 719.41 Active 456272785 Problem Macular degeneration (senile) of retina, unspecified 362.50 Active 846490159 Problem Cellulitis of foot L03.119 Active 706958570 Problem [place] of foot 700 Active 690581010 Problem [facility] current use of anticoagulant therapy Z79.01 Active 263659893 Problem Chronic atrial fibrillation I48.2 Active 281485940 Problem Ulcerated, foot L97.509 Active 50379498 Problem Skin tag L91.8 Active 112588958 Problem Cholecystitis K81.9 Active 34280666 Problem 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 Active 88736101 Problem GERD (gastroesophageal reflux disease) K21.9 Active 617119740 Problem Type 2 diabetes mellitus without complications E11.9 Active 869225789 Problem Unspecified atrial fibrillation I48.91 Active 38101635 Problem Orthostatic hypotension I95.1 Active 75485270 Problem Urge incontinence N39.41 Active 94294917 Problem Chronic renal failure, stage 3 (moderate) N18.3 Active 82516036 Problem UTI (urinary tract infection) N39.0 Active 75050096 Problem Bronchitis J40 Active 26601221 Problem Breast mass N63 Active 26507107 Problem Wheezing R06.2 Active 20435595 Problem Cholelithiasis K80.20 Active 381868968 Problem Lung mass R91.8 Active 175329245 Problem Diabetes mellitus without mention of complication, type II or unspecified type, not stated as uncontrolled 250.00 Active 674849592 Problem Other vitamin B12 deficiency anemia 281.1 Active 37421550 Problem Unspecified myalgia and myositis 729.1 Active 644260244 Problem Other general symptoms 780.99 Active 431521833 Problem Personal history of fall V15.88 Active 817728717 Problem Malignant neoplasm of central portion of right female breast C50.111 Active 70521207 Problem Urinary tract infection, site not specified 599.0 Active 47447240 Problem Fall, initial encounter W19.XXXA Active 9659542 Problem Subacute vaginitis N76.1 Active 52620521579160416 Problem Ileostomy status Z93.2 Active 992174301 Problem Vitamin B12 deficiency E53.8 Active 522937227 Problem Inflamed seborrheic keratosis of left cheek L82.0 Active 345931411 Problem Seborrheic keratosis L82.1 Active 408020659 Problem Ileostomy status V44.2 Active 559021475 Problem Infected tooth K04.7 Active 980497272 Problem Other and unspecified hyperlipidemia 272.4 Active 73056972 Problem Other vitamin B12 deficiency anemias D51.8 Active 57465767 Problem Nausea alone 787.02 Active 175666335 Problem Skin cancer C44.90 Active 521353069 Problem Volume depletion, unspecified 276.50 Active 52920156 Problem 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 Active 283214036 Problem Accidental fall on or from other stairs or steps E880.9 Active 294702434 Problem Need for prophylactic vaccination and inoculation, Influenza V04.81 Active 080764167 Problem Pain in joint, forearm 719.43 Active 994009905 Problem Generalized osteoarthrosis, involving multiple sites 715.09 Active 11259438 Problem Atrial fibrillation 427.31 Active 74058144 Problem 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 Active 821580786 Problem Other B-complex deficiencies 266.2 Active 218204812 ALLERGIES Substance Reaction Event Type Date Status Penicillin V Potassium Unknown Drug Allergy Mar, Active SOCIAL HISTORY No smoking Hx information available PLAN OF CARE Activity Details Follow Up 4 Weeks Reason: VITAL SIGNS Height 65 in 2016-03-22 Weight 127.6 lbs 2016-03-22 Temperature 97.9 degrees Fahrenheit 2016-03-22 Heart Rate 80 bpm 2016-03-22 Respiratory Rate 20 2016-03-22 BMI 21.23 kg/m2 2016-03-22 Blood pressure systolic 102 mmHg 2016-03-22 Blood pressure diastolic 80 mmHg 2016-03-22 MEDICATIONS Medication Instructions Dosage Frequency Start Date End Date Duration Status Warfarin Sodium 4 MG Orally Once a day except HOLD Sat 1 tablet 31 Mar, 2015 Active Blood Glucose Monitor System w/Device as directed 24h August, Active Magnesium Oxide 400 (240 Mg) MG TAKE 2 TABLETS BY MOUTH ONCE A DAY Active Multivitamin/Minerals Active Bactroban 2 % Externally Three times a day 1 application to affected area 8h Feb, Active Amiodarone HCl 200 MG TAKE 1 TABLET BY MOUTH DAILY 30 Active Anastrozole 1 MG Orally Once a day 1 tablet 24h Active RESULTS Name Result Date Reference Range INR (IN HOUSE) 2016-03-22 INR 5.0 1.10 - 3.30 PREVIOUS INR 5.1 CURRENT COUMADIN DOSE 4 mg QDAy NEW COUMADIN DOSE Lot # [id number] Exp date 12/2016 PROCEDURES Procedure Date Ordered Related Diagnosis Body Site [facility] VISIT ESTABLISHED PATIENT Mar 22, 2016 Office Visit, Est Pt., Level 3 Mar 22, 2016 B12, VITAMIN (UP TO 1000 MCG) Mar 22, 2016 PROTHROMBIN TIME Mar 22, 2016 THER/PROPH/DIAG INJ, SC/IM Mar 22, 2016 IMMUNIZATIONS Vaccine Route Administration Date Status B12, VITAMIN (UP TO 1000 MCG) IM Intramuscular Mar 22, 2016 Administered
--- OUTSIDE RECORDS SUMMARY | 2018-06-21 06:19 | XMS REPORT ---
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 Active 703469803 Problem Cellulitis of foot L03.119 Active 384342664 Problem Ulcerated, foot L97.509 Active 98309552 Problem 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 Active 55737718 Problem Cholecystitis K81.9 Active 78049552 Problem GERD (gastroesophageal reflux disease) K21.9 Active 824543111 Problem Skin tag L91.8 Active 339385537 Problem Bronchitis J40 Active 73750881 Problem Unspecified atrial fibrillation I48.91 Active 58236998 Problem Orthostatic hypotension I95.1 Active 58344703 Problem UTI (urinary tract infection) N39.0 Active 59592297 Problem Chronic renal failure, stage 3 (moderate) N18.3 Active 69520539 Problem Type 2 diabetes mellitus without complications E11.9 Active 118206874 Problem Urge incontinence N39.41 Active 82841074 Problem Lung mass R91.8 Active 064534078 Problem Wheezing R06.2 Active 21418617 Problem Cholelithiasis K80.20 Active 673559721 Problem Breast mass N63 Active 32370509 Problem Personal history of fall V15.88 Active 209195302 Problem Accidental fall on or from other stairs or steps E880.9 Active 461479655 Problem Ileostomy status V44.2 Active 801894562 Problem Nausea alone 787.02 Active 716947044 Problem Other general symptoms 780.99 Active 444343832 Problem Malignant neoplasm of central portion of right female breast C50.111 Active 44326763 Problem Need for prophylactic vaccination and inoculation, Influenza V04.81 Active 931505292 Problem Subacute vaginitis N76.1 Active 93946466625140107 Problem Fall, initial encounter W19.XXXA Active 6125739 Problem Ileostomy status Z93.2 Active 110297445 Problem Vitamin B12 deficiency E53.8 Active 572243360 Problem Seborrheic keratosis L82.1 Active 218456580 Problem Inflamed seborrheic keratosis of left cheek L82.0 Active 886417097 Problem Urinary tract infection, site not specified 599.0 Active 29071721 Problem shelter (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 Z79.01 Active 937419832 Problem Generalized osteoarthrosis, involving multiple sites 715.09 Active 06107122 Problem Other vitamin B12 deficiency anemias D51.8 Active 16277254 Problem Pain in joint, shoulder region 719.41 Active 821094103 Problem Skin cancer C44.90 Active 843608172 Problem Pain in joint, forearm 719.43 Active 264477443 Problem Infected tooth K04.7 Active 804181335 Problem Unspecified myalgia and myositis 729.1 Active 615744438 Problem Volume depletion, unspecified 276.50 Active 89405840 Problem Other and unspecified hyperlipidemia 272.4 Active 54784613 Problem Macular degeneration (senile) of retina, unspecified 362.50 Active 846753032 Problem Other vitamin B12 deficiency anemia 281.1 Active 27918038 Problem 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 Active 929712746 Problem Atrial fibrillation 427.31 Active 53900905 ALLERGIES Substance Reaction Event Type Date Status Penicillin V Potassium Unknown Drug Allergy Feb, Active SOCIAL HISTORY No smoking Hx information available PLAN OF CARE Activity Details Follow Up 2 Weeks Reason:foot VITAL SIGNS Height 65 in 2016-03-08 Weight 126.8 lbs 2016-03-08 Temperature 97.9 degrees Fahrenheit 2016-03-08 Heart Rate 82 bpm 2016-03-08 Respiratory Rate 20 2016-03-08 BMI 21.10 kg/m2 2016-03-08 Blood pressure systolic 134 mmHg 2016-03-08 Blood pressure diastolic 72 mmHg 2016-03-08 MEDICATIONS Medication Instructions Dosage Frequency Start Date End Date Duration Status Blood Glucose Monitor System w/Device as directed 24h August, Active Multivitamin/Minerals Active Warfarin Sodium 4 MG Orally Once a day except HOLD Sat 1 tablet Mar, Active Amiodarone HCl 200 MG TAKE 1 TABLET BY MOUTH DAILY 30 Active Anastrozole 1 MG Orally Once a day 1 tablet 24h Active Cipro 500 MG Orally Twice a day 1 tablet 12h 30 Feb, 2016 Mar, 10 day(s) Active Magnesium Oxide 400 (240 Mg) MG TAKE 2 TABLETS BY MOUTH ONCE A DAY Active Bactroban 2 % Externally Three times a day 1 application to affected area 8h 16 Feb, 2016 Active RESULTS No Results PROCEDURES Procedure Date Ordered Related Diagnosis Body Site [facility] VISIT ESTABLISHED PATIENT Mar 08, 2016 Office Visit, Est Pt., Level 3 Mar 08, 2016 IMMUNIZATIONS No Known Immunizations
--- OUTSIDE RECORDS SUMMARY | 2018-06-21 06:19 | XMS REPORT ---
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 Active Problem Pain in joint, shoulder region 719.41 Active Problem Macular degeneration (senile) of retina, unspecified 362.50 Active Problem [place] of foot 700 Active Problem Atrial fibrillation 427.31 Active Problem Generalized osteoarthrosis, involving multiple sites 715.09 Active Problem Pain in joint, forearm 719.43 Active Problem Need for prophylactic vaccination and inoculation, Influenza V04.81 Active Problem Other vitamin B12 deficiency anemia 281.1 Active Problem Unspecified myalgia and myositis 729.1 Active Problem Diabetes mellitus without mention of complication, type II or unspecified type, not stated as uncontrolled 250.00 Active Problem Urinary tract infection, site not specified 599.0 Active Problem Accidental fall on or from other stairs or steps E880.9 Active Problem Volume depletion, unspecified 276.50 Active Problem Other general symptoms 780.99 Active Problem Nausea alone 787.02 Active Problem Personal history of fall V15.88 Active Problem Other and unspecified hyperlipidemia 272.4 Active Medications No Known Medications Results No Known Results Summary Purpose [employer] Submission
--- OUTSIDE RECORDS SUMMARY | 2018-06-21 06:19 | XMS REPORT ---
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.01 Active 537776273 Problem Chronic atrial fibrillation I48.2 Active 247933543 Problem Ulcerated, foot L97.509 Active 90545816 Problem Cellulitis of foot L03.119 Active 341642870 Problem 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 Active 99084166 Problem Skin tag L91.8 Active 664822319 Problem Cholecystitis K81.9 Active 77685474 Problem GERD (gastroesophageal reflux disease) K21.9 Active 852053651 Problem Orthostatic hypotension I95.1 Active 90181958 Problem Unspecified atrial fibrillation I48.91 Active 82028133 Problem Type 2 diabetes mellitus without complications E11.9 Active 367552760 Problem Bronchitis J40 Active 52976020 Problem Urge incontinence N39.41 Active 90944318 Problem UTI (urinary tract infection) N39.0 Active 49384911 Problem Breast mass N63 Active 27615553 Problem Wheezing R06.2 Active 27914329 Problem Cholelithiasis K80.20 Active 581198185 Problem Chronic renal failure, stage 3 (moderate) N18.3 Active 59243964 Problem Subacute vaginitis N76.1 Active [id number] Problem Vitamin B12 deficiency E53.8 Active 341174797 Problem Lung mass R91.8 Active 025713202 Problem Malignant neoplasm of central portion of right female breast C50.111 Active 31026953 Problem Ileostomy status V44.2 Active 436676668 Problem Accidental fall on or from other stairs or steps E880.9 Active 465987938 Problem Need for prophylactic vaccination and inoculation, Influenza V04.81 Active 355667973 Problem Personal history of fall V15.88 Active 479813147 Problem Other general symptoms 780.99 Active 235167841 Problem Unspecified myalgia and myositis 729.1 Active 780539296 Problem Pain in joint, forearm 719.43 Active 622991850 Problem Pain in joint, shoulder region 719.41 Active 079600926 Problem Fall, initial encounter W19.XXXA Active 8027853 Problem Nausea alone 787.02 Active 614064051 Problem Ileostomy status Z93.2 Active 798513488 Problem Other vitamin B12 deficiency anemias D51.8 Active 67253783 Problem Infected tooth K04.7 Active 291515815 Problem residential (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 Z79.01 Active 946799236 Problem Type 2 diabetes mellitus without complication, without long-term current use of insulin E11.9 Active 429510288 Problem Persistent atrial fibrillation I48.1 Active 425536493 Problem Macular degeneration (senile) of retina, unspecified 362.50 Active 175398421 Problem Inflamed seborrheic keratosis of left cheek L82.0 Active 212527441 Problem Atrial fibrillation 427.31 Active 43420101 Problem Skin cancer C44.90 Active 948645008 Problem 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 Active 782315072 Problem Falls frequently R29.6 Active 525818564 Problem Urinary tract infection, site not specified 599.0 Active 93843987 Problem Seborrheic keratosis L82.1 Active 358501873 Problem Generalized osteoarthrosis, involving multiple sites 715.09 Active 73343010 Problem Diabetes mellitus without mention of complication, type II or unspecified type, not stated as uncontrolled 250.00 Active 794064282 Problem [place] of foot 700 Active 358627276 Problem Other and unspecified hyperlipidemia 272.4 Active 64109443 Problem Other B-complex deficiencies 266.2 Active 775299207 Problem Other vitamin B12 deficiency anemia 281.1 Active 42446078 Problem Volume depletion, unspecified 276.50 Active 14488915 ALLERGIES Substance Reaction Event Type Date Status Penicillin V Potassium Unknown Drug Allergy May, Active ENCOUNTERS Encounter Location Date Diagnosis [facility] [address] [place], [place] [id number] Oct, Encounter for long-term (current) use of other medications V58.[address] [id number] Sep, Persistent atrial fibrillation I48.1 ; Falls frequently R29.6 ; Type 2 diabetes mellitus without complication, without long-term current use of insulin E11.9 ; Vitamin B12 deficiency E53.8 and Ileostomy status Z93.[address] [id number] Sep, [address] [id number] August, [address] [id number] August, [address] [id number] August, [address] [id number] August, Chronic atrial fibrillation I48.2 ; B12 deficiency E53.8 and Type 2 diabetes mellitus without complication, without long-term current use of insulin E11.[address] [id number] August, [address] [id number] August, residential ( 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 Z79.01 and Other vitamin B12 deficiency anemia 281.[address] [id number] Jul, Type 2 diabetes mellitus without complications E11.9 ; termite control technician (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 Z79.01 ; Other vitamin B12 deficiency anemias D51.8 and Malignant neoplasm of central portion of right female breast C50.[address] [id number] Jun, termite control technician ( 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 Z79.01 ; Falls frequently R29.6 ; Unspecified atrial fibrillation I48.91 and Encounter for long-term (current) use of other medications V58.[address] [id number] May, Fall, initial encounter W19.XXXA ; Encounter for long-term (current) use of other medications V58.69 ; termite control technician (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 Z79.01 and Persistent atrial fibrillation I48.[address] [id number] May, [address] [id number] Mar, Bronchitis J40 and Chronic renal failure, stage 3 (moderate) N18.[address] [id number] Feb, Encounter for long-term (current) use of other medications V58.[address] [id number] Feb, Chronic atrial fibrillation I48.2 and Other salvage determiner (current) drug therapy Z79.[address] [id number] Jan, Chronic atrial fibrillation I48.2 and Encounter for long-term (current) use of other medications V58.[address] [id number] Jan, residential current use of anticoagulant therapy Z79.[address] [id number] Jan, Medicare welcome exam Z00.00 ; Medicare annual wellness visit, initial Z00.00 ; Medicare annual wellness visit, subsequent Z00.00 ; Vitamin B12 deficiency E53.8 ; Falls frequently R29.6 ; Unspecified atrial fibrillation I48.91 ; 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.01 and Encounter for immunization Z23 [address] [id number] Oct, Encounter for long-term (current) use of other medications V58.69 ; Type 2 diabetes mellitus without complications E11.9 ; termite control technician (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 Z79.01 ; Malignant neoplasm of central portion of right female breast C50.111 ; Orthostatic hypotension I95.1 ; Seborrheic keratosis L82.1 and Vitamin B12 deficiency E53.[address] [id number] Jun, termite control technician ( 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 Z79.[address] [id number] Jun, Skin cancer C44.[address] [id number] Apr, termite control technician ( 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 Z79.01 ; Unspecified atrial fibrillation I48.91 ; Infected tooth K04.7 ; Other vitamin B12 deficiency anemias D51.8 and Malignant neoplasm of central portion of right female breast C50.[address] [id number] Mar, Chronic atrial fibrillation I48.2 and 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.[address] [id number] Mar, Ulcerated, foot L97.509 ; Chronic atrial fibrillation I48.2 ; Chronic renal failure, stage 3 (moderate) N18.3 and Other vitamin B12 deficiency anemias D51.[address] [id number] Feb, Ulcerated, foot L97.509 and Cellulitis of foot L03.[address] [id number] Feb, Type 2 diabetes mellitus without complications E11.9 ; Encounter for immunization Z23 ; Ileostomy status Z93.2 ; Vitamin B12 deficiency E53.8 ; Subacute vaginitis N76.1 ; UTI (urinary tract infection) N39.0 and Fall, initial encounter W19.XXXA [address] [id number] Jan, [address] [id number] Jan, [address] [id number] Dec, [address] [id number] Nov, Type 2 diabetes mellitus without complications E11.9 ; Chronic atrial fibrillation I48.2 ; 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.01 and Malignant neoplasm of central portion of right female breast C50.[address] [id number] Sep, [address] [id number] Sep, 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 and Orthostatic hypotension I95.[address] [id number] August, [address] [id number] August, Type 2 diabetes mellitus without complications E11.9 and Chronic renal failure, stage 3 (moderate) N18.[address] [id number] August, Encounter for long-term (current) use of other medications V58.69 ; residential current use of anticoagulant therapy V58.61 ; Chronic atrial fibrillation I48.2 ; Wheezing R06.2 ; Breast mass N63 and Lung mass R91.[address] [id number] Jul, UTI (urinary tract infection) N39.0 ; Type 2 diabetes mellitus without complications E11.9 ; Cholelithiasis K80.20 and Chronic renal failure, stage 3 (moderate) N18.[address] [id number] Jul, [address] [id number] Jul, Urge incontinence N39.41 ; Orthostatic hypotension I95.1 ; Bronchitis J40 ; UTI ( urinary tract infection) N39.0 ; Cholecystitis K81.9 ; 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 and Type 2 diabetes mellitus without complications E11.[address] [id number] Jun, residential current use of anticoagulant therapy Z79.01 ; Unspecified atrial fibrillation I48.91 and Encounter for long-term (current) use of other medications Z79.[address] [id number] Jun, Unspecified atrial fibrillation I48.91 ; Other salvage determiner (current) drug therapy Z79.899 ; termite control technician (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 Z79.01 ; Ulcerated, foot L97.509 and Orthostatic hypotension I95.[address] [id number] Apr, [address] [id number] Mar, [address] [id number] Mar, [address] [id number] Mar, [address] [id number] Mar, Cholecystitis K81.9 ; residential current use of anticoagulant therapy Z79.01 ; Chronic atrial fibrillation I48.2 ; Encounter for long-term (current) use of other medications Z79.899 ; GERD (gastroesophageal reflux disease) K21.9 ; 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 and Skin tag L91.[address] [id number] Feb, Chronic atrial fibrillation I48.2 ; residential current use of anticoagulant therapy Z79.01 ; Encounter for long-term (current) use of other medications Z79.899 and Ulcerated, foot L97.[address] [id number] Jan, Chronic atrial fibrillation I48.2 ; 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.01 and Vitamin B12 deficiency anemia, unspecified D51.[address] [id number] Jan, Chronic atrial fibrillation I48.2 ; 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.01 ; Encounter for long-term (current) use of other medications Z79.899 ; Encounter for immunization Z23 and Cellulitis of foot L03.[address] [id number] Jan, [address] [id number] Jan, Type 2 diabetes mellitus without complications E11.9 ; Callus of foot L84 and Ulceration L98.[address] [id number] Dec, Atrial fibrillation 427.31 ; Encounter for long-term (current) use of other medications V58.69 ; 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 V58.61 and [place] of foot [address] [id number] Nov, Ileostomy status V44.2 ; Other vitamin B12 deficiency anemia 281.1 ; Atrial fibrillation 427.31 ; Encounter for long-term (current) use of other medications V58.69 and residential current use of anticoagulant therapy V58.61 [address] [place] [id number] Oct, Ulcerative ( chronic) enterocolitis 556.0 ; Atrial fibrillation 427.31 ; Encounter for long- term (current) use of other medications V58.69 and 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 V58.[address] [id number] Oct, Atrial fibrillation 427.31 ; Diabetes mellitus without mention of complication, type II or unspecified type, not stated as uncontrolled 250.00 ; Encounter for long- term (current) use of other medications V58.69 ; 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 V58.61 ; Cold intolerance 780.99 ; Imbalance 781.2 and Other B-complex deficiencies 266.[address] [id number] Oct, [address] [id number] Sep, [address] [id number] August, Ileostomy status V44.2 ; Diabetes mellitus without mention of complication, type II or unspecified type, not stated as uncontrolled 250.00 ; Other vitamin B12 deficiency anemia 281.1 ; Atrial fibrillation 427.31 and Foot ulcer, right 707.[address] [id number] August, [address] [address] Jul, [address] [place] [address] Jul, [address] [place] [address] Jun, [address] [id number] Jun, [address] [id number] Apr, [address] [id number] Apr, [address] [id number] Apr, [address] [facility] [id number] [place] [address] Apr, [facility] [place] [facility] [address] [facility] [id number] [place] [address] Apr, [facility] [place] [facility] [address] [facility] [id number] [place] [address] Apr, [facility] [address] [place] [id number] Apr, [facility] [place] [facility] [address] [facility] [id number] [place] [address] Apr, [facility] [place] [facility] [address] [facility] [id number] [place] [address] Apr, [facility] [address] [place] [id number] Apr, [facility] [place] [facility] [id number] [address] Apr, [facility] [place] [facility] [address] [id number] [address] Mar, [facility] [place] [facility] [address] [id number] [address] Mar, [facility] [address] [place] [id number] Mar, [facility] [place] [facility] [address] [id number] [place] [address] Mar, [facility] [address] [place] [id number] Feb, [facility] [place] [facility] [address] [facility] [id number] [address] Feb, [facility] [place] [facility] [address] [id number] [place] [address] Jan, [facility] [address] [place] [id number] Jan, [facility] [place] [facility] [address] [id number] [address] Jan, [facility] [place] [facility] [address] [facility] [id number] [address] Dec, [facility] [address] [place] [id number] Dec, [facility] [place] [facility] [address] [facility] [id number] [address] Dec, [facility] [address] [place] [id number] Dec, [facility] [place] [facility] [address] [facility] [id number] [address] Nov, [facility] [address] [place] [id number] Nov, [facility] [address] [place] [id number] Oct, [facility] [place] [facility] [address] [id number] [address] Oct, [facility] [place] [facility] [address] [id number] [address] Sep, [facility] [place] [facility] [address] [facility] [id number] [place] [address] Sep, [facility] [address] [place] [id number] Sep, [facility] [address] [place] [id number] Sep, [facility] [place] [facility] [address] [id number] [address] Sep, [facility] [address] [place] [id number] August, [facility] [place] [facility] [address] [facility] [id number] [place] [address] August, [facility] [address] [place] [id number] August, [facility] [place] [facility] [address] [facility] [id number] [place] [address] August, [facility] [address] [place] [id number] Jul, [facility] [place] [facility] [address] [id number] [address] Jul, [facility] [address] [place] [id number] Jun, [facility] [place] [facility] [address] [facility] [id number] [place] [address] Jun, [facility] [address] [place] [id number] Jun, [facility] [place] [facility] [address] [facility] [id number] [address] Jun, [facility] [address] [place] [id number] May, [facility] [place] [facility] [address] [id number] [address] May, [facility] [address] [place] [id number] May, [facility] [place] [facility] [address] [id number] [address] May, [facility] [place] [facility] [address] [id number] [address] Apr, [facility] [address] [place] [id number] Apr, [facility] [address] [place] [id number] Mar, [facility] [place] [facility] [address] [id number] [address] Mar, [facility] [address] [place] [id number] Mar, [facility] [place] [facility] [address] [id number] [address] Mar, [facility] [place] [facility] [address] [id number] [address] Mar, [facility] [address] [place] [id number] Mar, [facility] [address] [place] [id number] Mar, [facility] [place] [facility] [address] [id number] [address] Mar, [facility] [address] [place] [address] [id number] Feb, [facility] [address] [facility] [id number] [place] [address] Feb, [facility] [address] [place] [address] [id number] Feb, [facility] [address] [facility] [id number] [place] [address] Feb, [facility] [address] [facility] [id number] [place] [address] Jan, [facility] [address] [place] [address] [id number] Jan, [address] [id number] Jan, IMMUNIZATIONS No Known Immunizations SOCIAL HISTORY Never Assessed REASON FOR VISIT 2 month follow up on chronic renal failure-CRIS Porter, INR= PLAN OF CARE Activity Details Follow Up 4 Weeks Reason:inr VITAL SIGNS Height 65 in 2017-06-06 Weight 134. lbs 2017-06-06 Temperature 98.1 degrees Fahrenheit 2017-06-06 Heart Rate 73 bpm 2017-06-06 Respiratory Rate 18 2017-06-06 BMI 22.30 kg/m2 2017-06-06 Blood pressure systolic 124 mmHg 2017-06-06 Blood pressure diastolic 78 mmHg 2017-06-06 MEDICATIONS Medication Instructions Dosage Frequency Start Date End Date Duration Status Amiodarone HCl 200 MG TAKE 1 TABLET BY MOUTH DAILY 30 Unknown Magnesium Oxide 400 (240 Mg) MG TAKE 2 TABLETS BY MOUTH ONCE A DAY Unknown Warfarin Sodium 4 MG Orally Once a day except HOLD Sat 1 tablet Mar, Unknown Anastrozole 1 MG Orally Once a day 1 tablet 24h Unknown Multivitamin/Minerals Unknown Lancets - Unknown Test strips Unknown Blood Glucose Monitor System w/Device as directed 24h August, Unknown RESULTS Name Result Date Reference Range INR (IN HOUSE) INR 3.6 1.10 - 3.30 PREVIOUS INR 2.4 CURRENT COUMADIN DOSE 4 MG T, W,T,S,S NEW COUMADIN DOSE Lot # [id number] Exp date 05/09/2018 CBC ABSOLUTE LYMPHOCYTES Please note ABSOLUTE PLASMA CELLS WBC ABSOLUTE PROLYMPHOCYTES RBC ABSOLUTE REACTIVE LYMPHOCYTES Hemoglobin CBC MORPHOLOGY Hematocrit CONTAINER TYPE: MCV FINAL RESOLUTION MCH MCHC MESSAGE: NOTE RDW PLASMA CELLS Platelets NRBC PLATELET ESTIMATION Neutrophils PROLYMPHOCYTES Lymphs QUESTION/PROBLEM Monocytes WHITE BLOOD CELL COUNT Eos RED BLOOD CELL COUNT Basos HEMOGLOBIN HEMATOCRIT Immature Granulocytes MCV Neutrophils (Absolute) Lymphs (Absolute) MCH MCHC Monocytes(Absolute) Eos (Absolute) RDW Baso (Absolute) PLATELET COUNT Immature Grans (Abs) NEUTROPHILS BAND NEUTROPHILS Immature Cells Bands ABSOLUTE BAND NEUTROPHILS Blasts/blast like cells METAMYELOCYTES Megakaryocytes ABSOLUTE METAMYELOCYTES Metamyelocytes MYELOCYTES Myelocytes ABSOLUTE MYELOCYTES Other, Lineage Uncertain PROMYELOCYTES Promyelocytes ABSOLUTE PROMYELOCYTES ABSOLUTE NEUTROPHILS Hematology Comments: LYMPHOCYTES Request Problem REACTIVE LYMPHOCYTES Request Problem ABSOLUTE LYMPHOCYTES MONOCYTES ABSOLUTE MONOCYTES EOSINOPHILS ABSOLUTE EOSINOPHILS BASOPHILS ABSOLUTE BASOPHILS BLASTS ABSOLUTE BLASTS NUCLEATED RBC ABSOLUTE NUCLEATED RBC COMMENT(S) MPV PROCEDURES Procedure Date Ordered Result Body Site FQ VISIT ESTABLISHED PATIENT Jun 06, 2017 PROTHROMBIN TIME Jun 06, 2017 INSTRUCTIONS MEDICATIONS ADMINISTERED No Known [...]
--- OUTSIDE RECORDS SUMMARY | 2018-06-21 06:19 | XMS REPORT ---
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 Active Problem Pain in joint, shoulder region 719.41 Active Assessment Type 2 diabetes mellitus without complications E11.9 Active Problem Macular degeneration (senile) of retina, unspecified 362.50 Active Assessment Callus of foot L84 Active Assessment Ulceration L98.499 Active Problem [place] of foot 700 Active Problem Atrial fibrillation [...] Other and unspecified hyperlipidemia 272.4 Active Medications Medication Code System Code Instructions Start Date End Date Status Dosage verapamil NDC 0 240 mg Dec 31, 2013 take 0.5 tablet by Oral route with food 1 time per day Blood Glucose Monitor System [facility] [address] w/Device 4 times a day August as directed Glimepiride [facility] [address]-44 2 mg May 06, 2014 take 1 tablet (2 mg) by oral route once daily Fenofibrate Micronized [facility] [address]-29 134 mg May 26, 2013 take 1 capsule (134 mg) by oral route once daily with food Warfarin Sodium [facility] [address]-93 5 MG Orally Once a day 1 1/2 tabs 2 days a week October 19, 2014 1 tablet Clindamycin HCl [facility] [address]-02 150 MG Orally every 6 hrs Jan 15, 2015 Jan 22, 2015 1 capsule Procedures Procedure Coding System Code Date Office Visit, Est Pt., Level 3 CPT-4 29585 Jan 15, 2015 [facility] VISIT ESTABLISHED PATIENT CPT-4 G0467 Jan 15, 2015 Vital Signs Date/Time: Jan 15, 2015 Temperature 97.9 F Weight 133.2 lbs Height 65 in BMI 22.16 Index Blood Pressure Diastolic 64 mmHg Blood Pressure Systolic 120 mmHg Cardiac Monitoring Heart Rate 80 bpm Results No Known Results Summary Purpose [employer] Submission
--- OUTSIDE RECORDS SUMMARY | 2018-06-21 06:20 | XMS REPORT ---
Author Author ZARINA VERGARA [facility] [place] Address [address] [place] [address] Care Team Providers Care Hangersmith Name Role Phone ZARINA VERGARA Unavailable PROBLEMS Type Condition ICD9-CM Code LHM87-HQ Code Onset Dates Condition Status SNOMED Code Problem Chronic atrial fibrillation I48.2 Active 501451694 Problem Russell of foot 700 Active 676544624 Problem Cellulitis of foot L03.119 Active 372056002 Problem FPC current use of anticoagulant therapy Z79.01 Active 623839876 Problem Ulcerated, foot L97.509 Active 57061627 Problem 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 Active 59330586 Problem Skin tag L91.8 Active 809090104 Problem Cholecystitis K81.9 Active 54344211 Problem GERD (gastroesophageal reflux disease) K21.9 Active 987382972 Problem Orthostatic hypotension I95.1 Active 22204065 Problem Unspecified atrial fibrillation I48.91 Active 05218536 Problem Urge incontinence N39.41 Active 89627221 Problem UTI (urinary tract infection) N39.0 Active 31195558 Problem Type 2 diabetes mellitus without complications E11.9 Active 347438488 Problem Chronic renal failure, stage 3 (moderate) N18.3 Active 74006558 Problem Breast mass N63 Active 42399181 Problem Bronchitis J40 Active 48245935 Problem Cholelithiasis K80.20 Active 987154949 Problem Malignant neoplasm of central portion of right female breast C50.111 Active 04648218 Problem Vitamin B12 deficiency E53.8 Active 629663816 Problem Wheezing R06.2 Active 92084553 Problem Lung mass R91.8 Active 121819751 Problem Accidental fall on or from other stairs or steps E880.9 Active 645417628 Problem Need for prophylactic vaccination and inoculation, Influenza V04.81 Active 094726495 Problem Personal history of fall V15.88 Active 960585227 Problem Nausea alone 787.02 Active 071401123 Problem Other general symptoms 780.99 Active 335519079 Problem Unspecified myalgia and myositis 729.1 Active 882557635 Problem Pain in joint, forearm 719.43 Active 228803126 Problem Subacute vaginitis N76.1 Active 10548267270416631 Problem Ileostomy status V44.2 Active 771049852 Problem Fall, initial encounter W19.XXXA Active 0037805 Problem Ileostomy status Z93.2 Active 846699911 Problem manager intermediate (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 Z79.01 Active 435573931 Problem Other vitamin B12 deficiency anemias D51.8 Active 14822240 Problem Persistent atrial fibrillation I48.1 Active 040315194 Problem Falls frequently R29.6 Active 439340855 Problem Atrial fibrillation 427.31 Active 55493967 Problem Skin cancer C44.90 Active 743594176 Problem 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 Active 057539471 Problem Infected tooth K04.7 Active 186226826 Problem Urinary tract infection, site not specified 599.0 Active 91673558 Problem Seborrheic keratosis L82.1 Active 485744850 Problem Generalized osteoarthrosis, involving multiple sites 715.09 Active 66666266 Problem Inflamed seborrheic keratosis of left cheek L82.0 Active 411525147 Problem Pain in joint, shoulder region 719.41 Active 334308703 Problem Other B-complex deficiencies 266.2 Active 211242199 Problem Diabetes mellitus without mention of complication, type II or unspecified type, not stated as uncontrolled 250.00 Active 350311525 Problem Volume depletion, unspecified 276.50 Active 51638129 Problem Other and unspecified hyperlipidemia 272.4 Active 97244161 Problem Macular degeneration (senile) of retina, unspecified 362.50 Active 597959430 Problem Other vitamin B12 deficiency anemia 281.1 Active 47448336 ALLERGIES No Information ENCOUNTERS Encounter Location Date Diagnosis [facility] [address] [facility] [address] [id number] [place] [id number] Jul, Type 2 diabetes mellitus without complications E11.9 ; manager intermediate (current ) use of 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 Z79.01 ; Other vitamin B12 deficiency anemias D51.8 and Malignant neoplasm of central portion of right female breast C50.111 [facility] [address] [facility] [address] [id number] [place] [id number] Jun, manager intermediate (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 Z79.01 ; Falls frequently R29.6 ; Unspecified atrial fibrillation I48.91 and Encounter for long-term (current) use of other medications V58.69 [facility] [place] [address] [facility] [address] [id number] [place] [id number] May, Fall, initial encounter W19.XXXA ; Encounter for long-term (current) use of other medications V58.69 ; manager intermediate (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 Z79.01 and Persistent atrial fibrillation I48.1 [facility] [place] [address] [facility] [address] [id number] [place] [address] May, [facility] [place] [address] [facility] [address] [id number] [place] [id number] 05 Mar, 2017 Bronchitis J40 and Chronic renal failure, stage 3 (moderate) N18.3 [facility] [place] [address] [facility] [address] [id number] [place] [id number] 10 Feb, 2017 Encounter for long-term (current) use of other medications V58.69 [facility] [place] [address] [facility] [address] [id number] [place] [address] Feb, Chronic atrial fibrillation I48.2 and Other terminal operator (current) drug therapy Z79.899 [facility] [place] [address] [facility] [address] [id number] [place] [id number] Jan, Chronic atrial fibrillation I48.2 and Encounter for long-term (current) use of other medications V58.69 [facility] [place] [address] [facility] [address] [id number] [place] [id number] Jan, FPC current use of anticoagulant therapy Z79.01 [facility] [place] [address] [facility] [address] [id number] [place] [address] Jan, Medicare welcome exam Z00.00 ; Medicare annual wellness visit, initial Z00.00 ; Medicare annual wellness visit, subsequent Z00.00 ; Vitamin B12 deficiency E53.8 ; Falls frequently R29.6 ; Unspecified atrial fibrillation I48.91 ; manager intermediate current use of anticoagulant therapy Z79.01 and Encounter for immunization Z23 [facility] [place] [address] [facility] [id number] [place] [address] Oct, Encounter for long-term (current) use of other medications V58.69 ; Type 2 diabetes mellitus without complications E11.9 ; manager intermediate (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 Z79.01 ; Malignant neoplasm of central portion of right female breast C50.111 ; Orthostatic hypotension I95.1 ; Seborrheic keratosis L82.1 and Vitamin B12 deficiency E53.8 [facility] [place] [id number] [place] [id number] Jun, manager intermediate (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 Z79.[address] [id number] [place], [place] [address] Jun, Skin cancer C44.[address] [id number] [place] [address] Apr, FPC (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 Z79.01 ; Unspecified atrial fibrillation I48.91 ; Infected tooth K04.7 ; Other vitamin B12 deficiency anemias D51.8 and Malignant neoplasm of central portion of right female breast C50.[address] [id number] [place] [id number] Mar, Chronic atrial fibrillation I48.2 and FPC current use of anticoagulant therapy Z79.[address] [id number] [place] [id number] Mar, Ulcerated, foot L97.509 ; Chronic atrial fibrillation I48.2 ; Chronic renal failure, stage 3 (moderate) N18.3 and Other vitamin B12 deficiency anemias D51.[address] [id number] [place], [place] [id number] 30 Feb, 2016 Ulcerated, foot L97.509 and Cellulitis of foot L03.[address] [id number] [place] [id number] 16 Feb, 2016 Type 2 diabetes mellitus without complications E11.9 ; Encounter for immunization Z23 ; Ileostomy status Z93.2 ; Vitamin B12 deficiency E53.8 ; Subacute vaginitis N76.1 ; UTI (urinary tract infection) N39.0 and Fall, initial encounter W19.XXXA [facility] [place] [address] [place] [address] C [id number] [place] [id number] Jan, [facility] [place] [address] [facility] [address] [id number] [place] [id number] Jan, [facility] [place] [address] [place] [address] C [id number] [place] [id number] Dec, [facility] [place] [address] [place] [address] C [id number] [place] [address] Nov, Type 2 diabetes mellitus without complications E11.9 ; Chronic atrial fibrillation I48.2 ; FPC current use of anticoagulant therapy Z79.01 and Malignant neoplasm of central portion of right female breast C50.111 [facility] [place] [address] [place] [address] C [id number] [place] [id number] Sep, [facility] [place] [address] [place] [address] C [id number] [place] [id number] Sep, 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 and Orthostatic hypotension I95.1 [facility] [place] [address] [place] [address] C [id number] [place] [id number] August, [facility] [place] [address] [place] [address] C [id number] [place] [id number] August, Type 2 diabetes mellitus without complications E11.9 and Chronic renal failure, stage 3 (moderate) N18.3 [facility] [place] [address] [place] [address] C [id number] [place] [id number] August, Encounter for long-term (current) use of other medications V58.69 ; FPC current use of anticoagulant therapy V58.61 ; Chronic atrial fibrillation I48.2 ; Wheezing R06.2 ; Breast mass N63 and Lung mass R91.8 [facility] [place] [address] [place] [address] C [id number] [place] [id number] Jul, UTI (urinary tract infection) N39.0 ; Type 2 diabetes mellitus without complications E11.9 ; Cholelithiasis K80.20 and Chronic renal failure, stage 3 ( moderate) N18.3 [facility] [place] [address] [place] [address] C [id number] [place] [id number] Jul, [address] [id number] [place] [address] Jul, Urge incontinence N39.41 ; Orthostatic hypotension I95.1 ; Bronchitis J40 ; UTI (urinary tract infection) N39.0 ; Cholecystitis K81.9 ; 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 and Type 2 diabetes mellitus without complications E11.9 [facility] [address] [place] [address] [id number] [place] [id number] Jun, manager intermediate current use of anticoagulant therapy Z79.01 ; Unspecified atrial fibrillation I48.91 and Encounter for long-term (current) use of other medications Z79.899 [facility] [address] [place] [address] [id number] [place] [address] Jun, Unspecified atrial fibrillation I48.91 ; Other terminal operator (current) drug therapy Z79.899 ; manager intermediate (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 Z79.01 ; Ulcerated, foot L97.509 and Orthostatic hypotension I95.[address] [id number] [place], [place] [id number] Apr, [facility] [address] [place] [address] [id number] [place] [id number] Mar, [facility] [address] [place] [address] [id number] [place] [id number] Mar, [facility] [place] [address] [place] [address] [id number] [place] [address] Mar, [address] [id number] [place] [id number] Mar, Cholecystitis K81.9 ; manager intermediate current use of anticoagulant therapy Z79.01 ; Chronic atrial fibrillation I48.2 ; Encounter for long-term (current) use of other medications Z79.899 ; GERD (gastroesophageal reflux disease) K21.9 ; 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 and Skin tag L91.8 [facility] [address] [place] [address] [id number] [place] [id number] Feb, Chronic atrial fibrillation I48.2 ; manager intermediate current use of anticoagulant therapy Z79.01 ; Encounter for long-term (current) use of other medications Z79.899 and Ulcerated, foot L97.509 [facility] [place] [address] [place] [address] [id number] [place] 6559[address]227 Jan, Chronic atrial fibrillation I48.2 ; FPC current use of anticoagulant therapy Z79.01 and Vitamin B12 deficiency anemia, unspecified D51.9 [facility] [place] [address] [place] [address] [id number] [place] [id number] Jan, Chronic atrial fibrillation I48.2 ; manager intermediate current use of anticoagulant therapy Z79.01 ; Encounter for long-term (current) use of other medications Z79.899 ; Encounter for immunization Z23 and Cellulitis of foot L03.[address] [id number] [place] [id number] Jan, [facility] [place] [address] [place] [address] [id number] [place] [id number] Jan, Type 2 diabetes mellitus without complications E11.9 ; Callus of foot L84 and Ulceration L98.[address] [id number] [place] [address] Dec, Atrial fibrillation 427.31 ; Encounter for long-term (current) use of other medications V58.69 ; manager intermediate current use of anticoagulant therapy V58.61 and Russell of foot 700 [facility] [address] [place] [address] [id number] [place], [place] [id number] Nov, Ileostomy status V44.2 ; Other vitamin B12 deficiency anemia 281.1 ; Atrial fibrillation 427.31 ; Encounter for long-term (current) use of other medications V58.69 and FPC current use of anticoagulant therapy V58.61 [facility] [place] [address] [place] [address] [id number] [place] [address] Oct, 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 ; Atrial fibrillation 427.31 ; Encounter for long-term (current) use of other medications V58.69 and FPC current use of anticoagulant therapy V58.61 [facility] [place] [address] [place] [address] [id number] [place] [id number] Oct, Atrial fibrillation 427.31 ; Diabetes mellitus without mention of complication, type II or unspecified type, not stated as uncontrolled 250.00 ; Encounter for long-term (current) use of other medications V58.69 ; manager intermediate current use of anticoagulant therapy V58.61 ; Cold intolerance 780.99 ; Imbalance 781.2 and Other B-complex deficiencies 266.2 [facility] [place] [address] [facility] [id number] [place] [id number] Oct, [facility] [place] [address] [facility] [id number] [place] [id number] Sep, [facility] [place] [address] [place] [address] C [id number] [place] [id number] August, Ileostomy status V44.2 ; Diabetes mellitus without mention of complication , type II or unspecified type, not stated as uncontrolled 250.00 ; Other vitamin B12 deficiency anemia 281.1 ; Atrial fibrillation 427.31 and Foot ulcer , right 707.15 [facility] [address] [place] [address] [id number] [place] [id number] August, [facility] [address] [address] Jul, [facility] [address], [place] [address] Jul, [facility] [address], [place] [address] Jun, [facility] [place] [address] [place] [address] [id number] [place] [id number] Jun, [facility] [place] [address] [place] [address] [id number] [place] [id number] Apr, [facility] [place] [address] [place] [address] [id number] [place] [id number] Apr, [facility] [address] [place] [address] [id number] [place] [address] Apr, [facility] [id number], [place] [address] Apr, [facility] [address] [id number] [place] [address] Apr, [facility] [place] [facility] [address] [id number] [place] [address] Apr, [facility] [place] [address] [facility] [address] [id number] [place] [id number] Apr, [facility] [place] [facility] [address] [facility] [id number] [place] [address] Apr, [facility] [place] [facility] [address] [facility] [id number] [place] [address]- [address] Apr, [facility] [place] [address] [facility] [address] [id number] [place] 949194973 Apr, [facility] [place] [facility] [address] [facility] [id number] [place] [address] Apr, [facility] [place] [facility] [address] [facility] [id number] [place] [address] Mar, [facility] [place] [facility] [address] [facility] [id number] [place] [address] Mar, [facility] [place] [facility] [address] [id number] [place] [address] Mar, [facility] [place] [address] [facility] [address] [id number] [place] [id number] Mar, [facility] [place] [address] [facility] [address] [id number] [place] [id number] Feb, [facility] [place] [facility] [address] [id number] [place] [address] Feb, [facility] [place] [facility] [address] [facility] [id number] [place] [address] Jan, [facility] [place] [address] [id number] [place] [id number] Jan, [facility] [place] [facility] [address] [facility] [id number] [place] [address] Jan, [facility] [place] [facility] [address] [facility] [id number] [place] [address] Dec, [facility] [place] [address] [facility] [address] [id number] [place] [id number] Dec, [facility] [place] [facility] [address] [id number] [place] [address] Dec, [facility] [place] [address] [facility] [address] [id number] [place] [id number] Dec, [facility] [address] [id number] [facility] [address] Nov, [facility] [place] [address] [facility] [address] [id number] [place] [id number] Nov, [facility] [place] [address] [facility] [address] [id number] [place] [id number] Oct, [facility] [place] [facility] [address] [facility] [id number] [place]- [address] Oct, [facility] [place] [facility] [address] [facility] [id number] [facility] [place] [address]- [address] Sep, [facility] [place] [facility] [address] [id number] [facility] [place] [address] Sep, [facility] [place] [address] [facility] [address] [id number] [place] [id number] Sep, [facility] [place] [address] [facility] [address] [id number] [place] [id number] Sep, [facility] [place] [facility] [address] [id number] [facility] [place] [address] Sep, [facility] [place] [address] [facility] [address] [id number] [place] [id number] August, [facility] [place] [facility] [address] [id number] [facility] [place] [address] August, [facility] [place] [address] [facility] [address] [id number] [place] [id number] August, [facility] [place] [facility] [address] [facility] [id number] [facility] [place] [address] August, [facility] [place] [address] [id number] [place] [id number] Jul, [facility] [place] [facility] [address] [id number] [facility] [place] [address]- [address] Jul, [facility] [place] [address] [id number] [place] 7678615[address] Jun, [facility] [address] [facility] [id number] [facility] [place] [address] Jun, [facility] [place] [address] [id number] [place] [id number] Jun, [facility] [place] [facility] [address] [facility] [id number] [facility] [place] [address] Jun, [facility] [place] [address] [id number] [place] [id number] May, [facility] [place] [facility] [address] [facility] [id number] [facility] [place] [address]- [address] May, [facility] [place] [address] [id number] [place] 172541908 May, [facility] [address] [facility] [id number] [facility] [place] [address]- [address] May, [facility] [place] [facility] [address] [facility] [id number] [facility] [place] [address]- [address] Apr, [facility] [place] [address] [facility] [address] [id number] [place] [id number] Apr, [facility] [place] [address] [id number] [place] [id number] Mar, [facility] [place] [facility] [address] [id number] [facility] [place] [address]- [address] Mar, [facility] [place] [address] [id number] [place] [id number] Mar, [facility] [place] [facility] [address] [facility] [id number] [place] [address] Mar, [facility] [address] [facility] [id number] [place] [address] Mar, [facility] [place] [address] [facility] [address] [id number] [place] [id number] Mar, [facility] [place] [address] [facility] [address] [id number] [place] [id number] Mar, [facility] [address] [facility] [id number] [place] [address] Mar, [facility] [place] [address] [facility] [address] [id number] [place] [id number] Feb, [facility] [address] [facility] [id number] [place] [address] Feb, [facility] [place] [address] [facility] [address] [id number] [place] [id number] Feb, [facility] [address] [facility] [id number] [place] [address] Feb, [facility] [address] [facility] [id number] [place] [address]- [address]46 Jan, [facility] [place] [address] [facility] [address] [id number] [place] [id number] Jan, [facility] [place] [address] [facility] [address] [id number] [place] [id number] Jan, IMMUNIZATIONS No Known Immunizations SOCIAL HISTORY Never Assessed REASON FOR VISIT labs. Jose PLAN OF CARE Activity Details Follow Up 2 Weeks Reason: VITAL SIGNS MEDICATIONS Unknown Medications RESULTS Name Result Date Reference Range INR (IN HOUSE) INR 2.6 1.10 - 3.30 PREVIOUS INR 7.2 CURRENT COUMADIN DOSE hold NEW COUMADIN DOSE 4mg QD hold Sun, and Sun Lot # [id number] Exp date 02/06/18 PROCEDURES Procedure Date Ordered Result Body Site PROTHROMBIN TIME Jan 12, 2017 INSTRUCTIONS MEDICATIONS ADMINISTERED No Known Medications [...]
--- OUTSIDE RECORDS SUMMARY | 2018-06-21 06:20 | XMS REPORT ---
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 Active Problem Pain in joint, shoulder region 719.41 Active Assessment Atrial fibrillation 427.31 Active Problem Macular degeneration (senile) of retina, unspecified 362.50 Active Assessment Encounter for long-term (current) use of other medications V58.69 Active Assessment detention current use of anticoagulant therapy V58.61 Active Problem [place] of foot 700 Active Problem Atrial fibrillation [...] 780.99 Active Problem Nausea alone 787.02 Active Assessment [place] of foot 700 Active Problem Personal history of fall V15.88 Active Problem Other and unspecified hyperlipidemia 272.4 Active Medications Medication Code System Code Instructions Start Date End Date Status Dosage Blood Glucose Monitor System [facility] [address] w/Device 4 times a day August as directed Fenofibrate Micronized [facility] [address]-33 134 mg May 26, 2013 take 1 capsule (134 mg) by oral route once daily with food Warfarin Sodium [facility] [address]-20 5 MG Orally Once a day 1 1/2 tabs 2 days a week October 19, 2014 1 tablet verapamil NDC 0 240 mg Dec 31, 2013 take 0.5 tablet by Oral route with food 1 time per day Glimepiride [facility] [address]-97 2 mg May 06, 2014 take 1 tablet (2 mg) by oral route once daily Procedures Procedure Coding System Code Date [facility] VISIT ESTABLISHED PATIENT CPT-4 G0467 Dec 25, 2014 Office Visit, Est Pt., Level 3 CPT-4 17433 Dec 25, 2014 PROTHROMBIN TIME CPT-4 99199 Dec 25, 2014 Vital Signs Date/Time: Dec 25, 2014 Temperature 97.9 F Weight 133.4 lbs Height 65 in BMI 22.20 Index Blood Pressure Diastolic 60 mmHg Blood Pressure Systolic 120 mmHg Cardiac Monitoring Heart Rate 88 bpm Results Name Result Date Reference Range Unit Abnormality Flag INR (IN HOUSE) Summary Purpose eClinicalWorks Submission
--- OUTSIDE RECORDS SUMMARY | 2018-06-21 06:20 | XMS REPORT ---
Author Author ZARINA VERGARA [facility] eClinical[employer] Address Unknown Phone Unavailable Care Team Providers Care Carpet Finishing Supervisor Name Role Phone ZARINA VERGARA CP Unavailable Allergies, Adverse Reactions, Alerts Substance Reaction Event Type Penicillin V Potassium Info Not Available Drug Allergy Problems Problem Type Condition Code Onset Dates Condition Status Problem Urinary tract infection, site not specified 599.0 Active Problem Diabetes mellitus without mention of complication, type II or unspecified type, not stated as uncontrolled 250.00 Active Problem Unspecified myalgia and myositis 729.1 Active Problem Other vitamin B12 deficiency anemia 281.1 Active Problem Other general symptoms 780.99 Active Problem Personal history of fall V15.88 Active Problem Accidental fall on or from other stairs or steps E880.9 Active Problem Volume depletion, unspecified 276.50 Active Problem Nausea alone 787.02 Active Problem Chronic atrial fibrillation I48.2 Active Problem Other and unspecified hyperlipidemia 272.4 Active Problem Ulcerated, foot L97.509 Active Problem Ileostomy status V44.2 Active Problem Skin tag L91.8 Active Problem 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 Active Problem Cholecystitis K81.9 Active Problem Bronchitis J40 Active Problem UTI (urinary tract infection) N39.0 Active Problem Generalized osteoarthrosis, involving multiple sites 715.09 Active Problem Other B-complex deficiencies 266.2 Active Assessment Type 2 diabetes mellitus without complications E11.9 Active Problem Urge incontinence N39.41 Active Problem 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 Active Problem Orthostatic hypotension I95.1 Active Problem GERD (gastroesophageal reflux disease) K21.9 Active Problem Type 2 diabetes mellitus without complications E11.9 Active Problem Unspecified atrial fibrillation I48.91 Active Assessment Orthostatic hypotension I95.1 Active Problem Pain in joint, forearm 719.43 Active Assessment Urge incontinence N39.41 Active Problem Macular degeneration (senile) of retina, unspecified 362.50 Active Assessment UTI (urinary tract infection) N39.0 Active Problem Atrial fibrillation 427.31 Active Assessment Bronchitis J40 Active Problem Need for prophylactic vaccination and inoculation, Influenza V04.81 Active Assessment 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 Active Problem Cellulitis of foot L03.119 Active Assessment Cholecystitis K81.9 Active Problem 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 clerk current use of anticoagulant therapy Z79.01 Active Problem Pain in joint, shoulder region 719.41 Active Problem [place] of foot 700 Active Medications Medication Code System Code Instructions Start Date End Date Status Dosage Metoprolol Tartrate [facility] [address]-17 25 MG 2 times a day Apr 08, 2015 0.5 tablet by mouth Multivitamin/Minerals [facility] 0 not defined Maalox Regular Strength [facility] [address]-69 200-200-20 MG/5ML Orally Four times a day Apr 08, 2015 10 ml as needed Simethicone [facility] [address]-68 80 MG Orally 4 times a day PRN not defined Amiodarone HCl [facility] [address]-60 200 MG Orally Once a day 1 tablet Magnesium Oxide [facility] [address]-23 800 Orally Once a day as directed Omeprazole [facility] [address]-60 40 MG Orally Once a day 1 capsule Blood Glucose Monitor System [facility] 11867[address] w/Device 4 times a day August as directed Bactrim DS [facility] [address]-85 800-160 MG Orally Twice a day July 13, 2015 July 20, 2015 1 tablet Aspir-81 [facility] [address]-42 81 MG Orally Once a day 1 tablet Warfarin Sodium [facility] [address]-18 4 MG Orally Once a day except HOLD Sat Apr 08, 2015 1 tablet Glimepiride [facility] [address]-46 2 mg May 06, 2014 take 1 tablet (2 mg) by oral route once daily Procedures Procedure Coding System Code Date [facility]-4 NOBLL July 13, 2015 VENIPUNCT, ROUTINE* CPT-4 88375 July 13, 2015 URINALYSIS, AUTO, W/O SCOPE CPT-4 72842 July 13, 2015 Office Visit, Est Pt., Level 3 CPT-4 94265 July 13, 2015 [facility] VISIT ESTABLISHED PATIENT CPT-4 G0467 July 13, 2015 GLYCATED HEMOGLOBIN TEST CPT-4 07434 July 13, 2015 Vital Signs Date/Time: July 13, 2015 Temperature 97.8 F Weight 119.6 lbs Height 65 in BMI 19.90 Index Blood Pressure Diastolic 70 mmHg Blood Pressure Systolic 102 mmHg Cardiac Monitoring Heart Rate 100 bpm Results No Known Results Summary Purpose eClinicalWorks Submission
--- OUTSIDE RECORDS SUMMARY | 2018-06-21 06:20 | XMS REPORT ---
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 Active Problem Ileostomy status V44.2 Active Problem Macular degeneration (senile) of retina, unspecified 362.50 Active Assessment Other vitamin B12 deficiency anemia 281.1 Active Problem Pain in joint, forearm 719.43 Active Assessment Atrial fibrillation 427.31 Active Assessment Encounter for long-term (current) use of other medications V58.69 Active Problem Pain in joint, shoulder region 719.41 Active Problem Generalized osteoarthrosis, involving multiple sites 715.09 Active Problem Other B-complex deficiencies 266.2 Active Problem Need for prophylactic vaccination and inoculation, Influenza V04.81 Active Problem Atrial fibrillation 427.31 Active Problem Urinary tract infection, site not specified 599.0 Active Problem Other vitamin B12 deficiency anemia 281.1 Active Assessment Ileostomy status V44.2 Active Problem Diabetes mellitus without mention of complication, type II or unspecified type, not stated as uncontrolled 250.00 Active Problem Personal history of fall V15.88 Active Problem Accidental fall on or from other stairs or steps E880.9 Active Problem Unspecified myalgia and myositis 729.1 Active Problem Volume depletion, unspecified 276.50 Active Assessment cosmetic consultant current use of anticoagulant therapy V58.61 Active Problem Other general symptoms 780.99 Active Problem Nausea alone 787.02 Active Medications Medication Code System Code Instructions Start Date End Date Status Dosage verapamil NDC 0 240 mg Dec 31, 2013 take 0.5 tablet by Oral route with food 1 time per day Glimepiride [facility] [address]-41 2 mg May 06, 2014 take 1 tablet (2 mg) by oral route once daily Blood Glucose Monitor System [facility] [address] w/Device 4 times a day August as directed Warfarin Sodium [facility] [address]-89 5 MG Orally Once a day October 19, 2014 1 tablet Fenofibrate Micronized [facility] [address]-75 134 mg May 26, 2013 take 1 capsule (134 mg) by oral route once daily with food Procedures Procedure Coding System Code Date [facility] VISIT ESTABLISHED PATIENT CPT-4 G0467 Nov 25, 2014 Office Visit, Est Pt., Level 3 CPT-4 14922 Nov 25, 2014 PROTHROMBIN TIME CPT-4 05114 Nov 25, 2014 THER/PROPH/DIAG INJ, SC/IM CPT-4 18593 Nov 25, 2014 B12, VITAMIN (UP TO 1000 MCG) CPT-4 J3420 Nov 25, 2014 Vital Signs Date/Time: Nov 25, 2014 Temperature 97.8 F Weight 132.4 lbs Height 65 in BMI 22.03 Index Blood Pressure Diastolic 60 mmHg Blood Pressure Systolic 134 mmHg Cardiac Monitoring Heart Rate 68 bpm Results Name Result Date Reference Range Unit Abnormality Flag INR (IN HOUSE) Summary Purpose eClinicalWorks Submission
--- OUTSIDE RECORDS SUMMARY | 2018-06-21 06:21 | XMS REPORT ---
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 Active Assessment long-term current use of anticoagulant therapy Z79.01 Active Problem Other B-complex deficiencies 266.2 Active Assessment Chronic atrial fibrillation I48.2 Active Problem Generalized osteoarthrosis, involving multiple sites 715.09 Active Problem Need for prophylactic vaccination and inoculation, Influenza V04.81 Active Problem Atrial fibrillation 427.31 Active Problem 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 Z79.01 Active Problem Cellulitis of foot L03.119 Active Problem Other vitamin B12 deficiency anemia 281.1 Active Problem Urinary tract infection, site not specified 599.0 Active Problem Chronic atrial fibrillation I48.2 Active Problem Diabetes mellitus without mention of complication, type II or unspecified type, not stated as uncontrolled 250.00 Active Problem Macular degeneration (senile) of retina, unspecified 362.50 Active Problem Pain in joint, forearm 719.43 Active Problem [place] of foot 700 Active Problem Pain in joint, shoulder region 719.41 Active Problem Personal history of fall V15.88 Active Problem Accidental fall on or from other stairs or steps E880.9 Active Problem Unspecified myalgia and myositis 729.1 Active Problem Other general symptoms 780.99 Active Problem Other and unspecified hyperlipidemia 272.4 Active Problem Ileostomy status V44.2 Active Problem Volume depletion, unspecified 276.50 Active Problem Nausea alone 787.02 Active Medications Medication Code System Code Instructions Start Date End Date Status Dosage verapamil NDC 0 240 mg Dec 31, 2013 take 0.5 tablet by Oral route with food 1 time per day Fenofibrate Micronized [facility] [address]-68 134 mg May 26, 2013 take 1 capsule (134 mg) by oral route once daily with food Blood Glucose Monitor System [facility] [address] w/Device 4 times a day August as directed Warfarin Sodium [facility] [address]-78 5 MG Orally Once a day 1 1/2 tabs 2 days a week October 19, 2014 1 tablet Glimepiride [facility] [address]-70 2 mg May 06, 2014 take 1 tablet (2 mg) by oral route once daily [place] SR [facility] 72465896106 240 MG take 0.5 tablet by Oral route with food 1 time per day Procedures Procedure Coding System Code Date ADMN FLU VAC NO FEE SCHED SAME DAY CPT-4 G0008 Jan 25, 2015 FLUARIX QUAD (3 & UP)-[facility]-2014 CPT-4 67497 Jan 25, 2015 PROTHROMBIN TIME CPT-4 19916 Jan 25, 2015 IMMUNIZATION ADMIN, EACH ADD (please include units) CPT-4 32667 Jan 25, 2015 CPT-4 80175 Jan 25, 2015 Vital Signs Date/Time: Jan 25, 2015 Temperature 98.0 F Weight 130.6 lbs Height 65 in BMI 21.73 Index Blood Pressure Diastolic 70 mmHg Blood Pressure Systolic 120 mmHg Cardiac Monitoring Heart Rate 80 bpm Results Name Result Date Reference Range Unit Abnormality Flag INR (IN HOUSE) Immunizations Vaccine Administration Date Jan 25, 2015 FLUARIX QUAD (3 & UP)-[employer]-2014Jan 25, 2015 Summary Purpose eClinicalWorks Submission
--- OUTSIDE RECORDS SUMMARY | 2018-06-21 06:21 | XMS REPORT ---
Author Author ZARINA VERGARA [facility] Address [address] [place] [address] Care Team Providers Care Taffy Puller Name Role Phone ZARINA VERGARA Unavailable PROBLEMS Type Condition ICD9-CM Code [id number] Code Onset Dates Condition Status SNOMED Code Problem Pain in joint, shoulder region 719.41 Active 570262425 Problem Macular degeneration (senile) of retina, unspecified 362.50 Active 310036004 Problem Cellulitis of foot L03.119 Active 184042749 Problem [place] of foot 700 Active 219586145 Problem FDC current use of anticoagulant therapy Z79.01 Active 765542928 Problem Chronic atrial fibrillation I48.2 Active 959488938 Problem Ulcerated, foot L97.509 Active 15287150 Problem Skin tag L91.8 Active 218150400 Problem Cholecystitis K81.9 Active 14225341 Problem 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 Active 37768452 Problem GERD (gastroesophageal reflux disease) K21.9 Active 450095437 Problem Type 2 diabetes mellitus without complications E11.9 Active 178425731 Problem Unspecified atrial fibrillation I48.91 Active 36582425 Problem Orthostatic hypotension I95.1 Active 72059059 Problem Urge incontinence N39.41 Active 63044430 Problem Chronic renal failure, stage 3 (moderate) N18.3 Active 88559526 Problem UTI (urinary tract infection) N39.0 Active 10620839 Problem Bronchitis J40 Active 67649529 Problem Breast mass N63 Active 85940805 Problem Wheezing R06.2 Active 92999751 Problem Cholelithiasis K80.20 Active 118633079 Problem Lung mass R91.8 Active 750448805 Problem Diabetes mellitus without mention of complication, type II or unspecified type, not stated as uncontrolled 250.00 Active 980317396 Problem Other vitamin B12 deficiency anemia 281.1 Active 75165501 Problem Unspecified myalgia and myositis 729.1 Active 535439316 Problem Other general symptoms 780.99 Active 040004387 Problem Personal history of fall V15.88 Active 390908603 Problem Malignant neoplasm of central portion of right female breast C50.111 Active 65183977 Problem Urinary tract infection, site not specified 599.0 Active 60786540 Problem Fall, initial encounter W19.XXXA Active 3729821 Problem Subacute vaginitis N76.1 Active 93488473415580154 Problem Ileostomy status Z93.2 Active 967658092 Problem Vitamin B12 deficiency E53.8 Active 192794638 Problem Inflamed seborrheic keratosis of left cheek L82.0 Active 146670126 Problem Seborrheic keratosis L82.1 Active 268801179 Problem Ileostomy status V44.2 Active 357927101 Problem Infected tooth K04.7 Active 181866463 Problem Other and unspecified hyperlipidemia 272.4 Active 91098733 Problem Other vitamin B12 deficiency anemias D51.8 Active 56137366 Problem Nausea alone 787.02 Active 995633435 Problem Skin cancer C44.90 Active 295649257 Problem Volume depletion, unspecified 276.50 Active 49673941 Problem termite technician (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 Z79.01 Active 588862577 Problem Accidental fall on or from other stairs or steps E880.9 Active 543946245 Problem Need for prophylactic vaccination and inoculation, Influenza V04.81 Active 202598808 Problem Pain in joint, forearm 719.43 Active 986907257 Problem Generalized osteoarthrosis, involving multiple sites 715.09 Active 08149466 Problem Atrial fibrillation 427.31 Active 39169830 Problem 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
--- OUTSIDE RECORDS SUMMARY | 2018-06-21 06:21 | XMS REPORT ---
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 care registered 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 current use of anticoagulant therapy Z79.01 Active 171067932 Problem Cellulitis of foot L03.119 Active 694980752 Problem Ulcerated, foot L97.509 Active 15625602 Problem 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 Active 60124497 Problem Cholecystitis K81.9 Active 05977129 Problem GERD (gastroesophageal reflux disease) K21.9 Active 608668482 Problem Skin tag L91.8 Active 322720894 Problem Bronchitis J40 Active 16626078 Problem Unspecified atrial fibrillation I48.91 Active 75810135 Problem Orthostatic hypotension I95.1 Active 75102338 Problem UTI (urinary tract infection) N39.0 Active 97048387 Problem Chronic renal failure, stage 3 (moderate) N18.3 Active 62174805 Problem Type 2 diabetes mellitus without complications E11.9 Active 320098794 Problem Urge incontinence N39.41 Active 59159302 Problem Lung mass R91.8 Active 605646522 Problem Wheezing R06.2 Active 98667011 Problem Cholelithiasis K80.20 Active 608941717 Problem Breast mass N63 Active 79901185 Problem Personal history of fall V15.88 Active 845254037 Problem Accidental fall on or from other stairs or steps E880.9 Active 324140169 Problem Ileostomy status V44.2 Active 421820507 Problem Nausea alone 787.02 Active 942651499 Problem Other general symptoms 780.99 Active 798591313 Problem Malignant neoplasm of central portion of right female breast C50.111 Active 17197319 Problem Need for prophylactic vaccination and inoculation, Influenza V04.81 Active 309396492 Problem Subacute vaginitis N76.1 Active 47858999863384765 Problem Fall, initial encounter W19.XXXA Active 3868545 Problem Ileostomy status Z93.2 Active 177160019 Problem Vitamin B12 deficiency E53.8 Active 295601354 Problem Seborrheic keratosis L82.1 Active 495653975 Problem Inflamed seborrheic keratosis of left cheek L82.0 Active 873464507 Problem Urinary tract infection, site not specified 599.0 Active 69589610 Problem nursing home (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 Z79.01 Active 425427363 Problem Generalized osteoarthrosis, involving multiple sites 715.09 Active 57328814 Problem Other vitamin B12 deficiency anemias D51.8 Active 47668580 Problem Pain in joint, shoulder region 719.41 Active 988435034 Problem Skin cancer C44.90 Active 516214451 Problem Pain in joint, forearm 719.43 Active 455174662 Problem Infected tooth K04.7 Active 537638844 Problem Unspecified myalgia and myositis 729.1 Active 263550420 Problem Volume depletion, unspecified 276.50 Active 41684407 Problem Other and unspecified hyperlipidemia 272.4 Active 68929001 Problem Macular degeneration (senile) of retina, unspecified 362.50 Active 120690430 Problem Other vitamin B12 deficiency anemia 281.1 Active 26622363 Problem 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 Active 133768153 Problem Atrial fibrillation 427.31 Active 19561527 ALLERGIES Substance Reaction Event Type Date Status Penicillin V Potassium Unknown Drug Allergy Apr, Active SOCIAL HISTORY No smoking Hx information available PLAN OF CARE Activity Details Follow Up 4 Weeks Reason:INR VITAL SIGNS Height 65 in 2016-05-03 Weight 126.6 lbs 2016-05-03 Temperature 98.5 degrees Fahrenheit 2016-05-03 Heart Rate 104 bpm 2016-05-03 Respiratory Rate 20 2016-05-03 BMI 21.07 kg/m2 2016-05-03 Blood pressure systolic 116 mmHg 2016-05-03 Blood pressure diastolic 78 mmHg 2016-05-03 MEDICATIONS Medication Instructions Dosage Frequency Start Date End Date Duration Status Amiodarone HCl 200 MG TAKE 1 TABLET BY MOUTH DAILY 30 Active Magnesium Oxide 400 (240 Mg) MG TAKE 2 TABLETS BY MOUTH ONCE A DAY Active Blood Glucose Monitor System w/Device as directed 24h August, Active Lancets - Active Anastrozole 1 MG Orally Once a day 1 tablet 24h Active Tamoxifen Citrate 20 MG Orally Once a day 1 tablet 24h Active Clindamycin HCl 150 MG Orally every 8 hrs 2 capsules 8h Apr, Apr, 5 day(s) Active Multivitamin/Minerals Active Warfarin Sodium 4 MG Orally Once a day except HOLD Sat 1 tablet Mar, Active Test strips Active RESULTS Name Result Date Reference Range INR (IN HOUSE) INR 1.4 1.10 - 3.30 PREVIOUS INR 1.5 CURRENT COUMADIN DOSE 4 mg daily except SAT NEW COUMADIN DOSE Lot # [id number] Exp date 12/2016 PROCEDURES Procedure Date Ordered Related Diagnosis Body Site PROTHROMBIN TIME May 03, 2016 [facility] VISIT ESTABLISHED PATIENT May 03, 2016 B12, VITAMIN (UP TO 1000 MCG) May 03, 2016 Office Visit, Est Pt., Level 3 May 03, 2016 THER/PROPH/DIAG INJ, SC/IM May 03, 2016 IMMUNIZATIONS Vaccine Route Administration Date Status B12, VITAMIN (UP TO 1000 MCG) IM Intramuscular May 03, 2016 Administered
--- OUTSIDE RECORDS SUMMARY | 2018-06-21 06:21 | XMS REPORT ---
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 Care Design Technology Teacher Name Role Phone ZARINA VERGARA CP Unavailable Allergies, Adverse Reactions, Alerts Substance Reaction Event Type Penicillin V Potassium Info Not Available Drug Allergy Problems Problem Type Condition Code Onset Dates Condition Status Problem Accidental fall on or from other stairs or steps E880.9 Active Problem Personal history of fall V15.88 Active Problem Nausea alone 787.02 Active Problem Volume depletion, unspecified 276.50 Active Problem Other and unspecified hyperlipidemia 272.4 Active Problem Ileostomy status V44.2 Active Problem 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 Active Problem Other B-complex deficiencies 266.2 Active Problem Generalized osteoarthrosis, involving multiple sites 715.09 Active Problem GERD (gastroesophageal reflux disease) K21.9 Active Problem Atrial fibrillation 427.31 Active Problem Orthostatic hypotension I95.1 Active Problem Need for prophylactic vaccination and inoculation, Influenza V04.81 Active Problem Unspecified atrial fibrillation I48.91 Active Problem UTI (urinary tract infection) N39.0 Active Problem Type 2 diabetes mellitus without complications E11.9 Active Problem Breast mass N63 Active Problem Lung mass R91.8 Active Problem Pain in joint, shoulder region 719.41 Active Problem Macular degeneration (senile) of retina, unspecified 362.50 Active Assessment Orthostatic hypotension I95.1 Active Problem Wheezing R06.2 Active Problem Pain in joint, forearm 719.43 Active Problem Urge incontinence N39.41 Active Problem Bronchitis J40 Active Problem Cholelithiasis K80.20 Active Problem Chronic renal failure, stage 3 (moderate) N18.3 Active Problem Unspecified myalgia and myositis 729.1 Active Problem snf current use of anticoagulant therapy Z79.01 Active Problem Other general symptoms 780.99 Active Problem Chronic atrial fibrillation I48.2 Active Problem Urinary tract infection, site not specified 599.0 Active Problem [place] of foot 700 Active Problem Other vitamin B12 deficiency anemia 281.1 Active Problem Cellulitis of foot L03.119 Active Assessment 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 Active Problem Cholecystitis K81.9 Active Problem Diabetes mellitus without mention of complication, type II or unspecified type, not stated as uncontrolled 250.00 Active Problem 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 Active Problem Ulcerated, foot L97.509 Active Problem Skin tag L91.8 Active Medications Medication Code System Code Instructions Start Date End Date Status Dosage Amiodarone HCl [facility] [id number] 200 MG TAKE 1 TABLET BY MOUTH DAILY Magnesium Oxide [facility] 72543607891 400 (240 Mg) MG TAKE 2 TABLETS BY MOUTH ONCE A DAY Warfarin Sodium [facility] [place] [address]-27 4 MG Orally Once a day except HOLD Sat Apr 08, 2015 1 tablet Blood Glucose Monitor System [facility] [address] w/Device 4 times a day August as directed Tamoxifen Citrate [facility] [address]-87 20 MG Orally Once a day 1 tablet Fludrocortisone Acetate [facility] [address]-29 0.1 MG Orally September 10, 2015 1 tablet Magnesium Oxide [facility] [address]-73 800 Orally Once a day as directed Multivitamin/Minerals NDC 0 not defined Breo Ellipta [facility] [address]-83 100-25 MCG/INH Inhalation Once a day August 1 puff Procedures Procedure Coding System Code Date Office Visit, Est Pt., Level 3 CPT-4 68811 September 10, 2015 [facility] VISIT ESTABLISHED PATIENT CPT-4 G0467 September 10, 2015 Vital Signs Date/Time: September 10, 2015 Cardiac Monitoring Heart Rate 60 bpm Weight 115.8 lbs Height 65 in Blood Pressure Diastolic 60 mmHg Blood Pressure Systolic 110 mmHg Results No Known Results Summary Purpose eClinicalWorks Submission
--- OUTSIDE RECORDS SUMMARY | 2018-06-21 06:21 | XMS REPORT ---
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 Z79.01 Active 645506904 Problem Chronic atrial fibrillation I48.2 Active 787364474 Problem Cellulitis of foot L03.119 Active 086297665 Problem Ulcerated, foot L97.509 Active 72053509 Problem 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 Active 44397461 Problem Cholecystitis K81.9 Active 72996957 Problem GERD (gastroesophageal reflux disease) K21.9 Active 891664352 Problem Skin tag L91.8 Active 496702546 Problem Orthostatic hypotension I95.1 Active 27834959 Problem Bronchitis J40 Active 35497281 Problem UTI (urinary tract infection) N39.0 Active 37678075 Problem Unspecified atrial fibrillation I48.91 Active 13071004 Problem Chronic renal failure, stage 3 (moderate) N18.3 Active 25365204 Problem Cholelithiasis K80.20 Active 189528786 Problem Type 2 diabetes mellitus without complications E11.9 Active 373987351 Problem Urge incontinence N39.41 Active 73204575 Problem Wheezing R06.2 Active 44070842 Problem Malignant neoplasm of central portion of right female breast C50.111 Active 32712148 Problem Breast mass N63 Active 55514321 Problem Lung mass R91.8 Active 157037089 Problem Need for prophylactic vaccination and inoculation, Influenza V04.81 Active 275293323 Problem Personal history of fall V15.88 Active 683549791 Problem Ileostomy status V44.2 Active 221425136 Problem Nausea alone 787.02 Active 263620538 Problem Other general symptoms 780.99 Active 630674932 Problem Unspecified myalgia and myositis 729.1 Active 729237714 Problem Subacute vaginitis N76.1 Active 50890943649412276 Problem Accidental fall on or from other stairs or steps E880.9 Active 204893148 Problem Fall, initial encounter W19.XXXA Active 9577889 Problem Vitamin B12 deficiency E53.8 Active 318122729 Problem Other vitamin B12 deficiency anemias D51.8 Active 91768858 Problem Ileostomy status Z93.2 Active 217368329 Problem Falls frequently R29.6 Active 651895280 Problem Seborrheic keratosis L82.1 Active 467590062 Problem 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 Active 253062267 Problem Infected tooth K04.7 Active 059835182 Problem Urinary tract infection, site not specified 599.0 Active 54878800 Problem penitentiary (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 Z79.01 Active 472966819 Problem Generalized osteoarthrosis, involving multiple sites 715.09 Active 25187279 Problem Inflamed seborrheic keratosis of left cheek L82.0 Active 493497773 Problem Pain in joint, shoulder region 719.41 Active 758960764 Problem Skin cancer C44.90 Active 986941311 Problem Pain in joint, forearm 719.43 Active 072236236 Problem Other and unspecified hyperlipidemia 272.4 Active 02507964 Problem Other B-complex deficiencies 266.2 Active 601013909 Problem Other vitamin B12 deficiency anemia 281.1 Active 47112977 Problem Volume depletion, unspecified 276.50 Active 40573907 Problem Atrial fibrillation 427.31 Active 56971196 Problem Macular degeneration (senile) of retina, unspecified 362.50 Active 118154672 ALLERGIES No Information SOCIAL HISTORY Never Assessed PLAN OF CARE VITAL SIGNS MEDICATIONS Unknown Medications RESULTS No Results PROCEDURES No Known procedures IMMUNIZATIONS No Known Immunizations MEDICAL (GENERAL) HISTORY Type Description Date Medical [...]
--- OUTSIDE RECORDS SUMMARY | 2018-06-21 06:21 | XMS REPORT ---
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.01 Active Problem Other B-complex deficiencies 266.2 Active Assessment Chronic atrial fibrillation I48.2 Active Problem Generalized osteoarthrosis, involving multiple sites 715.09 Active Problem Diabetes mellitus without mention of complication, type II or unspecified type, not stated as uncontrolled 250.00 Active Problem Atrial fibrillation 427.31 Active Problem Pain in joint, forearm 719.43 Active Problem Need for prophylactic vaccination and inoculation, Influenza V04.81 Active Problem Chronic atrial fibrillation I48.2 Active 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 Active Problem Unspecified myalgia and myositis 729.1 Active Problem Other vitamin B12 deficiency anemia 281.1 Active Problem Ulcerated, foot L97.509 Active Problem Urinary tract infection, site not specified 599.0 Active Problem Pain in joint, shoulder region 719.41 Active Problem Macular degeneration (senile) of retina, unspecified 362.50 Active Problem Cellulitis of foot L03.119 Active Problem [place] of foot 700 Active Problem Accidental fall on or from other stairs or steps E880.9 Active Problem Volume depletion, unspecified 276.50 Active Problem Other general symptoms 780.99 Active Problem Personal history of fall V15.88 Active Problem Ileostomy status V44.2 Active Problem 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 Active Problem Nausea alone 787.02 Active Problem Other and unspecified hyperlipidemia 272.4 Active Medications Medication Code System Code Instructions Start Date End Date Status Dosage verapamil NDC 0 240 mg Dec 31, 2013 take 0.5 tablet by Oral route with food 1 time per day Glimepiride [facility] [address]-21 2 mg May 06, 2014 take 1 tablet (2 mg) by oral route once daily Blood Glucose Monitor System [facility] [address] w/Device 4 times a day August as directed Warfarin Sodium [facility] [address]-92 5 MG Orally Once a day October 19, 2014 1 tablet Fenofibrate Micronized [facility] [address]-06 134 mg May 26, 2013 take 1 capsule (134 mg) by oral route once daily with food Calan SR [facility] 82206120124 240 MG take 0.5 tablet by Oral route with food 1 time per day Procedures Procedure Coding System Code Date [facility] VISIT ESTABLISHED PATIENT CPT-4 G0467 Feb 12, 2015 Office Visit, Est Pt., Level 3 CPT-4 29349 Feb 12, 2015 PROTHROMBIN TIME CPT-4 28225 Feb 12, 2015 Vital Signs Date/Time: Feb 12, 2015 Temperature 97.9 F Weight 131 lbs Height 65 in BMI 21.80 Index Blood Pressure Diastolic 68 mmHg Blood Pressure Systolic 130 mmHg Cardiac Monitoring Heart Rate 84 bpm Results Name Result Date Reference Range Unit Abnormality Flag INR (IN HOUSE) ----INR 2.2 [id number] 1.10 - 3.30 ----PREVIOUS INR 1.8 [id number] ----CURRENT COUMADIN DOSE 5 mg QD [id number] Summary Purpose eClinicalWorks Submission
--- OUTSIDE RECORDS SUMMARY | 2018-06-21 06:22 | XMS REPORT ---
Author ZARINA Chirinos Organization [employer] Address Unknown Phone Unavailable Care Team Providers Care Sap Senior Developer Name Role Phone ZARINA VERGARA CP Unavailable Allergies No Known Allergies Problems Problem Type Condition Code Onset Dates Condition Status Problem Diabetes mellitus without mention of complication, type II or unspecified type, not stated as uncontrolled 250.00 Active Problem Urinary tract infection, site not specified 599.0 Active Problem Other vitamin B12 deficiency anemia 281.1 Active Problem Pain in joint, forearm 719.43 Active Problem Unspecified myalgia and myositis 729.1 Active Problem Macular degeneration (senile) of retina, unspecified 362.50 Active Problem Other general symptoms 780.99 Active Problem Pain in joint, shoulder region 719.41 Active Problem Cellulitis of foot L03.119 Active Problem [place] of foot 700 Active Problem 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 Active Problem Cholecystitis K81.9 Active Problem Volume depletion, unspecified 276.50 Active Problem Accidental fall on or from other stairs or steps E880.9 Active Problem GERD (gastroesophageal reflux disease) K21.9 Active Problem Personal history of fall V15.88 Active Problem Chronic atrial fibrillation I48.2 Active 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 Active Problem Skin tag L91.8 Active Problem Ulcerated, foot L97.509 Active Problem Ileostomy status V44.2 Active Problem 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 [place] [address]-90 80 MG Orally 4 times a day PRN not defined Maalox Regular Strength [facility] [address]-64 200-200-20 MG/5ML Orally Four times a day Apr 08, 2015 10 ml as needed Normal Saline Flush [facility] 8290-324230 0.9 % 5 times daily Apr 08, 2015 as directed Metoprolol Tartrate [facility] [place] [address]-77 25 MG 2 times a day Apr 08, 2015 0.5 tablet by mouth Warfarin Sodium [facility] [place] [address]-02 4 MG Orally Once a day Apr 08, [address] [facility] [place] [address]-85 2 mg May 06, 2014 take 1 tablet (2 mg) by oral route once daily Aspir-[address] [facility] [place] [address]-23 81 MG Orally Once a day 1 tablet Multivitamin/Minerals [facility] 0 not defined Amiodarone HCl [facility] [place] [address]-80 200 MG Orally Once a day 1 tablet Magnesium Oxide [facility] [address]-15 800 Orally 2 times a day as directed Results No Known Results Summary Purpose eClinicalWorks Submission
--- OUTSIDE RECORDS SUMMARY | 2018-06-21 06:22 | XMS REPORT ---
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 Care Refuse Driver Name Role Phone ZARINA VERGARA CP Unavailable [...] Problem Cellulitis of foot L03.119 Active Problem [place] of foot 700 Active Problem 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 Active Problem Cholecystitis K81.9 Active Problem Volume depletion, unspecified 276.50 Active Problem Accidental fall on or from other stairs or steps E880.9 Active Problem GERD (gastroesophageal reflux disease) K21.9 Active Problem Personal history of fall V15.88 Active Problem Chronic atrial fibrillation I48.2 Active 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
--- OUTSIDE RECORDS SUMMARY | 2018-06-21 06:22 | XMS REPORT ---
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 Active 26071348 Problem Other B-complex deficiencies 266.2 Active 091888979 Problem Generalized osteoarthrosis, involving multiple sites 715.09 Active 51350413 Problem Atrial fibrillation 427.31 Active 13084476 Problem Need for prophylactic vaccination and inoculation, Influenza V04.81 Active 519020287 Problem Unspecified atrial fibrillation I48.91 Active 35917211 Problem Pain in joint, forearm 719.43 Active 342628275 Problem Type 2 diabetes mellitus without complications E11.9 Active 306839977 Problem Macular degeneration (senile) of retina, unspecified 362.50 Active 975641068 Problem UTI (urinary tract infection) N39.0 Active 20742254 Problem Urge incontinence N39.41 Active 40720104 Problem Bronchitis J40 Active 31039002 Problem Malignant neoplasm of central portion of right female breast C50.111 Active 33626309 Problem Wheezing R06.2 Active 74708873 Problem Cellulitis of foot L03.119 Active 029740267 Problem [place] of foot 700 Active 191349305 Problem Diabetes mellitus without mention of complication, type II or unspecified type, not stated as uncontrolled 250.00 Active 661276454 Problem Pain in joint, shoulder region 719.41 Active 356489418 Assessment Type 2 diabetes mellitus without complications E11.9 Nov, Active 123287957 Problem Cholelithiasis K80.20 Active 769982888 Problem Chronic renal failure, stage 3 (moderate) N18.3 Active 73513217 Problem Breast mass N63 Active 86291702 Problem Lung mass R91.8 Active 884799355 Problem Personal history of fall V15.88 Active 280407637 Problem Ulcerated, foot L97.509 Active 67023270 Problem Accidental fall on or from other stairs or steps E880.9 Active 958453729 Problem Skin tag L91.8 Active 286328021 Problem Unspecified myalgia and myositis 729.1 Active 427015468 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.01 Active 119030074 Problem Other general symptoms 780.99 Active 375200609 Problem Chronic atrial fibrillation I48.2 Active 905113781 Problem Urinary tract infection, site not specified 599.0 Active 60981458 Problem GERD (gastroesophageal reflux disease) K21.9 Active 886969918 Problem Other vitamin B12 deficiency anemia 281.1 Active 09789484 Problem Orthostatic hypotension I95.1 Active 47843084 Problem Cholecystitis K81.9 Active 08974430 Problem 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 Active 77249970 ALLERGIES Substance Reaction Event Type Date Status Penicillin V Potassium Unknown Drug Allergy Nov, Active SOCIAL HISTORY No smoking Hx information available PLAN OF CARE VITAL SIGNS Height 65 in 2015-11-22 Weight 126.6 lbs 2015-11-22 Heart Rate 90 bpm 2015-11-22 Respiratory Rate 18 2015-11-22 BMI 21.07 kg/m2 2015-11-22 Blood pressure systolic 114 mmHg 2015-11-22 Blood pressure diastolic 72 mmHg 2015-11-22 MEDICATIONS Medication Instructions Dosage Frequency Start Date End Date Duration Status Blood Glucose Monitor System w/Device as directed 24h August, Active Warfarin Sodium 4 MG Orally Once a day except HOLD Sat 1 tablet Mar, Active Multivitamin/Minerals Active Anastrozole 1 MG Orally Once a day 1 tablet 24h Active Amiodarone HCl 200 MG TAKE 1 TABLET BY MOUTH DAILY 30 Active Magnesium Oxide 400 (240 Mg) MG TAKE 2 TABLETS BY MOUTH ONCE A DAY 30 Active RESULTS Name Result Date Reference Range A1C (IN HOUSE) 2015-11-22 A1C IN HOUSE 6.2 4.3 - 5.6 % Previous A1c 6.3 Lot [id number] Exp date 07/2017 INR (IN HOUSE) 2015-11-22 INR 2.0 1.10 - 3.30 PREVIOUS INR 1.6 CURRENT COUMADIN DOSE 4mg QD hold on Sat NEW COUMADIN DOSE Lot # [id number] Exp date 06/2016 PROCEDURES Procedure Date Ordered Related Diagnosis Body Site GLYCATED HEMOGLOBIN TEST Nov 22, 2015 PROTHROMBIN TIME Nov 22, 2015 Office Visit, Est Pt., Level 3 Nov 22, 2015 [facility] VISIT ESTABLISHED PATIENT Nov 22, 2015 IMMUNIZATIONS No Known Immunizations
--- OUTSIDE RECORDS SUMMARY | 2018-06-21 06:22 | XMS REPORT ---
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 Active 93189660 Problem Atrial fibrillation 427.31 Active 07128815 Problem Generalized osteoarthrosis, involving multiple sites 715.09 Active 81774526 Problem Need for prophylactic vaccination and inoculation, Influenza V04.81 Active 467832847 Problem Pain in joint, forearm 719.43 Active 184398932 Problem Macular degeneration (senile) of retina, unspecified 362.50 Active 931771353 Problem Pain in joint, shoulder region 719.41 Active 546000640 Problem [place] of foot 700 Active 006430962 Problem Urge incontinence N39.41 Active 60388337 Problem Cellulitis of foot L03.119 Active 544974469 Problem Chronic renal failure, stage 3 (moderate) N18.3 Active 36591167 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 Active 576897138 Problem Cholelithiasis K80.20 Active 133627671 Problem Breast mass N63 Active 46592762 Problem Lung mass R91.8 Active 610028814 Problem Ileostomy status Z93.2 Active 129827040 Problem Vitamin B12 deficiency E53.8 Active 802205747 Problem Skin tag L91.8 Active 119913838 Problem Ulcerated, foot L97.509 Active 88109461 Problem Other general symptoms 780.99 Active 142056164 Problem Chronic atrial fibrillation I48.2 Active 031065750 Problem Unspecified myalgia and myositis 729.1 Active 936914488 Problem Malignant neoplasm of central portion of right female breast C50.111 Active 86765169 Problem Other vitamin B12 deficiency anemia 281.1 Active 62291446 Problem Wheezing R06.2 Active 99559969 Problem Urinary tract infection, site not specified 599.0 Active 62311416 Problem Subacute vaginitis N76.1 Active 79361159175639912 Problem Diabetes mellitus without mention of complication, type II or unspecified type, not stated as uncontrolled 250.00 Active 008056358 Problem Fall, initial encounter W19.XXXA Active 6763281 Problem Other and unspecified hyperlipidemia 272.4 Active 86868907 Problem GERD (gastroesophageal reflux disease) K21.9 Active 660500963 Problem Ileostomy status V44.2 Active 329986433 Problem Orthostatic hypotension I95.1 Active 99130518 Problem Volume depletion, unspecified 276.50 Active 86702515 Problem Cholecystitis K81.9 Active 25314823 Problem Nausea alone 787.02 Active 951322275 Problem 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 Active 74449615 Problem Personal history of fall V15.88 Active 992993321 Problem UTI (urinary tract infection) N39.0 Active 29769536 Problem Accidental fall on or from other stairs or steps E880.9 Active 966595754 Problem Bronchitis J40 Active 93252712 Problem Unspecified atrial fibrillation I48.91 Active 52558713 Problem Type 2 diabetes mellitus without complications E11.9 Active 688400714 ALLERGIES Unknown Allergies SOCIAL HISTORY No smoking Hx information available PLAN OF CARE VITAL SIGNS MEDICATIONS Unknown Medications RESULTS No Results PROCEDURES No Known procedures IMMUNIZATIONS No Known Immunizations
--- OUTSIDE RECORDS SUMMARY | 2018-06-21 06:22 | XMS REPORT ---
Author ZARINA Chirinos Organization [employer] Address Unknown Phone Unavailable Care Team Providers Care Staffing Operations Manager Name Role Phone ZARINA VERGARA CP Unavailable Allergies, Adverse Reactions, Alerts Substance Reaction Event Type Penecillins Info Not Available Non Drug Allergy Problems Problem Type Condition Code Onset Dates Condition Status Assessment GERD (gastroesophageal reflux disease) K21.9 Active Assessment 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 Active Assessment Chronic atrial fibrillation I48.2 Active Assessment Encounter for long-term (current) use of other medications Z79.899 Active Assessment USP current use of anticoagulant therapy Z79.01 Active Assessment Cholecystitis K81.9 Active Problem Diabetes mellitus without [...] Problem Cellulitis of foot L03.119 Active Problem [place] of foot 700 Active Problem 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 Active Problem Cholecystitis K81.9 Active Problem Volume depletion, unspecified 276.50 Active Problem Accidental fall on or from other stairs or steps E880.9 Active Problem GERD (gastroesophageal reflux disease) K21.9 Active Problem Personal history of fall V15.88 Active Problem Chronic atrial fibrillation I48.2 Active Problem USP current use of anticoagulant therapy Z79.01 Active Problem Skin tag L91.8 Active Problem Ulcerated, foot L97.509 Active Problem Ileostomy status V44.2 Active Assessment Skin tag L91.8 Active Problem 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 Active Problem Nausea alone 787.02 Active Problem Other and unspecified hyperlipidemia 272.4 Active Problem Atrial fibrillation 427.31 Active Problem Need for prophylactic vaccination and inoculation, Influenza V04.81 Active Problem Other B-complex deficiencies 266.2 Active Problem Generalized osteoarthrosis, involving multiple sites 715.09 Active Medications Medication Code System Code Instructions Start Date End Date Status Dosage Magnesium Oxide [facility] [place] [address]-71 800 Orally 2 times a day as directed Aspir-81 [facility] [place] [address]-92 81 MG Orally Once a day 1 tablet Amiodarone HCl [facility] [place] [address]-87 200 MG Orally Once a day 1 tablet Blood Glucose Monitor System [facility] [place] [address] w/Device 4 times a day August as directed Multivitamin/Minerals [facility] 0 not defined Metoprolol Tartrate [facility] [place] [address]-51 0.3% Orally Twice a day 0.5 tablet Warfarin Sodium [facility] [place] [address]-41 3 MG Orally Once a day October 19, 2014 1 tablet Pantoprazole Sodium [facility] [place] [address]-65 40 MG Orally Once a day 1 tablet Glimepiride [facility] [place] [address]-68 2 mg May 06, 2014 take 1 tablet (2 mg) by oral route once daily Simethicone [facility] [place] [address]-92 80 MG Orally 4 times a day PRN not defined Procedures Procedure Coding System Code Date COUNTS INCLUDE 234 BEDS AT THE [facility] VISIT ESTABLISHED PATIENT CPT-4 G0467 Mar 31, 2015 Office Visit, Est Pt., Level 3 CPT-4 53675 Mar 31, 2015 PROTHROMBIN TIME CPT-4 51556 Mar 31, 2015 REMOVAL OF SKIN TAGS CPT-4 31411 Mar 31, 2015 Vital Signs Date/Time: Mar 31, 2015 Temperature 98.3 F Weight 108.2 lbs Height 65 in BMI 18.00 Index Blood Pressure Diastolic 60 mmHg Blood Pressure Systolic 116 mmHg Cardiac Monitoring Heart Rate 80 bpm Results No Known Results Summary Purpose [employer] Submission
--- OUTSIDE RECORDS SUMMARY | 2018-06-21 06:22 | XMS REPORT ---
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.01 Active 486249705 Problem Chronic atrial fibrillation I48.2 Active 299889766 Problem Ulcerated, foot L97.509 Active 68818818 Problem Cellulitis of foot L03.119 Active 165762885 Problem 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 Active 93447954 Problem Skin tag L91.8 Active 914006871 Problem Cholecystitis K81.9 Active 15078121 Problem GERD (gastroesophageal reflux disease) K21.9 Active 190682204 Problem Orthostatic hypotension I95.1 Active 28106658 Problem Unspecified atrial fibrillation I48.91 Active 58845876 Problem Type 2 diabetes mellitus without complications E11.9 Active 147887333 Problem Bronchitis J40 Active 92801804 Problem Urge incontinence N39.41 Active 73342221 Problem UTI (urinary tract infection) N39.0 Active 67347592 Problem Breast mass N63 Active 94882734 Problem Wheezing R06.2 Active 88686602 Problem Cholelithiasis K80.20 Active 929734157 Problem Chronic renal failure, stage 3 (moderate) N18.3 Active 49142047 Problem Subacute vaginitis N76.1 Active 60676160086796800 Problem Vitamin B12 deficiency E53.8 Active 277276018 Problem Lung mass R91.8 Active 874286558 Problem Malignant neoplasm of central portion of right female breast C50.111 Active 25493129 Problem Ileostomy status V44.2 Active 850694136 Problem Accidental fall on or from other stairs or steps E880.9 Active 811770981 Problem Need for prophylactic vaccination and inoculation, Influenza V04.81 Active 676624394 Problem Personal history of fall V15.88 Active 390811680 Problem Other general symptoms 780.99 Active 970002893 Problem Unspecified myalgia and myositis 729.1 Active 930118759 Problem Pain in joint, forearm 719.43 Active 360959352 Problem Pain in joint, shoulder region 719.41 Active 193450539 Problem Fall, initial encounter W19.XXXA Active 2853630 Problem Nausea alone 787.02 Active 289350750 Problem Ileostomy status Z93.2 Active 721569597 Problem Other vitamin B12 deficiency anemias D51.8 Active 86914522 Problem Infected tooth K04.7 Active 660609301 Problem nursing home (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 Z79.01 Active 199587310 Problem Type 2 diabetes mellitus without complication, without long-term current use of insulin E11.9 Active 829810843 Problem Persistent atrial fibrillation I48.1 Active 597085588 Problem Macular degeneration (senile) of retina, unspecified 362.50 Active 735103816 Problem Inflamed seborrheic keratosis of left cheek L82.0 Active 149781741 Problem Atrial fibrillation 427.31 Active 85654865 Problem Skin cancer C44.90 Active 062321972 Problem 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 Active 197424356 Problem Falls frequently R29.6 Active 724671814 Problem Urinary tract infection, site not specified 599.0 Active 31253570 Problem Seborrheic keratosis L82.1 Active 282507228 Problem Generalized osteoarthrosis, involving multiple sites 715.09 Active 49667824 Problem Diabetes mellitus without mention of complication, type II or unspecified type, not stated as uncontrolled 250.00 Active 079802858 Problem [place] of foot 700 Active 120132852 Problem Other and unspecified hyperlipidemia 272.4 Active 77714387 Problem Other B-complex deficiencies 266.2 Active 321513349 Problem Other vitamin B12 deficiency anemia 281.1 Active 30812327 Problem Volume depletion, unspecified 276.50 Active 21106068 ALLERGIES Substance Reaction Event Type Date Status Penicillin V Potassium Unknown Drug Allergy Mar, Active ENCOUNTERS Encounter Location Date Diagnosis [address] [id number] [place] [id number] August, [address] [id number] [place] [id number] August, [address] [id number] [place] [id number] August, [address] [id number] August, Chronic atrial fibrillation I48.2 ; B12 deficiency E53.8 and Type 2 diabetes mellitus without complication, without long-term current use of insulin E11.9 [facility] [place] [address] [place] [address] [id number] [place] [id number] August, [facility] [place] [address] [place] [address] [id number] [place] [id number] August, nursing home (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 Z79.01 and Other vitamin B12 deficiency anemia 281.1 [facility] [place] [address] [place] [address] [id number] [place] [id number] Jul, Type 2 diabetes mellitus without complications E11.9 ; nursing home (current ) use of 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 Z79.01 ; Other vitamin B12 deficiency anemias D51.8 and Malignant neoplasm of central portion of right female breast C50.111 [facility] [place] [address] [place] [address] [id number] [place] [id number] Jun, 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 (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 Z79.01 ; Falls frequently R29.6 ; Unspecified atrial fibrillation I48.91 and Encounter for long-term (current) use of other medications V58.69 [facility] [place] [address] [place] [address] [id number] [place] [id number] 28 May, 2017 Fall, initial encounter W19.XXXA ; Encounter for long-term (current) use of other medications V58.69 ; 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 (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 Z79.01 and Persistent atrial fibrillation I48.1 [facility] [place] [address] [place] [address] C [id number] [place] [id number] May, [facility] [place] [address] [place] [address] C [id number] [place] [id number] 05 Mar, 2017 Bronchitis J40 and Chronic renal failure, stage 3 (moderate) N18.3 [facility] [place] [address] [place] [address] C [id number] [place] [id number] Feb, Encounter for long-term (current) use of other medications V58.69 [facility] [place] [address] [facility] C [id number] [place] [id number] Feb, Chronic atrial fibrillation I48.2 and Other intermediate (current) drug therapy Z79.899 [facility] [place] [address] [facility] [id number] [place] [id number] Jan, Chronic atrial fibrillation I48.2 and Encounter for long-term (current) use of other medications V58.69 [facility] [place] [address] [place] [address] [id number] [place] [id number] Jan, nursing home current use of anticoagulant therapy Z79.01 [facility] [place] [address] [place] [address] [id number] [place] [id number] Jan, Medicare welcome exam Z00.00 ; Medicare annual wellness visit, initial Z00.00 ; Medicare annual wellness visit, subsequent Z00.00 ; Vitamin B12 deficiency E53.8 ; Falls frequently R29.6 ; Unspecified atrial fibrillation I48.91 ; nursing home current use of anticoagulant therapy Z79.01 and Encounter for immunization Z23 [facility] [place] [address] [place] [address] [id number] [place] [id number] Oct, Encounter for long-term (current) use of other medications V58.69 ; Type 2 diabetes mellitus without complications E11.9 ; nursing home (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 Z79.01 ; Malignant neoplasm of central portion of right female breast C50.111 ; Orthostatic hypotension I95.1 ; Seborrheic keratosis L82.1 and Vitamin B12 deficiency E53.8 [facility] [place] [address] [place] [address] [id number] [place] [id number] Jun, 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 (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 Z79.01 [facility] [place] [address] [place] [address] C [id number] [place] [id number] Jun, Skin cancer C44.90 [facility] [place] [address] [place] [address] [id number] [place] [id number] Apr, nursing home (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 Z79.01 ; Unspecified atrial fibrillation I48.91 ; Infected tooth K04.7 ; Other vitamin B12 deficiency anemias D51.8 and Malignant neoplasm of central portion of right female breast C50.111 [facility] [place] [address] [facility] C [id number] [place] [id number] Mar, Chronic atrial fibrillation I48.2 and 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 Z79.01 [facility] [place] [address] [place] [address] C [id number] [place] [id number] Mar, Ulcerated, foot L97.509 ; Chronic atrial fibrillation I48.2 ; Chronic renal failure, stage 3 (moderate) N18.3 and Other vitamin B12 deficiency anemias D51.8 [facility] [place] [address] [place] [address] C [id number] [place] [id number] 30 Feb, 2016 Ulcerated, foot L97.509 and Cellulitis of foot L03.119 [facility] [place] [address] [place] [address] C [id number] [place] [id number] Feb, Type 2 diabetes mellitus without complications E11.9 ; Encounter for immunization Z23 ; Ileostomy status Z93.2 ; Vitamin B12 deficiency E53.8 ; Subacute vaginitis N76.1 ; UTI (urinary tract infection) N39.0 and Fall, initial encounter W19.XXXA [facility] [place] [address] [place] [address] C [id number] [place] [id number] Jan, [facility] [place] [address] [place] [address] C [id number] [place] [id number] Jan, [facility] [place] [address] [place] [address] C [id number] [place] [id number] Dec, [facility] [place] [address] [place] [address] C [id number] [place] [id number] Nov, Type 2 diabetes mellitus without complications E11.9 ; Chronic atrial fibrillation I48.2 ; nursing home current use of anticoagulant therapy Z79.01 and Malignant neoplasm of central portion of right female breast C50.111 [facility] [place] [address] [place] [address] C [id number] [place] [id number] Sep, [facility] [place] [address] [place] [address] C [id number] [place] [id number] Sep, 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 and Orthostatic hypotension I95.[address] [id number] [place] [id number] August, [address] [id number] [place] [id number] August, Type 2 diabetes mellitus without complications E11.9 and Chronic renal failure, stage 3 (moderate) N18.[address] [id number] [place] [id number] August, Encounter for long-term (current) use of other medications V58.69 ; nursing home current use of anticoagulant therapy V58.61 ; Chronic atrial fibrillation I48.2 ; Wheezing R06.2 ; Breast mass N63 and Lung mass R91.[address] [id number] [place], [place] [id number] Jul, UTI (urinary tract infection) N39.0 ; Type 2 diabetes mellitus without complications E11.9 ; Cholelithiasis K80.20 and Chronic renal failure, stage 3 ( moderate) N18.[address] [id number] [place] [id number] Jul, [address] [id number] [place] [id number] Jul, Urge incontinence N39.41 ; Orthostatic hypotension I95.1 ; Bronchitis J40 ; UTI (urinary tract infection) N39.0 ; Cholecystitis K81.9 ; 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 and Type 2 diabetes mellitus without complications E11.[address] [id number] [place] [id number] Jun, 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 Z79.01 ; Unspecified atrial fibrillation I48.91 and Encounter for long-term (current) use of other medications Z79.[address] [id number] [place] [id number] Jun, Unspecified atrial fibrillation I48.91 ; 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 ; nursing home (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 Z79.01 ; Ulcerated, foot L97.509 and Orthostatic hypotension I95.[address] [id number] [place] [id number] Apr, [facility] [place] [address] [place] [address] [id number] [place] [id number] Mar, [facility] [place] [address] [place] [address] [id number] [place] [id number] Mar, [facility] [address] [place] [address] [id number] [place], [place] [id number] Mar, [address] [id number] [place] [id number] Mar, Cholecystitis K81.9 ; 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 Z79.01 ; Chronic atrial fibrillation I48.2 ; Encounter for long-term (current) use of other medications Z79.899 ; GERD (gastroesophageal reflux disease) K21.9 ; 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 and Skin tag L91.[address] [id number] [place] [id number] Feb, Chronic atrial fibrillation I48.2 ; nursing home current use of anticoagulant therapy Z79.01 ; Encounter for long-term (current) use of other medications Z79.899 and Ulcerated, foot L97.[address] [id number] [place] [id number] Jan, Chronic atrial fibrillation I48.2 ; 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 Z79.01 and Vitamin B12 deficiency anemia, unspecified D51.[address] [id number] [place], [place] [id number] Jan, Chronic atrial fibrillation I48.2 ; nursing home current use of anticoagulant therapy Z79.01 ; Encounter for long-term (current) use of other medications Z79.899 ; Encounter for immunization Z23 and Cellulitis of foot L03.[address] [id number] [place] [id number] Jan, [facility] [address] [place] [address] [id number] [place], [place] [id number] Jan, Type 2 diabetes mellitus without complications E11.9 ; Callus of foot L84 and Ulceration L98.[address] [id number] [place], [place] [id number] Dec, Atrial fibrillation 427.31 ; Encounter for long-term (current) use of other medications V58.69 ; nursing home current use of anticoagulant therapy V58.61 and [place] of foot 700 [facility] [place] [address] [place] [address] [id number] [place], [place] [id number] Nov, Ileostomy status V44.2 ; Other vitamin B12 deficiency anemia 281.1 ; Atrial fibrillation 427.31 ; Encounter for long-term (current) use of other medications V58.69 and nursing home current use of anticoagulant therapy V58.[address] [id number] [place] [id number] Oct, 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 ; Atrial fibrillation 427.31 ; Encounter for long-term (current) use of other medications V58.69 and 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 V58.[address] [id number] [place], [place] [id number] Oct, Atrial fibrillation 427.31 ; Diabetes mellitus without mention of complication, type II or unspecified type, not stated as uncontrolled 250.00 ; Encounter for long-term (current) use of other medications V58.69 ; 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 V58.61 ; Cold intolerance 780.99 ; Imbalance 781.2 and Other B-complex deficiencies 266.[address] [id number] [place] [id number] Oct, [address] [id number] [place] [id number] Sep, [facility] [place] [id number] [place] [id number] August, Ileostomy status V44.2 ; Diabetes mellitus without mention of complication , type II or unspecified type, not stated as uncontrolled 250.00 ; Other vitamin B12 deficiency anemia 281.1 ; Atrial fibrillation 427.31 and Foot ulcer , right 707.15 [facility] [address] [place] [address] [id number] [place], [place] [id number] August, [facility] [address] [id number] [facility] [address] Jul, [facility] [place] [facility] [address] [id number] [place] [address] Jul, [facility] [address] [id number] [facility] [place] [address] Jun, [facility] [place] [address] [id number] [place] [id number] Jun, [facility] [place] [address] [id number] [place] [id number] Apr, [facility] [place] [address] [id number] [place] [id number] Apr, [facility] [place] [address] [id number] [place] [id number] Apr, [facility] [address] [id number] [place] [address] Apr, [facility] [address] [id number] [place] [address] Apr, [facility] [address] [id number] [place] [address] Apr, [facility] [place] [address] [id number] [place] [id number] Apr, [facility] [address] [facility] [id number] [place] [address] Apr, [facility] [address] [facility] [id number] [place] [address] Apr, [facility] [place] [address] [id number] [place] [id number] Apr, [facility] [address] [facility] [id number] [place] [address] Apr, [facility] [address] [facility] [id number] [place] [address] Mar, [facility] [place] [facility] [address] [id number] [place] [address] Mar, [facility] [place] [facility] [address] [id number] [place] [address]- [address] Mar, [facility] [place] [address] [facility] [address] [id number] [place] [id number] Mar, [facility] [place] [address] [facility] [address] [id number] [place] [id number] Feb, [facility] [place] [facility] [address] [facility] [id number] [place] [address]- [address] Feb, [facility] [place] [facility] [address] [facility] [id number] [place] [address] Jan, [facility] [place] [address] [facility] [address] [id number] [place] [id number] Jan, [facility] [place] [facility] [address] [facility] [id number] [place] [address]- [address] Jan, [facility] [place] [facility] [address] [facility] [id number] [place] [address]- [address] Dec, [facility] [place] [address] [facility] [address] [id number] [place] [id number] Dec, [facility] [place] [facility] [address] [facility] [id number] [place]- [address] Dec, [facility] [place] [address] [facility] [address] [id number] [place] [id number] Dec, [facility] [place] [facility] [address] [facility] [id number] [place] [address]- [address] Nov, [facility] [place] [address] [id number] [place] [id number] Nov, [facility] [place] [address] [facility] [address] [id number] [place] [id number] Oct, [facility] [place] [facility] [address] [facility] [id number] [place] [address]- [address] Oct, [facility] [place] [facility] [address] [facility] [id number] [facility] [place] [address]- [address] Sep, [facility] [place] [facility] [address] [id number] [facility] [place] [address]- [address] Sep, [facility] [place] [address] [facility] [address] [id number] [place] [id number] Sep, [facility] [place] [address] [facility] [address] [id number] [place] [id number] Sep, [facility] [place] [facility] [address] [id number] [place] [address]- [address] Sep, [facility] [place] [address] [facility] [address] [id number] [place] [id number] August, [facility] [place] [facility] [address] [facility] [id number] [facility] [place] [address] August, [facility] [place] [address] [facility] [address] [id number] [place] [id number] August, [facility] [address] [facility] [id number] [facility] [place] [address] August, [facility] [place] [address] [facility] [address] [id number] [place] [id number] Jul, [facility] [place] [facility] [address] [facility] [id number] [facility] [place] [address]- [address] Jul, [facility] [place] [address] [facility] [address] [id number] [place] [id number] Jun, [facility] [place] [facility] [address] [facility] [id number] [facility] [place] [address]- [address] Jun, [facility] [place] [address] [facility] [address] [id number] [place] [id number] Jun, [facility] [place] [facility] [address] [facility] [id number] [facility] [place] [address]- [address] Jun, [facility] [place] [address] [facility] [address] [id number] [place] [id number] May, [facility] [place] [facility] [address] [facility] [id number] [facility] [place] [address]- [address] May, [facility] [place] [address] [facility] [address] [id number] [place] [id number] May, [facility] [address] [id number] [facility]- [address] May, [facility] [address] [facility] [id number] [facility] [address] Apr, [facility] [place] [address] [facility] [address] [id number] [place] [id number] Apr, [facility] [place] [address] [facility] [address] [id number] [place] [id number] Mar, [facility] [address] [facility] [id number] [facility] [place] [address]- [address] Mar, [facility] [place] [address] [facility] [address] [id number] [place] [id number] Mar, [facility] [place] [facility] [address] [facility] [id number] [facility] [place] [address]- [address] Mar, [facility] [place] [facility] [address] [id number] [facility] [place] [address]- [address] Mar, [facility] [place] [address] [facility] [address] [id number] [place] [id number] Mar, [facility] [place] [address] [facility] [address] [id number] [place] [id number] Mar, [facility] [address] [id number] [facility] [place] [address]- [address] Mar, [facility] [place] [address] [id number] [place] [id number] Feb, [facility] [place] [facility] [address] [facility] [id number] [facility]- [address] Feb, [facility] [place] [address] [facility] [address] [id number] [place] [id number] Feb, [facility] [address] [facility] [id number] [facility] [place] [address]- [address] Feb, [facility] [address] [facility] [id number] [place] [address]- [address]46 Jan, [facility] [address] [facility] [address] [id number] [place] [id number] Jan, [facility] [place] [address] [facility] C [id number] [place] [id number] Jan, IMMUNIZATIONS No Known Immunizations SOCIAL HISTORY Never Assessed REASON FOR VISIT referral from cancer DrMendel to discuss possible chronic kidney disease-CRIS [place] PLAN OF CARE Activity Details Follow Up prn, 2 Months Reason:renal failure VITAL SIGNS Height 65 in 2017-03-13 Weight 133.4 lbs 2017-03-13 Temperature 98.1 degrees Fahrenheit 2017-03-13 Heart Rate 84 bpm 2017-03-13 Respiratory Rate 16 2017-03-13 BMI 22.20 kg/m2 2017-03-13 Blood pressure systolic 128 mmHg 2017-03-13 Blood pressure diastolic 74 mmHg 2017-03-13 MEDICATIONS Medication Instructions Dosage Frequency Start Date End Date Duration Status Lancets - Active Multivitamin/Minerals Active Test strips Active Magnesium Oxide 400 (240 Mg) MG TAKE 2 TABLETS BY MOUTH ONCE A DAY Active Warfarin Sodium 4 MG Orally Once a day except HOLD Sat 1 tablet Mar, Active Amiodarone HCl 200 MG TAKE 1 TABLET BY MOUTH DAILY 30 Active Blood Glucose Monitor System w/Device as directed 24h August, Active Anastrozole 1 MG Orally Once a day 1 tablet 24h Active RESULTS No Results PROCEDURES Procedure Date Ordered Result Body Site [facility] VISIT ESTABLISHED PATIENT Mar 13, 2017 INSTRUCTIONS MEDICATIONS ADMINISTERED No Known Medications [...]
--- OUTSIDE RECORDS SUMMARY | 2018-06-21 06:23 | XMS REPORT ---
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 Care Ash Handler Name Role Phone ZARINA VERGARA CP Unavailable [...] Problem Cellulitis of foot L03.119 Active Problem [place] of foot 700 Active Problem 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 Active Problem Cholecystitis K81.9 Active Problem Volume depletion, unspecified 276.50 Active Problem Accidental fall on or from other stairs or steps E880.9 Active Problem GERD (gastroesophageal reflux disease) K21.9 Active Problem Personal history of fall V15.88 Active Problem Chronic atrial fibrillation I48.2 Active 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
--- OUTSIDE RECORDS SUMMARY | 2018-06-21 06:23 | XMS REPORT ---
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 Z79.01 Active 975345524 Problem Chronic atrial fibrillation I48.2 Active 422809077 Problem Ulcerated, foot L97.509 Active 14947508 Problem Cellulitis of foot L03.119 Active 383951000 Problem 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 Active 26246686 Problem Skin tag L91.8 Active 029702641 Problem Cholecystitis K81.9 Active 70203527 Problem GERD (gastroesophageal reflux disease) K21.9 Active 379389144 Problem Orthostatic hypotension I95.1 Active 69609753 Problem Unspecified atrial fibrillation I48.91 Active 80983847 Problem Type 2 diabetes mellitus without complications E11.9 Active 511508853 Problem Bronchitis J40 Active 24133148 Problem Urge incontinence N39.41 Active 44799397 Problem UTI (urinary tract infection) N39.0 Active 22318917 Problem Breast mass N63 Active 94561850 Problem Wheezing R06.2 Active 47126845 Problem Cholelithiasis K80.20 Active 954149426 Problem Chronic renal failure, stage 3 (moderate) N18.3 Active 85978888 Problem Subacute vaginitis N76.1 Active 99689921316970504 Problem Vitamin B12 deficiency E53.8 Active 943932808 Problem Lung mass R91.8 Active 040796408 Problem Malignant neoplasm of central portion of right female breast C50.111 Active 71313076 Problem Ileostomy status V44.2 Active 783365199 Problem Accidental fall on or from other stairs or steps E880.9 Active 096260902 Problem Need for prophylactic vaccination and inoculation, Influenza V04.81 Active 209183552 Problem Personal history of fall V15.88 Active 312490154 Problem Other general symptoms 780.99 Active 813093566 Problem Unspecified myalgia and myositis 729.1 Active 960169124 Problem Pain in joint, forearm 719.43 Active 218071214 Problem Pain in joint, shoulder region 719.41 Active 504011832 Problem Fall, initial encounter W19.XXXA Active 7388719 Problem Nausea alone 787.02 Active 041619990 Problem Ileostomy status Z93.2 Active 611925698 Problem Other vitamin B12 deficiency anemias D51.8 Active 10139403 Problem Infected tooth K04.7 Active 913496327 Problem correction (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 Z79.01 Active 099140786 Problem Type 2 diabetes mellitus without complication, without long-term current use of insulin E11.9 Active 571447642 Problem Persistent atrial fibrillation I48.1 Active 369268376 Problem Macular degeneration (senile) of retina, unspecified 362.50 Active 809392316 Problem Inflamed seborrheic keratosis of left cheek L82.0 Active 967615726 Problem Atrial fibrillation 427.31 Active 48812129 Problem Skin cancer C44.90 Active 306489515 Problem 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 Active 350838994 Problem Falls frequently R29.6 Active 530832381 Problem Urinary tract infection, site not specified 599.0 Active 07319485 Problem Seborrheic keratosis L82.1 Active 387545916 Problem Generalized osteoarthrosis, involving multiple sites 715.09 Active 41065417 Problem Diabetes mellitus without mention of complication, type II or unspecified type, not stated as uncontrolled 250.00 Active 058714226 Problem [place] of foot 700 Active 799391890 Problem Other and unspecified hyperlipidemia 272.4 Active 72086821 Problem Other B-complex deficiencies 266.2 Active 996197144 Problem Other vitamin B12 deficiency anemia 281.1 Active 01684024 Problem Volume depletion, unspecified 276.50 Active 57061103 ALLERGIES No Information ENCOUNTERS Encounter Location Date Diagnosis [address] [id number] [place] [id number] August, [address] [id number] [place] [id number] August, [address] [id number] [place] [id number] August, [address] [id number] August, Chronic atrial fibrillation I48.2 ; B12 deficiency E53.8 and Type 2 diabetes mellitus without complication, without long-term current use of insulin E11.9 [facility] [place] [address] [place] [address] [id number] [place] [id number] August, [facility] [place] [address] [place] [address] [id number] [place] 856139699 August, correction (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 Z79.01 and Other vitamin B12 deficiency anemia 281.1 [facility] [place] [address] [place] [address] [id number] [place] 285221494 Jul, Type 2 diabetes mellitus without complications E11.9 ; ad 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 operator (current ) use of 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 Z79.01 ; Other vitamin B12 deficiency anemias D51.8 and Malignant neoplasm of central portion of right female breast C50.111 [facility] [place] [address] [place] [address] [id number] [place] [id number] Jun, ad 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 operator (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 Z79.01 ; Falls frequently R29.6 ; Unspecified atrial fibrillation I48.91 and Encounter for long-term (current) use of other medications V58.69 [facility] [place] [address] [place] [address] [id number] [place] [id number] 28 May, 2017 Fall, initial encounter W19.XXXA ; Encounter for long-term (current) use of other medications V58.69 ; correction (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 Z79.01 and Persistent atrial fibrillation I48.1 [facility] [place] [address] [place] [address] C [id number] [place] [id number] 14 May, 2017 [facility] [place] [address] [place] [address] [id number] [place] [id number] Mar, Bronchitis J40 and Chronic renal failure, stage 3 (moderate) N18.3 [facility] [place] [address] [place] [address] C [id number] [place] [id number] Feb, Encounter for long-term (current) use of other medications V58.69 [facility] [place] [address] [place] [address] C [id number] [place] [id number] Feb, Chronic atrial fibrillation I48.2 and Other terminal clerk (current) drug therapy Z79.899 [facility] [place] [address] [place] [address] [id number] [place] [id number] Jan, Chronic atrial fibrillation I48.2 and Encounter for long-term (current) use of other medications V58.69 [facility] [place] [address] [place] [address] [id number] [place] [id number] Jan, correction current use of anticoagulant therapy Z79.01 [facility] [place] [address] [place] [address] [id number] [place] [id number] Jan, Medicare welcome exam Z00.00 ; Medicare annual wellness visit, initial Z00.00 ; Medicare annual wellness visit, subsequent Z00.00 ; Vitamin B12 deficiency E53.8 ; Falls frequently R29.6 ; Unspecified atrial fibrillation I48.91 ; 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 Z79.01 and Encounter for immunization Z23 [facility] [place] [address] [place] [address] [id number] [place] [id number] Oct, Encounter for long-term (current) use of other medications V58.69 ; Type 2 diabetes mellitus without complications E11.9 ; ad 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 operator (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 Z79.01 ; Malignant neoplasm of central portion of right female breast C50.111 ; Orthostatic hypotension I95.1 ; Seborrheic keratosis L82.1 and Vitamin B12 deficiency E53.8 [facility] [place] [address] [place] [address] [id number] [place] [id number] Jun, ad 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 operator (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 Z79.01 [facility] [place] [address] [place] [address] [id number] [place] 893805478 Jun, Skin cancer C44.90 [facility] [place] [address] [place] [address] [id number] [place] [id number] Apr, correction (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 Z79.01 ; Unspecified atrial fibrillation I48.91 ; Infected tooth K04.7 ; Other vitamin B12 deficiency anemias D51.8 and Malignant neoplasm of central portion of right female breast C50.111 [facility] [place] [address] [facility] C [id number] [place] [id number] Mar, Chronic atrial fibrillation I48.2 and correction current use of anticoagulant therapy Z79.01 [facility] [place] [address] [place] [address] C [id number] [place] [id number] Mar, Ulcerated, foot L97.509 ; Chronic atrial fibrillation I48.2 ; Chronic renal failure, stage 3 (moderate) N18.3 and Other vitamin B12 deficiency anemias D51.8 [facility] [place] [address] [place] [address] C [id number] [place] [id number] Feb, Ulcerated, foot L97.509 and Cellulitis of foot L03.119 [facility] [place] [address] [place] [address] C [id number] [place] [id number] Feb, Type 2 diabetes mellitus without complications E11.9 ; Encounter for immunization Z23 ; Ileostomy status Z93.2 ; Vitamin B12 deficiency E53.8 ; Subacute vaginitis N76.1 ; UTI (urinary tract infection) N39.0 and Fall, initial encounter W19.XXXA [facility] [place] [address] [place] [address] C [id number] [place] [id number] Jan, [facility] [place] [address] [place] [address] C [id number] [place] [id number] Jan, [facility] [place] [address] [place] [address] C [id number] [place] [id number] Dec, [facility] [place] [address] [place] [address] C [id number] [place] [id number] Nov, Type 2 diabetes mellitus without complications E11.9 ; Chronic atrial fibrillation I48.2 ; 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 Z79.01 and Malignant neoplasm of central portion of right female breast C50.111 [facility] [place] [address] [place] [address] C [id number] [place] [id number] Sep, [facility] [place] [address] [place] [address] C [id number] [place] [id number] Sep, 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 and Orthostatic hypotension I95.1 [facility] [place] [address] [place] [address] C [id number] [place] [id number] August, [facility] [place] [address] [place] [address] [id number] [place] [id number] August, Type 2 diabetes mellitus without complications E11.9 and Chronic renal failure, stage 3 (moderate) N18.3 [facility] [place] [address] [place] [address] [id number] [place] [id number] August, Encounter for long-term (current) use of other medications V58.69 ; 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 V58.61 ; Chronic atrial fibrillation I48.2 ; Wheezing R06.2 ; Breast mass N63 and Lung mass R91.8 [facility] [place] [address] [place] [address] [id number] [place] [id number] Jul, UTI (urinary tract infection) N39.0 ; Type 2 diabetes mellitus without complications E11.9 ; Cholelithiasis K80.20 and Chronic renal failure, stage 3 ( moderate) N18.3 [facility] [address] [place] [address] [id number] [place] [id number] Jul, [address] [id number] [place] [address]58[address] Jul, Urge incontinence N39.41 ; Orthostatic hypotension I95.1 ; Bronchitis J40 ; UTI (urinary tract infection) N39.0 ; Cholecystitis K81.9 ; 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 and Type 2 diabetes mellitus without complications E11.9 [facility] [place] [id number] [place] [id number] Jun, correction current use of anticoagulant therapy Z79.01 ; Unspecified atrial fibrillation I48.91 and Encounter for long-term (current) use of other medications Z79.899 [facility] [place] [address] [place] [address] C [id number] [place] [id number] Jun, Unspecified atrial fibrillation I48.91 ; Other correction (current) drug therapy Z79.899 ; correction (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 Z79.01 ; Ulcerated, foot L97.509 and Orthostatic hypotension I95.1 [facility] [place] [address] [place] [address] [id number] [place] [id number] Apr, [facility] [place] [address] [place] [address] [id number] [place] [id number] Mar, [facility] [place] [address] [place] [address] [id number] [place] [id number] Mar, [facility] [place] [address] [place] [address] [id number] [place] [id number] Mar, [facility] [place] [address] [place] [address] [id number] [place] [id number] Mar, Cholecystitis K81.9 ; 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 Z79.01 ; Chronic atrial fibrillation I48.2 ; Encounter for long-term (current) use of other medications Z79.899 ; GERD (gastroesophageal reflux disease) K21.9 ; 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 and Skin tag L91.[address] [id number] [place] [id number] Feb, Chronic atrial fibrillation I48.2 ; correction current use of anticoagulant therapy Z79.01 ; Encounter for long-term (current) use of other medications Z79.899 and Ulcerated, foot L97.[address] [id number] [place] [id number] Jan, Chronic atrial fibrillation I48.2 ; correction current use of anticoagulant therapy Z79.01 and Vitamin B12 deficiency anemia, unspecified D51.[address] [id number] [place], [place] 445281755 Jan, Chronic atrial fibrillation I48.2 ; correction current use of anticoagulant therapy Z79.01 ; Encounter for long-term (current) use of other medications Z79.899 ; Encounter for immunization Z23 and Cellulitis of foot L03.119 [facility] [address] [place] [address] C [id number] [place] [id number] Jan, [facility] [address] [place] [address] [id number] [place] [id number] Jan, Type 2 diabetes mellitus without complications E11.9 ; Callus of foot L84 and Ulceration L98.[address] [id number] [place] [id number] Dec, Atrial fibrillation 427.31 ; Encounter for long-term (current) use of other medications V58.69 ; 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 V58.61 and [place] of foot [address] [id number] [place] 216383849 Nov, Ileostomy status V44.2 ; Other vitamin B12 deficiency anemia 281.1 ; Atrial fibrillation 427.31 ; Encounter for long-term (current) use of other medications V58.69 and correction current use of anticoagulant therapy V58.[address] [id number] [place] [id number] Oct, 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 ; Atrial fibrillation 427.31 ; Encounter for long-term (current) use of other medications V58.69 and 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 V58.[address] [id number] [place] [id number] Oct, Atrial fibrillation 427.31 ; Diabetes mellitus without mention of complication, type II or unspecified type, not stated as uncontrolled 250.00 ; Encounter for long-term (current) use of other medications V58.69 ; correction current use of anticoagulant therapy V58.61 ; Cold intolerance 780.99 ; Imbalance 781.2 and Other B-complex deficiencies 266.[address] [id number] [place] [id number] Oct, [address] [id number] [place] [id number] Sep, [address] [id number] [place] 062641349 August, Ileostomy status V44.2 ; Diabetes mellitus without mention of complication , type II or unspecified type, not stated as uncontrolled 250.00 ; Other vitamin B12 deficiency anemia 281.1 ; Atrial fibrillation 427.31 and Foot ulcer , right 707.[address] [id number] [place] [id number] August, [facility] [address] [facility] [id number] [place] [address] Jul, [facility] [place] [facility] [address] [facility] [id number] [facility] [address] Jul, [facility] [place] [facility] [address] [facility] [id number] [facility] [address] Jun, [facility] [place] [address] [id number] [place] [id number] Jun, [facility] [place] [address] [id number] [place] [id number] Apr, [facility] [place] [address] [id number] [place] [id number] Apr, [facility] [place] [address] [facility] [address] [id number] [place] [id number] Apr, [facility] [place] [facility] [address] [facility] [id number] [place] [address] Apr, [facility] [place] [facility] [address] [facility] [id number] [place] [address] Apr, [facility] [place] [facility] [address] [facility] [id number] [facility] [place] [address] Apr, [facility] [place] [address] [facility] [address] [id number] [place] [id number] Apr, [facility] [place] [facility] [address] [facility] [id number] [place] [address] Apr, [facility] [place] [facility] [address] [facility] [id number] [place] [address] Apr, [facility] [place] [address] [facility] [address] [id number] [place] [id number] Apr, [facility] [place] [facility] [address] [facility] [id number] [place] [address] Apr, [facility] [place] [facility] [address] [facility] [id number] [place] [address]- [address] Mar, [facility] [place] [facility] [address] [facility] [id number] [place] [address] Mar, [facility] [place] [facility] [address] [id number] [facility] [place] [address] Mar, [facility] [place] [address] [facility] [address] [id number] [place] [id number] Mar, [facility] [place] [address] [facility] [address] [id number] [place] [id number] Feb, [facility] [place] [facility] [address] [facility] [id number] [place] [address] Feb, [facility] [place] [address] [facility] [id number] [place] [address] Jan, [facility] [place] [address] [facility] [address] [id number] [place] [id number] Jan, [facility] [place] [facility] [address] [facility] [id number] [place] [address] Jan, [facility] [address] [facility] [id number] [place] [address] Dec, [facility] [place] [address] [facility] [address] [id number] [place] [id number] Dec, [facility] [address] [facility] [id number] [place] [address] Dec, [facility] [place] [address] [facility] [address] [id number] [place] [id number] Dec, [facility] [place] [facility] [address] [facility] [id number] [place] [address]- [address] Nov, [facility] [place] [address] [facility] [address] [id number] [place] [id number] Nov, [facility] [place] [address] [facility] [address] [id number] [place] [id number] Oct, [facility] [place] [facility] [address] [facility] [id number] [place] [address] Oct, [facility] [place] [facility] [address] [facility] [id number] [place] [address]- [address] Sep, [facility] [place] [facility] [address] [id number] [place] [address]- [address] Sep, [facility] [place] [address] [id number] [place] 156133843 Sep, [facility] [place] [address] [id number] [place] [id number] Sep, [facility] [place] [facility] [address] [id number] [place] [address]- [address] Sep, [facility] [place] [address] [id number] [place] [id number] August, [facility] [place] [facility] [address] [id number] [place] [address]- [address] August, [facility] [place] [address] [facility] [address] [id number] [place] [id number] August, [facility] [place] [facility] [address] [id number] [place] [address]- [address] August, [facility] [place] [address] [id number] [place] [id number] Jul, [facility] [place] [facility] [address] [id number] [place]- [address] Jul, [facility] [place] [address] [facility] [address] [id number] [place] [id number] Jun, [facility] [place] [facility] [address] [id number] [place] [address]- [address] Jun, [facility] [place] [address] [id number] [place] [id number] Jun, [facility] [place] [facility] [address] [id number] [facility] [address]- [address] Jun, [facility] [place] [address] [facility] [address] [id number] [place] [id number] May, [facility] [place] [facility] [address] [facility] [id number] [facility] [address] May, [facility] [place] [address] [id number] [place] [id number] May, [facility] [place] [facility] [address] [id number] [place] [address]- 0662 May, [facility] [place] [facility] [address] [id number] [place] [address]- [address]476 Apr, [facility] [place] [address] [id number] [place] [id number] Apr, [facility] [place] [address] [id number] [place] [id number] Mar, [facility] [address] [id number] [place] [address]- [address]482 Mar, [facility] [place] [address] [facility] [address] [id number] [place] 877691786 Mar, [facility] [address] [id number] [place] [address]- 9361 Mar, [facility] [place] [facility] [address] [id number] [place] [address]- 0762 Mar, [facility] [place] [address] [id number] [place] [id number] Mar, [facility] [place] [address] [facility] [address] [id number] [place] [id number] Mar, [facility] [address] [facility] [id number] [facility] [address] Mar, [facility] [place] [address] [facility] [address] [id number] [place] [id number] Feb, [facility] [place] [facility] [address] [id number] [place] [address] Feb, [facility] [place] [address] [facility] [address] [id number] [place] [id number] Feb, [facility] [place] [facility] [address] [facility] [id number] [facility] [place] [address] Feb, [facility] [place] [facility] [address] [facility] [id number] [place] [address] Jan, [facility] [place] [address] [facility] [id number] [place] [id number] Jan[facility] [place] [address] [facility] [id number] [place] [id number] Jan, IMMUNIZATIONS No Known Immunizations SOCIAL HISTORY Never Assessed REASON FOR VISIT INR-CRIS Felipe PLAN OF CARE Activity Details Follow Up 4 Weeks Reason: VITAL SIGNS MEDICATIONS Unknown Medications RESULTS Name Result Date Reference Range INR (IN HOUSE) 2017-02-16 INR 2.4 1.10 - 3.30 PREVIOUS INR 2.9 CURRENT COUMADIN DOSE 4 mg T, W, T, S, S NEW COUMADIN DOSE continue current dose Lot # [id number] Exp date 02/06/18 PROCEDURES Procedure Date Ordered Result Body Site PROTHROMBIN TIME Feb 16, 2017 INSTRUCTIONS MEDICATIONS ADMINISTERED No Known [...]
--- OUTSIDE RECORDS SUMMARY | 2018-06-21 06:23 | XMS REPORT ---
Author Author ZARINA VERGARA [facility] eClinicalWorks Address Unknown Phone Unavailable Care Team Providers Care Product Safety Associate Name Role Phone ZARINA VERGARA CP Unavailable Allergies, Adverse Reactions, Alerts Substance Reaction Event Type Penicillin V Potassium Info Not Available Drug Allergy Problems Problem Type Condition Code Onset Dates Condition Status Assessment FDC (current) use of anticoagulants Z79.01 Active Assessment Ulcerated, foot L97.509 Active Assessment Unspecified atrial fibrillation I48.91 Active Assessment Other chcf (current) drug therapy Z79.899 Active Problem Diabetes mellitus without mention of [...] Personal history of fall V15.88 Active Problem [place] of foot 700 Active Problem Accidental fall on or from other stairs or steps E880.9 Active Problem Cellulitis of foot L03.119 Active Problem Chronic atrial fibrillation I48.2 Active Problem terminal superintendent current use of anticoagulant therapy Z79.01 Active Problem Orthostatic hypotension I95.1 Active Problem GERD (gastroesophageal reflux disease) K21.9 Active Problem Other and unspecified hyperlipidemia 272.4 Active Problem Nausea alone 787.02 Active Problem Unspecified atrial fibrillation I48.91 Active Problem Volume depletion, unspecified 276.50 Active Problem Skin tag L91.8 Active Problem Ulcerated, foot L97.509 Active Problem 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 Active Problem Cholecystitis K81.9 Active Problem Other B-complex deficiencies 266.2 Active Assessment Orthostatic hypotension I95.1 Active Problem Generalized osteoarthrosis, involving multiple sites 715.09 Active Problem Ileostomy status V44.2 Active Problem 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 Active Problem Pain in joint, forearm 719.43 Active Problem Macular degeneration (senile) of retina, unspecified 362.50 Active Problem Atrial fibrillation 427.31 Active Problem Need for prophylactic vaccination and inoculation, Influenza V04.81 Active Medications Medication Code System Code Instructions Start Date End Date Status Dosage Warfarin Sodium [facility] [address]-43 4 MG Orally Once a day except HOLD Sat/ Sun Apr 08, 2015 1 tablet Metoprolol Tartrate [facility] [address]-56 25 MG 2 times a day Apr 08, 2015 0.5 tablet by mouth Aspir-81 [facility] [address]-16 81 MG Orally Once a day 1 tablet Multivitamin/Minerals ND 0 not defined Maalox Regular Strength [facility] [address]-89 200-200-20 MG/5ML Orally Four times a day Apr 08, 2015 10 ml as needed Omeprazole [facility] [address]-23 40 MG Orally Once a day 1 capsule Blood Glucose Monitor System [facility] 24643-[address]62 w/Device 4 times a day August as directed Magnesium Oxide [facility] [address]-05 800 Orally Once a day as directed Simethicone [facility] [address]-00 80 MG Orally 4 times a day PRN not defined Glimepiride [facility] [address]-77 2 mg May 06, 2014 take 1 tablet (2 mg) by oral route once daily Amiodarone HCl [facility] [address]-33 200 MG Orally Once a day 1 tablet Procedures Procedure Coding System Code Date [facility] V[facility] ESTABLISHED PATIENT CPT-4 G0467 June 16, 2015 Office Visit, Est Pt., Level 3 CPT-4 67100 June 16, 2015 PROTHROMBIN TIME CPT-4 07233 June 16, 2015 Vital Signs Date/Time: June 16, 2015 Temperature 97.5 F Weight 120.4 lbs Height 65 in BMI 20.03 Index Blood Pressure Diastolic 70 mmHg Blood Pressure Systolic 120 mmHg Cardiac Monitoring Heart Rate 80 bpm Results No Known Results Summary Purpose eClinicalWorks Submission
--- OUTSIDE RECORDS SUMMARY | 2018-06-21 06:23 | XMS REPORT ---
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 Active Problem Ileostomy status V44.2 Active Problem Generalized osteoarthrosis, involving multiple sites 715.09 Active Problem Other B-complex deficiencies 266.2 Active Problem Atrial fibrillation 427.31 Active Problem Need for prophylactic vaccination and inoculation, Influenza V04.81 Active Problem Pain in joint, forearm 719.43 Active Problem Macular degeneration (senile) of retina, unspecified 362.50 Active Problem Pain in joint, shoulder region 719.41 Active Problem Bronchitis J40 Active Problem [place] of foot 700 Active Problem Urge incontinence N39.41 Active Problem Cellulitis of foot L03.119 Active Problem Chronic renal failure, stage 3 (moderate) N18.3 Active Problem Lung mass R91.8 Active Problem Cholelithiasis K80.20 Active Problem Vitamin B12 deficiency E53.8 Active Problem Subacute vaginitis N76.1 Active Problem Ulcerated, foot L97.509 Active Problem Chronic atrial fibrillation I48.2 Active Problem Unspecified myalgia and myositis 729.1 Active Problem Ileostomy status Z93.2 Active Problem 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 Active Problem Other vitamin B12 deficiency anemia 281.1 Active Problem Wheezing R06.2 Active Problem Urinary tract infection, site not specified 599.0 Active Problem Breast mass N63 Active Problem Diabetes mellitus without mention of complication, type II or unspecified type, not stated as uncontrolled 250.00 Active Problem Fall, initial encounter W19.XXXA Active Problem Malignant neoplasm of central portion of right female breast C50.111 Active Problem Nausea alone 787.02 Active Problem 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 Active Problem Other and unspecified hyperlipidemia 272.4 Active Problem GERD (gastroesophageal reflux disease) K21.9 Active Problem Accidental fall on or from other stairs or steps E880.9 Active Problem Skin tag L91.8 Active Problem Volume depletion, unspecified 276.50 Active Problem Cholecystitis K81.9 Active Problem Other general symptoms 780.99 Active Problem Type 2 diabetes mellitus without complications E11.9 Active Problem Personal history of fall V15.88 Active Problem UTI (urinary tract infection) N39.0 Active Problem Orthostatic hypotension I95.1 Active Problem Unspecified atrial fibrillation I48.91 Active Medications Medication Code System Code Instructions Start Date End Date Status Dosage Magnesium Oxide [facility] 33654104920 400 (240 Mg) MG TAKE 2 TABLETS BY MOUTH ONCE A DAY Results No Known Results Summary Purpose eClinicalWorks Submission
--- OUTSIDE RECORDS SUMMARY | 2018-06-21 06:23 | XMS REPORT ---
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.01 Active Problem Other B-complex deficiencies 266.2 Active Assessment Chronic atrial fibrillation I48.2 Active Problem Generalized osteoarthrosis, involving multiple sites 715.09 Active Problem Need for prophylactic vaccination and inoculation, Influenza V04.81 Active Problem Atrial fibrillation 427.31 Active 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
--- OUTSIDE RECORDS SUMMARY | 2018-06-21 06:24 | XMS REPORT ---
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
--- OUTSIDE RECORDS SUMMARY | 2018-06-21 06:24 | XMS REPORT | Continuity of Care Document ---
Author Author Formerly [facility] of [facility] Address Unknown Phone Unavailable Allergies Active Description Code Type Severity Reaction Onset Reported/Identified Relationship to Patient Clinical Status Yes amoxicillin NKMA N/A N/A 07/23/2014 Yes Penicillins [id number] Drug Allergy Severe BREATHING DIFFI 06/18/2018 Medications There is no data. Problems Date Dx Coded Attending Type Code Diagnosis Diagnosed By 02/06/2013 ZARINA VERGARA MD 250.00 DIABETES II CONTROLLED (UNCOMPLICATED) 02/06/2013 ZARINA VERGARA MD 250.00 DIABETES II CONTROLLED (UNCOMPLICATED) 02/06/2013 ZARINA VERGARA MD 250.00 DIABETES II CONTROLLED (UNCOMPLICATED) 02/06/2013 ZARINA VERGARA MD 250.00 DIABETES II CONTROLLED (UNCOMPLICATED) 02/06/2013 ZARINA VERGARA MD 250.00 DIABETES II CONTROLLED (UNCOMPLICATED) 02/06/2013 250.00 DIABETES II CONTROLLED (UNCOMPLICATED) 02/06/2013 ZARINA VERGARA MD 250.00 DIABETES II CONTROLLED (UNCOMPLICATED) 02/06/2013 ZARINA VERGARA MD 250.00 DIABETES II CONTROLLED (UNCOMPLICATED) 02/06/2013 ZARINA VERGARA MD 250.00 DIABETES II CONTROLLED (UNCOMPLICATED) 02/06/2013 ZARINA VERGARA MD 250.00 DIABETES II CONTROLLED (UNCOMPLICATED) 02/06/2013 ZARINA VERGARA MD 250.00 DIABETES II CONTROLLED (UNCOMPLICATED) 02/06/2013 ZARINA VERGARA MD 250.00 DIABETES II CONTROLLED (UNCOMPLICATED) 02/06/2013 ZARINA VERGARA MD 250.00 DIABETES II CONTROLLED (UNCOMPLICATED) 02/06/2013 ZARINA VERGARA MD 250.00 DIABETES II CONTROLLED (UNCOMPLICATED) 02/06/2013 ZARINA VERGARA MD 250.00 DIABETES II CONTROLLED (UNCOMPLICATED) 02/06/2013 ZARINA VERGARA MD 250.00 DIABETES II CONTROLLED (UNCOMPLICATED) 02/06/2013 ZARINA VERGARA MD 250.00 DIABETES II CONTROLLED (UNCOMPLICATED) 02/06/2013 ZARINA VERGARA MD 250.00 DIABETES II CONTROLLED (UNCOMPLICATED) 02/06/2013 ZARINA VERGARA MD 250.00 DIABETES II CONTROLLED (UNCOMPLICATED) 02/06/2013 ZARINA VERGARA MD 250.00 DIABETES II CONTROLLED (UNCOMPLICATED) 02/06/2013 ZARINA VERGARA MD 250.00 DIABETES II CONTROLLED (UNCOMPLICATED) 02/10/2013 ZARINA VERGARA MD 266.2 OTHER B-COMPLEX DEFICIENCIES 02/10/2013 ZARINA VERGARA MD 272.4 HYPERLIPIDEMIA 02/10/2013 ZARINA VERGARA MD 427.31 ATRIAL FIBRILLATION 02/10/2013 ZARINA VERGARA MD 556.0 ULCERATIVE (CHRONIC) ENTEROCOLITIS 02/10/2013 ZARINA VERGARA MD 715.09 OSTEOARTHROSIS GENERALIZED INVOLVING MULTIPLE SITES 02/10/2013 ZARINA VERGARA MD V04.81 FLU SHOT 02/10/2013 ZARINA VERGARA MD V44.2 ILEOSTOMY STATUS 02/10/2013 ZARINA VERGARA MD 266.2 OTHER B-COMPLEX DEFICIENCIES 02/10/2013 ZARINA VERGARA MD 272.4 HYPERLIPIDEMIA 02/10/2013 ZARINA VERGARA MD 427.31 ATRIAL FIBRILLATION 02/10/2013 ZARINA VERGARA MD 556.0 ULCERATIVE (CHRONIC) ENTEROCOLITIS 02/10/2013 ZARINA VERGARA MD 715.09 OSTEOARTHROSIS GENERALIZED INVOLVING MULTIPLE SITES 02/10/2013 ZARINA VERGARA MD V04.81 FLU SHOT 02/10/2013 ZARINA VERGARA MD V44.2 ILEOSTOMY STATUS 02/10/2013 ZARINA VERGARA MD 266.2 OTHER B-COMPLEX DEFICIENCIES 02/10/2013 ZARINA VERGARA MD 272.4 HYPERLIPIDEMIA 02/10/2013 ZARINA VERGARA MD 427.31 ATRIAL FIBRILLATION 02/10/2013 ZARINA VERGARA MD 556.0 ULCERATIVE (CHRONIC) ENTEROCOLITIS 02/10/2013 ZARINA VERGARA MD 715.09 OSTEOARTHROSIS GENERALIZED INVOLVING MULTIPLE SITES 02/10/2013 ZARINA VERGARA MD V04.81 FLU SHOT 02/10/2013 ZARINA VERGARA MD V44.2 ILEOSTOMY STATUS 02/10/2013 ZARINA VERGARA MD 266.2 OTHER B-COMPLEX DEFICIENCIES 02/10/2013 ZARINA VERGARA MD 272.4 HYPERLIPIDEMIA 02/10/2013 ZARINA VERGARA MD 427.31 ATRIAL FIBRILLATION 02/10/2013 ZARINA VERGARA MD 556.0 ULCERATIVE (CHRONIC) ENTEROCOLITIS 02/10/2013 ZARINA VERGARA MD 715.09 OSTEOARTHROSIS GENERALIZED INVOLVING MULTIPLE SITES 02/10/2013 ZARINA VERGARA MD V04.81 FLU SHOT 02/10/2013 ZARINA VERGARA MD V44.2 ILEOSTOMY STATUS 02/10/2013 266.2 OTHER B- COMPLEX DEFICIENCIES 02/10/2013 272.4 HYPERLIPIDEMIA 02/10/2013 427.31 ATRIAL FIBRILLATION 02/10/2013 556.0 ULCERATIVE ( CHRONIC) ENTEROCOLITIS 02/10/2013 715.09 OSTEOARTHROSIS GENERALIZED INVOLVING MULTIPLE SITES 02/10/2013 V04.81 FLU SHOT 02/10/2013 V44.2 ILEOSTOMY STATUS 02/10/2013 ZARINA VERGARA MD 266.2 OTHER B-COMPLEX DEFICIENCIES 02/10/2013 ZARINA VERGAAR MD 272.4 HYPERLIPIDEMIA 02/10/2013 ZARINA VERGARA MD 427.31 ATRIAL FIBRILLATION 02/10/2013 ZARINA VERGARA MD 556.0 ULCERATIVE (CHRONIC) ENTEROCOLITIS 02/10/2013 ZARINA VERGARA MD 715.09 OSTEOARTHROSIS GENERALIZED INVOLVING MULTIPLE SITES 02/10/2013 ZARINA VERGARA MD V04.81 FLU SHOT 02/10/2013 ZARINA VERGARA MD V44.2 ILEOSTOMY STATUS 02/10/2013 ZARINA VERGARA MD 266.2 OTHER B-COMPLEX DEFICIENCIES 02/10/2013 ZARINA VERGARA MD 272.4 HYPERLIPIDEMIA 02/10/2013 ZARINA VERGARA MD 427.31 ATRIAL FIBRILLATION 02/10/2013 ZARINA VERGARA MD 556.0 ULCERATIVE (CHRONIC) ENTEROCOLITIS 02/10/2013 ZARINA VERGARA MD 715.09 OSTEOARTHROSIS GENERALIZED INVOLVING MULTIPLE SITES 02/10/2013 ZARINA VERGARA MD V04.81 FLU SHOT 02/10/2013 ZARINA VERGARA MD V44.2 ILEOSTOMY STATUS 02/10/2013 ZARINA VERGARA MD 266.2 OTHER B-COMPLEX DEFICIENCIES 02/10/2013 ZARINA VERGARA MD 272.4 HYPERLIPIDEMIA 02/10/2013 ZARINA VERGARA MD 427.31 ATRIAL FIBRILLATION 02/10/2013 ZARINA VERGARA MD 556.0 ULCERATIVE (CHRONIC) ENTEROCOLITIS 02/10/2013 ZARIAN VERGARA MD 715.09 OSTEOARTHROSIS GENERALIZED INVOLVING MULTIPLE SITES 02/10/2013 ZARINA VERGARA MD V04.81 FLU SHOT 02/10/2013 ZARINA VERGARA MD V44.2 ILEOSTOMY STATUS 02/10/2013 ZARINA VERGARA MD 266.2 OTHER B-COMPLEX DEFICIENCIES 02/10/2013 ZARINA VERGARA MD 272.4 HYPERLIPIDEMIA 02/10/2013 ZARINA VERGARA MD 427.31 ATRIAL FIBRILLATION 02/10/2013 ZARINA VERGARA MD 556.0 ULCERATIVE (CHRONIC) ENTEROCOLITIS 02/10/2013 ZARINA VERGARA MD 715.09 OSTEOARTHROSIS GENERALIZED INVOLVING MULTIPLE SITES 02/10/2013 ZARINA VERGARA MD V04.81 FLU SHOT 02/10/2013 ZARINA VERGARA MD V44.2 ILEOSTOMY STATUS 02/10/2013 ZARINA VERGARA MD 266.2 OTHER B-COMPLEX DEFICIENCIES 02/10/2013 ZARINA VERGARA MD 272.4 HYPERLIPIDEMIA 02/10/2013 ZARINA VERGARA MD 427.31 ATRIAL FIBRILLATION 02/10/2013 ZARINA VERGARA MD 556.0 ULCERATIVE (CHRONIC) ENTEROCOLITIS 02/10/2013 ZARINA VERGARA MD 715.09 OSTEOARTHROSIS GENERALIZED INVOLVING MULTIPLE SITES 02/10/2013 ZARINA VERGARA MD V04.81 FLU SHOT 02/10/2013 ZARINA VERGARA MD V44.2 ILEOSTOMY STATUS 02/10/2013 ZARINA VERGARA MD 266.2 OTHER B-COMPLEX DEFICIENCIES 02/10/2013 ZARINA VERGARA MD 272.4 HYPERLIPIDEMIA 02/10/2013 ZARINA VERGARA MD 427.31 ATRIAL FIBRILLATION 02/10/2013 ZARINA VERGARA MD 556.0 ULCERATIVE (CHRONIC) ENTEROCOLITIS 02/10/2013 ZARINA VERGARA MD 715.09 OSTEOARTHROSIS GENERALIZED INVOLVING MULTIPLE SITES 02/10/2013 ZARINA VERGARA MD V04.81 FLU SHOT 02/10/2013 ZARINA VERGARA MD V44.2 ILEOSTOMY STATUS 02/10/2013 ZARINA VERGARA MD 266.2 OTHER B-COMPLEX DEFICIENCIES 02/10/2013 ZARINA VERGARA MD 272.4 HYPERLIPIDEMIA 02/10/2013 ZARINA VERGARA MD 427.31 ATRIAL FIBRILLATION 02/10/2013 ZARINA VERGARA MD 556.0 ULCERATIVE (CHRONIC) ENTEROCOLITIS 02/10/2013 ZARINA VERGARA MD 715.09 OSTEOARTHROSIS GENERALIZED INVOLVING MULTIPLE SITES 02/10/2013 ZARINA VERGARA MD V04.81 FLU SHOT 02/10/2013 ZARINA VERGARA MD V44.2 ILEOSTOMY STATUS 02/10/2013 ZARINA VERGARA MD 266.2 OTHER B-COMPLEX DEFICIENCIES 02/10/2013 ZARINA VERGARA MD 272.4 HYPERLIPIDEMIA 02/10/2013 ZARINA VERGARA MD 427.31 ATRIAL FIBRILLATION 02/10/2013 ZARINA VERGARA MD 556.0 ULCERATIVE (CHRONIC) ENTEROCOLITIS 02/10/2013 ZARINA VERGARA MD 715.09 OSTEOARTHROSIS GENERALIZED INVOLVING MULTIPLE SITES 02/10/2013 ZARINA VERGARA MD V04.81 FLU SHOT 02/10/2013 ZARINA VERGARA MD V44.2 ILEOSTOMY STATUS 02/10/2013 ZARINA VERGARA MD 266.2 OTHER B-COMPLEX DEFICIENCIES 02/10/2013 ZARINA VERGARA MD 272.4 HYPERLIPIDEMIA 02/10/2013 ZARINA VERGARA MD 427.31 ATRIAL FIBRILLATION 02/10/2013 ZARINA VERGARA MD 556.0 ULCERATIVE (CHRONIC) ENTEROCOLITIS 02/10/2013 ZARINA VERGARA MD 715.09 OSTEOARTHROSIS GENERALIZED INVOLVING MULTIPLE SITES 02/10/2013 ZARINA VERGARA MD V04.81 FLU SHOT 02/10/2013 ZARINA VERGARA MD V44.2 ILEOSTOMY STATUS 02/10/2013 ZARINA VERGARA MD 266.2 OTHER B-COMPLEX DEFICIENCIES 02/10/2013 ZARINA VERGARA MD 272.4 HYPERLIPIDEMIA 02/10/2013 ZARINA VERGARA MD 427.31 ATRIAL FIBRILLATION 02/10/2013 ZARINA VERGARA MD 556.0 ULCERATIVE (CHRONIC) ENTEROCOLITIS 02/10/2013 ZARINA VERGARA MD 715.09 OSTEOARTHROSIS GENERALIZED INVOLVING MULTIPLE SITES 02/10/2013 ZARINA VERGARA MD V04.81 FLU SHOT 02/10/2013 ZARINA VERGARA MD V44.2 ILEOSTOMY STATUS 02/10/2013 ZARINA VERGARA MD 266.2 OTHER B-COMPLEX DEFICIENCIES 02/10/2013 ZARINA VERGARA MD 272.4 HYPERLIPIDEMIA 02/10/2013 ZARINA VERGARA MD 427.31 ATRIAL FIBRILLATION 02/10/2013 ZARINA VERGARA MD 556.0 ULCERATIVE (CHRONIC) ENTEROCOLITIS 02/10/2013 ZARINA VERGARA MD 715.09 OSTEOARTHROSIS GENERALIZED INVOLVING MULTIPLE SITES 02/10/2013 ZARINA VERGARA MD V04.81 FLU SHOT 02/10/2013 ZARINA VERGARA MD V44.2 ILEOSTOMY STATUS 02/10/2013 ZARINA VERGARA MD 266.2 OTHER B-COMPLEX DEFICIENCIES 02/10/2013 ZARINA VERGARA MD 272.4 HYPERLIPIDEMIA 02/10/2013 ZARINA VERGARA MD 427.31 ATRIAL FIBRILLATION 02/10/2013 ZARINA VERGARA MD 556.0 ULCERATIVE (CHRONIC) ENTEROCOLITIS 02/10/2013 ZARINA VERGARA MD 715.09 OSTEOARTHROSIS GENERALIZED INVOLVING MULTIPLE SITES 02/10/2013 ZARINA VERGARA MD V04.81 FLU SHOT 02/10/2013 ZARINA VERGARA MD V44.2 ILEOSTOMY STATUS 02/10/2013 ZARINA VERGARA MD 266.2 OTHER B-COMPLEX DEFICIENCIES 02/10/2013 ZARINA VERGARA MD 272.4 HYPERLIPIDEMIA 02/10/2013 ZARINA VERGARA MD 427.31 ATRIAL FIBRILLATION 02/10/2013 ZARINA VERGARA MD 556.0 ULCERATIVE (CHRONIC) ENTEROCOLITIS 02/10/2013 ZARINA VERGARA MD 715.09 OSTEOARTHROSIS GENERALIZED INVOLVING MULTIPLE SITES 02/10/2013 ZARINA VERGARA MD V04.81 FLU SHOT 02/10/2013 ZARINA VERGARA MD V44.2 ILEOSTOMY STATUS 02/10/2013 ZARINA VERGARA MD 266.2 OTHER B-COMPLEX DEFICIENCIES 02/10/2013 ZARINA VERGARA MD 272.4 HYPERLIPIDEMIA 02/10/2013 ZARINA VERGARA MD 427.31 ATRIAL FIBRILLATION 02/10/2013 ZARINA VERGARA MD 556.0 ULCERATIVE (CHRONIC) ENTEROCOLITIS 02/10/2013 ZARINA VERGARA MD 715.09 OSTEOARTHROSIS GENERALIZED INVOLVING MULTIPLE SITES 02/10/2013 ZARINA VERGARA MD V04.81 FLU SHOT 02/10/2013 ZARINA VERGARA MD V44.2 ILEOSTOMY STATUS 02/10/2013 ZARINA VERGARA MD 266.2 OTHER B-COMPLEX DEFICIENCIES 02/10/2013 ZARINA VERGARA MD 272.4 HYPERLIPIDEMIA 02/10/2013 ZARINA VERGARA MD 427.31 ATRIAL FIBRILLATION 02/10/2013 ZARINA VERGARA MD 556.0 ULCERATIVE (CHRONIC) ENTEROCOLITIS 02/10/2013 ZARINA VERGARA MD 715.09 OSTEOARTHROSIS GENERALIZED INVOLVING MULTIPLE SITES 02/10/2013 ZARINA VERGARA MD V04.81 FLU SHOT 02/10/2013 ZARINA VERGARA MD V44.2 ILEOSTOMY STATUS 04/11/2013 ZARINA VERGARA MD 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 04/11/2013 ZARINA VERGARA MD 719.41 PAIN IN JOINT INVOLVING SHOULDER REGION 04/11/2013 ZARINA VERGARA MD 719.43 joint pain, localized in the right wrist 04/11/2013 362.50 MACULAR ( RETINAL) DEGENERATION 04/11/2013 719.41 PAIN IN JOINT INVOLVING SHOULDER REGION 04/11/2013 719.43 joint pain, localized in the right wrist 04/11/2013 ZARINA VERGARA MD 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 04/11/2013 ZARINA VERGARA MD 719.41 PAIN IN JOINT INVOLVING SHOULDER REGION 04/11/2013 ZARINA VERGARA MD 719.43 joint pain, localized in the right wrist 04/11/2013 ZARINA VERGARA MD 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 04/11/2013 ZARINA VERGARA MD 719.41 PAIN IN JOINT INVOLVING SHOULDER REGION 04/11/2013 ZARINA VERGARA MD 719.43 joint pain, localized in the right wrist 04/11/2013 ZARINA VERGARA MD 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 04/11/2013 ZARINA VERGARA MD 719.41 PAIN IN JOINT INVOLVING SHOULDER REGION 04/11/2013 ZARINA VERGARA MD 719.43 joint pain, localized in the right wrist 04/11/2013 ZARINA VERGARA MD 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 04/11/2013 ZARINA VERGARA MD 719.41 PAIN IN JOINT INVOLVING SHOULDER REGION 04/11/2013 ZARINA VERGARA MD 719.43 joint pain, localized in the right wrist 04/11/2013 ZARINA VERGARA MD 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 04/11/2013 ZARINA VERGARA MD 719.41 PAIN IN JOINT INVOLVING SHOULDER REGION 04/11/2013 ZARINA VERGARA MD 719.43 joint pain, localized in the right wrist 04/11/2013 ZARINA VERGARA MD 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 04/11/2013 ZARINA VERGARA MD 719.41 PAIN IN JOINT INVOLVING SHOULDER REGION 04/11/2013 ZARINA VERGARA MD 719.43 joint pain, localized in the right wrist 04/11/2013 ZARINA VERGARA MD 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 04/11/2013 ZARINA VERGARA MD 719.41 PAIN IN JOINT INVOLVING SHOULDER REGION 04/11/2013 ZARINA VERGARA MD 719.43 joint pain, localized in the right wrist 04/11/2013 ZARINA VERGARA MD 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 04/11/2013 ZARINA VERGARA MD 719.41 PAIN IN JOINT INVOLVING SHOULDER REGION 04/11/2013 ZARINA VERGARA MD 719.43 joint pain, localized in the right wrist 04/11/2013 ZARINA VERGARA MD 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 04/11/2013 ZARINA VERGARA MD 719.41 PAIN IN JOINT INVOLVING SHOULDER REGION 04/11/2013 ZARINA VERGARA MD 719.43 joint pain, localized in the right wrist 04/11/2013 ZARINA VERGARA MD 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 04/11/2013 ZARINA VERGARA MD 719.41 PAIN IN JOINT INVOLVING SHOULDER REGION 04/11/2013 ZARINA VERGARA MD 719.43 joint pain, localized in the right wrist 04/11/2013 ZARINA VERGARA MD 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 04/11/2013 ZARINA VERGARA MD 719.41 PAIN IN JOINT INVOLVING SHOULDER REGION 04/11/2013 ZARINA VERGARA MD 719.43 joint pain, localized in the right wrist 04/11/2013 ZARINA VERGARA MD 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 04/11/2013 ZARINA VERGARA MD 719.41 PAIN IN JOINT INVOLVING SHOULDER REGION 04/11/2013 ZARINA VERGARA MD 719.43 joint pain, localized in the right wrist 04/11/2013 ZARINA VERGARA MD 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 04/11/2013 ZARINA VERGARA MD 719.41 PAIN IN JOINT INVOLVING SHOULDER REGION 04/11/2013 ZARINA VERGARA MD 719.43 joint pain, localized in the right wrist 04/11/2013 ZARINA VERGARA MD 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 04/11/2013 ZARINA VERGARA MD 719.41 PAIN IN JOINT INVOLVING SHOULDER REGION 04/11/2013 ZARINA VERGARA MD 719.43 joint pain, localized in the right wrist 04/11/2013 ZARINA VERGARA MD 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 04/11/2013 ZARINA VERGARA MD 719.41 PAIN IN JOINT INVOLVING SHOULDER REGION 04/11/2013 ZARINA VERGARA MD 719.43 joint pain, localized in the right wrist 06/18/2013 ZARINA VERGARA MD E880.9 fall on and from stairs and steps 06/18/2013 ZARINA VERGARA MD V15.88 PERSONAL HISTORY OF FALL 06/18/2013 ZARINA VERGARA MD E880.9 fall on and from stairs and steps 06/18/2013 ZARINA VERGARA MD V15.88 PERSONAL HISTORY OF FALL 06/18/2013 ZARINA VERGARA MD E880.9 fall on and from stairs and steps 06/18/2013 ZARINA VERGARA MD V15.88 PERSONAL HISTORY OF FALL 06/18/2013 ZARINA VERGARA MD E880.9 fall on and from stairs and steps 06/18/2013 ZARINA VERGARA MD V15.88 PERSONAL HISTORY OF FALL 06/18/2013 ZARINA VERGARA MD E880.9 fall on and from stairs and steps 06/18/2013 ZARINA VERGARA MD V15.88 PERSONAL HISTORY OF FALL 06/18/2013 ZARINA VERGARA MD E880.9 fall on and from stairs and steps 06/18/2013 ZARINA VERGARA MD V15.88 PERSONAL HISTORY OF FALL 06/18/2013 ZARINA VERGARA MD E880.9 fall on and from stairs and steps 06/18/2013 ZARINA VERGARA MD V15.88 PERSONAL HISTORY OF FALL 06/18/2013 ZARINA VERGARA MD E880.9 fall on and from stairs and steps 06/18/2013 ZARINA VERGARA MD V15.88 PERSONAL HISTORY OF FALL 06/18/2013 ZARINA VERGARA MD E880.9 fall on and from stairs and steps 06/18/2013 ZARINA VERGARA MD V15.88 PERSONAL HISTORY OF FALL 06/18/2013 ZARINA VERGARA MD E880.9 fall on and from stairs and steps 06/18/2013 ZARINA VERGARA MD V15.88 PERSONAL HISTORY OF FALL 06/18/2013 ZARINA VERGARA MD E880.9 fall on and from stairs and steps 06/18/2013 ZARINA VERGARA MD V15.88 PERSONAL HISTORY OF FALL 06/18/2013 ZARINA VERGARA MD E880.9 fall on and from stairs and steps 06/18/2013 ZARINA VERGARA MD V15.88 PERSONAL HISTORY OF FALL 06/18/2013 ZARINA VERGARA MD E880.9 fall on and from stairs and steps 06/18/2013 ZARINA VERGARA MD V15.88 PERSONAL HISTORY OF FALL 06/18/2013 ZARINA VERGARA MD E880.9 fall on and from stairs and steps 06/18/2013 ZARINA VERGARA MD V15.88 PERSONAL HISTORY OF FALL 06/18/2013 ZARINA VERGARA MD E880.9 fall on and from stairs and steps 06/18/2013 ZARINA VERGARA MD V15.88 PERSONAL HISTORY OF FALL 08/01/2013 ZARINA VERGARA MD 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 08/01/2013 ZARINA VERGARA MD 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 08/01/2013 ZARINA VERGARA MD 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 08/01/2013 ZARINA VERGARA MD 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 08/01/2013 ZARINA VERGARA MD 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 08/01/2013 ZARINA VERGARA MD 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 08/01/2013 ZARINA VERGARA MD 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 08/01/2013 ZARINA VERGARA MD 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 08/01/2013 ZARINA VERGARA MD 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 08/01/2013 ZARINA VERGARA MD 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 08/01/2013 ZARINA VERGARA MD 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 08/01/2013 ZARINA VERGARA MD 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 08/01/2013 ZARINA VERGARA MD 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 01/28/2014 ZARINA VERGARA MD 729.1 MYALGIA AND MYOSITIS UNSPECIFIED 01/28/2014 ZARINA VERGARA MD 780.99 OTHER GENERAL SYMPTOMS 01/28/2014 ZARINA VERGARA MD 729.1 MYALGIA AND MYOSITIS UNSPECIFIED 01/28/2014 ZARINA VERGARA MD 780.99 OTHER GENERAL SYMPTOMS 01/28/2014 ZARINA VERGARA MD 729.1 MYALGIA AND MYOSITIS UNSPECIFIED 01/28/2014 ZARINA VERGARA MD 780.99 OTHER GENERAL SYMPTOMS 01/28/2014 ZARINA VERGARA MD 729.1 MYALGIA AND MYOSITIS UNSPECIFIED 01/28/2014 ZARINA VERGARA MD 780.99 OTHER GENERAL SYMPTOMS 01/28/2014 ZARINA VERGARA MD 729.1 MYALGIA AND MYOSITIS UNSPECIFIED 01/28/2014 ZARINA VERGARA MD 780.99 OTHER GENERAL SYMPTOMS 04/06/2014 ZARINA VERGARA MD 599.0 URINARY TRACT INFECTION 04/06/2014 ZARINA VERGARA MD 599.0 URINARY TRACT INFECTION 04/06/2014 ZARINA VERGARA MD 599.0 URINARY TRACT INFECTION 04/14/2014 ZARINA VERGARA MD 276.50 VOLUME DEPLETION UNSPECIFIED 04/14/2014 ZARINA VERGARA MD 787.02 NAUSEA ALONE 04/14/2014 ZARINA VERGARA MD 276.50 VOLUME DEPLETION UNSPECIFIED 04/14/2014 ZARINA VERGARA MD 787.02 NAUSEA ALONE 07/10/2014 ZARINA VERGARA MD 700 CORNS AND CALLOSITIES 03/16/2015 Jazmine Hussein MD Final E11.9 Type 2 diabetes mellitus without complications 03/16/2015 Jazmine Hussein MD Final E78.5 Hyperlipidemia, unspecified 03/16/2015 Jazmine Hussein MD Final E83.42 Hypomagnesemia 03/16/2015 Jazmine Hussein MD Final E87.1 Hypo-osmolality and hyponatremia 03/16/2015 Jazmine Hussein MD Final E87.6 Hypokalemia 03/16/2015 Jazmine Hussein MD Final I21.4 Non-ST elevation (NSTEMI) myocardial infarction 03/16/2015 Jazmine Hussein MD Final I47.2 Ventricular tachycardia 03/16/2015 Jazmine Hussein MD Final I48.2 Chronic atrial fibrillation 03/16/2015 Jazmine Hussein MD Final I49.5 Sick sinus syndrome 03/16/2015 Jazmine Hussein MD Final K51.90 Ulcerative colitis, unspecified, without complications 03/16/2015 Jazmine Hussein MD Final K56.7 Ileus, unspecified 03/16/2015 Jazmine Hussein MD Final K80.00 Calculus of gallbladder with acute cholecystitis without obstruction 03/16/2015 Jazmine Hussein MD Final N17.9 Acute kidney failure, unspecified 03/16/2015 Jazmine Hussein MD Final N39.0 Urinary tract infection, site not specified 03/16/2015 Jazmine Hussein MD Final R79.1 Abnormal coagulation profile 03/16/2015 Jazmine Hussein MD Final Z66 Do not resuscitate 03/16/2015 Jazmine Hussein MD Final A41.9 Sepsis, unspecified organism Procedures Code Description [place] [address] ROUTINE VENIPUNCTURE 02/06/2013 [id number] GFR CALC (RESULT ONLY) 02/06/2013 72315 CMP 02/06/2013 75000 LIPID PANEL 02/06/2013 92632 CBC 02/06/2013 05226 INR (IN HOUSE) 02/10/2013 PHYSICAL OCCUPATIONAL THERAPY, 02/12/2013 G0008 FLU ADMINISTRATION ( MEDICARE ONLY) 02/12/2013 J3420 B12 VITAMIN INJECTION 02/12/2013 J3420 B12 VITAMIN INJECTION 02/16/2013 01557 INR (IN HOUSE) 03/12/2013 90592 INR (IN HOUSE) 04/11/2013 J3420 B12 VITAMIN INJECTION 04/11/2013 04636 INR (IN HOUSE) 05/12/2013 37750 INR (IN HOUSE) 05/26/2013 J3420 B12 VITAMIN INJECTION 06/03/2013 98628 INR (IN HOUSE) 06/18/2013 J3420 B12 VITAMIN INJECTION 06/18/2013 51154 INR (IN HOUSE) 07/02/2013 33964 INR (IN HOUSE) 08/01/2013 08522 INR (IN HOUSE) 09/02/2013 32462 CBC 10/01/2013 46070 CMP 10/01/2013 79907 LIPID PANEL 10/01/2013 9568634 GFR CALC (RESULT ONLY) 10/01/2013 40054 A1C (RML) 10/01/2013 96779 INR (IN HOUSE) 10/03/2013 84969 ROUTINE VENIPUNCTURE 10/09/2013 54431 INR (IN HOUSE) 10/31/2013 J3420 B12 VITAMIN INJECTION 10/31/2013 01971 INR (IN HOUSE) 12/01/2013 J3420 B12 VITAMIN INJECTION 12/01/2013 49421 INR (IN HOUSE) 12/31/2013 J3420 B12 VITAMIN INJECTION 12/31/2013 G0008 FLU ADMINISTRATION ( MEDICARE ONLY) 01/02/2014 91905 INR (IN HOUSE) 01/28/2014 J3420 B12 VITAMIN INJECTION 01/28/2014 75204 TSH 01/29/2014 87429 INR (IN HOUSE) 03/02/2014 J3420 B12 VITAMIN INJECTION 03/02/2014 54150 INR (IN HOUSE) 04/06/2014 57788 UA LONG DIP 04/06/2014 84062 CBC 04/07/2014 13361 CMP 04/07/2014 67712 LIPID PANEL 04/07/2014 3143729 GFR CALC (RESULT ONLY) 04/07/2014 42313 A1C (RML) 04/07/2014 01627 CULTURE URINE 04/08/2014 PODIATRY CARIE KENDRICK 07/10/2014 85415 INR (IN HOUSE) 07/10/2014 J3420 B12 VITAMIN INJECTION 07/10/2014 [id number] Fluoroscopy of Multiple Coronary Arteries using Low Osmolar Contrast 03/01/2015 Results Test Result Range Methicillin resistant Staphylococcus aureus (MRSA) screening culture - 14:15 Methicillin resistant Staphylococcus aureus (MRSA) screening culture NEG NRG Encounters ACCT No. Visit Date/Time Discharge Status Pt. Type Provider Facility Loc./Unit Complaint [id number] 07/10/2014 09:36:00 07/10/2014 23:59:59 CLS Outpatient ZARINA VERGARA MD [id number] 04/06/2014 09:00:00 04/06/2014 23:59:59 CLS Outpatient ZARINA VERGARA MD [id number] 04/06/2014 09:00:00 04/06/2014 23:59:59 CLS Outpatient ZARINA VERGARA MD [id number] 03/02/2014 09:39:00 03/02/2014 23:59:59 CLS Outpatient ZARINA VERGARA MD [id number] 01/28/2014 09:50:00 01/28/2014 23:59:59 CLS Outpatient ZARINA VERGARA MD [id number] 12/31/2013 08:46:00 12/31/2013 23:59:59 CLS Outpatient ZARINA VERGARA MD [id number] 12/01/2013 08:56:00 12/01/2013 23:59:59 CLS Outpatient ZARINA VERGARA MD [id number] 12/01/2013 08:56:00 12/01/2013 23:59:59 CLS Outpatient ZARINA VERGARA MD [id number] 10/31/2013 09:04:00 10/31/2013 23:59:59 CLS Outpatient ZARINA VERGARA MD [id number] 10/01/2013 08:40:00 10/01/2013 23:59:59 CLS Outpatient ZARINA VERGARA MD [id number] 09/02/2013 13:38:00 09/02/2013 23:59:59 CLS Outpatient ZARINA VERGARA MD [id number] 09/02/2013 13:38:00 09/02/2013 23:59:59 CLS Outpatient ZARINA VERGARA MD [id number] 08/01/2013 13:49:00 08/01/2013 23:59:59 CLS Outpatient ZARINA VERGARA MD [id number] 07/02/2013 14:24:00 07/02/2013 23:59:59 CLS Outpatient ZARINA VERGARA MD [id number] 07/02/2013 14:24:00 07/02/2013 23:59:59 CLS Outpatient ZARINA VERGARA MD [id number] 05/12/2013 09:07:00 05/12/2013 23:59:59 CLS Outpatient ZARINA VERGARA MD [id number] 03/12/2013 08:28:00 03/12/2013 23:59:59 CLS Outpatient ZARINA VERGARA MD [id number] 02/10/2013 09:20:00 02/10/2013 23:59:59 CLS Outpatient ZARINA VERGARA MD [id number] 02/10/2013 09:20:00 02/10/2013 23:59:59 CLS Outpatient ZARINA VERGARA MD [id number] 02/06/2013 07:56:00 02/06/2013 23:59:59 CLS Outpatient ZARINA VERGARA MD [id number] 05/26/2013 13:42:00 Document Registration [id number] 02/24/2015 10:48:00 03/15/2015 15:11:00 DIS Inpatient Keenan ROSENBAUM, Jazmine Gómez [id number] 06/02/2015 07:15:00 06/03/2015 11:25:00 DIS Outpatient ILANA LORIN [facility] [address] [place], [place] [address] 06/12/2018 15:40:00 06/12/2018 23:59:59 CLS Outpatient JAI ROSENBAUM, ZARINA Morocho [facility] [address] [id number] 03/22/2018 10:30:37 03/22/2018 23:59:59 DIS Outpatient PAUL ROWELL [facility] RAD Wound [id number] 06/18/2018 13:05:00 06/18/2018 16:18:00 DIS Outpatient DORETHA SIERRA DPM [facility] PREOP OSTEOMYELITIS LEFT FIRST METATARSAL [id number] 06/21/2018 06:00:00 ACT Outpatient DORETHA SIERRA DPM [facility] SDC OSTEOMYELITIS LEFT FIRST METATARSAL
--- OUTSIDE RECORDS SUMMARY | 2018-06-21 06:24 | XMS REPORT ---
Author Author ZARINA VERGARA [facility] eClinicalWorks Address Unknown Phone Unavailable Care Team Providers Care Cra Name Role Phone ZARINA VERGARA CP Unavailable Allergies, Adverse Reactions, Alerts Substance Reaction Event Type Penicillin V Potassium Info Not Available Drug Allergy Problems Problem Type Condition Code Onset Dates Condition Status Problem Unspecified myalgia and myositis 729.1 Active Problem Other vitamin B12 deficiency anemia 281.1 Active Problem Personal history of fall V15.88 Active Problem Other general symptoms 780.99 Active Problem Accidental fall on or from other stairs or steps E880.9 Active Problem Volume depletion, unspecified 276.50 Active Problem Nausea alone 787.02 Active Problem Other and unspecified hyperlipidemia 272.4 Active Problem Ileostomy status V44.2 Active Problem Skin tag L91.8 Active Problem 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 Active Problem Cholecystitis K81.9 Active Problem Other B-complex deficiencies 266.2 Active Problem 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 Active Problem Orthostatic hypotension I95.1 Active Problem GERD (gastroesophageal reflux disease) K21.9 Active Problem Chronic renal failure, stage 3 (moderate) N18.3 Active Problem Urge incontinence N39.41 Active Problem Need for prophylactic vaccination and inoculation, Influenza V04.81 Active Problem Atrial fibrillation 427.31 Active Problem Cholelithiasis K80.20 Active Problem Generalized osteoarthrosis, involving multiple sites 715.09 Active Problem Type 2 diabetes mellitus without complications E11.9 Active Problem Unspecified atrial fibrillation I48.91 Active Problem Bronchitis J40 Active Problem UTI (urinary tract infection) N39.0 Active Problem Diabetes mellitus without mention of complication, type II or unspecified type, not stated as uncontrolled 250.00 Active Problem Pain in joint, shoulder region 719.41 Active Problem Urinary tract infection, site not specified 599.0 Active Problem [place] of foot 700 Active Assessment Type 2 diabetes mellitus without complications E11.9 Active Problem Pain in joint, forearm 719.43 Active Assessment UTI (urinary tract infection) N39.0 Active Problem Macular degeneration (senile) of retina, unspecified 362.50 Active Assessment Chronic renal failure, stage 3 (moderate) N18.3 Active Problem Chronic atrial fibrillation I48.2 Active Assessment Cholelithiasis K80.20 Active Problem Ulcerated, foot L97.509 Active Problem Cellulitis of foot L03.119 Active Problem 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 Active Medications Medication Code System Code Instructions Start Date End Date Status Dosage Simethicone [facility] [address]-81 80 MG Orally 4 times a day PRN not defined Aspir-81 [facility] [address]-85 81 MG Orally Once a day 1 tablet Maalox Regular Strength [facility] [address]-39 200-200-20 MG/5ML Orally Four times a day Apr 08, 2015 10 ml as needed Magnesium Oxide [facility] [address]-94 800 Orally Once a day as directed Multivitamin/Minerals [facility] 0 not defined Bactrim DS [facility] [address]-20 800-160 MG Orally Twice a day July 13, 2015 July 20, 2015 1 tablet Blood Glucose Monitor System [facility] [address]0617-[address]28 w/Device 4 times a day August as directed Omeprazole [facility] [address]-68 40 MG Orally Once a day 1 capsule Metoprolol Tartrate [facility] [address]-04 25 MG 2 times a day Apr 08, 2015 0.5 tablet by mouth Amiodarone HCl [facility] [address]-21 200 MG Orally Once a day 1 tablet Glimepiride [facility] [address]-33 2 MG May 06, 2014 take 1 tablet (2 mg) by oral route once daily Warfarin Sodium [facility] [address]-26 4 MG Orally Once a day except HOLD Sat Apr 08, 2015 1 tablet Procedures Procedure Coding System Code Date Office Visit, Est Pt., Level 3 CPT-4 71823 July 20, 2015 [facility] VISIT ESTABLISHED PATIENT CPT-4 G0467 July 20, 2015 Vital Signs Date/Time: July 20, 2015 Temperature 98.2 F Weight 117.4 lbs Height 65 in BMI 19.53 Index Blood Pressure Diastolic 70 mmHg Blood Pressure Systolic 102 mmHg Cardiac Monitoring Heart Rate 84 bpm Results No Known Results Summary Purpose eClinicalWorks Submission
--- OUTSIDE RECORDS SUMMARY | 2018-06-21 06:24 | XMS REPORT ---
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.01 Active 414798093 Problem Chronic atrial fibrillation I48.2 Active 456755411 Problem Cellulitis of foot L03.119 Active 686203111 Problem Ulcerated, foot L97.509 Active 35745958 Problem 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 Active 08848427 Problem Cholecystitis K81.9 Active 74625335 Problem GERD (gastroesophageal reflux disease) K21.9 Active 229867736 Problem Skin tag L91.8 Active 975800515 Problem Orthostatic hypotension I95.1 Active 59789487 Problem Bronchitis J40 Active 61141767 Problem UTI (urinary tract infection) N39.0 Active 70429282 Problem Unspecified atrial fibrillation I48.91 Active 12907679 Problem Chronic renal failure, stage 3 (moderate) N18.3 Active 13467693 Problem Cholelithiasis K80.20 Active 601712526 Problem Type 2 diabetes mellitus without complications E11.9 Active 748548310 Problem Urge incontinence N39.41 Active 03999330 Problem Wheezing R06.2 Active 18734912 Problem Malignant neoplasm of central portion of right female breast C50.111 Active 97247501 Problem Breast mass N63 Active 77414300 Problem Lung mass R91.8 Active 546174921 Problem Need for prophylactic vaccination and inoculation, Influenza V04.81 Active 501611618 Problem Personal history of fall V15.88 Active 647860251 Problem Ileostomy status V44.2 Active 247921318 Problem Nausea alone 787.02 Active 544251326 Problem Other general symptoms 780.99 Active 576573112 Problem Unspecified myalgia and myositis 729.1 Active 360794476 Problem Subacute vaginitis N76.1 Active 53661446006743576 Problem Accidental fall on or from other stairs or steps E880.9 Active 032383169 Problem Fall, initial encounter W19.XXXA Active 3167711 Problem Vitamin B12 deficiency E53.8 Active 034164269 Problem Other vitamin B12 deficiency anemias D51.8 Active 95746334 Problem Ileostomy status Z93.2 Active 349181124 Problem Falls frequently R29.6 Active 814736634 Problem Seborrheic keratosis L82.1 Active 159168776 Problem 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 Active 066522546 Problem Infected tooth K04.7 Active 457407335 Problem Urinary tract infection, site not specified 599.0 Active 51736962 Problem [facility] (current) use of anticoagulants Z79.01 Active 828472732 Problem Generalized osteoarthrosis, involving multiple sites 715.09 Active 55078256 Problem Inflamed seborrheic keratosis of left cheek L82.0 Active 730047723 Problem Pain in joint, shoulder region 719.41 Active 546669433 Problem Skin cancer C44.90 Active 180246797 Problem Pain in joint, forearm 719.43 Active 163145562 Problem Other and unspecified hyperlipidemia 272.4 Active 44396253 Problem Other B-complex deficiencies 266.2 Active 635435335 Problem Other vitamin B12 deficiency anemia 281.1 Active 31801663 Problem Volume depletion, unspecified 276.50 Active 47186187 Problem Atrial fibrillation 427.31 Active 73887793 Problem Macular degeneration (senile) of retina, unspecified 362.50 Active 879930573 ALLERGIES No Information SOCIAL HISTORY Never Assessed PLAN OF CARE VITAL SIGNS MEDICATIONS Medication Instructions Dosage Frequency Start Date End Date Duration Status Anastrozole 1 MG Orally Once a day 1 tablet 24h Active Warfarin Sodium 4 MG Orally Once a day except HOLD Sat 1 tablet Mar, Active RESULTS No Results PROCEDURES No [...]
[2018-06-21] MEDS ORDERED: CATHETER FLUSH 10 ML SYR IV PRN (06:30)
[2018-06-21] MEDS ORDERED: CLINDAMYCIN 600 MG/50 ML IVPB 50 ML IV ONE (06:30)
[2018-06-21] MEDS ORDERED: LIDOCAINE 1% INJ 20 ML 20 ML VIAL ONE (07:13)
[2018-06-21] MEDS ORDERED: BUPIVACAINE 0.5% 30 ML (SENSORCAINE) VIAL ONE (07:13)
[2018-06-21] MEDS ORDERED: PROPOFOL INJECTION 50 ML IV ONE (07:16)
[2018-06-21] MEDS ORDERED: fentaNYL INJECTION 100 MCG/2 ML AMP ONE (07:17)
[2018-06-21 07:45] VITALS: BP 169/87
--- NOTE | 2018-06-21 07:46 | Progress Note-Pre Operative ---
Pre-Operative Progress Note H&P Reviewed The H&P was reviewed, patient examined and no changes noted. Date Seen by Provider: Jun 21, 2018 Time Seen by Provider: 07:40 Date H&P Reviewed: Jun 21, 2018 Time H&P Reviewed: 07:40 Pre-Operative Diagnosis: Abscess, osteomyelitis left foot DORETHA SIERRA DPM Jun 21, 2018 07:46
[2018-06-21 07:47] LABS: INR 1.3 (0.8-1.4)
[2018-06-21] MEDS ORDERED: LACTATED RINGERS 1,000 ML IV SCH (09:06)
--- NOTE | 2018-06-21 09:06 | Progress Note-Post Operative ---
Post-Operative Progess Note Surgeon (s)/Hydraulic Modeling Engineer (s) Surgeon DORETHA SIERRA DPM Hydraulic Modeling Engineer: none Pre-Operative Diagnosis Abscess, osteomyelitis left foot Post-Operative Diagnosis Abscess left foot Procedure & Operative Findings Date of Procedure 06/21/18 Procedure Performed/Findings Bone biopsy of left 1st metatarsal head, I&D of Abscess left 1st metatarsal head Anesthesia Type MAC Estimated Blood Loss Estimated blood loss (mL): Minimal Specimens/Packing Specimens Removed left 1st metatarsal head, left foot abscess Packin/" packing to the abscess site, left foot DORETHA SIERRA DPM Jun 21, 2018 09:06
[2018-06-21] MEDS ORDERED: ACHD5005 PO (09:08)
[2018-06-21] MEDS ORDERED: HYDROcodone/APAP 5 MG/325 MG (LORTAB) TAB PO PRN (09:15)
[2018-06-21 09:35] VITALS: BP 177/86
--- NOTE | 2018-06-21 09:49 | Anesthesia-General Post-Op ---
MAC Patient Condition Mental Status/LOC: Same as Preop Cardiovascular: Satisfactory Nausea/Vomiting: Absent Respiratory: Satisfactory Pain: Controlled Complications: Absent Post Op Complications Complications None Follow Up Care/Instructions Patient Instructions None needed. Anesthesiology Discharge Order Discharge Order Patient is doing well, no complaints, stable vital signs, no apparent adverse anesthesia problems. No complications reported per nursing. JANE SAINI CRNA Jun 21, 2018 09:49
[2018-06-21 10:05] VITALS: BP 185/85
[2018-06-21 10:35] VITALS: BP 188/91
--- NOTE | 2018-06-21 11:20 | NUR ---
CALLED REPORT TO CRIS ALVARADO AT [facility].
--- NOTE | 2018-06-21 16:12 | OPERATIVE REPORT ---
DATE OF SERVICE: 06/21/2018 SURGEON: Clari Solis DPM. PREOPERATIVE DIAGNOSES: 1. Abscess, left first metatarsal head area. 2. Osteomyelitis, left first metatarsal head. POSTOPERATIVE DIAGNOSIS: Abscess, left first metatarsal head area. PROCEDURE: 1. Bone biopsy left first metatarsal head and medial sesamoid 2. Incision and drainage of deep abscess left foot WOUND CLASS: Contaminated. ANESTHESIA: Monitored anesthesia care. HEMOSTASIS: Pneumatic ankle tourniquet at 250 mmHg. INDICATION: This is an 88-year-old female, who presents with chronic wound to the plantar aspect of the left first metatarsal head area. The wound probed down to bone and x-rays indicated some changes to the first metatarsal head. An MRI was unable to be obtained due to her pacemaker and a CT was performed, but was unequivocal as to any bone infection, but certainly, there was significant amount of arthritic changes and could not rule out osteomyelitis. The patient and family are willing to proceed with an incision and drainage as well as a possible amputation of the left first metatarsal and hallux. No guarantees were extended and they understand that this may not heal very well and she may have to undergo further procedures. DESCRIPTION OF PROCEDURE: The patient was brought back to the operating table, placed in a secure supine position. Appropriate time out was performed. Utilizing aseptic technique, the left first ray was anesthetized utilizing a Gaines block with 1:1 mixture of 1% Xylocaine, 0.5% Marcaine, injected in again the Gaines block with 10 mL utilized in total. The left foot was prepped and draped in a normal sterile manner after a tourniquet was applied to the left lower extremity over the ankle. The left foot was then elevated, allowed to exsanguinate after which the tourniquet was inflated to 250 mmHg. Attention was then directed to the medial aspect of the left first metatarsal head area where a 4 cm longitudinal linear incision was created. The incision was deepened in the same plane with great care to identify and retract all vital neurovascular structures. The incision was deepened down to the capsule where a longitudinal capsulotomy was performed exposing the medial and plantar aspect of the first metatarsal head where a rongeur was utilized to take a bone sample, which was sent for gross and microscopic evaluation. Also, there is some white chalk like material grossly identified to be tophi. This was sent separately for evaluation for possible gout. A small sample of the medial sesamoid was also taken and sent for gross and microscopic evaluation. A small sample was also sent for cultures and sensitivities. This area was then thoroughly cleansed with power wash after which closure was performed in layers. No deep abscess was identified into this medial incision area. No gross signs of necrosis or osteomyelitis at this time. Deep closure was performed with 4-0 Vicryl, superficial with 4-0 Vicryl and skin closure with 4-0 Prolene in horizontal mattress type stitch. There is an 8 mm in diameter wound with granular base that probed from the plantar medial aspect of the left first metatarsal head area that probed dorsally and laterally, approximately a 1.5 cm. This did not go down to bone at this point. A small sample was taken of the granular tissue and sent for gross and microscopic evaluation. Also, a swab culture was taken of this deep abscess area. Once this was done, the power boilermaker industrial boilers was used to flush this particular wound as well. It was then packed with quarter inch packing and sterile dressing applied, which included Betadine soaked Adaptic, sterile 4 x 4, sterile Kerlix, all secured with a Coban wrap. The patient tolerated the anesthesia and procedure well, was transported from the operating room to the recovery area with vital signs stable and vascular status intact to all digits of the left foot. We are going to see the patient back in the office in approximately 2 weeks' period of time or sooner if necessary. She is going to continue with her clindamycin and she was given a prescription for hydrocodone as necessary. Job ID: [id number] DocumentID: [id number] Dictated Date: 06/21/2018 09:15:01 Wet Process [place] Date: 06/21/2018 16:11:57 Dictated By: VANDANA FUCHS
== END 2018-06-21 10:35 | disposition home or self-care (01) ==
LOC: SDC 06:00
PROVIDERS: ATTEND Podiatrist Foot & Ankle Surgery
DX: L02.612 Cutaneous abscess of left foot (principal); E11.69 Type 2 diabetes mellitus with other specified complication; M86.271 Subacute osteomyelitis, right ankle and foot; I10 Essential (primary) hypertension; I25.10 Atherosclerotic heart disease of native coronary artery without angina pectoris; I48.1 Persistent atrial fibrillation; D51.8 Other vitamin B12 deficiency anemias; Z79.01 Long term (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; Z79.899 Other long term (current) drug therapy; Z95.810 Presence of automatic (implantable) cardiac defibrillator
CPT/HCPCS: 36415; 82962; 85610; 87070; 87075; 87076; 87077; 87101; 87186; 87205